=== PATIENT | female | born 1955 | race Caucasian/White ===

== ENCOUNTER → 2019-11-03 10:55 | Outpatient (BNVA) | payer BC, SELFPAY | PROVIDERS: Family Provider Family Medicine; PCP Family Medicine; Visit Provider Urology | DX: N32.81 Overactive bladder (principal); N39.41 Urge incontinence | CPT/HCPCS: 81001 ==

== ENCOUNTER → 2020-04-04 10:43 | Outpatient (BNVA) | payer BC, SELFPAY | PROVIDERS: Family Provider Family Medicine; PCP Family Medicine; Visit Provider Urology | DX: N39.41 Urge incontinence (principal); R35.8 Other polyuria | CPT/HCPCS: 81001 ==

== ENCOUNTER 2020-07-29 15:19 | Outpatient (CLI) | payer BC, SELFPAY ==
--- NOTE | 2020-07-29 | XR_ITS ---
WS: [id number] Cervical spine, AP, odontoid, lateral and neutral, flexion and extension views, 07/29/2020 Clinical Data: ARTHRALGIA AND NECK PAIN Comparison: Lateral cervical spine, 02/10/2013. Findings: No compression fractures are seen. The disc heights are normal. There is no prevertebral so ft tissue swelling. The odontoid is unremarkable. The soft tissues of the neck and the lung apices ar e normal. There is minimal osteoarthritic change of the anterior inferior aspect of C4, C5 and C6. On flexion there is mild subluxation of C2 on C3, C3 on C4, C4 on C5 and C5 on C6 of 0.3 cm. On extensi on or subluxations are reduced. There is no limitation of motion on flexion or extension. XR/XR cervical spine 4-5V [id number] Impression: 1. 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 2. Minimal multilevel flexion subluxation which reduces on extension.
== END 2020-07-29 15:20 | disposition home or self-care (01) ==
LOC: RAD 15:30
PROVIDERS: PCP Family Medicine; Visit Provider Family Medicine
DX: M54.2 Cervicalgia (principal); M25.50 Pain in unspecified joint
CPT/HCPCS: 72050

== ENCOUNTER 2020-08-22 15:14 | Outpatient (CLI) | payer MEDICARE, SELFPAY ==
--- NOTE | 2020-08-22 15:23 | MM_ITS ---
WS: [id number] SCREENING DIGITAL MAMMOGRAM WITH CAD HISTORY: SCREENING COMPARISON: 02/18/2019 and 07/09/2017 Bilateral CC and MLO views submitted. Computer aided detection analyzed. Breast composition: There are scattered areas of fibroglandular density. No suspicious masses, microc alcifications or architectural distortion. Benign calcifications in each breast. MM/[place] [id number] IMPRESSION: BI-RADS: 2-Benign FOLLOW UP: 1 Year Follow-up
== END 2020-08-22 15:15 | disposition home or self-care (01) ==
LOC: RADSHAW 15:22
PROVIDERS: PCP Family Medicine; Visit Provider Family Medicine
DX: Z12.31 Encounter for screening mammogram for malignant neoplasm of breast (principal)
CPT/HCPCS: 77067

== ENCOUNTER → 2020-10-03 11:01 | Outpatient (BNVA) | payer BC, SELFPAY | PROVIDERS: PCP Family Medicine; Visit Provider Nurse Practitioner Family | DX: N39.41 Urge incontinence (principal) | CPT/HCPCS: 81003 ==

== ENCOUNTER 2021-02-20 15:23 | Outpatient (CLI) | payer BC, SELFPAY ==
--- NOTE | 2021-02-20 15:35 | XR_ITS ---
WS: [id number] SCREENING DEXA SCAN [facility] CLINICAL INFORMATION: WELL ADULT EXAM, ARTHRITIS COMPARISON: None. FINDINGS: The L1-L4 bone mineral density measures 1.015 g/cm2. This corresponds to a T score score of -1.4 and Z score of 0.3. Left femoral neck bone mineral density measures 0.968 g/cm2. This corresponds to a T score of -0.3 an d Z score of 1.0. Right femoral neck bone mineral density measures 0.903 g/cm2. This corresponds to a T score -0.8of an d Z score of 0.5. Mean femoral neck bone mineral density measures 0.935 g/cm2. This corresponds to a T score of -0.6 an d Z score of 0.7. XR/XR DEXA axial skeleton* [id number] IMPRESSION: Osteopenia in the lumbar spine. Normal bone mineralization in the femoral necks . Patient's FRAX calculated 10 year probability for major osteoporotic fracture i s 10.8 % and osteoporotic hip fracture is 1.2%.
== END 2021-02-20 15:24 | disposition home or self-care (01) ==
PROVIDERS: PCP Family Medicine; Visit Provider Family Medicine
DX: Z00.00 Encounter for general adult medical examination without abnormal findings (principal); M19.90 Unspecified osteoarthritis, unspecified site; M85.88 Other specified disorders of bone density and structure, other site
CPT/HCPCS: 77080

== ENCOUNTER → 2021-06-12 11:13 | Outpatient (BNVA) | payer BC, SELFPAY | PROVIDERS: PCP Family Medicine; Visit Provider Urology | DX: N39.41 Urge incontinence (principal) | CPT/HCPCS: 81003 ==

== ENCOUNTER 2021-08-28 13:05 | Outpatient (CLI) | payer MEDICARE, SELFPAY ==
--- NOTE | 2021-08-28 13:24 | MM_ITS ---
WS: [id number] BILATERAL DIGITAL SCREENING MAMMOGRAPHY WITH CAD CLINICAL INFORMATION: SCREENING HISTORY: Screening mammogram. No current complaints. COMPARISON: August 22, 2020 TECHNIQUE: Bilateral CC and MLO views. FINDINGS: Scattered fibroglandular densities bilaterally. No suspicious focal mass, asymmetry, calcifications, or architectural distortion. Vascular calcification. Stable lucent centered calcification right breas t. No evidence of malignancy. MM/[place] [id number] IMPRESSION: BI-RADS: 2-Benign FOLLOW UP: 1 Year Follow-up Recommend return to annual screening mammography.
== END 2021-08-28 13:06 | disposition home or self-care (01) ==
LOC: RADSHAW 13:13
PROVIDERS: PCP Family Medicine; Visit Provider Family Medicine
DX: Z12.31 Encounter for screening mammogram for malignant neoplasm of breast (principal)
CPT/HCPCS: 77067

== ENCOUNTER → 2022-03-07 15:32 | Outpatient (BNVA) | payer MEDICARE, SELFPAY | PROVIDERS: PCP Family Medicine; Visit Provider Family Medicine | DX: R53.1 Weakness (principal); R10.9 Unspecified abdominal pain; K64.9 Unspecified hemorrhoids; K92.1 Melena; R53.83 Other fatigue; M19.90 Unspecified osteoarthritis, unspecified site; E55.9 Vitamin D deficiency, unspecified | CPT/HCPCS: 80053; 82306; 82607; 82728; 83550; 84443; 85025; 85045; 85651; 86140 ==

== ENCOUNTER → 2022-04-10 08:50 | Outpatient (BNVA) | payer MEDICARE, SELFPAY | PROVIDERS: PCP Family Medicine; Visit Provider Family Medicine | DX: Z20.822 Contact with and (suspected) exposure to COVID-19 (principal) | CPT/HCPCS: 87426 ==

== ENCOUNTER 2022-04-23 13:43 | Outpatient (CLI) | payer MEDICARE, SELFPAY ==
--- NOTE | 2022-04-23 13:50 | CTR_ITS ---
PROCEDURE INFORMATION: Exam: CT Abdomen And Pelvis With Contrast Exam date and time: 04/23/2022 3:00 PM Age: 67 years old Clinical indication: Abdominal pain; Generalized; Prior surgery; Surgery type: Hyst; Additional info: Weakness/generalized abdominal pain/rectal bleeding TECHNIQUE: Imaging protocol: Computed tomography of the abdomen and pelvis with contrast. Radiation optimization: All CT scans at this facility use at least one of these dose optimization techniques: automated exposure control; mA and/or kV adjustment per patient size (includes targeted exams where dose is matched to clinical indication); or iterative reconstruction. Contrast material: OMNI 350; Contrast volume: 95 ml; Contrast route: INTRAVENOUS (IV); COMPARISON: CT abdomen pelvis w con* [id number] 06/12/2019 10:50 AM RADIATION DOSE METRICS: Total DLP (mGy-cm): 869.72 FINDINGS: Liver: Normal. No mass. Gallbladder and bile ducts: Normal. No calcified stones. No ductal dilation. Pancreas: Normal. No ductal dilation. Spleen: Normal. No splenomegaly. Adrenal glands: Normal. No mass. Kidneys and ureters: Normal. No hydronephrosis. Stomach and bowel: Constipation. Diverticulosis without diverticulitis. Appendix: No evidence of appendicitis. Intraperitoneal space: Unremarkable. No free air. No significant fluid collection. Vasculature: Unremarkable. No abdominal aortic aneurysm. Lymph nodes: Unremarkable. No enlarged lymph nodes. Urinary bladder: Unremarkable as visualized. Reproductive: Unremarkable as visualized. Bones/joints: Unremarkable. No acute fracture. Soft tissues: Unremarkable. CT/CT abdomen pelvis w con* [id number] IMPRESSION: 1. Negative for contrast extravasation seen to indicate a source of active rectal bleeding as in provided history. Negative for acute inflammatory process in the abdomen or pelvis. 2. Constipation. 3. Diverticulosis without diverticulitis.
[2022-04-23] MEDS: barium sulfate 450 mL Oral Susp PO (14:29)
[2022-04-23] MEDS: iohexol 350 mg/mL 100 mL Btl IV (15:05)
== END 2022-04-23 13:44 | disposition home or self-care (01) ==
LOC: RAD 13:44
PROVIDERS: PCP Family Medicine; Visit Provider Family Medicine
DX: R53.1 Weakness (principal); R10.84 Generalized abdominal pain; K62.5 Hemorrhage of anus and rectum; K59.00 Constipation, unspecified; K57.90 Diverticulosis of intestine, part unspecified, without perforation or abscess without bleeding
CPT/HCPCS: 74177

== ENCOUNTER 2022-08-02 18:55 | Emergency (ER) | payer MEDICARE, SELFPAY ==
[2022-08-02 19:40] VITALS: BP 135/84; PULSE 92; RESP 18; TEMP 36.7; O2SAT 97
--- NOTE | 2022-08-02 21:12 | XRR_ITS ---
PROCEDURE INFORMATION: Exam: XR Left Ankle Exam date and time: 08/02/2022 9:39 PM Age: 67 years old Clinical indication: Pain; Ankle; Left; Additional info: Fall with pain and bruising TECHNIQUE: Imaging protocol: Radiologic exam of the Left ankle. Views: 3 or more views. COMPARISON: No relevant prior studies available. FINDINGS: Bones/joints: Punctate calcification at the fibular tip may reflect a small avulsion fracture. Soft tissues: Soft tissue swelling about the ankle. XR/XR ankle LT min 3V* [id number] IMPRESSION: 1. Soft tissue swelling about the ankle. 2. Punctate calcification at the fibular tip may reflect a small avulsion fracture.
--- NOTE | 2022-08-02 21:12 | XRR_ITS ---
PROCEDURE INFORMATION: Exam: XR Left Hip Exam date and time: 08/02/2022 9:39 PM Age: 67 years old Clinical indication: Pelvic pain; Additional info: Fall with pain and bruising TECHNIQUE: Imaging protocol: Radiologic exam of the Left hip. Views: 2 or 3 views hip with pelvis when performed. COMPARISON: CT abdomen pelvis w con* [id number] 04/23/2022 3:00 PM FINDINGS: Bones/joints: Unremarkable. No acute fracture. Soft tissues: Unremarkable. XR/XR hip LT 2-3V wo/w pel* [id number] IMPRESSION: No acute findings. If clinical concern for acute fracture remains, consider further evaluation with a CT scan .
--- NOTE | 2022-08-02 21:13 | ED_ITS ---
HPI - Fall General: Chief Complaint: Fall Stated Complaint: fall yesterday left side pain work comp Time Seen by Provider: 08/02/22 20:46 History of Present Illness: Patient reports that yesterday she was going down the steps at her work and missed the third step from the bottom. She reports that she fell and the left side of her body took the brunt of it. She denies hitting her head. She denies loss of consciousness. She has pain in her left shoulder, left hip, left ankle. She is ambulating without the aid of a walker. Associated symptoms-after fall: Reports neck pain; Denies chest pain, difficulty walking or headache(s) Review of Systems Const: Denies: fever(s) or chills Card: Denies: chest pain or palpitations Resp: Denies: dyspnea or non-productive cough Musc: Reports: neck pain, extremity pain and joint pain Neuro: Denies: headache(s), numbness in extremities, weakness in extremities, sensory changes, lack of coordination or difficulty walking [facility] ED PFSH: Medical History Polyuria POP-Q stage 2 cystocele Urgency incontinence Surgical History History of hysterectomy Hx of cataract surgery BILATERAL Family History Other CAD (coronary artery disease) Cancer Hypertension Social History Smoking and tobacco status: never smoked Alcohol intake: unknown Adopted: No Caregiver/support person: No Lives independently: Yes Marital status: Current occupational status: retired History of recent travel: No Current gender identity: Female Physical Exam Const: COMMON NORMALS: no acute distress, patient oriented x3 and alert Neck/C-Spine: OTHER: There is no tenderness to palpation to the cervical spine. No obvious bony deformity or step-off. No obvious soft tissue deformity. There is some tenderness to palpation left cervical paraspinal musculature. Patient does have full range of motion of the neck although it hurts to turn her head to the right Resp: COMMON NORMALS: normal respiratory effort, No use of accessory muscles and clear to auscultation bilaterally AUSCULTATION: clear to auscultation bilaterally Cardio: COMMON NORMALS: regular rate, regular rhythm, S1 normal heart sound present, S2 normal heart sound present and No murmurs present (Cardio) RATE: regular rate RHYTHM: regular rhythm HEART SOUNDS: S1 normal heart sound present and S2 normal heart sound present Back/Pelvis: OTHER: There is no vertebral point tenderness lumbar or thoracic spine. No obvious bony deformities or step-offs. Extremity: NARRATIVE EXTREMITY EXAM: Patient reports some tenderness to palpation to the left anterior shoulder. She has full range of motion of the left arm and shoulder. She has lateral and frontal abduction above shoulder height. She has posterior reach. No bruising or bony deformities appreciated. Patient reports pain to her left hip. Left lateral hip there is bruising noted no obvious bony deformity. Patient is ambulating with a steady gait. Left ankle is swollen and bruised along the dorsal lateral foot and lateral malleolus. There is no obvious bony deformity. Patient is slightly point tender to the lateral malleolus. CSM within normal limits with the exception of bruising. Pedal pulses palpable Neuro: COMMON NORMALS: patient oriented x3 SENSORIUM/ORIENTATION: Yes alert Course Vital Signs: Vital signs: Vital Signs Temperature 98.0 F 08/02/22 19:40 Pulse Rate 92 08/02/22 19:40 Respiratory Rate 18 08/02/22 19:40 Blood Pressure 135/84 08/02/22 19:40 Pulse Oximetry 97 08/02/22 19:40 Oxygen Delivery Me thod 08/02/22 19:40 MDM - Fall Medical Decision Making Consider contusion, fracture ankle, ankle sprain, hip contusion, hip fracture, shoulder contusion. I advised the patient that I do not have any suspicion for fracture of her shoulder or upper arm given her exam findings and full range of motion. I will go ahead and x-rayed the hip given her age and mechanism of injury however I do suspect a hip contusion over a fracture. Left ankle has bruising and swelling x-ray is ordered. X-ray shows a punctate calcification at the fibular tip which could reflect a small avulsion fracture. Given patient's bruising and point tenderness at the lateral lateral malleolus I will go ahead and treat as if this is an avulsion fracture. Placed patient in a walking boot. She declines crutches against my better judgment. We discussed the risk of fall and that clunky boot without using crutches however she states that she will not be able to use those at all at her place of employment. Place an order for case management to follow-up with orthopedics. Advised patient of conservative treatment at home including ice, rest, elevation of the extremity. X-ray of the hip did not show any acute fracture. Patient is bearing weight on the leg I have very little concern for osseous abnormality of the hip. We will treat conservatively for hip contusion. Follow-up with primary care. Return to the ER for any new or worsening symptoms. Lab Data Radiology Impressions Ankle X-Ray 08/02/22 21:12 IMPRESSION: 1. Soft tissue swelling about the ankle. 2. Punctate calcification at the fibular tip may reflect a small avulsion fracture. Hip/Pelvis X-Ray 08/02/22 21:12 IMPRESSION: No acute findings. If clinical concern for acute fracture remains, consider further evaluation with a CT scan . Discharge Plan Discharge Patient Disposition: Home Clinical Impression: Fall (on) (from) other stairs and steps, initial encounter, Avulsion fracture of distal fibula, Contusion of hip, left Condition: Stable Prescriptions: No Action Complete Multivitamin Tablet 1 tab PO DAILY amoxicillin 875 mg tablet 875 mg PO BID Qty: 20 0RF alprazolam 0.25 mg tablet 0.25 mg PO TID PRN (Reason: anxiety/stress) Qty: 30 1RF oxybutynin chloride 5 mg tablet 5 mg PO TID Qty: 90 3RF Myrbetriq 25 mg tablet extended release 24 hr See Rx Instructions .ROUTE .COMPLEX Qty: 30 11RF Dose Instruction: TAKE 1 TABLET BY MOUTH DAILY FOR OVERACTIVE BLADDER Rx Instructions: TAKE 1 TABLET BY MOUTH DAILY FOR OVERACTIVE BLADDER Discharge Orders: Discharge ED (Routine); Ordered 08/02/22 Ordered By: Eli Todd Referrals: West Colon DO [Primary Care Provider] - Discharge Diet: Usual diet Discharge Activity: Limit activity as instructed Patient Instructions: Avulsion Fracture (ED) Activity Restrictions/Additional Instructions: Use walking boot and try and limit weightbearing on the left leg until follow-up with orthopedics. Ice, rest, elevate the extremity. Follow-up with primary care as needed. Return to the ER for new or worsening symptoms. 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
--- NOTE | 2022-08-03 00:32 | PC.NURSE ---
patient needs charge for tomasz walking boot.
--- NOTE | 2022-08-03 09:00 | PC.SOCIAL ---
Addendum entered by Merle Haywood 08/16/22 12:15: Patient had a follow up appointment scheduled for 08.07.[address] Casas at ortho - patient did attend appointment. Original Note: Ortho F/u Referral sent to ortho scheduling, clinic to contact patient with appt date/time.
== END 2022-08-03 00:15 | disposition home or self-care (01) ==
PROVIDERS: Emergency Provider Nurse Practitioner Family; PCP Family Medicine
DX: S70.02XA Contusion of left hip, initial encounter (principal); S82.832A Other fracture of upper and lower end of left fibula, initial encounter for closed fracture; W10.8XXA Fall (on) (from) other stairs and steps, initial encounter; Y99.0 Civilian activity done for income or pay
CPT/HCPCS: 73502; 73610; 99283; E0114; L4360

== ENCOUNTER 2022-08-29 14:53 | Outpatient (CLI) | payer MEDICARE, SELFPAY ==
--- NOTE | 2022-08-29 15:07 | MM_ITS ---
WS: [id number] BILATERAL 3D TOMOSYNTHESIS DIGITAL SCREENING MAMMOGRAPHY WITH CAD CLINICAL INFORMATION: SCREENING HISTORY: Screening mammogram. Pain and soreness RIGHT breast COMPARISON: August 28, 2021 TECHNIQUE: Bilateral CC and MLO views. FINDINGS: Scattered fibroglandular densities bilaterally. No suspicious focal mass, asymmetry, calcifications, or architectural distortion. No evidence of malignancy. Vascular calcification. Lucent centered calci fication RIGHT breast. MM/[place] [id number] IMPRESSION: BI-RADS: 2-Benign FOLLOW UP: 1 Year Follow-up Recommend return to annual screening mammography.
== END 2022-08-29 14:54 | disposition home or self-care (01) ==
LOC: RAD 14:59
PROVIDERS: PCP Family Medicine; Visit Provider Family Medicine
DX: Z12.31 Encounter for screening mammogram for malignant neoplasm of breast (principal)
CPT/HCPCS: 77063; 77067

== ENCOUNTER → 2022-08-31 10:26 | Outpatient (BNVA) | payer MEDICARE, SELFPAY | PROVIDERS: PCP Family Medicine; Visit Provider Family Medicine | DX: Z00.00 Encounter for general adult medical examination without abnormal findings (principal); Z13.6 Encounter for screening for cardiovascular disorders; R10.9 Unspecified abdominal pain; K62.5 Hemorrhage of anus and rectum; R53.1 Weakness | CPT/HCPCS: 80053; 80061; 83540; 85651 ==

== ENCOUNTER → 2022-12-31 13:24 | Outpatient (BNVA) | payer MEDICARE, SELFPAY | PROVIDERS: PCP Family Medicine; Visit Provider Family Medicine | DX: R60.9 Edema, unspecified (principal); B88.9 Infestation, unspecified; N32.81 Overactive bladder | CPT/HCPCS: 80053; 84443; 85025 ==

== ENCOUNTER → 2023-02-25 18:20 | Outpatient (BNVA) | payer MEDICARE, SELFPAY | PROVIDERS: PCP Family Medicine; Visit Provider Registered Nurse Neonatal Intensive Care | DX: R05.9 Cough, unspecified (principal) | CPT/HCPCS: 87426 ==

== ENCOUNTER 2023-05-17 15:12 | Outpatient (CLI) | payer MEDICARE, SELFPAY ==
[2023-05-17 15:59] LABS: Basophils % 0.4 %; Eosinophils # 0.1 10^3/uL (0.0-0.8); Eosinophils % 0.7 %; Hematocrit 35.7 % (36-47); Lymphocytes # 2.1 10^3/uL (0.8-4.8); Lymphocytes % 30.2 %; Mean Corpuscular HGB Conc 34.2 g/dL (30-55); Mean Corpuscular Hemoglobin 33.8 pg (27-33); Mean Corpuscular Volume 98.9 fl (85-98); Mean Platelet Volume 10.5 fL (7.4-10.4); Monocytes # 0.4 10^3/uL (0.2-0.9); Monocytes % 6.2 %; Neutrophils # 4.23 10^3/uL (1.8-7.7); Neutrophils % 62.4 %; Nucleated Red Blood Cells % 0 %; Platelet Count 218 10^3/cmm (157-399); Red Blood Count 3.61 10^6/uL (3.85-5.65); Red Cell Distribution Width 13.9 % (12.1-15.1); White Blood Count 6.79 10^3/uL (3.29-11.43)
[2023-05-17 16:21] LABS: Estmated Average Glucose 111; Hemoglobin A1C 5.5 % (4.0-6.0)
[2023-05-17 16:29] LABS: Alanine Aminotransferase 12 U/L (0-33); Albumin Level 4.2 g/dL (3.5-5.2); Alkaline Phosphatase 55 U/L (35-105); Anion Gap 10.4 (5-19); Aspartate Amino Transferase 12 U/L (0-32); Blood Urea Nitrogen 15 mg/dL (8-23); Calcium 9.5 mg/dL (8.5-10.5); Carbon Dioxide 30 mmol/L (22-29); Chloride 107 mmol/L (98-107); Chol HDL Ratio 2.83 mg/dL (0.0-4.40); Cholesterol 204 mg/dL (0-200); Globulin 2.7 g/dL (1.3-4.6); Glomerular Filtration Rate 71.3 mL/min (90-130); Glucose 128 mg/dL (65-115); HDL Cholesterol 72 mg/dL (60-100); LDL Cholesterol Calculated 116 mg/dL (50-129); LDL HDL Ratio 1.61 RATIO (0.00-3.22); Osmolality Calculated 298 mOsm/kg (285-295); Potassium 4.4 mmol/L (3.5-5.1); Sodium 143 mmol/L (136-145); Total Bilirubin 0.4 mg/dL (0.15-1.2); Total Protein 6.9 g/dL (6.6-8.7); Triglycerides 78 mg/dL (0-150)
[2023-05-17 16:45] LABS: Vitamin B12 440 pg/mL (232-1245)
[2023-05-22 12:19] LABS: Vit D 1,25 (Oh)2, Total 38 pg/mL (18-72); Vit D2 1,25 (Oh)2 <8 pg/mL; Vit D3 1,25 (Oh)2 38 pg/mL
== END 2023-05-17 15:13 | disposition home or self-care (01) ==
PROVIDERS: PCP Family Medicine; Visit Provider Family Medicine
DX: Z00.00 Encounter for general adult medical examination without abnormal findings (principal); Z13.1 Encounter for screening for diabetes mellitus; Z13.6 Encounter for screening for cardiovascular disorders; R60.9 Edema, unspecified; R26.89 Other abnormalities of gait and mobility; F43.9 Reaction to severe stress, unspecified; E55.9 Vitamin D deficiency, unspecified
CPT/HCPCS: 36415; 80053; 80061; 82607; 82652; 83036; 85025

== ENCOUNTER 2023-06-03 14:00 | Outpatient (CLI) | payer MEDICARE, SELFPAY ==
--- NOTE | 2023-06-03 14:30 | XR_ITS ---
WS: [id number] SCREENING DEXA SCAN [employer] CLINICAL INFORMATION: Z13.820 - Encounter for screening for osteoporosis COMPARISON: 02/20/2021 FINDINGS: The L1-L4 bone mineral density measures 1.0. This corresponds to a T score score of -1.3 and Z score of 0.8. Left femoral neck bone mineral density measures 0.9. This corresponds to a T score of -0.9 and Z scor e of 0.8. Right femoral neck bone mineral density measures 0.8. This corresponds to a T score -1.4of and Z scor e of 0.3. Mean femoral neck bone mineral density measures 0.9. This corresponds to a T score of -1.1 and Z scor e of 0.6. IMPRESSION: Osteopenia lumbar spine. Osteopenia femoral necks. Patient's FRAX calculated 10 year probability for major osteoporotic fracture is 12.3% and osteoporot ic hip fracture is 2.1%. Bone mineral density in the lumbar spine increased 1.3% since 2020 Bone mineral density in the femoral necks decreased -7.3% since 2020
== END 2023-06-03 14:01 | disposition home or self-care (01) ==
PROVIDERS: PCP Family Medicine; Visit Provider Family Medicine
DX: Z00.00 Encounter for general adult medical examination without abnormal findings (principal); M85.89 Other specified disorders of bone density and structure, multiple sites; Z13.820 Encounter for screening for osteoporosis
CPT/HCPCS: 77080

== ENCOUNTER → 2023-06-10 13:25 | Outpatient (BNVA) | payer MEDICARE, SELFPAY | PROVIDERS: PCP Family Medicine; Visit Provider Family Medicine | DX: D53.9 Nutritional anemia, unspecified (principal); R26.89 Other abnormalities of gait and mobility; N32.81 Overactive bladder; B88.9 Infestation, unspecified; Z00.00 Encounter for general adult medical examination without abnormal findings; E03.9 Hypothyroidism, unspecified | CPT/HCPCS: 84443; 85025 ==

== ENCOUNTER → 2023-06-14 10:44 | Outpatient (BNVA) | payer MEDICARE, SELFPAY | PROVIDERS: PCP Family Medicine; Visit Provider Family Medicine | DX: D53.9 Nutritional anemia, unspecified (principal); Z00.00 Encounter for general adult medical examination without abnormal findings | CPT/HCPCS: 82746 ==

== ENCOUNTER 2023-06-17 15:08 | Outpatient (CLI) | payer MEDICARE, SELFPAY ==
--- NOTE | 2023-06-17 15:15 | MR_ITS ---
WS: [id number] MRI BRAIN WITH AND WITHOUT CONTRAST HISTORY: R26.89 - Other abnormalities of gait and mobility COMPARISON: None available. TECHNIQUE: Multiplanar imaging performed through the brain with MultiHance 10 ml's IV. No acute infarcts are seen. Beckham-white matter differentiation is well preserved. There is a focal are a of increased T1 signal in the RIGHT caudate. On the postcontrast images there is questionable incre ased enhancement of this T1 bright lesion. This area of abnormality measures 7 x 3 x 11 mm. Abnormali ty involves the caudate body and extends to the RIGHT ventricle. Additional moderate small vessel isc hemic changes throughout the periventricular white matter extending to the subcortical white matter a nd is diffuse. Ventricles and extra-axial spaces are normal. Clivus and pituitary gland are normal. Visualized posterior fossa and brainstem are also normal. No additional areas of abnormal enhancement. Dural venous sinuses are normal. Paranasal sinuses: Well aerated with no significant disease. Mastoid air cells: Normal. Calvarium and scalp: Normal. IMPRESSION: 1. Normal diffusion imaging. 2. T1 high signal intensity 7 x 3 x 11 mm lesion in the RIGHT caudate. There may be slight enhanceme nt on the postcontrast imaging. No hemorrhage. This will need surveillance imaging. Differential for high signal intensity T1 lesions include methemoglobin, melanin, lipid/dermoid, protein and minerals. No hemorrhage is evident. Recommend noncontrast head CT to evaluate for calcification or mineral con tent. Additional 6 to 8-week follow-up MRI brain with and without contrast should also be obtained. 3. Moderate small vessel ischemic disease.
[2023-06-17] MEDS: gadobenate dimeglumine 20 mL vial IV (16:41)
== END 2023-06-17 15:09 | disposition home or self-care (01) ==
PROVIDERS: PCP Family Medicine; Visit Provider Family Medicine
DX: F43.9 Reaction to severe stress, unspecified (principal); R26.89 Other abnormalities of gait and mobility; R60.9 Edema, unspecified; Z00.00 Encounter for general adult medical examination without abnormal findings
CPT/HCPCS: 70553; A9577

== ENCOUNTER 2023-06-27 09:47 | Emergency (ER) | payer MEDICARE, SELFPAY ==
[2023-06-27] VITALS (11 sets, daily range): BP systolic 122–174; BP diastolic 69–97; PULSE 74–92; RESP 16–18; TEMP 36.8; O2SAT 92–97
--- NOTE | 2023-06-27 09:51 | ECG_ITS ---
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 Measurements Intervals [place] Rate: 96 P: 64 AL: 140 QRS: 61 QRSD: 84 T: 52 QT: 321 QTc: 406 Interpretive Statements SINUS RHYTHM Compared to ECG 06/14/2019 22:23:29 Sinus arrhythmia no longer present T-wave abnormality no longer present Electronically Signed On 06-27-2023 21:32:26 CDT by Erin Flores M.D. [email or web address]
--- NOTE | 2023-06-27 09:51 | XRR_ITS ---
PROCEDURE INFORMATION: Exam: XR Chest Exam date and time: 06/27/2023 10:15 AM Age: 68 years old Clinical indication: Cough and dyspnea; Patient HX: Dyspnea/cough, anxiety/ams TECHNIQUE: Imaging protocol: Radiologic exam of the chest. Views: 1 view. Total images: 2 COMPARISON: CR XR chest 1V [id number] 06/14/2019 6:56 PM FINDINGS: Lungs: Benign granulomatous disease of the lung is noted. Pleural spaces: Unremarkable. No pleural effusion. No pneumothorax. Heart/Mediastinum: Unremarkable. No cardiomegaly. Bones/joints: Osseous structures are unchanged from the prior exam. XR/XR chest 1V portable [id number] IMPRESSION: No acute cardiopulmonary process.
--- NOTE | 2023-06-27 09:51 | CTR_ITS ---
PROCEDURE INFORMATION: Exam: CT Head Without Contrast Exam date and time: 06/27/2023 10:30 AM Age: 68 years old Clinical indication: Altered mental status/memory loss; Confusion or disorientation; Additional info: AMS TECHNIQUE: Imaging protocol: Computed tomography of the head without contrast. Total images: 1334 Radiation optimization: All CT scans at this facility use at least one of these dose optimization techniques: automated exposure control; mA and/or kV adjustment per patient size (includes targeted exams where dose is matched to clinical indication); or iterative reconstruction. REPORTING DATA: Count of CT and Cardiac NM exams in prior 12 months: This patient has received 0 known CTs and 0 known cardiac nuclear medicine studies in the 12 months prior to the current study. COMPARISON: MR head wo/w con [id number] 06/17/2023 4:09 PM RADIATION DOSE METRICS: Total DLP (mGy-cm): 987.84 FINDINGS: Brain: Chronic white matter ischemic changes are present. Cerebral ventricles: No ventriculomegaly. Paranasal sinuses: Visualized sinuses are unremarkable. No fluid levels. Mastoid air cells: Visualized mastoid air cells are well aerated. Bones/joints: Unremarkable. No acute fracture. Soft tissues: Unremarkable. CT/CT head wo con* [id number] IMPRESSION: No acute intracranial abnormality.
[2023-06-27 10:07] LABS: Basophils % 0.3 %; Eosinophils % 0.2 %; Hematocrit 37.4 % (36-47); Lymphocytes # 1.6 10^3/uL (0.8-4.8); Lymphocytes % 27.8 %; Mean Corpuscular HGB Conc 34.8 g/dL (30-55); Mean Corpuscular Hemoglobin 33.9 pg (27-33); Mean Corpuscular Volume 97.4 fl (85-98); Mean Platelet Volume 10.3 fL (7.4-10.4); Monocytes # 0.4 10^3/uL (0.2-0.9); Monocytes % 7.3 %; Neutrophils # 3.78 10^3/uL (1.8-7.7); Neutrophils % 64.4 %; Nucleated Red Blood Cells % 0 %; Platelet Count 214 10^3/cmm (157-399); Red Blood Count 3.84 10^6/uL (3.85-5.65); Red Cell Distribution Width 13.2 % (12.1-15.1); White Blood Count 5.87 10^3/uL (3.29-11.43)
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
[2023-06-27 10:33] LABS: Alanine Aminotransferase 15 U/L (0-33); Albumin Level 4.5 g/dL (3.5-5.2); Alkaline Phosphatase 56 U/L (35-105); Aspartate Amino Transferase 14 U/L (0-32); Blood Urea Nitrogen 8 mg/dL (8-23); Calcium 9.9 mg/dL (8.5-10.5); Carbon Dioxide 28 mmol/L (22-29); Chloride 105 mmol/L (98-107); Globulin 2.6 g/dL (1.3-4.6); Glomerular Filtration Rate 83.2 mL/min (90-130); Glucose 112 mg/dL (65-115); Osmolality Calculated 293 mOsm/kg (285-295); Sodium 142 mmol/L (136-145); Total Bilirubin 0.6 mg/dL (0.15-1.2); Total Protein 7.1 g/dL (6.6-8.7)
[2023-06-27 10:34] LABS: Troponin(5th) Baseline 11 ng/L (0-10)
--- NOTE | 2023-06-27 10:46 | PC.NURSE ---
Pt expressed thoughts of SI to charge nurse - per Dr Nguyen, pt lacks the mental capacity as she has dementia.
--- NOTE | 2023-06-27 10:49 | PC.NURSE ---
Pt attempted to void a urine sample - pt missed the hat.
[2023-06-27] MEDS: LORazepam 1 mg Tablet PO (10:52)
--- NOTE | 2023-06-27 11:28 | PC.NURSE ---
PHYSICIAN NOTIFIED OF PT SI ASSESSMENT FINDINGS. PHYSICIAN STATED WE WILL NOT PURSUE PSYCHIATRIC CARE AT THIS TIME. DUE TO PT MENTAL CAPACITY.
--- NOTE | 2023-06-27 11:59 | ECG_ITS ---
[facility] Test Date: 2023-06-27 Pat Name: Laurie Rogers Department: Room: Gender: Female Digital Media Intern: : 1955 Requested By: Jagjit Mike Order Number: [id number] Caroline MD: Erin Flores M.D. Measurements Intervals [place] Rate: 92 P: 52 TX: 137 QRS: 54 QRSD: 85 T: 48 QT: 330 QTc: 408 Interpretive Statements SINUS RHYTHM WITH OCCASIONAL VENTRICULAR PREMATURE COMPLEXES Compared to ECG 06/27/2023 09:58:30 Ventricular premature complex(es) now present Electronically Signed On 06-27-2023 21:39:02 CDT by Erin Flores M.D. [id number]
[2023-06-27 12:39] LABS: Troponin 5 2HR 11.07 ng/L (0-10)
[2023-06-27 12:40] LABS: Troponin 5 2HR Delta 0.07 ABS# (0-10)
[2023-06-27 13:01] LABS: Add Urine Microscopic? NO; Charge for UA Resulting for Rev
[2023-06-27 13:13] LABS: Thyroid Stimulating Hormone 1.27 uIU/mL (0.27-4.20)
[2023-06-27 13:19] LABS: Bilirubin Urine Neg (Negative); Blood Urine Neg (Negative); Glucose Urine UA Norm (Normal); Ketones Urine Negative (Negative); Leukocyte Esterase Urine Negative (Negative); Nitrate Urine Negative (Negative); Protein Urine Neg (Negative); Sulfosalicylic Acid Urine Negative (Negative); Urine Appearance Clear (CLEAR); Urine Color Yellow (Yellow); Urobilinogen Urine Norm (Negative); pH Urine 8 (5-7)
[2023-06-27 13:25] LABS: Acetaminophen < 5.0 ug/mL (10-30); Alcohol Level < 10 mg/dL (0-10); Salicylate < 0.3 mg/dL (3-10)
[2023-06-27 15:05] LABS: Amphetamines Screen Urine Negative (Negative); Barbiturates Screen Urine Negative (Negative); Benzodiazepines Screen Urine Positive (Negative); Cocaine Screen Urine Negative (Negative); Opiate Screen Urine Negative (Negative); PCP Screen Urine Negative (Negative); THC Screen Urine Negative (Negative)
[2023-06-27 15:23] LABS: SARS Covid-2 Antigen negative (Negative)
--- NOTE | 2023-06-27 15:51 | ECG_ITS ---
[facility] Test Date: 2023-06-27 Pat Name: Laurie Rogers Department: Room: Gender: Female Genetic Coordinator: : 1955 Requested By: Jagjit Mike Order Number: [id number] Caroline MD: Erin Flores M.D. Measurements Intervals [place] Rate: 87 P: 54 DE: 138 QRS: 49 QRSD: 86 T: 50 QT: 340 QTc: 410 Interpretive Statements SINUS RHYTHM WITH OCCASIONAL VENTRICULAR PREMATURE COMPLEXES Compared to ECG 06/27/2023 11:59:22 No significant changes Electronically Signed On 06-27-2023 21:39:24 CDT by Erin Flores M.D. [email or web address] Sourcebox/store/[id number]
[2023-06-27 16:32] LABS: Troponin 5 6HR 11.47 ng/L (0-10)
[2023-06-27 16:35] LABS: Troponin 5 6HR Delta 0.47 ng/L (0-12)
== END 2023-06-28 00:53 ==
PROVIDERS: Emergency Provider Family Medicine; PCP Family Medicine
DX: F41.9 Anxiety disorder, unspecified (principal); R45.851 Suicidal ideations; Z11.52 Encounter for screening for COVID-19
CPT/HCPCS: 36415; 70450; 71045; 80053; 80306; 80307; 81003; 84443; 84484; 85025; 87426; 93005; 99285

== ENCOUNTER 2023-08-20 13:08 | Emergency (ER) | payer MEDICARE, SELFPAY ==
[2023-08-20] VITALS (10 sets, daily range): BP systolic 108–126; BP diastolic 57–74; PULSE 80–107; RESP 18; TEMP 36.9; O2SAT 97–98; BMI 18.3
--- NOTE | 2023-08-20 13:14 | XRR_ITS ---
PROCEDURE INFORMATION: Exam: XR Chest Exam date and time: 08/20/2023 1:21 PM Age: 68 years old Clinical indication: Cough and dyspnea; Additional info: Dyspnea/cough TECHNIQUE: Imaging protocol: Radiologic exam of the chest. Views: 1 view. COMPARISON: CR XR chest 1V portable [id number] 06/27/2023 10:15 AM FINDINGS: Lungs: Minimal atelectasis or infiltrate at the lateral left lung base. Pleural spaces: Unremarkable. No pleural effusion. No pneumothorax. Heart/Mediastinum: Unremarkable. No cardiomegaly. Bones/joints: Unremarkable. XR/XR chest 1V portable [id number] IMPRESSION: Minimal opacity on the left.
--- NOTE | 2023-08-20 13:14 | ECG_ITS ---
[facility] Test Date: 2023-08-20 Pat Name: Laurie Rogers Department: Room: Gender: Female Inventory Specialist Manager: : 1955 Requested By: Jagjit Mike Order Number: [id number] Caroline MD: Ruthy Walton M.D. Measurements Intervals [place] Rate: 85 P: 28 AL: 131 QRS: 48 QRSD: 85 T: 55 QT: 337 QTc: 401 Interpretive Statements SINUS RHYTHM Compared to ECG 06/27/2023 15:53:08 Ventricular premature complex(es) no longer present Electronically Signed On 08-20-2023 13:39:39 JOB COACHING by Ruthy Walton M.D. [email or web address] [email or web address] hospitalRenrenmoneycleveland clinic medina hospitalNonstop [email or web address]/store/[id number]
--- NOTE | 2023-08-20 13:24 | W.ED.GENADLT ---
HPI - General Adult General: Chief complaint: Altered Mental Status Stated complaint: AMS Time Seen by Provider: 08/20/23 13:13 Source: patient Mode of arrival: EMS History of Present Illness: 68-year-old female presents emergency room with plan altered mental status. Was seen her previously with some altered mental status and anxiety look like she had onset of dementia she had made comments about suicidal thoughts and she was transferred to geriatric psychiatry. She returns today via EMS with altered mental status she tells me she is living at her son's in her carotid there is so they brought her here. She denies any chest pain abdominal pain dysuria urgency or frequency nausea vomiting diarrhea. No cough or shortness of breath. She has difficult time vocalized to me exactly why she was brought here today. Discussed with the nurse who took report from EMS. Patient does seem to getting more more confused at home her dementia has been progressively worsening. She has been difficult for the family to manage she was rummaging around tearing up papers and other recurrent activities that they are having difficult time redirecting her from. Family arrived stated that they sent the patient in because they just cannot manage her at this point. States she has not been taking any of her medications at home. They had seen Dr. Neff and tell me that he had taken him off of her medications. Onset (ago): unknown Relieving factors: none Exacerbating factors: none Associated symptoms: Reports confusion; Deny chest pain, cough, diaphoresis, decreased appetite, dyspnea, fevers/chills, seizures, short of breath or weakness Review of Systems Const: Denies: diaphoresis Card: Denies: chest pain Resp: Denies: dyspnea GI: Denies: abdominal pain : Denies: dysuria, urinary frequency or urinary urgency Neuro: Reports: confusion [facility] ED PFSH: Medical History Polyuria Urgency incontinence POP-Q stage 2 cystocele Surgical History History of hysterectomy Hx of cataract surgery BILATERAL Family History Other CAD (coronary artery disease) Cancer Hypertension Social History Smoking and tobacco/nicotine status: never used tobacco/nicotine Alcohol intake: unknown Substance/Drug Use: never Adopted: No Caregiver/support person: No Lives independently: Yes Marital status: Current occupational status: retired Current gender identity: Female Physical Exam Const: COMMON NORMALS: no acute distress GENERAL APPEARANCE: cooperative and comfortable ORIENTATION/CONSCIOUSNESS: Yes awake and Yes confused HENMT: COMMON NORMALS: normocephalic, atraumatic and hearing grossly normal bilaterally HEAD & SCALP: normocephalic and atraumatic Resp: COMMON NORMALS: normal respiratory effort, No retractions, No use of accessory muscles and clear to auscultation bilaterally AUSCULTATION: clear to auscultation bilaterally Cardio: COMMON NORMALS: regular rate, regular rhythm and No murmurs present (Cardio) RATE: regular rate RHYTHM: regular rhythm GI: COMMON NORMALS: Soft to palpation and No hepatosplenomegaly present AUSCULTATION: Yes normoactive bowel sounds PALPATION: Yes Soft to palpation, No Tenderness to palpation present (GI), No Guarding due to palpation present (GI) and Yes No hepatosplenomegaly present Extremity: COMMON NORMALS: normal to inspection, capillary refill normal, no clubbing, cyanosis or edema, no calf tenderness and no pedal edema Skin: COMMON NORMALS: no rashes or lesions noted GENERAL SKIN EXAM: no rashes or lesions noted Course Vital Signs: Vital signs: Vital Signs Temperature 98.4 F 08/20/23 19:17 Pulse Rate 107 H 08/20/23 19:17 Respiratory Rate 18 08/20/23 19:17 Blood Pressure 108/60 08/20/23 19:17 Pulse Oximetry 98 08/20/23 19:17 Oxygen Delivery Me thod Room Air 08/20/23 18:36 MDM - General Adult Medical Decision Making Progressive dementia. Patient awake and alert she is aware of person. No acute findings she does need to go to the correction I contacted Dr. Burton primary care doctor he agrees he has been encouraged family to consider this. I do not have anything acute to admit the patient for at this point. Will discharge her home with family encouraged her to follow-up with Dr. Shafer for correction placement case management here is beyond start the process to help expedite things. Medical Records I reviewed the patient's medical records. Lab Data I reviewed the patient's lab results. 08/20/23 12:43 08/20/23 12:43 Radiology Impressions Chest X-Ray 08/20/23 13:14 IMPRESSION: Minimal opacity on the left. Laboratory Results WBC 7.04 10^3/uL (3.29-11.43) 08/20/23 12:43 RBC 3.68 10^6/uL (3.85-5.65) L 08/20/23 12:43 Hgb 12.40 g/dL (11.27-16.99) 08/20/23 12:43 Hct 37.0 % (36-47) 08/20/23 12:43 MCV 100.5 fl (85-98) H 08/20/23 12:43 MCH 33.7 pg (27-33) H 08/20/23 12:43 MCHC 33.5 g/dL (30-55) 08/20/23 12:43 RDW 14.7 % (12.1-15.1) 08/20/23 12:43 Plt Count 265 10^3/cmm (157-399) 08/20/23 12:43 MPV 10.0 fL (7.4-10.4) 08/20/23 12:43 Neut % (Auto) 58.8 % 08/20/23 12:43 Lymph % (Auto) 32.4 % 08/20/23 12:43 [place] % (Auto) 6.5 % 08/20/23 12:43 Eos % (Auto) 1.8 % 08/20/23 12:43 Baso % (Auto) 0.1 % 08/20/23 12:43 Neut # (Auto) 4.13 10^3/uL (1.8-7.7) 08/20/23 12:43 Lymph # (Auto) 2.3 10^3/uL (0.8-4.8) 08/20/23 12:43 [place] # (Auto) 0.5 10^3/uL (0.2-0.9) 08/20/23 12:43 Eos # (Auto) 0.1 10^3/uL (0.0-0.8) 08/20/23 12:43 Baso # (Auto) 0.0 10^3/uL (0.0-0.1) 08/20/23 12:43 Nucleated RBC % (auto) 0 % 08/20/23 12:43 Nucleated RBCs # 0.0 /100WBC 08/20/23 12:43 Sodium 138 mmol/L (136-145) 08/20/23 12:43 Potassium 3.7 mmol/L (3.5-5.1) 08/20/23 12:43 Chloride 102 mmol/L (98-107) 08/20/23 12:43 Carbon Dioxide 25 mmol/L (22-29) 08/20/23 12:43 Anion Gap 14.7 (5-19) 08/20/23 12:43 BUN 18 mg/dL (8-23) 08/20/23 12:43 Creatinine 0.7 mg/dL (0.5-0.9) 08/20/23 12:43 GFR Calculation 83.2 mL/min (90-130) L 08/20/23 12:43 Glucose 132 mg/dL (65-115) H 08/20/23 12:43 Calculated Osmolality 290 mOsm/kg (285-295) 08/20/23 12:43 Calcium 9.6 mg/dL (8.5-10.5) 08/20/23 12:43 Total Bilirubin 0.4 mg/dL (0.15-1.2) 08/20/23 12:43 AST 25 U/L (0-32) 08/20/23 12:43 ALT 48 U/L (0-33) H 08/20/23 12:43 Alkaline Phosphatase 66 U/L (35-105) 08/20/23 12:43 Creatine Kinase 57 U/L (26-192) 08/20/23 12:43 Total Protein 7.0 g/dL (6.6-8.7) 08/20/23 12:43 Albumin 4.0 g/dL (3.5-5.2) 08/20/23 12:43 Globulin 3.0 g/dL (1.3-4.6) 08/20/23 12:43 Urine Color Yellow (Yellow) 08/20/23 15:29 Urine Appearance Clear (CLEAR) 08/20/23 15:29 Urine pH 5 (5-7) 08/20/23 15:29 Ur Specific [place] 1.020 (1.005-1.030) 08/20/23 15:29 Urine Protein Neg (Negative) 08/20/23 15:29 Urine Glucose (UA) Norm (Normal) 08/20/23 15:29 Urine Ketones 1+ (Negative) H 08/20/23 15:29 Urine Blood Neg (Negative) 08/20/23 15:29 Urine Nitrate Negative (Negative) 08/20/23 15:29 Urine Bilirubin Neg (Negative) 08/20/23 15:29 Urine Urobilinogen Norm mg/dL (Negative) 08/20/23 15:29 Ur Leukocyte Esterase Negative (Negative) 08/20/23 15:29 Salicylates < 0.3 mg/dL (3-10) L 08/20/23 12:43 Acetaminophen < 5.0 ug/mL (10-30) L 08/20/23 12:43 Ethyl Alcohol < 10 mg/dL (0-10) 08/20/23 12:43 All radiology interpretation(s) finalized by discharge Discharge Plan Discharge Patient Disposition: Home Clinical Impression: Dementia Condition: Stable Prescriptions: No Action citalopram 10 mg tablet 10 mg PO BID olanzapine [Zyprexa] 2.5 mg Tablet 2.5 mg PO BID zaleplon [Sonata] 5 mg Capsule 10 mg PO BEDTIME Discharge Orders: Discharge ED (Routine); Ordered 08/20/23 Ordered By: Jagjit Nguyen Referrals: West Colon DO [Primary Care Provider] - Discharge Diet: Usual diet Patient Instructions: Dementia (ED), Opioid Safety, Pain Management Activity Restrictions/Additional Instructions: Thank you for choosing [facility] for your healthcare needs today. Please realize this is an emergency room and that we are providing you with a medical screening exam and this may not be complete and all inclusive of all the testing and or work up that you may need to determine your ailment or severity of your illness. It is very important that you follow up as instructed or that you return to the Emergency Department should you have concerns or if your condition changes or worsens in any way. You were seen today for behavioral issues and confusion. There is no acute medical issue present at this time. Have discussed with your primary care provider we both recommend placement in a correction. He should continue the citalopram olanzapine and Sonata. Recheck with your primary care provider this week. Coding Level of Care Code ED Home Stereo Equipment Installer for Kwan Meehan
[2023-08-20 13:39] LABS: Basophils % 0.1 %; Eosinophils # 0.1 10^3/uL (0.0-0.8); Eosinophils % 1.8 %; Lymphocytes # 2.3 10^3/uL (0.8-4.8); Lymphocytes % 32.4 %; Mean Corpuscular HGB Conc 33.5 g/dL (30-55); Mean Corpuscular Hemoglobin 33.7 pg (27-33); Mean Corpuscular Volume 100.5 fl (85-98); Monocytes # 0.5 10^3/uL (0.2-0.9); Monocytes % 6.5 %; Neutrophils # 4.13 10^3/uL (1.8-7.7); Neutrophils % 58.8 %; Nucleated Red Blood Cells % 0 %; Platelet Count 265 10^3/cmm (157-399); Red Blood Count 3.68 10^6/uL (3.85-5.65); Red Cell Distribution Width 14.7 % (12.1-15.1); White Blood Count 7.04 10^3/uL (3.29-11.43)
[2023-08-20 14:06] LABS: Alanine Aminotransferase 48 U/L (0-33); Alkaline Phosphatase 66 U/L (35-105); Anion Gap 14.7 (5-19); Aspartate Amino Transferase 25 U/L (0-32); Blood Urea Nitrogen 18 mg/dL (8-23); Calcium 9.6 mg/dL (8.5-10.5); Carbon Dioxide 25 mmol/L (22-29); Chloride 102 mmol/L (98-107); Creatine Phosphokinase 57 U/L (26-192); Glomerular Filtration Rate 83.2 mL/min (90-130); Glucose 132 mg/dL (65-115); Osmolality Calculated 290 mOsm/kg (285-295); Potassium 3.7 mmol/L (3.5-5.1); Sodium 138 mmol/L (136-145); Total Bilirubin 0.4 mg/dL (0.15-1.2)
--- NOTE | 2023-08-20 14:06 | CT_ITS ---
WS: [id number] CT HEAD NONCONTRAST HISTORY: Altered mental status TECHNIQUE: Contiguous axial imaging performed through the brain in 2.5 mm imaging. Bone and soft tiss ue windows. Sagittal and coronal reformats reviewed. All CT scans at [facility] use at least one of these dose optimization techniques: automated exposure control; mA and/or kV adjustment per pa tient size (includes targeted exams where dose is matched to clinical indication); or iterative recon struction. DLP: 1007.83 mGy.cm COMPARISON: 06/27/2023 No acute intracranial hemorrhage, midline shift or mass effect. Moderate atrophy and small vessel ischemic changes. Confluent white matter disease surrounds the vent ricles. Mild atrophy and volume loss of the cerebellum. Ventricles: Normal size with no hydrocephalus. Paranasal sinuses: As visualized are clear. Mastoid air cells: Well pneumatized. Calvarium and scalp: Skull is intact with no soft tissue edema or swelling. IMPRESSION: 1. No acute intracranial hemorrhage or edema. 2. Moderate atrophy and small vessel ischemic disease. Similar to the study of 06/27/2023
[2023-08-20 14:29] LABS: Acetaminophen < 5.0 ug/mL (10-30); Alcohol Level < 10 mg/dL (0-10); Salicylate < 0.3 mg/dL (3-10)
--- NOTE | 2023-08-20 14:36 | PC.NURSE ---
spoke with Kevin- patients son- he is refusing to return to the hospital as he is not willing to take mother home and would like her to be on a 96 hour hold- examples given- open the door when going down the road and not being able to open the door to the house when she goes outside. son states he will be available by phone as he is taking care of other things.
--- NOTE | 2023-08-20 14:48 | PC.PHAR ---
pt unable to verify medications- spoke with and stated the pt should only be on celexa 10mg bid filled 07/18/23 30d/s-zyprexa 2.5mg bid filled 07/18/23 30d/s and sonata 5mg take 10mg hs filled 07/18/23 30d/s-pts son states the pt isnt taking any medications but does take prn lorazepam 0.5mg tid prn -trospium 20mg bid prn filled 07/18/23 30d/s and mirtazapine odt 15mg hs prn filled 07/18/23 30d/s -er dr states to just put in what wanted the pt to take-
--- NOTE | 2023-08-20 15:05 | PC.SOCIAL ---
Case Management CM to room to see patient and she is demented. CM discussed w/ Dr. Delacruz and he reports that family has left, stating that they cannot care for the patient. Dr. Delacruz does report that patient was admitted to the [facility] unit a couple of months ago. CM discussed that patient would need a Level 2 and a chcf pay source in order to go to SNF. CM did call Kevin Nava (son) @ [phone] and he reports that he is @ [facility] completing 96 hour hold paperwork. CM explained that patient has been dx'd w/ dementia and that dx does not require psychiatric care. CM explained that if family is no longer able to care for patient that it would require NH placement in a dementia unit and that since patient does not have a pay source for longeterm they would have to private pay for NH until [facility] could be applied for. He reports that is not an option and that he is going to complete the 96 hour hold paperwork and go throught with that and then he hangs up on .
--- NOTE | 2023-08-20 15:36 | PC.NURSE ---
attempted to call Kevin
--- NOTE | 2023-08-20 15:36 | PC.NURSE ---
attempted to call lacho- Kevin- call went to voicemail and there was no message to confirm who we were calling so no message was left. called son- Gardenia- second contact- gardenia states he does understand the situation but he does not live in [place]- Gardenia would like us to contact Trinidad- patient daughter in law- to so Rickey Nava- he provided the number [phone] called BRIGITTE Abdi- spoke with her and explained the situation that the patient is discharged, Dr Nguyen and Dr Neff are working with social worker masters to get the patient placed in a nursing facility as quickly as possible but the patient is not going to be able to stay in the ED until admission, Trinidad states she understands- recap of previous calls given to Trinidad- Trinidad states she will be calling Kevin herself and will have him come to the ED quickly. Trinidad was advised that is no one picks up the patient that we will call Adult protective services for abandonment. requested that she let the ED know what is going on by 1640 Primary nurse and physician updated
[2023-08-20 15:48] LABS: Add Urine Microscopic? NO; Charge for UA Resulting for Rev
[2023-08-20 16:10] LABS: Urine Appearance Clear (CLEAR); Urine Color Yellow (Yellow)
[2023-08-20 16:11] LABS: Bilirubin Urine Neg (Negative); Blood Urine Neg (Negative); Glucose Urine UA Norm (Normal); Ketones Urine 1+ (Negative); Leukocyte Esterase Urine Negative (Negative); Nitrate Urine Negative (Negative); Protein Urine Neg (Negative); Urobilinogen Urine Norm (Negative); pH Urine 5 (5-7)
--- NOTE | 2023-08-20 16:36 | PC.NURSE ---
spoke to Kevin to make arrangements for him to supervisor picking crew his mother, Kevin states he will only come get her if the Doctor will sign an order that the patient is not a danger to his family or children, this RN advised Kevin that the Doctor has signed off that the patient is well enough to not admit into the hospital, Kevin advised that the patient continues to drop pills and other items that are a danger to his family even after he continues to talk with her about this behavior. Kevin was very upset, advised Kevin that is he decides not to supervisor picking crew his mother, the patient, then we will have to call Adult protective services, Kevin became very upset. advised this is not something we like to do but we have to do it. Kevin advised he would be calling the authorities himself- called ended- Kevin did call back and stated he had called the authorities the police dept and would be waiting for them to contact him and advise him of what to do before he decides if he will take the patient, his mother, home
--- NOTE | 2023-08-20 17:15 | PC.NURSE ---
pt presented to ed via ems, report stated family called stating pt had a altered mental status. while assisting pt to bed and orienting to room she stated she was brought here because her son did not want her there anymore. I asked the pt if something happened today and she stated yes it wasn't good. no family arrived with ems. pt hesitant to answer questions about her safety and home environment afraid she is going to get her son in trouble. please see charge nurse notes regarding contact with family and abandonment. APS hotline made at 1700 no report number available. Kellie multifold operator 9 for reference.
--- NOTE | 2023-08-20 17:50 | PC.NURSE ---
patient's son called and states after talking with many people he will be coming to get his mother. 30-60 min away
--- NOTE | 2023-08-20 19:16 | PC.NURSE ---
Pt son Kevin arrived at 1900. Discharge instructions given to son and pt. Son verbalized understanding.
--- NOTE | 2023-08-23 08:39 | PC.SOCIAL ---
Late Entry for 08/20. Was notified by ER staff that physician wanted us to discuss chcf placement. Spoke with patient's son Kevin in regards to this. He states that they cannot private pay, and that he feels that something more is wrong with patient more than dementia. Provided that Dr. Nguyen will complete a thorough medical workup of patient, however we still needed to discuss discharge planning for patient in the event there is no medical necessity to admit patient. He states that he will not be coming to pick patient up today, regardless of whether she is discharged or not. CM explained that he needed to prioritize getting a medicaid application started on patient, as it would be a terminal operations supervisor payer source for patient to live in a SNF. He verbalized understanding. Hotline call was placed; line was busy and stated to complete online. Unable to proceed with completion online. Spoke with Naomi Hernandez, with [facility], who directed me to her curing room supervisor Araceli, who took call and information. She then had her curing room supervisor, Silvia call me. Silvia reported that she had spoke with son and they will be in to pick patient up. 08/23/23- Patient's son Carlos Logan calls and states that patient is refusing to take her medications, and refuses to go to a SNF. He states that his brother, Kevin Mckeon, said that he couldn't deal with her anymore and dumped her on her toxic relationship with her ex-boyfriend. Called and spoke with Naomi Hernandez, and provided Carlos's phone number. She is going to call him.
== END 2023-08-20 19:19 | disposition home or self-care (01) ==
PROVIDERS: Emergency Provider Family Medicine; PCP Family Medicine
DX: F03.90 Unspecified dementia, unspecified severity, without behavioral disturbance, psychotic disturbance, mood disturbance, and anxiety (principal)
CPT/HCPCS: 70450; 71045; 80053; 80307; 81003; 82550; 85025; 93005; 99285

== ENCOUNTER → 2023-10-15 07:17 | Outpatient (BNVA) | payer MEDICARE, SELFPAY | PROVIDERS: PCP Family Medicine; Referring Provider Family Medicine; Visit Provider Psychiatry & Neurology Neurology | DX: R41.3 Other amnesia (principal); R93.0 Abnormal findings on diagnostic imaging of skull and head, not elsewhere classified; R29.90 Unspecified symptoms and signs involving the nervous system; G31.9 Degenerative disease of nervous system, unspecified; R26.89 Other abnormalities of gait and mobility; I63.9 Cerebral infarction, unspecified; G45.9 Transient cerebral ischemic attack, unspecified; E55.9 Vitamin D deficiency, unspecified | CPT/HCPCS: 36415; 82306; 82607; 83735; 83921; 85651; 86160; 86162; 86235; 86255; 86376; 86431; 99203 ==

== ENCOUNTER 2023-11-04 11:50 | Outpatient (CLI) | payer OTHER, SELFPAY ==
--- NOTE | 2023-11-04 11:45 | USCV_ITS ---
Laurie Rogers Age: 68 Gender: F : 1955 Exam Date: 11/04/2023 11:58 Ordering Phys: Matt Bazzi MD Technologist: CT [place] [facility] [place]: dizziness Risk Factors: Previous Vascular Surgery: Right Brachial BP: / Left Brachial BP: / Right Left Velocity (cm/s) Spectral Plaque Velocity (cm/s) Spectral Plaque Syst/Diast Broadening Syst/Diast Broadening 89.30/ 18.00 Prox CCA 95.10 / 17.80 100.70/20.60 Mid CCA 74.70 / 14.40 98.10/ 19.30 Distal CCA 84.90 / 19.70 77.00/ 15.00 Prox ICA 92.80 / 21.30 68.20/ 18.80 Mid ICA 56.10 / 14.80 69.40/ 22.60 Distal ICA 52.10 / 14.10 86.90 ECA 84.90 0.70 ICA/CCA 0.90 Antegrade Vertebral Antegrade 52.80/ 12.20 cm/s 59.10/ 8.70 cm/s Tri Subclavian Tri CONCLUSIONS Right ICA stenosis <50%. Mild atheromatous plaque right carotid bulb/ICA. Left ICA stenosis <50%. Mild atheromatous plaque left carotid bulb/ICA. Normal antegrade Doppler flow noted in the left vertebral artery. Normal antegrade Doppler flow noted in the right vertebral artery. Mike Oneil MD (Electronically Signed) Final Date: 04 November 2023 16:42 S
--- NOTE | 2023-11-04 13:00 | MR_ITS ---
WS: [id number] MRI BRAIN WITH AND WITHOUT CONTRAST HISTORY: G31.9 - Degenerative disease of nervous system, unspecified COMPARISON: 06/17/2023 TECHNIQUE: Multiplanar imaging performed through the brain with MultiHance 11 ml's IV. There are several tiny foci of increased signal on the diffusion imaging. There is a tiny acute lacun ar type infarct in the superior RIGHT occipital lobe, paramedian. Additional occipital cortical infar ct more inferior. There is an additional acute lacunar infarct in the posterior LEFT occipital lobe a nd also within the RIGHT supra ventricular frontal lobe cortex. Due to the distribution of these infa rcts probably embolic in etiology. No hemorrhage or susceptibility artifact. Ventricles and extra-axial spaces are normal. Increased T2 and FLAIR signal hyperintensities in the p eriventricular white matter in the subcortical white matter. There is advanced small vessel ischemic disease in the supratentorial white matter. Bilateral advanced ischemic change in the sergio. No acute infarcts. No remaining signal abnormality in the basal ganglia. Clivus and pituitary gland are normal. Visualized posterior fossa and brainstem are also normal. Postcontrast images are negative for masses or vascular malformations. Dural venous sinuses are normal. Paranasal sinuses: Well aerated with no significant disease. Mastoid air cells: Normal. Calvarium and scalp: Normal. IMPRESSION: 1. Several small acute lacunar infarcts involving the cortex of several arterial distributions. Ther e are very tiny lacunar infarcts in the RIGHT frontal cortex, posterior LEFT parietal and LEFT occipi martha lobe cortex. No hemorrhage or mass effect or edema. Consider embolic source due to the bilateral distribution. 2. No mass or abnormal enhancement. 3. Advanced small vessel ischemic disease in the supratentorial white matter and also the sergio.
[2023-11-04] MEDS: gadobenate dimeglumine 20 mL vial IV (13:47)
== END 2023-11-04 11:51 | disposition home or self-care (01) ==
LOC: RAD 11:50
PROVIDERS: PCP Family Medicine; Visit Provider Psychiatry & Neurology Neurology
DX: I63.9 Cerebral infarction, unspecified (principal); G31.9 Degenerative disease of nervous system, unspecified; R93.0 Abnormal findings on diagnostic imaging of skull and head, not elsewhere classified; R26.89 Other abnormalities of gait and mobility; G45.9 Transient cerebral ischemic attack, unspecified; I67.89 Other cerebrovascular disease; R42 Dizziness and giddiness
CPT/HCPCS: 70553; 93880; A9577

== ENCOUNTER → 2023-12-25 14:39 | Outpatient (BNVA) | payer MEDICARE, MEDICAID, SELFPAY | PROVIDERS: PCP Family Medicine; Referring Provider Psychiatry & Neurology Neurology; Visit Provider Internal Medicine Cardiovascular Disease | DX: Z86.73 Personal history of transient ischemic attack (TIA), and cerebral infarction without residual deficits (principal); R55 Syncope and collapse; F01.54 Vascular dementia, unspecified severity, with anxiety; F32.A Depression, unspecified | CPT/HCPCS: 99204 ==

== ENCOUNTER 2024-01-20 11:50 | Outpatient (CLI) | payer MEDICARE, MEDICAID, SELFPAY ==
--- NOTE | 2024-01-20 11:45 | USCV_ITS ---
Laurie Rogers Age: 69 Gender: F : 1955 Exam Date: 01/20/2024 12:11 Ordering Phys: Erin Flores MD ([email or web address]) Technologist: [place] [facility] [place]: cva BP: 130 / 80 HR: 84 Rhythm: Sinus Technical Quality: Adequate MEASUREMENTS (Male / Female) Normal Values 2D ECHO LVOT Diameter 2.2 cm LV Ejection Fraction MOD 2C 70.8 % LV Ejection Fraction 2C AL 72.9 % LA Diameter 2.4 cm LA Sys Volume AL 28.9 cm cubed LA Sys Volume Index AL 17.6 cm cubed/m squared Aorta at Sinotubular Diameter 3.0 cm IVC Diameter 1.9 cm M-MODE LA Ao Ratio MM 1.0 AV Cusp Separation MM 2.1 cm DOPPLER AV Peak Velocity 140.0 cm/s AV Area Cont Eq vti 3.3 cm squared AV Area Cont Eq pk 3.0 cm squared MV Peak Velocity 123.0 cm/s MV Area PHT 4.5 cm squared Mitral E to A Ratio 0.8 TV Peak Velocity 181.5 cm/s TR Peak Velocity 220.0 cm/s TR Peak Gradient 19.4 mmHg TV Peak E Velocity 79.0 cm/s Right Atrial Pressure 3.0 mmHg Pulmonary Artery Systolic Pressu 22.4 mmHg PV Peak Velocity 110.5 cm/s FINDINGS Left Ventricle Normal left ventricular size and systolic function, EF 70%.No regional wall motion abnormalities. Grade I/IV diastolic dysfunction (abnormal relaxation filling pattern), normal to mildly elevated filling pressures. Right Ventricle The right ventricle is normal in size and function. Right Atrium The right atrium is normal in size. Left Atrium The left atrium is normal in size. Mitral Valve Trace to mild mitral valve regurgitation. Aortic Valve Thickened aortic valve. Tricuspid Valve Trace tricuspid valve regurgitation. Pulmonic Valve No gross abnormalities noted Pericardium No pericardial effusion. Aorta Normal ascending aorta dimension. IVC Normal inferior vena cava. CONCLUSIONS Normal left ventricular size and systolic function, EF 70%.No regional wall motion abnormalities. Grade I/IV diastolic dysfunction (abnormal relaxation filling pattern), normal to mildly elevated filling pressures. Trace to mild mitral valve regurgitation. Trace tricuspid valve regurgitation. Thickened aortic valve. There is no pericardial effusion. There are no intracardiac masses. No similar previous studies are available for comparison Dr Erin Flores MD [facility] (Electronically Signed) Final Date: 20 Jan 2024 20:42 S
== END 2024-01-20 11:51 | disposition home or self-care (01) ==
LOC: RAD 11:50
PROVIDERS: PCP Family Medicine; Visit Provider Internal Medicine Cardiovascular Disease
DX: I08.3 Combined rheumatic disorders of mitral, aortic and tricuspid valves (principal); R06.09 Other forms of dyspnea
CPT/HCPCS: 93306

== ENCOUNTER → 2024-03-04 11:44 | Outpatient (BNVA) | payer MEDICARE, MEDICAID, SELFPAY | PROVIDERS: PCP Family Medicine; Visit Provider Family Medicine | DX: R41.3 Other amnesia (principal); D69.2 Other nonthrombocytopenic purpura; E55.9 Vitamin D deficiency, unspecified; R79.89 Other specified abnormal findings of blood chemistry | CPT/HCPCS: 80053; 82306; 84443; 85025 ==

== ENCOUNTER 2024-03-13 15:08 | Outpatient (CLI) | payer MEDICARE, MEDICAID, SELFPAY ==
[2024-03-13 15:45] LABS: Basophils % 0.3 %; Eosinophils # 0.2 10^3/uL (0.0-0.8); Eosinophils % 2.8 %; Hematocrit 36.8 % (36-47); Lymphocytes % 28.5 %; Mean Corpuscular HGB Conc 34.5 g/dL (30-55); Mean Corpuscular Hemoglobin 33.2 pg (27-33); Mean Corpuscular Volume 96.1 fl (85-98); Mean Platelet Volume 9.8 fL (7.4-10.4); Monocytes # 0.5 10^3/uL (0.2-0.9); Monocytes % 6.5 %; Neutrophils # 4.39 10^3/uL (1.8-7.7); Neutrophils % 61.8 %; Nucleated Red Blood Cells % 0 %; Platelet Count 229 10^3/cmm (157-399); Red Blood Count 3.83 10^6/uL (3.85-5.65)
[2024-03-13 16:04] LABS: Alanine Aminotransferase 12 U/L (0-33); Albumin Level 4.2 g/dL (3.5-5.2); Alkaline Phosphatase 66 U/L (35-105); Anion Gap 16.2 (5-19); Aspartate Amino Transferase 14 U/L (0-32); Blood Urea Nitrogen 22 mg/dL (8-23); Calcium 10.1 mg/dL (8.5-10.5); Carbon Dioxide 25 mmol/L (22-29); Chloride 99 mmol/L (98-107); Globulin 3.1 g/dL (1.3-4.6); Glomerular Filtration Rate 71.1 mL/min (90-130); Glucose 119 mg/dL (65-115); Osmolality Calculated 286 mOsm/kg (285-295); Potassium 4.2 mmol/L (3.5-5.1); Sodium 136 mmol/L (136-145); Total Bilirubin 0.3 mg/dL (0.15-1.2); Total Protein 7.3 g/dL (6.6-8.7)
[2024-03-13 16:19] LABS: Bilirubin Urine Neg (Negative); Blood Urine Neg (Negative); Glucose Urine UA Norm (Normal); Ketones Urine Negative (Negative); Leukocyte Esterase Urine Negative (Negative); Nitrate Urine Negative (Negative); Protein Urine Neg (Negative); Urine Appearance Clear (CLEAR); Urine Color Yellow (Yellow); Urobilinogen Urine Norm (Negative); pH Urine 6 (5-7)
[2024-03-13 16:20] LABS: Add Urine Culture? No; Bacteria Urine TRACE /hpf
[2024-03-13 16:25] LABS: Hepatitis A Antibody IgM Non-Reactive (Nonreactive); Hepatitis B Core AB, Total Non-Reactive (Nonreactive); Hepatitis B Surface AB 7.5 (11.5-1000); Hepatitis B Surface Antigen Non-Reactive (Nonreactive); Hepatitis C Virus Antibody Non-Reactive (Nonreactive)
[2024-03-13 16:43] LABS: Erythrocyte Sedimentation Rate 17 mm/hr (0-15)
[2024-03-14 13:29] LABS: HIV AG/AB 4th Generation NON-REACTIVE (NON-REACTIVE)
[2024-03-16 13:24] LABS: Complement Total (CH50) >60 U/mL (31-60)
[2024-03-16 16:26] LABS: Anti-Nuclear Antibody Screen NEGATIVE (NEGATIVE)
[2024-03-17 12:14] LABS: ANCA Screen NEGATIVE (NEGATIVE)
[2024-03-20 22:33] LABS: Cryoglobulins Qualitative None Detected (None Detected)
[2024-03-23 14:00] LABS: Cyclic Citrullinated Peptide <16 UNITS
== END 2024-03-13 15:09 | disposition home or self-care (01) ==
PROVIDERS: PCP Family Medicine; Visit Provider Family Medicine
DX: D69.2 Other nonthrombocytopenic purpura (principal)
CPT/HCPCS: 80053; 81001; 82595; 85025; 85651; 86036; 86038; 86140; 86162; 86200; 86431; 86705; 86706; 86709; 86803; 87340; 87389

== ENCOUNTER 2024-03-17 14:54 | Outpatient (CLI) | payer MEDICARE, MEDICAID, SELFPAY ==
--- NOTE | 2024-03-17 15:00 | MM_ITS ---
WS: [id number] BILATERAL 3D TOMOSYNTHESIS DIGITAL SCREENING MAMMOGRAPHY WITH CAD CLINICAL INFORMATION: breast cancer screening HISTORY: Screening mammogram. No current complaints. COMPARISON: 2021 TECHNIQUE: Bilateral CC and MLO views. FINDINGS: Scattered fibroglandular densities bilaterally. No suspicious mass, asymmetry, calcifications, or arc hitectural distortion. No evidence of malignancy. Vascular calcification. Lucent centered calcificati on RIGHT breast. MM/[place] [id number] IMPRESSION: BI-RADS: 2-Benign FOLLOW UP: 1 Year Follow-up Recommend return to annual screening mammography.
== END 2024-03-17 14:55 | disposition home or self-care (01) ==
LOC: RAD 14:54
PROVIDERS: PCP Family Medicine; Visit Provider Family Medicine
DX: Z12.31 Encounter for screening mammogram for malignant neoplasm of breast (principal); R92.323 Mammographic fibroglandular density, bilateral breasts; R92.1 Mammographic calcification found on diagnostic imaging of breast
CPT/HCPCS: 77063; 77067

== ENCOUNTER → 2024-05-06 12:09 | Outpatient (BNVA) | payer MEDICARE, MEDICAID, SELFPAY | PROVIDERS: PCP Family Medicine; Visit Provider Family Medicine | DX: R41.82 Altered mental status, unspecified (principal) | CPT/HCPCS: 81000 ==

== ENCOUNTER → 2024-05-13 13:27 | Outpatient (BNVA) | payer MEDICARE, MEDICAID, SELFPAY | PROVIDERS: PCP Family Medicine; Visit Provider Psychiatry & Neurology Neurology | DX: M85.80 Other specified disorders of bone density and structure, unspecified site (principal); R41.3 Other amnesia; I63.40 Cerebral infarction due to embolism of unspecified cerebral artery; R79.89 Other specified abnormal findings of blood chemistry; D69.2 Other nonthrombocytopenic purpura; F32.A Depression, unspecified; D53.9 Nutritional anemia, unspecified; R60.9 Edema, unspecified; R93.0 Abnormal findings on diagnostic imaging of skull and head, not elsewhere classified; R29.90 Unspecified symptoms and signs involving the nervous system | CPT/HCPCS: 36415; 82306; 82607; 82746; 83735; 83921; 84439; 84481; 86376; 99212; 99214 ==

== ENCOUNTER → 2024-06-16 12:03 | Outpatient (BNVA) | payer MEDICARE, MEDICAID, SELFPAY | PROVIDERS: PCP Family Medicine; Visit Provider Family Medicine | DX: R30.0 Dysuria (principal) | CPT/HCPCS: 81000 ==

== ENCOUNTER → 2024-07-01 15:45 | Outpatient (BNVA) | payer MEDICARE, MEDICAID, SELFPAY | PROVIDERS: PCP Family Medicine; Visit Provider Internal Medicine Cardiovascular Disease | DX: Z86.73 Personal history of transient ischemic attack (TIA), and cerebral infarction without residual deficits (principal); F01.54 Vascular dementia, unspecified severity, with anxiety; R41.3 Other amnesia; D53.9 Nutritional anemia, unspecified; E78.5 Hyperlipidemia, unspecified | CPT/HCPCS: 99214 ==

== ENCOUNTER 2024-08-19 14:22 | Inpatient (IN) | payer MEDICARE, MEDICAID, SELFPAY ==
[2024-08-19] VITALS (19 sets, daily range): BP systolic 78–140; BP diastolic 51–88; PULSE 72–110; RESP 16–27; O2SAT 93–100; BMI 27.1
--- NOTE | 2024-08-19 14:25 | XRR_ITS ---
PROCEDURE INFORMATION: Exam: XR Chest Exam date and time: 08/19/2024 2:28 PM Age: 69 years old Clinical indication: Shortness of breath; Additional info: Unresponsive TECHNIQUE: Imaging protocol: Radiologic exam of the chest. Views: 1 view. COMPARISON: CR XR chest 1V portable [id number] 08/20/2023 1:21 PM FINDINGS: Lungs: Unremarkable. No consolidation. Pleural spaces: Unremarkable. No pleural effusion. No pneumothorax. Heart/Mediastinum: Unremarkable. No cardiomegaly. Bones/joints: Unremarkable. XR/XR chest 1V portable [id number] IMPRESSION: No acute findings.
--- NOTE | 2024-08-19 14:25 | CT_ITS ---
WS: [id number] CT HEAD TECHNIQUE: Noncontrast CT of the head obtained from the skullbase to the vertex. CLINICAL INFORMATION: unresponsive on arrival, unclear cause COMPARISON: 2022 DLP: 1980.[address] scans at [facility] use at least one of these dose optimization techniques: automated e xposure control; mA and/or kV adjustment per patient size (includes targeted exams where dose is matc hed to clinical indication); or iterative reconstruction. FINDINGS: No evidence of intracranial hemorrhage or mass effect. Ventricular system and basal cisterns are carrillo nt. Advanced small vessel changes with moderate parenchymal volume loss. Chronic lacunar infarcts in the RIGHT caudate and RIGHT thalamus. Small vessel changes in the sergio. No extra-axial fluid collecti ons. No evidence of mass or mass effect. LEFT maxillary sinusitis. CT/CT head wo con* [id number] IMPRESSION: 1. No evidence of intracranial hemorrhage or mass effect. 2. LEFT maxillary sinusitis. 3. Advanced small vessel changes with moderate parenchymal volume loss. 4. Chronic appearing lacunar infarcts in the RIGHT caudate and RIGHT thalamus. 5. No acute intracranial findings. Notified Joshua Hermosillo MD at 08/19/2024 2:59 PM.
--- NOTE | 2024-08-19 14:26 | ECG_ITS ---
[facility]24[facility]19 Pat Name: Laurie Rogers Department: Room: Gender: Female Credit Underwriter: : 1955 Requested By: Joshua Hermosillo Order Number: [id number] Caroline MD: Eirn Flores M.D. Measurements Intervals [place] Rate: 101 P: 69 HI: 142 QRS: 71 QRSD: 94 T: 67 QT: 317 QTc: 411 Interpretive Statements SINUS TACHYCARDIA POSSIBLE RIGHT ATRIAL ENLARGEMENT [0.25mV P-WAVE] LEFT ATRIAL ENLARGEMENT [-0.15mV P-WAVE IN V1/V2] POSSIBLE RIGHT VENTRICULAR CONDUCTION DELAY [RSR (QR) IN V1/V2] Compared to ECG 08/20/2023 13:26:05 Atrial abnormality now present Sinus rhythm no longer present Electronically Signed On 08-19-2024 19:21:06 SPANISH TEACHER by Erin Flores M.D. [email or web address]
--- NOTE | 2024-08-19 14:33 | W.ED.AMS ---
HPI - Altered Mental Status General: Chief Complaint: Altered Mental Status Stated Complaint: Unresponsive Time Seen by Provider: 08/19/24 14:25 History of Present Illness: 69-year-old female brought in by private vehicle. Pulled out of car unresponsive. At the time of arrival, her name and age was unknown. Patient had a regular breathing and was not responding. She was brought immediately to the resuscitation bay. Upon transferring from the wheelchair to the [facility], she started breathing irregularly. Her pulse was easily palpable. She started to respond to visual threat and spontaneously move her extremities. 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 Family and other collateral was not immediately available. 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 Related Data Home Medications Medication Instructions Recorded Confirmed lorazepam 0.5 mg tablet 0.5 mg PO Q4H 08/19/24 08/19/24 Previous Rx's Medication Instructions Recorded aspirin 81 mg tablet,delayed 81 mg PO DAILY #30 tabs 05/13/24 release docusate sodium 100 mg capsule 100 mg PO BID constipation #60 caps 05/13/24 rosuvastatin 10 mg tablet 10 mg PO DAILY #30 tabs 05/13/24 hospital bed #1 ea 06/16/24 spironolactone 25 mg tablet 25 mg PO BID #60 tabs 08/03/24 Allergies Allergy/AdvReac Type Severity Reaction Status Date / Time cephalexin [From Keflex] Allergy ALGY-Difficulty Verified 08/19/24 13:26 Swallowing Review of Systems General: Reports: ROS unobtainable due to medical condition and ROS unobtainable due to mental status [facility] ED PFSH: Medical History Diverticulosis Osteopenia 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 Polyuria Urgency incontinence POP-Q stage 2 cystocele Surgical History History of hysterectomy Hx of cataract surgery BILATERAL Family History Other CAD (coronary artery disease) Cancer Hypertension Social History Smoking and tobacco/nicotine status: never used tobacco/nicotine Alcohol intake: never Substance/Drug Use: never Adopted: No Caregiver/support person: No Lives independently: Yes Marital status: Number of children: 3 Number of grandchildren: 11 Current occupational status: retired 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 She is not protecting her airway completely but is rapidly improving. We are monitoring closely. The patient is responding to visual threat. She is starting to move all of her extremities. She starting to mumble a few sounds after a couple minutes. Not able to do a full NIH score at this time. Her pulses are strong. Her heart rate is fast. Her pupils are equal round and reactive. She has a small scratch on her nose which may be from getting her out of the car. It appears very acute. Otherwise no trauma noted. Abdomen is soft and nondistended. No signs of any extremity trauma. No vomitus in the oropharynx. Const: COMMON NORMALS: well nourished HENMT: COMMON NORMALS: normocephalic, atraumatic and external ears normal HEAD & SCALP: normocephalic and atraumatic EXTERNAL EAR: Yes external ears normal Eye: COMMON NORMALS: conjunctivae normal and no scleral icterus CONJUNCTIVA: Yes conjunctivae normal Neck/C-Spine: GENERAL: Yes normal visual inspection and Yes trachea midline Cardio: COMMON NORMALS: regular rhythm RHYTHM: regular rhythm GI: PALPATION: No Guarding due to palpation present (GI) Extremity: COMMON NORMALS: normal to inspection Course ED course: 1500: Dr Oneil has reviewed the CT scan of the head. He sees some old findings but nothing new. Vital Signs: Vital signs: Vital Signs Pulse Rate 110 H 08/19/24 14:26 Respiratory Rate 21 H 08/19/24 14:26 Blood Pressure 133/69 08/19/24 14:26 Pulse Oximetry 94 08/19/24 14:26 Oxygen Delivery Me thod Room Air 08/19/24 14:26 MDM - Altered Mental Status Medical Decision Making Differential diagnosis includes stroke, seizure, hypotension, hypoglycemia, cardiac arrhythmia, ACS, and multiple others. Within the first couple minutes of evaluation, we are able to rapidly evaluate her airway, breathing, circulation, and evaluate for any disabilities. An EKG was performed at 1422 and showed a sinus tachycardia without ischemic changes. Glucose was 155 at bedside. Patient was taken to CT scanner. I went ahead and activated a code stroke since the cause of her presentation and mental status changes unclear. I quickly reviewed the chart and noted that she has some vascular dementia. We found the patient's son who had parked the car and got some more collateral information after the patient went to CT scan. He states that the patient had been on 2 to 3 mg of Ativan daily until recently when she ran out. Additionally, she had been on Xanax for 10 years prior to that. Son says her doctor was trying to wean her down and decreased it to 30 0.5 mg tablets per month. She ran out early. Therefore she had been without her Ativan. Today she was in her usual state health prior to going to this doctor's appointment where she got refills for her Ativan. However after the appointment while they were driving she suddenly started having tonic-clonic movements that the son believes for seizure. This led to her irregular breathing and alteration in consciousness. The patient came back from CT scan and continued to improve. She seems postictal. I did talk with Dr. Bazzi who evaluated at the bedside. We do not think this is likely to be a primary cerebrovascular accident. However, the decreased Ativan and history of strokes may work together to lower seizure threshold. The patient was able to start following my commands. She did not have any apparent focal neurologic deficits on my repeat evaluation. She did start vomiting during my NIH I spoke with Dr. Bazzi again as well as with Dr. Graves. Our plan is to treat her for potential Ativan withdrawal seizure with scheduled Ativan 1 mg 3 times daily and 1 mg IV now for loading. Dr. Bazzi would like to do an MRI of the brain, carotid ultrasound, echocardiogram, and hypercoagulable panel given her history of suspected thromboembolic disease. Patient's lactic acid came back extremely high. This is likely in keeping with her tonic-clonic seizure. White blood cell count elevated, nonspecific. Chest x-ray 1 view. Left lower chest is a little difficult to appreciate due to overlying defibrillation pad. However, no apparent focal infiltrates effusions or pneumothorax on my EP interpretation. Creatinine 1.2 with a BUN of 24. Bicarb low in keeping with the acute metabolic acidosis. CT scan of the head without any acute brain disease. There is evidence of left maxillary sinusitis. At this point, patient is controlling her airway and has shown consistent signs of improvement and stabilization. Patient has been accepted by Dr. Graves for admission. Lab Data 08/19/24 14:24 08/19/24 14:24 Radiology Impressions Chest X-Ray 08/19/24 14:25 IMPRESSION: No acute findings. Head CT 08/19/24 14:25 IMPRESSION: 1. No evidence of intracranial hemorrhage or mass effect. 2. LEFT maxillary sinusitis. 3. Advanced small vessel changes with moderate parenchymal volume loss. 4. Chronic appearing lacunar infarcts in the RIGHT caudate and RIGHT thalamus. 5. No acute intracranial findings. Notified Joshua Hermosillo MD at 08/19/2024 2:59 PM. Laboratory Results WBC 18.09 10^3/uL (3.29-11.43) H 08/19/24 14:24 RBC 4.12 10^6/uL (3.85-5.65) 08/19/24 14:24 Hgb 13.80 g/dL (11.27-16.99) 08/19/24 14:24 Hct 42.8 % (36-47) 08/19/24 14:24 MCV 103.9 fl (85-98) H 08/19/24 14:24 MCH 33.5 pg (27-33) H 08/19/24 14:24 MCHC 32.2 g/dL (30-55) 08/19/24 14:24 RDW 12.9 % (12.1-15.1) 08/19/24 14:24 Plt Count 247 10^3/cmm (157-399) 08/19/24 14:24 Plt Count 247 10^3/cmm (157-399) 08/19/24 14:24 MPV 10.4 fL (7.4-10.4) 08/19/24 14:24 Neut % (Auto) 48.4 % 08/19/24 14:24 Lymph % (Auto) 40.4 % 08/19/24 14:24 [place] % (Auto) 10.0 % 08/19/24 14:24 Eos % (Auto) 0.6 % 08/19/24 14:24 Baso % (Auto) 0.3 % 08/19/24 14:24 Neut # (Auto) 8.77 10^3/uL (1.8-7.7) H 08/19/24 14:24 Lymph # (Auto) 7.3 10^3/uL (0.8-4.8) H 08/19/24 14:24 [place] # (Auto) 1.8 10^3/uL (0.2-0.9) H 08/19/24 14:24 Eos # (Auto) 0.1 10^3/uL (0.0-0.8) 08/19/24 14:24 Baso # (Auto) 0.1 10^3/uL (0.0-0.1) 08/19/24 14:24 Nucleated RBC % (auto) 0 % 08/19/24 14:24 Nucleated RBCs # 0.0 /100WBC 08/19/24 14:24 PT 14.90 SECONDS (12.1-14.9) 08/19/24 14:24 PT Cancelled 08/19/24 14:24 INR 1.13 (0.8-1.2) 08/19/24 14:24 INR Cancelled 08/19/24 14:24 APTT 22.5 SECONDS (23.9-36.7) L 08/19/24 14:24 APTT Cancelled 08/19/24 14:24 Sodium 142 mmol/L (136-145) 08/19/24 14:24 Potassium 3.6 mmol/L (3.5-5.1) 08/19/24 14:24 Chloride 98 mmol/L (98-107) 08/19/24 14:24 Carbon Dioxide 11 mmol/L (22-29) L 08/19/24 14:24 Anion Gap 36.6 (5-19) H 08/19/24 14:24 BUN 24 mg/dL (8-23) H 08/19/24 14:24 Creatinine 1.2 mg/dL (0.5-0.9) H 08/19/24 14:24 GFR Calculation 44.5 mL/min (90-130) L 08/19/24 14:24 Glucose 169 mg/dL (65-115) H 08/19/24 14:24 Calculated Osmolality 302 mOsm/kg (285-295) H 08/19/24 14:24 Lactic Acid 20.4 mmol/L (0.5-2.2) H* 08/19/24 14:24 Calcium 10.3 mg/dL (8.5-10.5) 08/19/24 14:24 Magnesium 2.3 mg/dL (1.7-2.3) 08/19/24 14:24 Total Bilirubin 0.6 mg/dL (0.15-1.2) 08/19/24 14:24 AST 21 U/L (0-32) 08/19/24 14:24 ALT 17 U/L (0-33) 08/19/24 14:24 Alkaline Phosphatase 83 U/L (35-105) 08/19/24 14:24 Troponin T Baseline 18 ng/L (0-10) H 08/19/24 14:24 Total Protein 7.2 g/dL (6.6-8.7) 08/19/24 14:24 Albumin 4.5 g/dL (3.5-5.2) 08/19/24 14:24 Globulin 2.7 g/dL (1.3-4.6) 08/19/24 14:24 Ethyl Alcohol < 10 mg/dL (0-10) 08/19/24 14:24 XR interpretation done by ED provider, pending radiology final review ED provider radiology interpretation(s): Chest x-ray 1 view. EP interpretation. No acute disease. EKG Data EKG 1: Interpretation: Obtained at 1422. Sinus tachycardia, normal axis, QRS 94 ms, no concerning ischemic changes, no hyperacute T waves, probable left atrial enlargement. Incomplete right bundle branch block. Critical Care Time Critical Care Time: Critical Care Time: Yes Total Critical Care Time: 60 Attestation: Critical care time included rapid assessment, evaluation of the patient, ordering of test, interpretation of test, ordering of imaging, interpretation of imaging, consultations with family, nursing staff and specialists. Decision to hospitalize. Threats included benzodiazepine withdrawal, seizure, potential aspiration, protection of the airway, among others. Discharge Plan Discharge Patient Disposition: Placed in Observation Clinical Impression: Seizure, Benzodiazepine withdrawal with complication Condition: Stable Prescriptions: No Action rosuvastatin 10 mg tablet 10 mg PO DAILY Qty: 30 5RF Rx Instructions: take at bedtime aspirin 81 mg tablet,delayed release (DR/EC) 81 mg PO DAILY Qty: 30 5RF docusate sodium 100 mg capsule 100 mg PO BID Qty: 60 5RF (DME) hospital bed See Rx Instructions .Route .MEDSUPPLY Qty: 1 0RF Rx Instructions: As directed spironolactone 25 mg tablet 25 mg PO BID Qty: 60 2RF lorazepam 0.5 mg tablet 0.5 mg PO Q4H Referrals: Mona Miller MD [Primary Care Provider] - Patient Instructions: Altered Mental Status (ED) Coding Level of Care Code ED 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
[2024-08-19 14:36] LABS: Basophils # 0.1 10^3/uL (0.0-0.1); Basophils % 0.3 %; Eosinophils # 0.1 10^3/uL (0.0-0.8); Eosinophils % 0.6 %; Hematocrit 42.8 % (36-47); Lymphocytes # 7.3 10^3/uL (0.8-4.8); Lymphocytes % 40.4 %; Mean Corpuscular HGB Conc 32.2 g/dL (30-55); Mean Corpuscular Hemoglobin 33.5 pg (27-33); Mean Corpuscular Volume 103.9 fl (85-98); Mean Platelet Volume 10.4 fL (7.4-10.4); Monocytes # 1.8 10^3/uL (0.2-0.9); Neutrophils # 8.77 10^3/uL (1.8-7.7); Neutrophils % 48.4 %; Nucleated Red Blood Cells % 0 %; Platelet Count 247 10^3/cmm (157-399); Red Blood Count 4.12 10^6/uL (3.85-5.65); Red Cell Distribution Width 12.9 % (12.1-15.1); White Blood Count 18.09 10^3/uL (3.29-11.43)
--- NOTE | 2024-08-19 14:44 | PC.PHAR ---
called pharmacy to get med list since patient isn't responsive
[2024-08-19 14:46] LABS: INR 1.13 (0.8-1.2)
[2024-08-19 14:47] LABS: Partial Thromboplastin Time 22.5 SECONDS (23.9-36.7)
[2024-08-19] MEDS: lactated ringers 1,000 ML 999 ML IV (14:50)
--- NOTE | 2024-08-19 14:50 | PC.NURSE ---
attempted to straight cath pt, no urine output. pt previous depends saturated in urine on arrival. pt changed into gown
[2024-08-19 14:53] LABS: Alanine Aminotransferase 17 U/L (0-33); Albumin Level 4.5 g/dL (3.5-5.2); Alcohol Level < 10 mg/dL (0-10); Alkaline Phosphatase 83 U/L (35-105); Anion Gap 36.6 (5-19); Aspartate Amino Transferase 21 U/L (0-32); Blood Urea Nitrogen 24 mg/dL (8-23); Calcium 10.3 mg/dL (8.5-10.5); Carbon Dioxide 11 mmol/L (22-29); Chloride 98 mmol/L (98-107); Creatinine Clr Calc Pharmacy 42.6451; Globulin 2.7 g/dL (1.3-4.6); Glomerular Filtration Rate 44.5 mL/min (90-130); Glucose 169 mg/dL (65-115); Magnesium 2.3 mg/dL (1.7-2.3); Osmolality Calculated 302 mOsm/kg (285-295); Potassium 3.6 mmol/L (3.5-5.1); Sodium 142 mmol/L (136-145); Total Bilirubin 0.6 mg/dL (0.15-1.2); Total Protein 7.2 g/dL (6.6-8.7)
[2024-08-19 14:54] LABS: Troponin(5th) Baseline 18 ng/L (0-10)
[2024-08-19 15:05] LABS: Lactic Sepsis W/Reflex 20.4 mmol/L (0.5-2.2); Slide Review Slide Review Perform
--- NOTE | 2024-08-19 15:10 | PC.NURSE ---
pt had large emesis episode, provided suction to assist pt. pt gown and bedding changed. pt bed @90 degree. family at bedside
--- NOTE | 2024-08-19 15:11 | MRR_ITS ---
PROCEDURE INFORMATION: Exam: MR Head Without Contrast Exam date and time: 08/19/2024 4:57 PM Age: 69 years old Clinical indication: Alteration of consciousness and altered mental status/memory loss; Transient alteration of awareness; Confusion or disorientation; Additional info: New onset seizure, vascular dementia, HX of what is thought to be thromboembolic stroke TECHNIQUE: Imaging protocol: Magnetic resonance imaging of the head without contrast. COMPARISON: CT head wo con* [id number] 08/19/2024 2:37 PM FINDINGS: Brain: There is a subcentimeter focus of mild diffusion restriction in the right thalamus compatible with a subacute infarct adjacent to a larger chronic thalamic infarct (image 16 of series 302/401/303). Background of periventricular and deep white matter T2 FLAIR hyperintensities compatible with sequela of moderate chronic microvascular ischemic changes. No mass effect or midline shift. Cerebral ventricles: No hydrocephalus. Bones: Unremarkable. Paranasal sinuses: The visualized paranasal sinuses are well aerated. Mastoid air cells: The mastoids and middle ears are grossly clear without evidence of effusion. Orbital cavities: The visualized orbits are unremarkable. Soft tissues: Grossly unremarkable. MR/MR head wo con* [id number] IMPRESSION: 1. No evidence of acute intracranial abnormality. 2. Subacute subcentimeter right thalamic infarct.
--- NOTE | 2024-08-19 15:12 | USCV_ITS ---
Laurie Rogers Age: 69 Gender: F : 1955 Exam Date: 08/19/2024 16:01 Ordering Phys: Joshua Hermosillo MD Technologist: CT [place]am [place] [facility] [place] [facility] [place]ication: stroke BP: 125 / 88 HR: 91 Rhythm: Sinus Technical Quality: Adequate, Technically difficult study MEASUREMENTS (Male / Female) Normal Values 2D ECHO LVOT Diameter 2.0 cm LV Ejection Fraction MOD 4C 59.0 % LV Ejection Fraction MOD 2C 59.3 % LV Ejection Fraction 2C AL 56.0 % LA Diameter 2.1 cm RA Systolic Volume 4C AL 29.1 ml RA Systolic Volume 4C MOD 28.1 ml LA Sys Volume AL 25.4 cm cubed LA Sys Volume Index AL 14.1 cm cubed/m squared Aorta at Sinotubular Diameter 2.3 cm M-MODE LA Ao Ratio MM 0.9 AV Cusp Separation MM 1.8 cm DOPPLER AV Peak Velocity 112.0 cm/s LVOT Peak Velocity 119.0 cm/s AV Area Cont Eq vti 3.3 cm squared AV Area Cont Eq pk 3.3 cm squared MV Peak Velocity 117.0 cm/s MV Area PHT 5.2 cm squared Mitral E to A Ratio 0.8 TV Peak E Velocity 66.0 cm/s PV Peak Velocity 101.0 cm/s FINDINGS Left Ventricle Left ventricle is normal in size. LV systolic function is normal with EF of 55 to 60%. No regional wall motion abnormalities are seen. Grade 1 diastolic dysfunction. Right Ventricle Normal in size and function Right Atrium Normal in size Left Atrium Normal in size Mitral Valve Structurally normal mitral valve. Mild mitral regurgitation. Aortic Valve Structurally normal aortic valve. No significant stenosis or regurgitation. Tricuspid Valve Not well visualized Pulmonic Valve Not well visualized Pericardium Normal Aorta Normal in size IVC Not well visualized CONCLUSIONS LV systolic function is normal with EF of 55 to 60%. Grade 1 diastolic dysfunction. Mild mitral regurgitation. Tom Ayala MD (Electronically Signed) Final Date: 20 August 2024 07:36 S
--- NOTE | 2024-08-19 15:12 | USCV_ITS ---
Laurie Rogers Age: 69 Gender: F : 1955 Exam Date: 08/19/2024 15:23 Ordering Phys: Joshua Hermosillo MD Technologist: USR Exam Location: [facility] [place] Indication: Risk Factors: Previous Vascular Surgery: Right Brachial BP: / Left Brachial BP: / Right Left Velocity (cm/s) Spectral Plaque Velocity (cm/s) Spectral Plaque Syst/Diast Broadening Syst/Diast Broadening 75.00/ 14.10 Prox CCA 55.30 / 12.10 64.60/ 11.50 Mid CCA 73.20 / 13.10 78.90/ 18.00 Distal CCA 78.60 / 17.40 26.30/ 3.10 Prox ICA 32.60 / 8.30 44.80/ 8.70 Mid ICA 40.10 / 9.80 37.60/ 7.10 Distal ICA 45.50 / 11.30 59.20 ECA 53.20 0.60 ICA/CCA 0.60 Antegrade Vertebral Antegrade 38.90/ 7.90 cm/s 43.10/ 11.20 cm/s Tri Subclavian Tri 31.70 131.7 0 CONCLUSIONS Right ICA stenosis <50%. Mild atheromatous plaque right carotid bulb/ICA. Left ICA stenosis <50%. Mild atheromatous plaque left carotid bulb/ICA. Normal antegrade Doppler flow noted in the right vertebral artery. Normal antegrade Doppler flow noted in the left vertebral artery. Mike Oneil MD (Electronically Signed) Final Date: 19 August 2024 16:15 S
--- NOTE | 2024-08-19 15:24 | PC.NURSE ---
on pt arrival to room at approx @1422; bilateral 18G IVs obtained, pt placed on pads, suction set up at bedside, ambu bag at bedside, pt placed on playground monitor, glucose 156 via FS
[2024-08-19] MEDS: LORazepam 2 mg/mL INJ 1 mL 1 MG IVP (15:33)
[2024-08-19] MEDS: ondansetron 2 mg/ML SDV 2 mL 4 MG IVP (15:35)
[2024-08-19] MEDS: sodium chloride 0.9% 1,000 ML 999 ML IV ×2 (15:35→19:21)
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
[2024-08-19 15:42] LABS: Fibrinogen 427 mg/dL (174-498)
--- NOTE | 2024-08-19 15:54 | PC.NURSE ---
Ativan PO delayed d/t pt vomiting, ED physician aware. administered IVP Ativan
[2024-08-19 16:19] LABS: Reflex Lactate Order REFLEX LACTIC ORDERD
--- NOTE | 2024-08-19 16:57 | PC.NURSE ---
2nd EKG delayed d/t pt being in MRI at this time.
[2024-08-19 17:23] LABS: Troponin 5 2HR 14.12 ng/L (0-10)
[2024-08-19 17:25] LABS: Troponin 5 2HR Delta -3.88 ABS# (0-10)
--- NOTE | 2024-08-19 17:33 | ECG_ITS ---
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 Measurements Intervals [place] Rate: 93 P: 69 [place]: 150 QRS: 54 QRSD: 85 T: 7 QT: 324 QTc: 405 Interpretive Statements SINUS RHYTHM POSSIBLE RIGHT VENTRICULAR CONDUCTION DELAY [RSR (QR) IN V1/V2] NONSPECIFIC ST & T-WAVE ABNORMALITY Compared to ECG 08/19/2024 14:22:11 T-wave abnormality now present Sinus tachycardia no longer present Atrial abnormality no longer present Electronically Signed On 08-19-2024 19:30:45 MEDIA STRATEGIST by Erin Flores M.D. [email or web address]
[2024-08-19] MEDS: LORazepam 1 mg Tablet PO (17:46)
--- NOTE | 2024-08-19 17:46 | PC.NURSE ---
pt family states pt will need a new PCP prior to discharge or they will not take patient home.
[2024-08-19 18:43] LABS: Lactic Acid level (Lactate) 1.8 mmol/L (0.5-2.2)
[2024-08-19 19:09] LABS: Covid PCR NEGATIVE (Negative); Influenza A NEGATIVE (Negative); Influenza B NEGATIVE (Negative); Respiratory Syncytial Virus Ce NEGATIVE (Negative)
--- NOTE | 2024-08-19 19:12 | P.HP_ITS ---
Providers/Chief Complaint 2 Admitting Physician: Bishnu Graves Primary Care Provider: Mona Miller MD Chief Complaint: Unresponsive History of Present Illness Pleasant 69-year-old lady with history of lacunar strokes, without history of epilepsy, with history of manage aspirin medication use, was being weaned off of benzodiazepines by her primary provider, her medication dose was decreased, however, she had run out of the medications about 10 days ago and had discontinued them entirely. She was having growing confusion. She had a fall out of bed 2 days ago and experienced some neck pain subsequently. She had an appointment and saw her primary provider earlier today for a refill of benzodiazepine. However, after leaving from the appointment she became unresponsive with tonic-clonic movements in the car, subsequently becoming flaccid and unresponsive. Was brought into the emergency department for evaluation immediately following the event. In the ER initially unresponsive, but subsequently with gradual improvement in mental status. With suspected new onset tonic-clonic seizure underwent additional assessment by CT head which showed advanced multivessel changes with moderate parenchymal volume loss, chronic appearing lacunar infarcts in the right caudate and right thalamus. Left maxillary sinusitis. With noted severe lactic acidosis 20.4. Leukocytosis of 18. Mild SOILA, creatinine 1.2. She was assessed by neurology. Review of Systems 2 General: Reports: Other (She is somnolent but provides a basic review of systems. Denies pain or di) Const: Denies: fever(s) Card: Denies: chest pain, edema or syncope Resp: Denies: dyspnea or productive cough GI: Reports: vomiting; Denies: diarrhea : Denies: difficulty voiding Neuro: Reports: confusion Medications/Allergies Home Medications Medication Instructions Recorded Confirmed Last Taken Type aspirin 81 mg tablet,delayed 81 mg PO DAILY #30 tabs 05/13/24 08/19/24 Unknown Rx release docusate sodium 100 mg capsule 100 mg PO BID constipation #60 caps 05/13/24 08/19/24 Unknown Rx rosuvastatin 10 mg tablet 10 mg PO DAILY #30 tabs 05/13/24 08/19/24 Unknown Rx hospital bed #1 ea 06/16/24 08/19/24 Unknown Rx spironolactone 25 mg tablet 25 mg PO BID #60 tabs 08/03/24 08/19/24 Unknown Rx lorazepam 0.5 mg tablet 0.5 mg PO Q4H 08/19/24 08/19/24 Unknown History Allergies Allergy/AdvReac Type Severity Reaction Status Date / Time cephalexin [From Keflex] Allergy ALGY-Difficulty Verified 08/19/24 13:26 Swallowing PFSH Acute 2 PFSH: Medical History Diverticulosis Osteopenia 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 Polyuria Urgency incontinence POP-Q stage 2 cystocele Surgical History History of hysterectomy Hx of cataract surgery BILATERAL Family History Other CAD (coronary artery disease) Cancer Hypertension Social History Smoking and tobacco/nicotine status: never used tobacco/nicotine Alcohol intake: never Substance/Drug Use: never Adopted: No Caregiver/support person: No Lives independently: Yes Marital status: Number of children: 3 Number of grandchildren: 11 Current occupational status: retired 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 Accompanied by her son. Const: GENERAL APPEARANCE: cooperative ORIENTATION/CONSCIOUSNESS: Yes oriented to person and Yes oriented to place; not oriented to time HENMT: COMMON NORMALS: oropharynx normal Neck/C-Spine: COMMON NORMALS: no JVD Resp: COMMON NORMALS: normal respiratory effort and clear to auscultation bilaterally AUSCULTATION: clear to auscultation bilaterally Cardio: COMMON NORMALS: no JVD, regular rhythm, S1 normal heart sound present, S2 normal heart sound present and No murmurs present (Cardio) RHYTHM: regular rhythm HEART SOUNDS: S1 normal heart sound present and S2 normal heart sound present GI: COMMON NORMALS: Normal to inspection, nondistended, normoactive bowel sounds present, Soft to palpation and non-tender PALPATION: Yes Soft to palpation Extremity: COMMON NORMALS: no joint enlargement and no pedal edema Neuro: COMMON NORMALS: moves all extremities SENSORIUM/ORIENTATION: Yes alert Skin: COMMON NORMALS: no rashes or lesions noted GENERAL SKIN EXAM: no rashes or lesions noted Data 08/19/24 14:24 08/19/24 14:24 A&P Assessment and plan (1) New onset seizure: Suspected secondary to benzodiazepine withdrawal. MRI brain reviewed, noted prior lacunar strokes. No obvious mass or other potential source. Does not drink alcohol. No substance use. Additional workup as per neurology recommendation with echocardiogram, carotid duplex, head MRI obtained. Reviewed MRI, carotid duplex. Echocardiogram pending review by cardiology. Consider possible embolic etiology of strokes. Monitor on telemetry. Consider panel monitor at discharge. Continue aspirin, statin. Start basic hypercoagulable workup with antiphospholipid studies, will need to follow-up for additional workup for other possible hypercoagulable conditions. As per recommendation continue Ativan 1 mg 3 times daily by mouth for now. Continuous pulse oximetry. Seizure precautions. (2) Benzodiazepine withdrawal with complication: Abruptly discontinue benzodiazepines after she ran out of medications. Her medications been refilled by her primary provider. Will need to continue gradual taper off of the medications. In the meantime as per neurology recommendation resumed on 1 mg 3 times daily Ativan for now. IV Ativan as needed for seizure. Plan Altered mental status: Recently with confusion, suspected secondary to withdrawal secondary to benzodiazepine, although does have also leukocytosis which may be secondary to seizure, however, pending additional assessment with urinalysis. Chest x-ray not suggestive of pneumonia. Reviewed viral studies with flu, PCR, COVID, negative. No cellulitis. Did have an episode of vomiting, possible mild aspiration pneumonitis. No signs of pneumonia on chest x-ray on my interpretation. She is otherwise maintaining good oxygenation on room air. I do not hear any signs of bronchitis on auscultation. Discussed with ER physician. Severe lactic acidosis: Lactic acid 20.4 this afternoon following seizure. Repeat lactic acid obtained, reviewed 1.8. Reassess chemistry. Prior stroke history: Noted on review of CT and MRI head. Reviewed neurology note. Continue aspirin, statin. Carotid duplex reviewed. Echocardiogram obtained, pending. Attestations 2 Medical Necessity Statement*: Place in observation for additional assessment and management after new onset seizure, benzodiazepine withdrawal, with finding of prior CVA. Diagnoses New onset seizure R56.9 Benzodiazepine withdrawal with complication F13.939
--- NOTE | 2024-08-19 19:38 | PC.NURSE ---
1900: Patient noted to be hypotensive and lethargic. Dr. Link notified and a verbal order for 1000ml 0.9% sodium chloride bolus received.
--- NOTE | 2024-08-19 20:27 | ECG_ITS ---
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 Measurements Intervals [place] Rate: 75 P: 63 [place]: 158 QRS: 55 QRSD: 85 T: -12 QT: 352 QTc: 395 Interpretive Statements SINUS RHYTHM POSSIBLE RIGHT VENTRICULAR CONDUCTION DELAY [RSR (QR) IN V1/V2] NONSPECIFIC T-WAVE ABNORMALITY Compared to ECG 08/19/2024 17:33:28 No significant changes Electronically Signed On 08-20-2024 14:49:51 CUTTING INSPECTOR by Tom Ayala M.D. [id number]
[2024-08-19] MEDS: enoxaparin 40 mg/0.4 mL Syringe SUBCUT (22:06)
[2024-08-19 22:22] LABS: Bacteria Urine None Seen /hpf; Hyaline Casts Urine 1.65 /lpf; RBC Urine 0-2 /hpf (0-2); Squamous Epithelial Cell Urine 0-5 /hpf (0-5); WBC Urine 0-5 /hpf (0-5)
[2024-08-19 22:24] LABS: Amphetamines Screen Urine Negative (Negative); Barbiturates Screen Urine Negative (Negative); Benzodiazepines Screen Urine Positive (Negative); Cocaine Screen Urine Negative (Negative); Opiate Screen Urine Negative (Negative); PCP Screen Urine Negative (Negative); THC Screen Urine Negative (Negative)
[2024-08-19 22:35] LABS: Add Urine Microscopic? YES; Bilirubin Urine Negative (Negative); Blood Urine Negative (Negative); Glucose Urine UA Negative (Normal); Ketones Urine Trace (Negative); Leukocyte Esterase Urine Negative (Negative); Nitrate Urine Negative (Negative); Protein Urine Trace (Negative); Specific Gravity, Urine 1.026 (1.005-1.030); Urine Color Yellow (Yellow); pH Urine 5.5 (5-7)
[2024-08-19 22:36] LABS: Urine Appearance Clear (CLEAR)
[2024-08-20] VITALS (8 sets, daily range): BP systolic 95–118; BP diastolic 54–68; PULSE 69–86; RESP 15–19; TEMP 36.5–36.8; O2SAT 93–100
[2024-08-20 04:55] LABS: Basophils % 0.4 %; Eosinophils # 0.1 10^3/uL (0.0-0.8); Hematocrit 33.6 % (36-47); Lymphocytes # 2.4 10^3/uL (0.8-4.8); Lymphocytes % 31.4 %; Mean Corpuscular HGB Conc 32.7 g/dL (30-55); Mean Corpuscular Hemoglobin 33.3 pg (27-33); Mean Corpuscular Volume 101.8 fl (85-98); Mean Platelet Volume 10.5 fL (7.4-10.4); Monocytes # 0.7 10^3/uL (0.2-0.9); Monocytes % 8.7 %; Neutrophils # 4.47 10^3/uL (1.8-7.7); Neutrophils % 58.1 %; Nucleated Red Blood Cells % 0 %; Platelet Count 173 10^3/cmm (157-399)
[2024-08-20 05:09] LABS: Alanine Aminotransferase 12 U/L (0-33); Albumin Level 3.3 g/dL (3.5-5.2); Alkaline Phosphatase 60 U/L (35-105); Aspartate Amino Transferase 17 U/L (0-32); Blood Urea Nitrogen 15 mg/dL (8-23); Calcium 8.6 mg/dL (8.5-10.5); Carbon Dioxide 25 mmol/L (22-29); Chloride 109 mmol/L (98-107); Creatinine Clr Calc Pharmacy 69.2726; Globulin 2.3 g/dL (1.3-4.6); Glomerular Filtration Rate 71.1 mL/min (90-130); Glucose 90 mg/dL (65-115); Magnesium 2.1 mg/dL (1.7-2.3); Osmolality Calculated 296 mOsm/kg (285-295); Sodium 143 mmol/L (136-145); Total Bilirubin 0.5 mg/dL (0.15-1.2); Total Protein 5.6 g/dL (6.6-8.7)
[2024-08-20] MEDS: atorvastatin 40 mg Tablet PO (09:10)
[2024-08-20] MEDS: LORazepam 0.5 mg Tablet 1 MG PO ×3 (09:10→22:19)
[2024-08-20] MEDS: aspirin 81 mg EC Tablet PO (09:10)
--- NOTE | 2024-08-20 11:06 | PC.NURSE ---
The pt has had a fixation on calling all of her children and ex . Her Kevin was contacted and informed of this. He states this is normal behaviors for the pt and that he would be in this morning to see the pt.
--- NOTE | 2024-08-20 12:49 | PM.CONSULT ---
Providers/Reason For Consult Consulting Physician/Specialty*: DEYANIRA Flores MD/cardiology Reason for Consult*: Patient with possible embolic stroke, evaluate for cardiac source Requesting Physician: Dr. Graves Attending Physician: Bishnu Graves Primary Care Provider: Mona Miller MD History of Present Illness History of Present Illness Laurie Rogers is a 69 year old female is admitted to hospital with seizure-like activity and altered mental status. She has a history of dementia. She was in the process of being weaned off benzodiazepines. She had an MRI of the brain and was found to have multiple lacunar infarcts suggesting embolic episodes. Cardiology consult is requested for considering a MYKE to evaluate for any cardiac source of embolization. This patient has no history for any cardiac illness. No history for atrial fibrillation or any cardiac arrhythmia. His she has no chest pain or chest tightness. No history for heart murmur. She has no difficulty in swallowing. No history for any GI bleed or peptic ulcer disease. she currently has no focal motor deficits. Review of Systems Narrative: CONSTITUTIONAL: No fever or chills. No fever, chills or cough EYES: No blurring of vision or other visual disturbances lately. ENT: No hoarseness of voice, auditory disturbances or sore throat. CARDIOVASCULAR: As mentioned above. RESPIRATORY: No significant cough. GASTROINTESTINAL: No hematemesis or melena. GENITOURINARY: No dysuria or hematuria. INTEGUMENTARY: No skin rashes or history of skin cancer. NEURO: History of seizure-like activity and dementia as mentioned above PSYCHIATRIC: No history of psychosis or major depression. HEMATOLOGIC: No bleeding disorders or significant anemia. ENDOCRINE: No history of polyuria or polydipsia. MUSCULOSKELETAL: No recent joint pain or swelling. ALLERGY/IMMUNOLOGY: As mentioned above. Medications/Allergies Home Medications Medication Instructions Recorded Confirmed Last Taken Type aspirin 81 mg tablet,delayed 81 mg PO DAILY #30 tabs 05/13/24 08/19/24 Unknown Rx release docusate sodium 100 mg capsule 100 mg PO BID constipation #60 caps 05/13/24 08/19/24 Unknown Rx rosuvastatin 10 mg tablet 10 mg PO DAILY #30 tabs 05/13/24 08/19/24 Unknown Rx hospital bed #1 ea 06/16/24 08/19/24 Unknown Rx spironolactone 25 mg tablet 25 mg PO BID #60 tabs 08/03/24 08/19/24 Unknown Rx lorazepam 0.5 mg tablet 0.5 mg PO Q4H 08/19/24 08/19/24 Unknown History Allergies Allergy/AdvReac Type Severity Reaction Status Date / Time cephalexin [From Keflex] Allergy ALGY-Difficulty Verified 08/19/24 13:26 Swallowing Current Medications Generic Name Dose Route Start Last Admin Trade Name Freq PRN Reason Stop Dose Admin Aspirin 81 mg 08/20/24 09:00 08/20/24 09:10 Aspirin 81 Mg Ec Tablet PO 81 mg DAILY FRANCISCO Administration Atorvastatin Calcium 40 mg 08/20/24 09:00 08/20/24 09:10 Atorvastatin 40 Mg Tablet PO 40 mg DAILY FRANCISCO Administration Enoxaparin Sodium 40 mg 08/19/24 21:45 08/19/24 22:06 Enoxaparin 40 Mg/0.4 Ml Syringe SUBCUT 40 mg Q24H FRANCISCO Administration Lorazepam 1 mg 08/19/24 21:22 08/20/24 09:10 Lorazepam 0.5 Mg Tablet PO 1 mg TID FRANCISCO Administration PFSH Acute PFSH: Medical History Diverticulosis Osteopenia 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 Polyuria Urgency incontinence POP-Q stage 2 cystocele Surgical History History of hysterectomy Hx of cataract surgery BILATERAL Family History Other CAD (coronary artery disease) Cancer Hypertension Social History Smoking and tobacco/nicotine status: never used tobacco/nicotine Alcohol intake: never Substance/Drug Use: never Adopted: No Caregiver/support person: No Lives independently: Yes Marital status: Number of children: 3 Number of grandchildren: 11 Current occupational status: retired 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[employer] – [place] Current gender identity: Female Charu/Restorationism: Yarsani Special charu needs: No Agree to transfusion: Yes Vitals/I&O/Wt Last Vital Signs Temp 97.7 F 08/20/24 11:41 Pulse 84 08/20/24 11:41 Resp 18 12/05/24 11:41 BP 95/54 08/20/24 11:41 Pulse Ox 99 08/20/24 11:41 O2 Del Method Nasal Cannula 08/20/24 11:41 O2 Flow Rate 1 08/20/24 04:00 08/19/24 08/20/24 08/20/24 22:59 06:59 14:59 Intake Total 3000 / 3000 120 / 3120 240 / 240 Output Total 100 / 100 120 / 220 Balance 2900 / 2900 0 / 2900 240 / 240 Weight last 48 hrs Weight 168 lb 14.4 oz Weight 168 lb 4.8 oz Weight 148 lb Data 08/21/24 04:17 08/21/24 04:17 Other Labs: Laboratory Last Values WBC 7.70 10^3/uL (3.29-11.43) 08/20/24 04:21 RBC 3.30 10^6/uL (3.85-5.65) L 08/20/24 04:21 Hgb 11.00 g/dL (11.27-16.99) L 08/20/24 04:21 Hct 33.6 % (36-47) L 08/20/24 04:21 MCV 101.8 fl (85-98) H 08/20/24 04:21 MCH 33.3 pg (27-33) H 08/20/24 04:21 MCHC 32.7 g/dL (30-55) 08/20/24 04:21 RDW 13.0 % (12.1-15.1) 08/20/24 04:21 Plt Count 173 10^3/cmm (157-399) 08/20/24 04:21 MPV 10.5 fL (7.4-10.4) H 08/20/24 04:21 Neut % (Auto) 58.1 % 08/20/24 04:21 Lymph % (Auto) 31.4 % 08/20/24 04:21 Antelope % (Auto) 8.7 % 08/20/24 04:21 Eos % (Auto) 1.0 % 08/20/24 04:21 Baso % (Auto) 0.4 % 08/20/24 04:21 Neut # (Auto) 4.47 10^3/uL (1.8-7.7) 08/20/24 04:21 Lymph # (Auto) 2.4 10^3/uL (0.8-4.8) 08/20/24 04:21 [place]elope # (Auto) 0.7 10^3/uL (0.2-0.9) 08/20/24 04:21 Eos # (Auto) 0.1 10^3/uL (0.0-0.8) 08/20/24 04:21 Baso # (Auto) 0.0 10^3/uL (0.0-0.1) 08/20/24 04:21 Nucleated RBC % (auto) 0 % 08/20/24 04:21 Nucleated RBCs # 0.0 /100WBC 08/20/24 04:21 PT 14.90 SECONDS (12.1-14.9) 08/19/24 14:24 PT Cancelled 08/19/24 14:24 INR 1.13 (0.8-1.2) 08/19/24 14:24 INR Cancelled 08/19/24 14:24 APTT 22.5 SECONDS (23.9-36.7) L 08/19/24 14:24 APTT Cancelled 08/19/24 14:24 Fibrinogen 427 mg/dL (174-498) 08/19/24 14:24 Sodium 143 mmol/L (136-145) 08/20/24 04:21 Potassium 4.0 mmol/L (3.5-5.1) 08/20/24 04:21 Chloride 109 mmol/L (98-107) H 08/20/24 04:21 Carbon Dioxide 25 mmol/L (22-29) 08/20/24 04:21 Anion Gap 13.0 (5-19) 08/20/24 04:21 BUN 15 mg/dL (8-23) 08/20/24 04:21 Creatinine 0.8 mg/dL (0.5-0.9) 08/20/24 04:21 GFR Calculation 71.1 mL/min (90-130) L 08/20/24 04:21 Glucose 90 mg/dL (65-115) 08/20/24 04:21 Calculated Osmolality 296 mOsm/kg (285-295) H 08/20/24 04:21 Lactic Acid 20.4 mmol/L (0.5-2.2) H* 08/19/24 14:24 Lactic Acid (Sepsis) 1.8 mmol/L (0.5-2.2) 08/19/24 18:10 Calcium 8.6 mg/dL (8.5-10.5) 08/20/24 04:21 Magnesium 2.1 mg/dL (1.7-2.3) 08/20/24 04:21 Total Bilirubin 0.5 mg/dL (0.15-1.2) 08/20/24 04:21 AST 17 U/L (0-32) 08/20/24 04:21 ALT 12 U/L (0-33) 08/20/24 04:21 Alkaline Phosphatase 60 U/L (35-105) 08/20/24 04:21 Troponin T Baseline 18 ng/L (0-10) H 08/19/24 14:24 Troponin T 120 Minute 14.12 ng/L (0-10) H 08/19/24 16:42 Delta Troponin T -3.88 ABS# (0-10) L 08/19/24 16:42 Troponin T Hi Sens 6Hr 15.00 ng/L (0-10) H 08/19/24 21:13 Troponin T Hi Sens 6Hr Delta -3.00 ng/L (0-12) L 08/19/24 21:13 Total Protein 5.6 g/dL (6.6-8.7) L D 08/20/24 04:21 Albumin 3.3 g/dL (3.5-5.2) L 08/20/24 04:21 Globulin 2.3 g/dL (1.3-4.6) 08/20/24 04:21 Urine Color Yellow (Yellow) 08/19/24 22:08 Urine Appearance Clear (CLEAR) 08/19/24 22:08 Urine pH 5.5 (5-7) 08/19/24 22:08 Ur Specific [place] 1.026 (1.005-1.030) 08/19/24 22:08 Urine Protein Trace (Negative) A 08/19/24 22:08 Urine Glucose (UA) Negative (Normal) 08/19/24 22:08 Urine Ketones Trace (Negative) 08/19/24 22:08 Urine Blood Negative (Negative) 08/19/24 22:08 Urine Nitrate Negative (Negative) 08/19/24 22:08 Urine Bilirubin Negative (Negative) 08/19/24 22:08 Urine Urobilinogen 1.0 mg/dL (Negative) 08/19/24 22:08 Ur Leukocyte Esterase Negative (Negative) 08/19/24 22:08 Urine RBC 0-2 /hpf (0-2) 08/19/24 22:08 Urine WBC 0-5 /hpf (0-5) 08/19/24 22:08 Ur Squamous Epith Cells 0-5 /hpf (0-5) 08/19/24 22:08 Amorphous Sediment Not Reportable 08/19/24 22:08 Urine Bacteria None seen /hpf (NONE) 08/19/24 22:08 Hyaline Casts 1.65 /lpf 08/19/24 22:08 Urine Opiates Screen Negative ng/mL (Negative) 08/19/24 22:08 Ur Barbiturates Screen Negative ng/mL (Negative) 08/19/24 22:08 Ur Phencyclidine Scrn Negative ng/mL (Negative) 08/19/24 22:08 Ur Amphetamines Screen Negative ng/mL (Negative) 08/19/24 22:08 U Benzodiazepines Scrn Positive ng/mL (Negative) H 08/19/24 22:08 Urine Cocaine Screen Negative ng/mL (Negative) 08/19/24 22:08 U Marijuana (THC) Screen Negative ng/mL (Negative) 08/19/24 22:08 Ethyl Alcohol < 10 mg/dL (0-10) 08/19/24 14:24 Coronavirus (PCR) Negative (Negative) 08/19/24 18:25 Influenza A (PCR) Negative (Negative) 08/19/24 18:25 Influenza Type B (PCR) Negative (Negative) 08/19/24 18:25 RSV (PCR) Negative (Negative) 08/19/24 18:25 EKG 1: My Interpretation: Normal sinus rhythm with some nonspecific T wave changes. Other data: MRI of the head Brain: There is a subcentimeter focus of mild diffusion restriction in the right thalamus compatible with a subacute infarct adjacent to a larger chronic thalamic infarct (image 16 of series 302/[id number]). Background of periventricular and deep white matter T2 FLAIR hyperintensities compatible with sequela of moderate chronic microvascular ischemic changes. No mass effect or midline shift. Cerebral ventricles: No hydrocephalus. Bones: Unremarkable. Paranasal sinuses: The visualized paranasal sinuses are well aerated. Mastoid air cells: The mastoids and middle ears are grossly clear without evidence of effusion. Orbital cavities: The visualized orbits are unremarkable. Soft tissues: Grossly unremarkable. MR/MR head wo con* [id number] IMPRESSION: 1. No evidence of acute intracranial abnormality. 2. Subacute subcentimeter right thalamic infarc A&P Assessment and plan (1) Embolic stroke: Etiology is unclear. Possibility of cardiac embolization is a consideration. To further evaluate a MYKE would be appropriate. Discussed with the patient and her son. The son wants to talk to his brother and to make a final decision afterwards. Qualifiers: Precerebral and cerebral artery: unspecified cerebral artery Qualified Code(s): I63.40 - Cerebral infarction due to embolism of unspecified cerebral artery (2) Vascular dementia: Management as per the primary Qualifiers: Dementia behavioral or psychological symptom: with anxiety Dementia severity: unspecified severity Qualified Code(s): F01.54 - Vascular dementia, unspecified severity, with anxiety (3) Dyslipidemia: Patient is on a statin. myocardial on the current treatment Plan Based on the results of the MYKE , further recommendations will be made . Patient also may benefit from an event monitor to evaluate for any atrial fibrillation Consult Attestations Medical Necessity Statement: deferred to the primary Coding Level of Care Code 63429 Diagnoses Cerebrovascular accident (CVA) due to embolism of cerebral artery I63.40 Precerebral and cerebral artery: unspecified cerebral artery Vascular dementia with anxiety, unspecified dementia severity F01.54 Dementia behavioral or psychological symptom: with anxiety Dementia severity: unspecified severity Dyslipidemia E78.5
--- NOTE | 2024-08-20 20:08 | P.PN_ITS ---
Subjective 2 Subjective: Today she is awake and alert, pleasant, feeling well. Denies pain or discomfort. Vitals/I&O/Wt Last Vital Signs Temp 98.2 F 08/20/24 17:00 Pulse 86 08/20/24 17:00 Resp 18 08/20/24 17:00 BP 118/68 08/20/24 17:00 Pulse Ox 95 08/20/24 17:00 O2 Del Method Nasal Cannula 08/20/24 17:00 O2 Flow Rate 1 08/20/24 04:00 08/20/24 08/20/24 08/20/24 06:59 14:59 22:59 Intake Total 120 / 3120 600 / 600 360 / 960 Output Total 120 / 220 Balance 0 / 2900 600 / 600 360 / 960 Weight last 48 hrs Weight 76.612 kg Weight 76.34 kg Weight 67.132 kg Physical Exam 2 Const: COMMON NORMALS: alert GENERAL APPEARANCE: cooperative HENMT: COMMON NORMALS: oropharynx normal Neck/C-Spine: COMMON NORMALS: no JVD Resp: COMMON NORMALS: normal respiratory effort and clear to auscultation bilaterally AUSCULTATION: clear to auscultation bilaterally Cardio: COMMON NORMALS: no JVD, regular rhythm, S1 normal heart sound present, S2 normal heart sound present and No murmurs present (Cardio) RHYTHM: regular rhythm HEART SOUNDS: S1 normal heart sound present and S2 normal heart sound present GI: COMMON NORMALS: Normal to inspection, nondistended, normoactive bowel sounds present, Soft to palpation and non-tender PALPATION: Yes Soft to palpation Extremity: COMMON NORMALS: no joint enlargement and no pedal edema Neuro: COMMON NORMALS: moves all extremities SENSORIUM/ORIENTATION: Yes alert Skin: COMMON NORMALS: no rashes or lesions noted GENERAL SKIN EXAM: no rashes or lesions noted Data 08/20/24 04:21 08/20/24 04:21 A&P Assessment and plan (1) Embolic stroke: Reviewed vitals, CBC, CMP, UA, reviewed head MRI, carotid duplex, echocardiogram, discussed with her and separately her son. Discussed with cardiology concern by neurology for possible embolic etiology of CVA, discussed consideration of additional workup. Appreciate cardiology consultation. Cardiology giving further consideration with her to assessment by MYKE with bubble study. Discussed with nursing, watch case polisher. Discussed with her and with cardiology also consideration of cardiac monitoring after discharge. No A-fib on telemetry in the hospital. Continue aspirin, atorvastatin 40 mg. Qualifiers: Precerebral and cerebral artery: unspecified cerebral artery Qualified Code(s): I63.40 - Cerebral infarction due to embolism of unspecified cerebral artery (2) New onset seizure: Resolved. She is doing well. Awake and alert, cooperative. Lucid. Denies any pain or discomfort. Remembers having some confusion the last few days, does not know members seizure. Continue benzodiazepine scheduled for now at decreased dose, monitor for risk of further withdrawal versus mental status/respiratory depression. Continue benzodiazepines, will need to wean off gradually. Suspected secondary to benzodiazepine withdrawal. MRI brain reviewed, noted prior lacunar strokes. No obvious mass or other potential source. Does not drink alcohol. No substance use. Additional workup as per neurology recommendation with echocardiogram, carotid duplex, head MRI obtained. Reviewed MRI, carotid duplex. Echocardiogram pending review by cardiology. Consider possible embolic etiology of strokes. Monitor on telemetry. Consider monitor tech at discharge. Continue aspirin, statin. Start basic hypercoagulable workup with antiphospholipid studies, will need to follow-up for additional workup for other possible hypercoagulable conditions. As per recommendation continue Ativan 1 mg 3 times daily by mouth for now. Continuous pulse oximetry. Seizure precautions. (3) Benzodiazepine withdrawal with complication: Will need a refill for benzodiazepines for taper at discharge. Follow-up with primary care. Discussed with watch case polisher. In the meantime as per neurology recommendation resumed on 1 mg 3 times daily Ativan for now. IV Ativan as needed for seizure. Plan Altered mental status: Improving. Leukocytosis resolved. No further seizure episode. UA reviewed, no certain of UTI. Viral studies for flu, COVID, RSV are negative. Noted to have several small CVA, possible embolic etiology is being further assessed. Recently with confusion, suspected secondary to withdrawal secondary to benzodiazepine, although does have also leukocytosis which may be secondary to seizure, however, pending additional assessment with urinalysis. Chest x-ray not suggestive of pneumonia. Reviewed viral studies with flu, PCR, COVID, negative. No cellulitis. Did have an episode of vomiting, possible mild aspiration pneumonitis. No signs of pneumonia on chest x-ray on my interpretation. She is otherwise maintaining good oxygenation on room air. I do not hear any signs of bronchitis on auscultation. Discussed with ER physician. Severe lactic acidosis: Reviewed lactic acid, lactic acidosis resolved. Attestations 2 Medical Necessity Statement*: Continue hospitalization for further assessment of subacute CVA, multifocal, consideration of possible embolic etiology. and High MDM includes amount and/or complexity of data reviewed/ordered [ resulted lab(s)/test(s), ordered lab(s)/test(s) and other healthcare professional discussion] and described risk of complication, morbidity or mortality of management as documented Diagnoses Cerebrovascular accident (CVA) due to embolism of cerebral artery I63.40 Precerebral and cerebral artery: unspecified cerebral artery New onset seizure R56.9 Benzodiazepine withdrawal with complication F13.932
[2024-08-20] MEDS: enoxaparin 40 mg/0.4 mL Syringe SUBCUT (22:19)
[2024-08-21] VITALS (11 sets, daily range): BP systolic 97–146; BP diastolic 61–89; PULSE 79–92; RESP 14–20; TEMP 36.4–36.9; O2SAT 93–100
[2024-08-21 05:19] LABS: Basophils % 0.4 %; Eosinophils # 0.2 10^3/uL (0.0-0.8); Eosinophils % 2.2 %; Hematocrit 31.6 % (36-47); Lymphocytes # 1.8 10^3/uL (0.8-4.8); Lymphocytes % 25.2 %; Mean Corpuscular HGB Conc 33.9 g/dL (30-55); Mean Corpuscular Hemoglobin 34.1 pg (27-33); Mean Corpuscular Volume 100.6 fl (85-98); Mean Platelet Volume 10.4 fL (7.4-10.4); Monocytes # 0.5 10^3/uL (0.2-0.9); Monocytes % 7.1 %; Neutrophils # 4.72 10^3/uL (1.8-7.7); Neutrophils % 64.8 %; Nucleated Red Blood Cells % 0 %; Platelet Count 166 10^3/cmm (157-399); Red Blood Count 3.14 10^6/uL (3.85-5.65); Red Cell Distribution Width 12.7 % (12.1-15.1); White Blood Count 7.29 10^3/uL (3.29-11.43)
[2024-08-21 05:36] LABS: Alanine Aminotransferase 11 U/L (0-33); Albumin Level 3.3 g/dL (3.5-5.2); Alkaline Phosphatase 60 U/L (35-105); Aspartate Amino Transferase 11 U/L (0-32); Blood Urea Nitrogen 14 mg/dL (8-23); Calcium 8.9 mg/dL (8.5-10.5); Carbon Dioxide 26 mmol/L (22-29); Chloride 109 mmol/L (98-107); Creatinine Clr Calc Pharmacy 68.3363; Globulin 2.4 g/dL (1.3-4.6); Glomerular Filtration Rate 71.1 mL/min (90-130); Glucose 110 mg/dL (65-115); Osmolality Calculated 295 mOsm/kg (285-295); Sodium 142 mmol/L (136-145); Total Bilirubin 0.3 mg/dL (0.15-1.2); Total Protein 5.7 g/dL (6.6-8.7)
[2024-08-21] MEDS: LORazepam 0.5 mg Tablet 1 MG PO (08:59)
[2024-08-21] MEDS: aspirin 81 mg EC Tablet PO (09:00)
[2024-08-21] MEDS: atorvastatin 40 mg Tablet PO (09:00)
--- NOTE | 2024-08-21 10:44 | ANES.PREANE2 ---
Pre-Anesthetic Assessment Height/Weight: Height 5 ft 6 in Weight 163 lb 6 oz Temp Pulse Resp BP Pulse Ox O2 Del Method O2 Flow Rate 97.8 F 81 14 117/71 96 Nasal Cannula 1 08/21/24 07:49 08/21/24 07:49 08/21/24 07:49 08/21/24 07:49 08/21/24 07:49 08/21/24 07:49 08/20/24 04:00 Preop Diagnosis: Stroke Operation Date: 08/21/24 12:30 Proposed Procedures p MYKE(Not Applicable) - Erin Flores MD Was Beta Tobi taken within 24 hours: N/A Was Clonidine taken within 24 hours: N/A Social No alcohol and No tobacco Exam alert, clear to auscultation bilaterally and regular rate & rhythm Patient is confused Airway Submandibular: within normal limits Cervical ROM: within normal limits Mallampati: Class III Dentition: full Anesthetic Plan ASA status: 3 Anesthesia: MAC Other: No prior issues with anesthesia NPO since yesterday Patient admitted 08/19/2024 for concerns of being unresponsive with new onset seizures Patient is confused today, spoke to son about risks of anesthesia. He agrees to proceed MRI brain showing lacunar strokes Patient was also on chronic benzodiazepines and stopped taking these, concern for withdrawal Echo 08/19/2024 showing EF 55 to 60% with no wall motion abnormalities or valvular abnormalities Labs reviewed 08/21/2024 Plan for MAC anesthetic Medications/Allergies Home Medications Medication Instructions Recorded Confirmed Last Taken Type aspirin 81 mg tablet,delayed 81 mg PO DAILY #30 tabs 05/13/24 08/19/24 Unknown Rx release docusate sodium 100 mg capsule 100 mg PO BID constipation #60 caps 05/13/24 08/19/24 Unknown Rx rosuvastatin 10 mg tablet 10 mg PO DAILY #30 tabs 05/13/24 08/19/24 Unknown Rx hospital bed #1 ea 06/16/24 08/19/24 Unknown Rx spironolactone 25 mg tablet 25 mg PO BID #60 tabs 08/03/24 08/19/24 Unknown Rx lorazepam 0.5 mg tablet 0.5 mg PO Q4H 08/19/24 08/19/24 Unknown History Allergies Allergy/AdvReac Type Severity Reaction Status Date / Time cephalexin [From Keflex] Allergy ALGY-Difficulty Verified 08/19/24 13:26 Swallowing Current Medications Generic Name Dose Route Start Last Admin Trade Name Freq PRN Reason Stop Dose Admin Aspirin 81 mg 08/20/24 09:00 08/21/24 09:00 Aspirin 81 Mg Ec Tablet PO 81 mg DAILY FRANCISCO Administration Atorvastatin Calcium 40 mg 08/20/24 09:00 08/21/24 09:00 Atorvastatin 40 Mg Tablet PO 40 mg DAILY FRANCISCO Administration Enoxaparin Sodium 40 mg 08/19/24 21:45 08/20/24 22:19 Enoxaparin 40 Mg/0.4 Ml Syringe SUBCUT 40 mg Q24H FRANCISCO Administration Lorazepam 1 mg 08/19/24 21:22 08/21/24 08:59 Lorazepam 0.5 Mg Tablet PO 1 mg TID FRANCISCO Administration Additional Medication Information Current Medications Acetaminophen (Acetaminophen 325 Mg Tablet) 650 mg PO Q6H PRN PRN Reason: Mild/Mod Pain Or Temp >/= 101 Aspirin (Aspirin 81 Mg Ec Tablet) 81 mg PO DAILY [facility] Last Admin: 08/21/24 09:00 Dose: 81 mg Atorvastatin Calcium (Atorvastatin 40 Mg Tablet) 40 mg PO DAILY [facility] Last Admin: 08/21/24 09:00 Dose: 40 mg Enoxaparin Sodium (Enoxaparin 40 Mg/0.4 Ml Syringe) 40 mg SUBCUT Q24H [facility] Last Admin: 08/20/24 22:19 Dose: 40 mg Lorazepam (Lorazepam 0.5 Mg Tablet) 1 mg PO TID [facility] Last Admin: 08/21/24 08:59 Dose: 1 mg Ondansetron HCl (Ondansetron 2 Mg/Ml Sdv 2 Ml) 4 mg IVP Q8H PRN PRN Reason: vomiting, or N/V if npo PFSH Anesthesia Medical History Diverticulosis Osteopenia 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 Polyuria Urgency incontinence POP-Q stage 2 cystocele Surgical History History of hysterectomy Hx of cataract surgery BILATERAL Family History Other CAD (coronary artery disease) Cancer Hypertension Social History Smoking and tobacco/nicotine status: never used tobacco/nicotine Alcohol intake: never Substance/Drug Use: never Adopted: No Caregiver/support person: No Lives independently: Yes Marital status: Number of children: 3 Number of grandchildren: 11 Current occupational status: retired 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99) g/dL Hct 31.6 L (36-47) % MCV 100.6 H (85-98) fl Plt Count 166 (157-399) 10^3/cmm Neut % (Auto) 64.8 % Neut # (Auto) 4.72 (1.8-7.7) 10^3/uL BMP 08/19/24 08/20/24 08/21/24 14:24 04:21 04:17 Sodium 142 143 142 Potassium 3.6 4.0 4.0 Chloride 98 109 H 109 H Carbon Dioxide 11 L 25 26 BUN 24 H 15 14 Creatinine 1.2 H 0.8 0.8 Glucose 169 H 90 110 Calcium 10.3 8.6 8.9 Cardiac Enzymes 08/19/24 08/19/24 08/19/24 Range/Units 14:24 16:42 21:13 Troponin T Baseline 18 H (0-10) ng/L Troponin T 120 Minute 14.12 H (0-10) ng/L Delta Troponin T -3.88 L (0-10) ABS# Troponin T Hi Sens 6Hr 15.00 H (0-10) ng/L Troponin T Hi Sens 6Hr Delta -3.00 L (0-12) ng/L Liver Function 08/19/24 08/20/24 08/21/24 Range/Units 14:24 04:21 04:17 Total Bilirubin 0.6 0.5 0.3 (0.15-1.2) mg/dL AST 21 17 11 (0-32) U/L ALT 17 12 11 (0-33) U/L Alkaline Phosphatase 83 60 60 (35-105) U/L Albumin 4.5 3.3 L 3.3 L (3.5-5.2) g/dL Urine 08/19/24 Range/Units 22:08 Urine Color Yellow (Yellow) Urine Appearance Clear (CLEAR) Urine pH 5.5 (5-7) Ur Specific [place] 1.026 (1.005-1.030) Urine Protein Trace A (Negative) Urine Glucose (UA) Negative (Normal) Urine Ketones Trace (Negative) Urine Nitrate Negative (Negative) Urine Bilirubin Negative (Negative) Ur Leukocyte Esterase Negative (Negative) Urine RBC 0-2 (0-2) /hpf Urine WBC 0-5 (0-5) /hpf COVID Results 08/19/24 18:25 Coronavirus (PCR) Negative Coags 08/19/24 08/19/24 08/19/24 14:24 14:24 14:24 PT 14.90 Cancelled INR 1.13 Cancelled APTT 22.5 L Fibrinogen 08/19/24 14:24 PT INR APTT Cancelled Fibrinogen 427 Cardiac Studies: Echocardiogram 08/19/24 Cardiac Event Monitor 05/04/24
--- NOTE | 2024-08-21 12:03 | P.PN_ITS ---
Subjective 2 Subjective: Patient is doing okay with no specific symptoms at this time. Discussed the patient's son, Kevin. The family is agreeable for her to have the MYKE to look for any cardiac source of embolization. Medications: Medication Review Details: Current Medications Acetaminophen (Acetaminophen 325 Mg Tablet) 650 mg PO Q6H PRN PRN Reason: Mild/Mod Pain Or Temp >/= 101 Aspirin (Aspirin 81 Mg Ec Tablet) 81 mg PO DAILY [facility] Last Admin: 08/21/24 09:00 Dose: 81 mg Atorvastatin Calcium (Atorvastatin 40 Mg Tablet) 40 mg PO DAILY [facility] Last Admin: 08/21/24 09:00 Dose: 40 mg Enoxaparin Sodium (Enoxaparin 40 Mg/0.4 Ml Syringe) 40 mg SUBCUT Q24H [facility] Last Admin: 08/20/24 22:19 Dose: 40 mg Lorazepam (Lorazepam 0.5 Mg Tablet) 1 mg PO TID [facility] Last Admin: 08/21/24 08:59 Dose: 1 mg Ondansetron HCl (Ondansetron 2 Mg/Ml Sdv 2 Ml) 4 mg IVP Q8H PRN PRN Reason: vomiting, or N/V if npo Vitals/I&O/Wt Last Vital Signs Temp 97.6 F 08/21/24 11:59 Pulse 92 08/21/24 11:59 Resp 18 08/21/24 11:59 BP 146/79 08/21/24 11:59 Pulse Ox 96 08/21/24 11:59 O2 Del Method Room Air 08/21/24 11:59 O2 Flow Rate 1 08/20/24 04:00 08/20/24 08/21/24 08/21/24 22:59 06:59 14:59 Intake Total 360 / 960 Balance 360 / 960 Weight last 48 hrs Weight 163 lb 6 oz Weight 168 lb 14.4 oz Weight 168 lb 4.8 oz Weight 148 lb Physical Exam 2 Narrative: GENERAL: The patient is alert and oriented times two. Not in any acute distress. HEENT: No significant pallor, icterus or lymphadenopathy.Oral cavity: There are no mucous membrane lesions. NECK: Trachea appears to be central. No masses noted. No JVD or thyromegaly appreciated. RESPIRATORY: Chest is symmetrical. No intercostals muscle retraction or any accessory muscle activation. There is no chest wall tenderness. Breath sounds are heard bilaterally. No rales or rhonchi heard. No evidence of any consolidation. BREASTS: Deferred. HEART: The heart sounds are normal. No S3 or S4. No significant murmurs. No pericardial rub ABDOMEN: No vessel pulsations or distention. No tenderness. No organomegaly appreciated. Bowel sounds are normally heard. : Deferred. RECTAL: Deferred. LYMPHATIC: No lymphadenopathy noted in the neck. EXTREMITIES: No edema or cyanosis. No clubbing. MUSCULOSKELETAL: No acute joint deformities or swelling SKIN: There are no significant rashes or ecchymosis NEUROPSYCHIATRIC: No focal motor deficit Data 08/21/24 04:17 08/21/24 04:17 A&P Assessment and plan (1) Embolic stroke: Etiology is unclear. Possibility of cardiac embolization is a consideration. To further evaluate a MYKE would be appropriate. Discussed with the patient and her sons. The family is agreeable for it. The risk of aspiration, bleeding, soft tissue injury, perforation of the stomach/esophagus and other concomitant complications were explained to the patient in detail. The patient understood this well and consented to proceed Qualifiers: Precerebral and cerebral artery: unspecified cerebral artery Qualified Code(s): I63.40 - Cerebral infarction due to embolism of unspecified cerebral artery (2) Vascular dementia: Management as per the primary Qualifiers: Dementia severity: unspecified severity Dementia behavioral or psychological symptom: with anxiety Qualified Code(s): F01.54 - Vascular dementia, unspecified severity, with anxiety (3) Dyslipidemia: Patient is on a statin. myocardial on the current treatment Plan Patient is scheduled for the MYKE today Based on the findings, further recommendations will be made. Attestations 2 Medical Necessity Statement*: Disposition as per the primary Coding Level of Care Code 16773 Diagnoses Cerebrovascular accident (CVA) due to embolism of cerebral artery I63.40 Precerebral and cerebral artery: unspecified cerebral artery Vascular dementia with anxiety, unspecified dementia severity F01.54 Dementia severity: unspecified severity Dementia behavioral or psychological symptom: with anxiety Dyslipidemia E78.5
--- NOTE | 2024-08-21 12:09 | W.PM.OPSUD ---
Surgery/Procedure H&P Update DATE OF PROCEDURE: August 21, 2024 DATE H&P PERFORMED: 08/20/24 H&P UPDATE INFORMATION: I have reviewed H&P completed within last 30 days, I have examined patient prior to procedure and No changes to prior documentation PREOP DIAGNOSIS: Cryptogenic stroke PRIMARY INDICATION FOR PROCEDURE: Multiple lacunar infarcts by CT scan/MRI PLANNED PROCEDURE: Operation Date: 08/21/24 12:30 Proposed Procedures p MYKE(Not Applicable) - Erin Flores MD
--- NOTE | 2024-08-21 13:46 | USCV_ITS ---
Laurie Rogers Age: 69 Gender: F : 1955 Exam Date: 08/21/2024 12:28 Ordering Phys: Erin Flores MD ([email or web address]) Technologist: Gavin Cleveland [place] [facility] [place]: [place] BP: / HR: Rhythm: Sinus Technical Quality: Adequate MEASUREMENTS (Male / Female) Normal Values Medications IV propofol administered by anesthesia service. Please refer to the anesthesia report for details Complications None Proc. Components The patient was brought to the MYKE examination room in a fasting state after obtaining an informed consent. The MYKE probe was passed into the posterior pharynx , mid-esophagus, distal esophagus, and gastric fundus. MYKE was performed at multiple levels. The patient tolerated the procedure well and there were no complications. FINDINGS Left Ventricle Patient with normal LV ejection fraction. No intracavitary masses or thrombi Right Ventricle Normal LV size ejection fraction. Right Atrium Normal right atrial size. Left Atrium Normal left atrial size. No thrombus present in the left atrial appendage. LA Appendage Normal left atrial appendage. Normal flow velocities in the left atrial appendage. IA Septum Normal interatrial septum. No patent foramen ovale. No evidence for an atrial septal defect. Based on the color-flow Doppler examination/saline contrast injection Mitral Valve No gross abnormalities noted Aortic Valve Structurally normal trileaflet aortic valve. Tricuspid Valve Structurally normal tricuspid valve. Pulmonic Valve Structurally normal pulmonic valve. Pericardium No pericardial effusion. Aorta The ascending aorta was found to be of normal size with no evidence of dissection or unstable plaques. Arch of the aorta also was found no significant plaques or unstable lesions. CONCLUSIONS 1. No intracavitary masses. 2. Left atrial appendage was found to be of normal size and contractility with normal intracavitary masses 3. No significant stenotic or regurgitant lesions. 4. Normal aortic root and the ascending aorta 5. Minimally thickened aortic valve Dr Erin Flores MD FACC (Electronically Signed) Final Date: 21 August 2024 15:41 S
--- NOTE | 2024-08-21 14:05 | P.DS_ITS ---
Discharge Providers Date of Admission: 08/20/24 20:08 Date of Discharge: August 21, 2024 Attending Provider at Admission: Bishnu Graves Attending Provider at Discharge: Bishnu Graves Primary Care Provider: Mona Miller MD Diagnoses at Discharge Discharge Diagnosis (1) Embolic stroke: Status: Acute Qualifiers: Precerebral and cerebral artery: unspecified cerebral artery Qualified Code(s): I63.40 - Cerebral infarction due to embolism of unspecified cerebral artery Permanent problem details: several small acute lacunar infarcts involving the cortex of several arterial distributions (2) Vascular dementia: Status: Acute Qualifiers: Dementia behavioral or psychological symptom: with anxiety Dementia severity: unspecified severity Qualified Code(s): F01.54 - Vascular dementia, unspecified severity, with anxiety Permanent problem details: advanced small vessel ischemic disease in the supratentorial white matter and also the sergio (3) Dyslipidemia: Status: Acute Reason for Visit Reason for Visit: Unresponsive Brief History: Pleasant 69-year-old lady with history of lacunar strokes, without history of epilepsy, with history of manage aspirin medication use, was being weaned off of benzodiazepines by her primary provider, her medication dose was decreased, however, she had run out of the medications about 10 days ago and had discontinued them entirely. She was having growing confusion. She had a fall out of bed 2 days ago and experienced some neck pain subsequently. She had an appointment and saw her primary provider earlier today for a refill of benzodiazepine. However, after leaving from the appointment she became unresponsive with tonic-clonic movements in the car, subsequently becoming flaccid and unresponsive. Was brought into the emergency department for evaluation immediately following the event. In the ER initially unresponsive, but subsequently with gradual improvement in mental status. With suspected new onset tonic-clonic seizure underwent additional assessment by CT head which showed advanced multivessel changes with moderate parenchymal volume loss, chronic appearing lacunar infarcts in the right caudate and right thalamus. Left maxillary sinusitis. With noted severe lactic acidosis 20.4. Leukocytosis of 18. Mild SOILA, creatinine 1.2. She was assessed by neurology. Hospital Course Hospital Course She was further monitored in the hospital with seizure precautions, continued on scheduled Ativan 1 mg 3 times daily with which she did well, without any further seizure episodes. Severe lactic acidosis resolved. Leukocytosis resolved. Workup including viral studies, urine, without evidence of acute infection, and no symptoms of infectious etiology during hospitalization. Incidentally found multifocal small lacunar CVAs further assessed for possibility of embolic disease. Underwent carotid duplex which showed no significant stenosis, TTE showed normal ejection fraction, grade 1 diastolic dysfunction, mild MVR. He was monitored on telemetry which did not reveal atrial fibrillation. Initial hypercoagulability study started with antiphospholipid studies which were sent out and pending. Please follow-up, consider further assessment of less commonly associated hypercoagulability disorders depending on results. As per neurology recommendation additional assessment sought with cardiology, and further underwent assessment with MYKE which did not show any intracardiac thrombus and no septal defect. Referrals given for additional cardiac monitoring for the next 21 days to further assess for any occult episodes of atrial fibrillation. Was continued on aspirin, statin. Continued to do well, awake and alert, lucid. Does have underlying dementia with some memory difficulties, history of severe anxiety. Has been long-term on benzodiazepines. Attempts have been made to try to the medications due to risks as per discussion. Has had difficulties with weaning the medication in the past and has had multiple and frequent prior prescriptions for it. Patient and family are choosing to follow-up in a different primary care office, an appointment was able to be made for 26 August. As per discussion referral was additionally given to behavioral health care to assist with gradual taper off benzodiazepines as well as additional measures to help manage anxiety. Additionally instructed to continue monitoring blood pressures for possibility of episodic hypertension, as well as for any low episodes. As well as caution with spironolactone to avoid dehydration with diuretic. Please reassess blood pressures. Physical Exam Const: COMMON NORMALS: alert GENERAL APPEARANCE: cooperative ORIENTATION/CONSCIOUSNESS: Yes awake OTHER: Pleasant, conversant. HENMT: COMMON NORMALS: oropharynx normal Neck/C-Spine: COMMON NORMALS: no JVD Resp: COMMON NORMALS: normal respiratory effort and clear to auscultation bilaterally AUSCULTATION: clear to auscultation bilaterally Cardio: COMMON NORMALS: no JVD, regular rhythm, S1 normal heart sound present, S2 normal heart sound present and No murmurs present (Cardio) RHYTHM: regular rhythm HEART SOUNDS: S1 normal heart sound present and S2 normal heart sound present GI: COMMON NORMALS: Normal to inspection, nondistended, normoactive bowel sounds present, Soft to palpation and non-tender PALPATION: Yes Soft to pa lpation Extremity: COMMON NORMALS: no joint enlargement and no pedal edema Neuro: COMMON NORMALS: moves all extremities SENSORIUM/ORIENTATION: Yes alert Skin: COMMON NORMALS: no rashes or lesions noted GENERAL SKIN EXAM: no rashes or lesions noted Discharge Data Studies Completed and Pending Completed Studies During Hospitalization Category Date Time Status CT head wo con* [id number] Stat Cat Scan 08/19/24 14:25 Completed XR chest 1V portable [id number] Stat Exams 08/19/24 14:25 Completed MR head wo con* [id number] Stat MRI 08/19/24 15:11 Completed CV. echo complete* [id number] Stat Ultrasound 08/19/24 15:12 Completed US carotid duplex bilateral [CV carotid duplex BI* Ultrasound 08/19/24 15:12 Completed [id number]] Stat Pending at discharge Category Date Time Status Complete Blood Count w/Auto AM LABS Lab 08/22/24 04:00 Ordered Comprehensive Metabolic Panel AM LABS Lab 08/22/24 04:00 Ordered Lupus Inhibitor Panel Anticoag Routine Lab 08/19/24 21:22 Received PROTEIN C, ACTIVITY Routine Lab 08/19/24 21:22 Received CV req echo MYKE bedside [id number] Routine Ultrasound 08/21/24 13:46 Taken Radiology Impressions Chest X-Ray 08/19/24 14:25 IMPRESSION: No acute findings. Head CT 08/19/24 14:25 IMPRESSION: 1. No evidence of intracranial hemorrhage or mass effect. 2. LEFT maxillary sinusitis. 3. Advanced small vessel changes with moderate parenchymal volume loss. 4. Chronic appearing lacunar infarcts in the RIGHT caudate and RIGHT thalamus. 5. No acute intracranial findings. Notified Joshua Hermosillo MD at 08/19/2024 2:59 PM. Head MRI 08/19/24 15:11 IMPRESSION: 1. No evidence of acute intracranial abnormality. 2. Subacute subcentimeter right thalamic infarct. Laboratory Results WBC 7.29 10^3/uL (3.29-11.43) 08/21/24 04:17 RBC 3.14 10^6/uL (3.85-5.65) L 08/21/24 04:17 Hgb 10.70 g/dL (11.27-16.99) L 08/21/24 04:17 Hct 31.6 % (36-47) L 08/21/24 04:17 MCV 100.6 fl (85-98) H 08/21/24 04:17 MCH 34.1 pg (27-33) H 08/21/24 04:17 MCHC 33.9 g/dL (30-55) 08/21/24 04:17 RDW 12.7 % (12.1-15.1) 08/21/24 04:17 Plt Count 166 10^3/cmm (157-399) 08/21/24 04:17 MPV 10.4 fL (7.4-10.4) 08/21/24 04:17 Neut % (Auto) 64.8 % 08/21/24 04:17 Lymph % (Auto) 25.2 % 08/21/24 04:17 [place] % (Auto) 7.1 % 08/21/24 04:17 Eos % (Auto) 2.2 % 08/21/24 04:17 Baso % (Auto) 0.4 % 08/21/24 04:17 Neut # (Auto) 4.72 10^3/uL (1.8-7.7) 08/21/24 04:17 Lymph # (Auto) 1.8 10^3/uL (0.8-4.8) 08/21/24 04:17 [place] # (Auto) 0.5 10^3/uL (0.2-0.9) 08/21/24 04:17 Eos # (Auto) 0.2 10^3/uL (0.0-0.8) 08/21/24 04:17 Baso # (Auto) 0.0 10^3/uL (0.0-0.1) 08/21/24 04:17 Nucleated RBC % (auto) 0 % 08/21/24 04:17 Nucleated RBCs # 0.0 /100WBC 08/21/24 04:17 PT 14.90 SECONDS (12.1-14.9) 08/19/24 14:24 PT Cancelled 08/19/24 14:24 INR 1.13 (0.8-1.2) 08/19/24 14:24 INR Cancelled 08/19/24 14:24 APTT 22.5 SECONDS (23.9-36.7) L 08/19/24 14:24 APTT Cancelled 08/19/24 14:24 Fibrinogen 427 mg/dL (174-498) 08/19/24 14:24 Sodium 142 mmol/L (136-145) 08/21/24 04:17 Potassium 4.0 mmol/L (3.5-5.1) 08/21/24 04:17 Chloride 109 mmol/L (98-107) H 08/21/24 04:17 Carbon Dioxide 26 mmol/L (22-29) 08/21/24 04:17 Anion Gap 11.0 (5-19) 08/21/24 04:17 BUN 14 mg/dL (8-23) 08/21/24 04:17 Creatinine 0.8 mg/dL (0.5-0.9) 08/21/24 04:17 GFR Calculation 71.1 mL/min (90-130) L 08/21/24 04:17 Glucose 110 mg/dL (65-115) 08/21/24 04:17 Calculated Osmolality 295 mOsm/kg (285-295) 08/21/24 04:17 Lactic Acid 20.4 mmol/L (0.5-2.2) H* 08/19/24 14:24 Lactic Acid (Sepsis) 1.8 mmol/L (0.5-2.2) 08/19/24 18:10 Calcium 8.9 mg/dL (8.5-10.5) 08/21/24 04:17 Magnesium 2.1 mg/dL (1.7-2.3) 08/20/24 04:21 Total Bilirubin 0.3 mg/dL (0.15-1.2) 08/21/24 04:17 AST 11 U/L (0-32) 08/21/24 04:17 ALT 11 U/L (0-33) 08/21/24 04:17 Alkaline Phosphatase 60 U/L (35-105) 08/21/24 04:17 Troponin T Baseline 18 ng/L (0-10) H 08/19/24 14:24 Troponin T 120 Minute 14.12 ng/L (0-10) H 08/19/24 16:42 Delta Troponin T -3.88 ABS# (0-10) L 08/19/24 16:42 Troponin T Hi Sens 6Hr 15.00 ng/L (0-10) H 08/19/24 21:13 Troponin T Hi Sens 6Hr Delta -3.00 ng/L (0-12) L 08/19/24 21:13 Total Protein 5.7 g/dL (6.6-8.7) L 08/21/24 04:17 Albumin 3.3 g/dL (3.5-5.2) L 08/21/24 04:17 Globulin 2.4 g/dL (1.3-4.6) 08/21/24 04:17 Urine Color Yellow (Yellow) 08/19/24 22:08 Urine Appearance Clear (CLEAR) 08/19/24 22:08 Urine pH 5.5 (5-7) 08/19/24 22:08 Ur Specific Mineral 1.026 (1.005-1.030) 08/19/24 22:08 Urine Protein Trace (Negative) A 08/19/24 22:08 Urine Glucose (UA) Negative (Normal) 08/19/24 22:08 Urine Ketones Trace (Negative) 08/19/24 22:08 Urine Blood Negative (Negative) 08/19/24 22:08 Urine Nitrate Negative (Negative) 08/19/24 22:08 Urine Bilirubin Negative (Negative) 08/19/24 22:08 Urine Urobilinogen 1.0 mg/dL (Negative) 08/19/24 22:08 Ur Leukocyte Esterase Negative (Negative) 08/19/24 22:08 Urine RBC 0-2 /hpf (0-2) 08/19/24 22:08 Urine WBC 0-5 /hpf (0-5) 08/19/24 22:08 Ur Squamous Epith Cells 0-5 /hpf (0-5) 08/19/24 22:08 Amorphous Sediment Not Reportable 08/19/24 22:08 Urine Bacteria None seen /hpf (NONE) 08/19/24 22:08 Hyaline Casts 1.65 /lpf 08/19/24 22:08 Urine Opiates Screen Negative ng/mL (Negative) 08/19/24 22:08 Ur Barbiturates Screen Negative ng/mL (Negative) 08/19/24 22:08 Ur Phencyclidine Scrn Negative ng/mL (Negative) 08/19/24 22:08 Ur Amphetamines Screen Negative ng/mL (Negative) 08/19/24 22:08 U Benzodiazepines Scrn Positive ng/mL (Negative) H 08/19/24 22:08 Urine Cocaine Screen Negative ng/mL (Negative) 08/19/24 22:08 U Marijuana (THC) Screen Negative ng/mL (Negative) 08/19/24 22:08 Ethyl Alcohol < 10 mg/dL (0-10) 08/19/24 14:24 Coronavirus (PCR) Negative (Negative) 08/19/24 18:25 Influenza A (PCR) Negative (Negative) 08/19/24 18:25 Influenza Type B (PCR) Negative (Negative) 08/19/24 18:25 RSV (PCR) Negative (Negative) 08/19/24 18:25 Vitals Last Vital Signs Temp 98.1 F 08/21/24 12:46 Pulse 80 08/21/24 13:10 Resp 16 08/21/24 13:10 BP 127/89 08/21/24 13:10 Pulse Ox 93 08/21/24 13:10 O2 Del Method Room Air 08/21/24 13:10 O2 Flow Rate 1 08/20/24 04:00 FiO2 6 08/21/24 12:46 Discharge Plan Discharge Patient Disposition: Home Condition: Stable Prescriptions: New atorvastatin 40 mg tablet 40 mg PO QPM Qty: 90 0RF Continued aspirin 81 mg tablet,delayed release (DR/EC) 81 mg PO DAILY Qty: 30 5RF docusate sodium 100 mg capsule 100 mg PO BID Qty: 60 5RF (DME) hospital bed See Rx Instructions .Route .MEDSUPPLY Qty: 1 0RF Rx Instructions: As directed spironolactone 25 mg tablet 25 mg PO BID Qty: 60 2RF Changed lorazepam 0.5 mg tablet 0.5 mg PO QID PRN (Reason: Anxiety) Qty: 30 0RF Discontinued rosuvastatin 10 mg tablet 10 mg PO DAILY Qty: 30 5RF Rx Instructions: take at bedtime Discharge Orders: Discharge Order (Routine); Ordered 08/21/24 Ordered By: Bishnu Graves Other Ambulatory Orders: MCT/Event Monitor 21 Days (Routine) Timeframe: 1 Day Facility: [facility] - Location: Radiology Ordered By: Bishnu Graves Referrals: [facility] [Provider Group] (Longstanding debilitating anxiety. Looking for alternative treatment to benzodiazepine. 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 Appointment will be with Dr. Karen MOTT. ) Matt Bazzi MD [Physician] - 1 week (cva, seizure We have notified your physician's clinic of the need for a follow-up appointment to be scheduled. If you have not heard from them within the next 2 business days, please call them directly. ) Erin Flores MD [Physician] - (21 day event monitor We have notified your physician's clinic of the need for a follow-up appointment to be scheduled. If you have not heard from them within the next 2 business days, please call them directly. ) Discharge Activity: Increase activity as tolerated Patient Instructions: Lorazepam (By mouth), Atorvastatin (By mouth), Ischemic Stroke (GEN), Altered Mental Status (ED), Anxiety (GEN), Generalized Tonic Clonic Seizures (GEN) Activity Restrictions/Additional Instructions: Please follow-up with your primary provider as well as with neurology for reassessment of incidentally found multifocal subacute strokes. Continue aspirin. Cluster medication is increased to slightly higher intensity with atorvastatin 40 mg. You could complete your remaining Crestor taking it 20 mg at a time until you run out and then switch to atorvastatin 40 mg. Please monitor blood pressures 3 times daily. Long-term target blood pressure 120/80. In case of blood pressure that is continuing to go up or persistently very high above 180/100, or very low, less than 80/40, go to emergency room. Do not take blood pressure medication if your blood pressure is less than 100/70. Please note that your blood pressure medication is a water pill. Please hold the medication if you are having diarrhea, vomiting, did not eat or drink well that day, or in case of any other risk of dehydration. Please follow-up with neurology for further reassessment of multifocal possible embolic stroke. Please follow-up with your primary doctor for continued assessment of possible hypercoagulable disorder, please follow-up pending studies with initial testing for antiphospholipid syndrome antibodies. Consider additional studies depending on results. Follow-up with your primary doctor regarding memory problems as well as chronic bothersome anxiety. Follow-up with behavioral health care for assistance in treatment of anxiety by alternate means and help with gradual weaning of and if possible discontinuation of benzodiazepine (Ativan/lorazepam) due to risk of adverse effects. Please seek medical attention in case of any worsening or new concerning symptoms. Discharge Attestations Time Spent in Discharge Care*: greater than 30 min Quality Metrics Clinical Quality Measures [ Cerebrovascular Accident { Contraindication to Antithrombotic: None; antithrombotic prescribed; Contraindication to Anticoagulation: Overlap treatment not indicated; Contraindication to Statin: None; Statin prescribed;}] Coding Level of Care Code 43634 Total time (in minutes) for Discharge: 55 Diagnoses Cerebrovascular accident (CVA) due to embolism of cerebral artery I63.40 Precerebral and cerebral artery: unspecified cerebral artery Vascular dementia with anxiety, unspecified dementia severity F01.54 Dementia behavioral or psychological symptom: with anxiety Dementia severity: unspecified severity Dyslipidemia E78.5
--- NOTE | 2024-08-21 14:16 | PC.NURSE ---
Clinical Documentation Specialist rounding at 0900, stroke education booklet given to patient.
--- NOTE | 2024-08-21 15:38 | PC.NURSE ---
Patient's son is here and is wanting to refuse to take the patient home until another physician sees the patient and prescribes her more medications to go home on. Patient has been discharged via providers order.
--- NOTE | 2024-08-21 17:33 | PC.NURSE ---
London Lang has given permission for Trinidad Cline to receive information.
== END 2024-08-21 16:30 | disposition home or self-care (01) | DRG 65 ==
LOC: ER 17:11 → MEDSURG 20:42
PROVIDERS: Internal Medicine Cardiovascular Disease; Admitting Provider Internal Medicine; Emergency Provider Emergency Medicine; PCP Family Medicine; Visit Provider Internal Medicine
PROC: B24BZZ4 Ultrasonography of Heart with Aorta, Transesophageal (ICD-10-PCS; CPT 93312; principal; 2024-08-21 12:30)
DX: I63.40 Cerebral infarction due to embolism of unspecified cerebral artery (principal); E87.20 Acidosis, unspecified; F01.54 Vascular dementia, unspecified severity, with anxiety; F13.239 Sedative, hypnotic or anxiolytic dependence with withdrawal, unspecified; N17.9 Acute kidney failure, unspecified; R56.9 Unspecified convulsions; T42.4X5A Adverse effect of benzodiazepines, initial encounter; E78.5 Hyperlipidemia, unspecified; Y92.481 Parking lot as the place of occurrence of the external cause; Z86.73 Personal history of transient ischemic attack (TIA), and cerebral infarction without residual deficits; Z79.82 Long term (current) use of aspirin
CPT/HCPCS: 0241U; 36415; 51798; 70450; 70551; 71045; 80053; 80306; 80307; 81001; 83605; 83735; 84484; 85025; 85303; 85384; 85610; 85613; 85730; 93005; 93306; 93312; 93320; 93325; 93880; 96372; 99291; 99292; G0378; J1650; J2060; J2405; J2704; J3010; J7030; J7120

== ENCOUNTER 2024-08-21 18:24 | Emergency (ER) | payer MEDICARE, MEDICAID, SELFPAY ==
[2024-08-21 18:30] VITALS: BP 123/68; PULSE 97; RESP 17; TEMP 37.3; O2SAT 94; BMI 26.3
--- NOTE | 2024-08-21 18:40 | XRR_ITS ---
PROCEDURE INFORMATION: Exam: XR Lumbosacral Spine Exam date and time: 08/21/2024 6:49 PM Age: 69 years old Clinical indication: Lumbago; Patient HX: Lower back/lt hip pain post fall TECHNIQUE: Imaging protocol: Radiologic exam of the lumbosacral spine. Views: 2 or 3 views. COMPARISON: CR XR hip LT 2-3V wo/w pel* [id number] 08/21/2024 6:49 PM FINDINGS: Bones/joints: There are degenerative changes throughout the visualized spine including marginal osteophyte formations, endplate degenerative changes, and facet arthropathy. Multilevel disc space narrowing. Lower thoracic/lumbar dextroscoliosis measured from the T12 superior endplate through the L5 inferior endplate measures 10 degrees. Soft tissues: Unremarkable. Gastrointestinal tract: Colonic constipation is present. XR/XR lumbar spine 2-3V* [id number] IMPRESSION: 1. There are degenerative changes as described above. No evidence for acute fracture. 2. 10 degree lower thoracic/lumbar dextroscoliosis. 3. Colonic constipation is present.
[2024-08-21 18:41] VITALS: BP 117/77; PULSE 110; RESP 14; O2SAT 94
--- NOTE | 2024-08-21 18:44 | XRR_ITS ---
PROCEDURE INFORMATION: Exam: XR Left Hip Exam date and time: 08/21/2024 6:49 PM Age: 69 years old Clinical indication: Left hip; Patient HX: Lower back/lt hip pain post fall; TECHNIQUE: Imaging protocol: Radiologic exam of the left hip. Views: 2 or 3 views hip with pelvis when performed. COMPARISON: CR XR hip LT 2-3V wo/w pel* [id number] 08/02/2022 9:39 PM FINDINGS: Bones/joints: There are marginal osteophytes across the hip joints. [id number] degenerative changes extend across the sacroiliac joints and pubic symphysis. There are degenerative changes in the visualized lower lumbar spine. Soft tissues: There are benign-appearing soft tissue calcifications. Gastrointestinal tract: Colonic constipation is present. XR/XR hip LT 2-3V wo/w pel* [id number] IMPRESSION: There are degenerative changes as described above. No evidence for acute fracture.
--- NOTE | 2024-08-21 18:44 | W.ED.BACK ---
HPI - Back Pain/Injury General: Chief Complaint: Back Pain/Injury Stated Complaint: ground fall, left glute pain Time Seen by Provider: 08/21/24 18:36 Source: patient Mode of arrival: ambulatory Limitations: no limitations History of Present Illness: 69-year-old female states she had slipped and fell while walking just prior to arrival states she had fell on her left buttock she has pain to her low back and left buttocks. States she was able to ambulate after but had some pain with ambulation. She denies any other injuries denies hitting her head denies any neck pain. Associated symptoms: Deny abdominal pain, chills, fever(s), nausea or vomiting Related Data Previous Rx's Medication Instructions Recorded aspirin 81 mg tablet,delayed 81 mg PO DAILY #30 tabs 05/13/24 release docusate sodium 100 mg capsule 100 mg PO BID constipation #60 caps 05/13/24 hospital bed #1 ea 06/16/24 spironolactone 25 mg tablet 25 mg PO BID #60 tabs 08/03/24 atorvastatin 40 mg tablet 40 mg PO QPM #90 tabs 08/21/24 lorazepam 0.5 mg tablet 0.5 mg PO QID PRN Anxiety #30 tabs 08/21/24 Allergies Allergy/AdvReac Type Severity Reaction Status Date / Time cephalexin [From Keflex] Allergy ALGY-Difficulty Verified 08/19/24 13:26 Swallowing Review of Systems Const: Denies: fever(s), chills, body aches or change in appetite ENMT: Denies: throat pain or dental pain Card: Denies: chest pain Resp: Denies: dyspnea GI: Denies: abdominal pain, nausea, vomiting or diarrhea Musc: Reports: back pain and extremity pain; Denies: neck pain Skin/Breast: Denies: rash Neuro: Denies: headache(s) PFSH ED PFSH: Medical History Diverticulosis Osteopenia 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 Polyuria Urgency incontinence POP-Q stage 2 cystocele Surgical History History of hysterectomy Hx of cataract surgery BILATERAL Family History Other CAD (coronary artery disease) Cancer Hypertension Social History Smoking and tobacco/nicotine status: never used tobacco/nicotine Alcohol intake: never Substance/Drug Use: never Adopted: No Caregiver/support person: No Lives independently: Yes Marital status: Number of children: 3 Number of grandchildren: 11 Current occupational status: retired 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[employer] – [place] Current gender identity: Female Charu/Gnosticist: Caodaism Special charu needs: No Agree to transfusion: Yes Physical Exam Const: COMMON NORMALS: no acute distress, patient oriented x3 and healthy appearing HENMT: COMMON NORMALS: normocephalic and atraumatic HEAD & SCALP: normocephalic and atraumatic Neck/C-Spine: COMMON NORMALS: full ROM and supple Chest: COMMONS NORMALS: normal inspection of the chest Resp: COMMON NORMALS: normal respiratory effort, No retractions, No use of accessory muscles and clear to auscultation bilaterally AUSCULTATION: clear to auscultation bilaterally Cardio: COMMON NORMALS: regular rate, regular rhythm and No murmurs present (Cardio) RATE: regular rate RHYTHM: regular rhythm Extremity: NARRATIVE EXTREMITY EXAM: Some mild tenderness to left posterior hip no obvious deformity Neuro: COMMON NORMALS: patient oriented x3, moves all extremities and no focal motor deficits Psych: COMMON NORMALS: mental status grossly normal, Normal thought process present and cooperative THOUGHT PROCESS: Normal thought process present Skin: COMMON NORMALS: no rashes or lesions noted and no wounds GENERAL SKIN EXAM: no rashes or lesions noted Course Vital Signs: Vital signs: Vital Signs Temperature 99.2 F 08/21/24 18:30 Pulse Rate 110 H 08/21/24 18:41 Respiratory Rate 14 08/21/24 18:41 Blood Pressure 117/77 08/21/24 18:41 Pulse Oximetry 94 08/21/24 18:41 Oxygen Delivery Me thod Room Air 08/21/24 18:41 MDM - Back Pain/Injury Medical Decision Making Patient presents here with left hip contusion from a fall imaging here is negative patient stable for discharge follow-up PCP return if worsening. Medical Records I reviewed the patient's medical records. Labs Radiology Impressions Lumbar Spine X-Ray 08/21/24 18:40 IMPRESSION: 1. There are degenerative changes as described above. No evidence for acute fracture. 2. 10 degree lower thoracic/lumbar dextroscoliosis. 3. Colonic constipation is present. Hip/Pelvis X-Ray 08/21/24 18:44 IMPRESSION: There are degenerative changes as described above. No evidence for acute fracture. All radiology interpretation(s) finalized by discharge Discharge Plan Discharge Patient Disposition: Home Clinical Impression: Fall, Contusion of hip, left Condition: Stable Prescriptions: No Action aspirin 81 mg tablet,delayed release (DR/EC) 81 mg PO DAILY Qty: 30 5RF docusate sodium 100 mg capsule 100 mg PO BID Qty: 60 5RF (DME) hospital bed See Rx Instructions .Route .MEDSUPPLY Qty: 1 0RF Rx Instructions: As directed spironolactone 25 mg tablet 25 mg PO BID Qty: 60 2RF atorvastatin 40 mg tablet 40 mg PO QPM Qty: 90 0RF lorazepam 0.5 mg tablet 0.5 mg PO QID PRN (Reason: Anxiety) Qty: 30 0RF Discharge Orders: Discharge ED (Routine); Ordered 08/21/24 Ordered By: Jose Dacosta Referrals: Mona Miller MD [Primary Care Provider] - 4-7 days Discharge Diet: Advance as tolerated Discharge Activity: Resume usual activity Patient Instructions: Contusion in Adults (ED) Coding Level of Care Code ED Sheet Ironworker for Kwan Meehan
[2024-08-21 20:00] VITALS: BP 129/76; PULSE 113; O2SAT 95
== END 2024-08-21 20:01 | disposition home or self-care (01) ==
PROVIDERS: Emergency Provider Emergency Medicine; PCP Family Medicine
DX: S70.02XA Contusion of left hip, initial encounter (principal); W19.XXXA Unspecified fall, initial encounter; Z79.82 Long term (current) use of aspirin
CPT/HCPCS: 72100; 73502; 99284

== ENCOUNTER → 2024-08-24 15:28 | Outpatient (BNVA) | payer MEDICARE, MEDICAID, SELFPAY | PROVIDERS: PCP Family Medicine; Visit Provider Psychiatry & Neurology Neurology | DX: R41.3 Other amnesia (principal); R93.0 Abnormal findings on diagnostic imaging of skull and head, not elsewhere classified; R29.90 Unspecified symptoms and signs involving the nervous system; Z79.01 Long term (current) use of anticoagulants | CPT/HCPCS: 99212 ==

== ENCOUNTER 2024-09-24 15:28 | Outpatient (CLI) | payer MEDICARE, MEDICAID, SELFPAY ==
[2024-09-24 16:13] LABS: Magnesium 2.1 mg/dL (1.7-2.3); NT Pro B Type Natriuretic Pept 191 pg/mL (0-125)
== END 2024-09-24 15:29 | disposition home or self-care (01) ==
LOC: LAB 09-25 12:37
PROVIDERS: PCP Family Medicine; Visit Provider Internal Medicine Cardiovascular Disease
DX: I47.20 Ventricular tachycardia, unspecified (principal); E78.5 Hyperlipidemia, unspecified
CPT/HCPCS: 36415; 83735; 83880

== ENCOUNTER → 2025-01-20 16:10 | Outpatient (BNVA) | payer MEDICARE, MEDICAID, SELFPAY | PROVIDERS: PCP Family Medicine; Visit Provider Internal Medicine Cardiovascular Disease | DX: R00.0 Tachycardia, unspecified (principal); F01.54 Vascular dementia, unspecified severity, with anxiety; R41.3 Other amnesia; E78.5 Hyperlipidemia, unspecified; D53.9 Nutritional anemia, unspecified; Z79.82 Long term (current) use of aspirin; Z86.73 Personal history of transient ischemic attack (TIA), and cerebral infarction without residual deficits; N18.9 Chronic kidney disease, unspecified; R53.1 Weakness | CPT/HCPCS: 36415; 80053; 84443; 85025; 85378; 93005; 99214 ==

== ENCOUNTER 2025-01-28 14:52 | Outpatient (CLI) | payer MEDICARE, MEDICAID, SELFPAY ==
--- NOTE | 2025-01-28 15:00 | CTR_ITS ---
PROCEDURE INFORMATION: Exam: CTA Chest With Contrast Exam date and time: 01/28/2025 3:27 PM Age: 70 years old Clinical indication: Abnormal findings; Abnormal diagnostic tests; Shortness of breath, elevated d-dimer TECHNIQUE: Imaging protocol: Computed tomographic angiography of the chest with contrast. Exam focused on the arteries. 3D rendering (Not supervised by radiologist): MIP and/or 3D reconstructed images were created by the technologist. Radiation optimization: All CT scans at this facility use at least one of these dose optimization techniques: automated exposure control; mA and/or kV adjustment per patient size (includes targeted exams where dose is matched to clinical indication); or iterative reconstruction. Contrast material: OMNI 350; Contrast volume: 100 ml; Contrast route: INTRAVENOUS (IV); COMPARISON: CR XR chest 1V portable [id number] 08/19/2024 2:28 PM RADIATION DOSE METRICS: Total DLP (mGy-cm): 154.6 FINDINGS: Pulmonary arteries: No evidence of pulmonary embolism. Aorta: Study not optimized for evaluation of the thoracic aorta. Scattered atherosclerotic plaquing without aneurysm or signs of dissection. Lungs: No infiltrates or suspicious masses. Calcified granulomas in the right lower lobe. Pleural spaces: Unremarkable. No pneumothorax. No pleural effusion. Heart: Unremarkable. No cardiomegaly. No pericardial effusion. Lymph nodes: Unremarkable. No enlarged lymph nodes. Spleen: Calcified granulomas in the spleen. Bones/joints: Unremarkable. No acute fracture. Soft tissues: Unremarkable. CT/CT angio chest PE protcl [id number] IMPRESSION: 1. No evidence of pulmonary embolism. 2. Study not optimized for evaluation of the thoracic aorta. Scattered atherosclerotic plaquing without aneurysm or signs of dissection.
[2025-01-28] MEDS: iohexol 350 mg/mL 500 mL Btl (per mL) IV (15:37)
== END 2025-01-28 14:53 | disposition home or self-care (01) ==
PROVIDERS: PCP Family Medicine; Visit Provider Internal Medicine Cardiovascular Disease
DX: R79.89 Other specified abnormal findings of blood chemistry (principal); R00.0 Tachycardia, unspecified; R06.02 Shortness of breath; I70.0 Atherosclerosis of aorta; J84.10 Pulmonary fibrosis, unspecified; D73.89 Other diseases of spleen
CPT/HCPCS: 71275

== ENCOUNTER 2025-05-22 05:02 | Inpatient (IN) | payer MEDICARE, MEDICAID, SELFPAY ==
[2025-05-22] VITALS (65 sets, daily range): BP systolic 71–145; BP diastolic 42–80; PULSE 60–122; RESP 14–24; TEMP 37.1–37.3; O2SAT 95–100
--- OUTSIDE RECORDS SUMMARY | 2025-05-22 05:08 | XMS_ITS | Encounter Summary ---
Author Organization [facility] Address [address] [place] [address] Care Team Providers Care Oven Tender Bagels Name Role Phone Unavailable Primary Care Provider Unavailabl e Encounter Details Date Type Department Care Team (Latest Contact Info) Description 03/25/2003 Outpatient Historical HIS [facility] Thuan Lovett, Rickey Torres MD [address] [place] [address] CHEST PAIN NOS (Primary Dx); ESOPHAGEAL REFLUX; SYMPTOMATIC FEMALE CLIMACTERIC STATE Social History Tobacco Use Types Packs/Day Years Used Date Smoking Tobacco: Never Assessed Comments Unknown Sex and Gender Information Value Date Recorded Sex Assigned at Not on file Legal Sex Female 3:13 AM 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
--- OUTSIDE RECORDS SUMMARY | 2025-05-22 05:08 | XMS_ITS | Encounter Summary ---
Author Organization [facility] Address [address] [place] [address] Care Team Providers Care Machine Strap Buckler Name Role Phone Unavailable Primary Care Provider Unavailabl e Encounter Details Date Type Department Care Team (Late st Contact Info) Description 09/07/2002 Outpatient Historical HIS [facility] Thuan Lovett, Rickey Torres MD [address] [place] [id number] Social History Tobacco Use Types Packs/Day Years Used Date Smoking Tobacco: Never Assessed Comments Unknown Sex and Gender Information Value Date Recorded Sex Assigned at Not on file Legal Sex Female 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
--- OUTSIDE RECORDS SUMMARY | 2025-05-22 05:08 | XMS_ITS | Encounter Summary ---
Author Organization [facility] Address [address] [place] [address] Care Team Providers Care Biologist Aide Name Role Phone Unavailable Primary Care Provider Unavailabl e Encounter Details Date Type Department Care Team (Latest Contact Info) Description 07/20/2003 Outpatient Historical HIS [facility] Johnnie Walker MD [address] [place] [address] TIETZE'S DISEASE (Primary Dx); Diffus cystic mastopathy Social History Tobacco Use Types Packs/Day Years Used Date Smoking Tobacco: Never Assessed Comments Unknown Sex and Gender Information Value Date Recorded Sex Assigned at Not on file Legal Sex Female 3:13 AM SUPPORT SERVICES MANAGER Gender Identity Not on file Sexual Orientation Not on file documented as of this encounter Plan of Treatment Not on file documented as of this encounter Visit Diagnoses Diagnosis Tietze's disease- Primary Diffus cystic mastopathy Diffuse cystic mastopathy documented in this encounter
--- OUTSIDE RECORDS SUMMARY | 2025-05-22 05:08 | XMS_ITS | Clinical Summary ---
Author Organization 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 Gender Identity Not on file Sexual Orientation Not on file Plan of Treatment Health Maintenance Due Date Last Done Comments DTAP/TDAP/TD VACCINES (1 - Tdap) 1974 BREAST CANCER SCREENING 1995 COLORECTAL SCREENING 01/18/2000 FIT-DNA Q 3 years 01/18/2000 Flex Sig/CT Colonography Q 5 years 01/18/2000 Colorectal Cancer Screening 08/30/2001 FIT/FOBT Q 1 year 08/30/2001 08/30/2000, , 08/25/1998 PNEUMOCOCCAL VACCINE 50+ YEA RS (2 of 2 - PCV) 2005 07/22/2002 ZOSTER VACCINE (1 of 2) 2005 OSTEOPOROSIS SCREENING 01/18/2020 INFLUENZA VACCINE (#1) 2025 08/30/2000 RSV VACCINE (60+ or ) (1 - 1-dose 75+ series) 2030 Insurance [facility]
--- OUTSIDE RECORDS SUMMARY | 2025-05-22 05:08 | XMS_ITS | Encounter Summary ---
Author Organization [facility] Address [address] [place] [address] Care Team Providers Care Powder Hand Name Role Phone Unavailable Primary Care Provider Unavailabl e Encounter Details Date Type Department Care Team (Latest Contact Info) Description 08/31/2002 Outpatient Historical HIS [facility] Thuan Lovett, Rickey Torres MD [address] [place] [phone] ANXIETY STATE NOS (Primary Dx); Viral dis contact NEC Social History Tobacco Use Types Packs/Day Years Used Date Smoking Tobacco: Never Assessed Comments Unknown Sex and Gender Information Value Date Recorded Sex Assigned at Not on file Legal Sex Female 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
--- OUTSIDE RECORDS SUMMARY | 2025-05-22 05:08 | XMS_ITS | Encounter Summary ---
Author Organization [facility] Address [address] [place] [address] Care Team Providers Care Audio Specialist Name Role Phone Unavailable Primary Care Provider Unavailabl e Encounter Details Date Type Department Care Team (Latest Contact Info) Description 08/17/2003 Outpatient Historical HIS [facility] Johnnie Walker MD [address] [place] [address] ACUTE BRONCHITIS (Primary Dx) Social History Tobacco Use Types Packs/Day Years Used Date Smoking Tobacco: Never Assessed Comments Unknown Sex and Gender Information Value Date Recorded Sex Assigned at Not on file Legal Sex Female 3:13 AM 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
--- OUTSIDE RECORDS SUMMARY | 2025-05-22 05:09 | XMS_ITS | Encounter Summary ---
Author Organization [facility] Address [address] [place] [address] Care Team Providers Care Senior Underwriter Name Role Phone Unavailable Primary Care Provider Unavailabl e Encounter Details Date Type Department Care Team (Latest Contact Info) Description 04/10/2000 Outpatient Historical HIS [facility] Thuan Lovett, Rickey Torres MD [address] [place] [phone] Spasm of muscle (Primary Dx) Social History Tobacco Use Types Packs/Day Years Used Date Smoking Tobacco: Never Assessed Comments Unknown Sex and Gender Information Value Date Recorded Sex Assigned at Not on file Legal Sex Female 3:13 AM DIRECTOR STATISTICAL PROGRAMMING Gender Identity Not on file Sexual Orientation Not on file documented as of this encounter Plan of Treatment Not on file documented as of this encounter Visit Diagnoses Diagnosis Spasm of muscle- Primary documented in this encounter
--- OUTSIDE RECORDS SUMMARY | 2025-05-22 05:09 | XMS_ITS | Encounter Summary ---
Author Organization [facility] Address [address] [facility] Attn: [place] [address] Care Team Providers Care Architect Name Role Phone Unavailable Primary Care Provider Unavailabl e Encounter Details Date Type Department Care Team (Late st Contact Info) Description 09/02/2000 Outpatient Historical Thuan Lovett, Rickey Torres MD [address] [place] [address] Social History Tobacco Use Types Packs/Day Years Used Date Smoking Tobacco: Never Assessed Comments Unknown Sex and Gender Information Value Date Recorded Sex Assigned at Not on file Legal Sex Female 3:13 AM CAR 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
--- OUTSIDE RECORDS SUMMARY | 2025-05-22 05:09 | XMS_ITS | Encounter Summary ---
Author Organization [facility] Address [address] [place] [address] Care Team Providers Care Bicycle I Assembler Name Role Phone Unavailable Primary Care Provider Unavailabl e Encounter Details Date Type Department Care Team (Latest Contact Info) Description 01/22/2001 Outpatient Historical HIS [facility] Thuan Lovett, Rickey Torres MD [address] [place] [phone] Chest pain, unspecified (Primary Dx) Social History Tobacco Use Types Packs/Day Years Used Date Smoking Tobacco: Never Assessed Comments Unknown Sex and Gender Information Value Date Recorded Sex Assigned at Not on file Legal Sex Female 3:13 AM BREAKFAST ATTENDANT Gender Identity Not on file Sexual Orientation Not on file documented as of this encounter Plan of Treatment Not on file documented as of this encounter Visit Diagnoses Diagnosis Chest pain, unspecified- Primary documented in this encounter
--- OUTSIDE RECORDS SUMMARY | 2025-05-22 05:09 | XMS_ITS | Clinical Summary ---
Author Organization [facility] Address [address] [facility] Attn: [place] [address] Care Team Providers Care Correspondence Specialist Name Role Phone Unavailable Primary Care Provider Unavailabl e Allergies Active Allergy Reactions Criticality Noted Date Comments Cefuroxime Unknown 12/09/2023 Cephalexin Unknown 09/13/2023 Medications mirtazapine (REMERON SolTab) 15 mg Tablet, Rapid Dissolve Place 15 mg inside cheek daily at bedtime. Active LORazepam (ATIVAN) 0.5 mg tablet Take 0.5 mg by mouth every 4 hours as needed for Anxiety. Active sennosides-doc usate sodium (SENNA-S) 8.6-50 mg tablet Take 1 Tablet by mouth 2 times daily. Active spironolactone (ALDACTONE) 25 mg tablet Take 25 mg by mouth 1 time daily as needed for Other (See Comment). Take 1 tablet in the morning as needed for edema. Active ergocalciferol (VITAMIN D2) 50,000 unit capsule Take 50,000 Units by mouth every 7 days. Active haloperidol lactate (HALDOL) 5 mg/mL Solution Inject 2 mg by intramuscular injection every 6 hours as needed for Other (See Comment) (severe agitation). Active zaleplon (SONATA) 5 mg capsule Take 10 mg by mouth 1 time daily as needed for Insomnia (By mouth at bedtime as needed for insomnia.). Active Active Problems Problem Noted Date Diagnosed Date Patient on full hospice care 01/13/2024 Immunizations Immunization Administration Dates Next Due (PNEUMOVAX 23)(50 YRS UP) PN EUMOCOCCAL POLYSACCHARIDE (PPV23) 0.5 ML, IM 07/22/2002 Influenza Seasonal Unspecified Formulation IM Social History Tobacco Use Types Packs/Day Years Used Date Smoking Tobacco: Unknown Feeling Safe Answer Date Recorded Are you in a relationship wi th someone who hurts you emotionally and/or physically? No 01/13/2024 Food Insecurity Answer Date Recorded Social/Environmental Concerns No concerns Transportation Needs Answer Date Record ed Social/Environmental Concerns No concerns Housing Stability Answer Date Recorded Social/Environmental Concerns No concerns Utility Needs Answer Date Recorded Social/Environmental Concerns No concerns Comments Unknown Sex and Gender Information Value Date Recorded Sex Assigned at Not on file Legal Sex Female 4:30 AM STRATEGIC MARKETING SPECIALIST Gender Identity Not on file Sexual Orientation Not on file Last Filed Vital Signs Vital Sign Reading Time Taken Comments Blood Pressure 116/64 01/18/2024 7:58 AM CDT Pulse 85 01/18/2024 7:58 AM CDT Temperature 36.7 C (98 F) 01/18/2024 7:58 AM CDT Respiratory Rate 16 01/18/2024 7:58 AM CDT Oxygen Saturation 98% 01/18/2024 7:58 AM CDT Inhaled Oxygen Concentration - - Weight 59.4 kg (131 lb) 01/15/2024 12:54 PM CDT Height 165.1 cm (5' 5 ) 01/15/2024 12:54 PM CDT Body Mass Index 21.8 01/15/2024 12:54 PM CDT Plan of Treatment Health Maintenance Due Date Last Done Comments COLORECTAL SCREENING 01/18/2000 Colorectal Cancer Screening 01/18/2000 FIT-DNA Q 3 years 01/18/2000 FIT/FOBT Q 1 year 01/18/2000 Flex Sig/CT Colonography Q 5 years 01/18/2000 PNEUMOCOCCAL VACCINE 50+ YEA RS (2 of 2 - PCV) 2005 07/22/2002 ZOSTER VACCINE (1 of 2) 2005 OSTEOPOROSIS SCREENING 01/18/2020 INFLUENZA VACCINE (#1) 2025 08/31/2022, 1999 RSV VACCINE (60+ or ) (1 - 1-dose 75+ series) 2030 DTAP/TDAP/TD VACCINES (2 - Td or Tdap) 04/12/2032 Insurance [place]ID [place] * Guarantor: [facility] Account Type Relation to Patient Date of Phone Billing Address [place] [address] MEDICARE PART A AND B [place]ID [place] [employer] Member Subscriber Plan / Payer (Ef fective 2023-Present) Name:Laurie Rogers Relation to Subscriber:Self Name:Laurie Rogers Payer ID:Not on file Group ID:Not on file Type:Hospice Address: [address] [place] [address] Advance Directives For more information, please contact: [phone] * Full Code (Latest Code Status on File) Date Activated Date Inactivated Comments 01/13/2024 8:47 PM 01/18/2024 1:46 PM * Full Code Date Activated Date Inactivated Comments 12/09/2023 12:57 PM 12/14/2023 5:51 PM * Default Full Code - Needs Discussion Date Activated Date Inactivated Comments 09/13/2023 4:36 PM 09/18/2023 6:34 PM * Default Full Code - Needs Discussion Date Activated Date Inactivated Comments 09/13/2023 4:19 PM 09/13/2023 4:36 PM
--- OUTSIDE RECORDS SUMMARY | 2025-05-22 05:09 | XMS_ITS | Encounter Summary ---
Author Organization [facility] Address [address] [place] [address] Care Team Providers Care Refrigeration Specialist Name Role Phone Unavailable Primary Care Provider Unavailabl e Encounter Details Date Type Department Care Team (Latest Contact Info) Description 08/21/2002 Outpatient Historical [facility] Thuan Lovett, Rickey Torres MD [address] [place] [place] [phone] GENERALIZED ANXIETY DIS (Primary Dx) Social History Tobacco Use Types Packs/Day Years Used Date Smoking Tobacco: Never Assessed Comments Unknown Sex and Gender Information Value Date Recorded Sex Assigned at Not on file Legal Sex Female 3:13 AM NETWORK AND THREAT SUPPORT SPECIALIST Gender Identity Not on file Sexual Orientation Not on file documented as of this encounter Plan of Treatment Not on file documented as of this encounter Visit Diagnoses Diagnosis Generalized anxiety disorder- Primary documented in this encounter
--- OUTSIDE RECORDS SUMMARY | 2025-05-22 05:09 | XMS_ITS | Encounter Summary ---
Author Organization [facility] Address [address] [place] [address] Care Team Providers Care Gasoline Service Attendant Name Role Phone Unavailable Primary Care Provider Unavailabl e Encounter Details Date Type Department Care Team (Latest Contact Info) Description 07/04/2001 Outpatient Historical HIS [facility] Thuan Lovett, Rickey Torres MD [address] [place] [address] Vaginitis and vulvovaginitis, unspecified (Primary Dx); Flatulence, eructation, and gas pain Social History Tobacco Use Types Packs/Day Years Used Date Smoking Tobacco: Never Assessed Comments Unknown Sex and Gender Information Value Date Recorded Sex Assigned at Not on file Legal Sex Female 3:13 AM ROOMS DIRECTOR Gender Identity Not on file Sexual Orientation Not on file documented as of this encounter Plan of Treatment Not on file documented as of this encounter Visit Diagnoses Diagnosis Vaginitis and vulvovaginitis, unspecified- Primary Flatulence, eructation, and gas pain documented in this encounter
--- OUTSIDE RECORDS SUMMARY | 2025-05-22 05:09 | XMS_ITS | Encounter Summary ---
Author Organization [facility] Address [address] [place] [address] Care Team Providers Care Independent Trader Name Role Phone Unavailable Primary Care Provider Unavailabl e Encounter Details Date Type Department Care Team (Latest Contact Info) Description 04/30/2001 Outpatient Historical [facility] Thuan Lovett, Rickey Torres MD [address] [place] [phone] Palpitations (Primary Dx); Anxiety state, unspecified Social History Tobacco Use Types Packs/Day Years Used Date Smoking Tobacco: Never Assessed Comments Unknown Sex and Gender Information Value Date Recorded Sex Assigned at Not on file Legal Sex Female 3:13 AM HAND IRONER Gender Identity Not on file Sexual Orientation Not on file documented as of this encounter Plan of Treatment Not on file documented as of this encounter Visit Diagnoses Diagnosis Palpitations- Primary Anxiety state, unspecified documented in this encounter
--- OUTSIDE RECORDS SUMMARY | 2025-05-22 05:09 | XMS_ITS | Encounter Summary ---
Author Organization [facility] Address [address] [place] [address] Care Team Providers Care Laborer Beam House Name Role Phone Unavailable Primary Care Provider Unavailabl e Encounter Details Date Type Department Care Team (Latest Contact Info) Description 12/25/2000 Outpatient Historical HIS [facility] Thuan Lovett, Rickey Torres MD [address] [place] [phone] Candidiasis of vulva and vagina (Primary Dx); Other specified menopausal and postmenopausal disorder; Irregular menstruation Social History Tobacco Use Types Packs/Day Years Used Date Smoking Tobacco: Never Assessed Comments Unknown Sex and Gender Information Value Date Recorded Sex Assigned at Not on file Legal Sex Female 3:13 AM LEGISLATIVE ADVOCATE Gender Identity Not on file Sexual Orientation Not on file documented as of this encounter Plan of Treatment Not on file documented as of this encounter Visit Diagnoses Diagnosis Candidiasis of vulva and vagina- Primary Other specified menopausal and postmenopausal disorder Irregular menstruation Irregular menstrual cycle documented in this encounter
--- OUTSIDE RECORDS SUMMARY | 2025-05-22 05:09 | XMS_ITS | Encounter Summary ---
Author Organization [facility] Address [address] [place] [address] Care Team Providers Care Technical Systems Architect Name Role Phone Unavailable Primary Care Provider Unavailabl e Encounter Details Date Type Department Care Team (Latest Contact Info) Description 09/05/2001 Outpatient Historical [facility] Thuan Lovett, Rickey Torres MD [address] [place] [phone] Routine medical exam (Primary Dx) Social History Tobacco Use Types Packs/Day Years Used Date Smoking Tobacco: Never Assessed Comments Unknown Sex and Gender Information Value Date Recorded Sex Assigned at Not on file Legal Sex Female 3:13 AM INSOLE STIFFENER Gender Identity Not on file Sexual Orientation Not on file documented as of this encounter Plan of Treatment Not on file documented as of this encounter Visit Diagnoses Diagnosis Routine medical exam- Primary Routine general medical examination at a health care facility documented in this encounter
--- OUTSIDE RECORDS SUMMARY | 2025-05-22 05:09 | XMS_ITS | Encounter Summary ---
Author Organization [facility] Address [address] [place] [address] Care Team Providers Care Meal Temperer Name Role Phone Unavailable Primary Care Provider Unavailabl e Encounter Details Date Type Department Care Team (Late st Contact Info) Description 07/27/2002 Outpatient Historical HIS [facility] Thuan Lovett, Rickey Torres MD [address] [place] [phone] Social History Tobacco Use Types Packs/Day Years Used Date Smoking Tobacco: Never Assessed Comments Unknown Sex and Gender Information Value Date Recorded Sex Assigned at Not on file Legal Sex Female 3:13 AM ICT SALES ASSISTANT Gender Identity Not on file Sexual Orientation Not on file documented as of this encounter Plan of Treatment Not on file documented as of this encounter Visit Diagnoses Not on filedocumented in this encounter
--- OUTSIDE RECORDS SUMMARY | 2025-05-22 05:09 | XMS_ITS | Encounter Summary ---
Author Organization [facility] Address [address] [place] [address] Care Team Providers Care Cider Press Operator Name Role Phone Unavailable Primary Care Provider Unavailabl e Encounter Details Date Type Department Care Team (Latest Contact Info) Description 07/27/2002 Outpatient Historical [facility] Thuan Lovett, Rickey Torres MD [address] [place] [phone] OSTEOARTHROS NOS-UNSPEC (Primary Dx); VAGINITIS NOS; SCREENING FOR INFEC DIS NOS Social History Tobacco Use Types Packs/Day Years Used Date Smoking Tobacco: Never Assessed Comments Unknown Sex and Gender Information Value Date Recorded Sex Assigned at Not on file Legal Sex Female 3:13 AM MEDICAL I D SALES Gender Identity Not on file Sexual Orientation Not on file documented as of this encounter Plan of Treatment Not on file documented as of this encounter Visit Diagnoses Diagnosis Osteoarthrosis, unspecified whether generalized or localized, unspecified site- Primary Vaginitis and vulvovaginitis, unspecified Screening examination for unspecified infectious disease documented in this encounter
--- OUTSIDE RECORDS SUMMARY | 2025-05-22 05:09 | XMS_ITS | Encounter Summary ---
Author Organization [facility] Address [address] [place] [address] Care Team Providers Care Faith Doctor Name Role Phone Unavailable Primary Care Provider Unavailabl e Encounter Details Date Type Department Care Team (Latest Contact Info) Description 08/10/1998 Outpatient Historical [facility] Thuan Lovett, Rickey Torres MD [address] [place] [phone] Routine medical exam (Primary Dx); Anxiety state, unspecified; Gynecologic examination Social History Tobacco Use Types Packs/Day Years Used Date Smoking Tobacco: Never Assessed Comments Unknown Sex and Gender Information Value Date Recorded Sex Assigned at Not on file Legal Sex Female 3:13 AM PORTFOLIO ARCHITECT Gender Identity Not on file Sexual Orientation Not on file documented as of this encounter Plan of Treatment Not on file documented as of this encounter Visit Diagnoses Diagnosis Routine medical exam- Primary Routine general medical examination at a health care facility Anxiety state, unspecified Gynecologic examination Gynecological examination documented in this encounter
--- OUTSIDE RECORDS SUMMARY | 2025-05-22 05:09 | XMS_ITS | Encounter Summary ---
Author Organization [facility] Address [address] [place] [address] Care Team Providers Care Aluminum Sheet Cutter Name Role Phone Unavailable Primary Care Provider Unavailabl e Encounter Details Date Type Department Care Team (Latest Contact Info) Description 04/04/2001 Outpatient Historical HIS [facility] Thuan Lovett, Rickey Torres MD [facility] [place] [address] Chest pain, unspecified (Primary Dx); Dyskinesia of esophagus Social History Tobacco Use Types Packs/Day Years Used Date Smoking Tobacco: Never Assessed Comments Unknown Sex and Gender Information Value Date Recorded Sex Assigned at Not on file Legal Sex Female 3:13 AM MACHINE BASTER Gender Identity Not on file Sexual Orientation Not on file documented as of this encounter Plan of Treatment Not on file documented as of this encounter Visit Diagnoses Diagnosis Chest pain, unspecified- Primary Dyskinesia of esophagus documented in this encounter
--- OUTSIDE RECORDS SUMMARY | 2025-05-22 05:09 | XMS_ITS | Encounter Summary ---
Author Organization [facility] Address [address] [place] [address] Care Team Providers Care Solar Sales Representative And Assessor Name Role Phone Unavailable Primary Care Provider Unavailabl e Encounter Details Date Type Department Care Team (Latest Contact Info) Description 08/29/2001 Outpatient Historical [facility] Thuan Lovett, Rickey Torres MD [address] [place] [phone] Routine medical exam (Primary Dx) Social History Tobacco Use Types Packs/Day Years Used Date Smoking Tobacco: Never Assessed Comments Unknown Sex and Gender Information Value Date Recorded Sex Assigned at Not on file Legal Sex Female 3:13 AM DEVELOPMENTAL THERAPIST Gender Identity Not on file Sexual Orientation Not on file documented as of this encounter Plan of Treatment Not on file documented as of this encounter Visit Diagnoses Diagnosis Routine medical exam- Primary Routine general medical examination at a health care facility documented in this encounter
--- OUTSIDE RECORDS SUMMARY | 2025-05-22 05:09 | XMS_ITS | Encounter Summary ---
Author Organization [facility] Address [address] [place] [address] Care Team Providers Care Clam Bed Laborer Name Role Phone Unavailable Primary Care Provider Unavailabl e Encounter Details Date Type Department Care Team (Latest Contact Info) Description 02/21/2001 Outpatient Historical HIS [facility] Thuan Lovett, Rickey Torres MD [address] [place] [phone] Chest pain, unspecified (Primary Dx); Generalized anxiety disorder Social History Tobacco Use Types Packs/Day Years Used Date Smoking Tobacco: Never Assessed Comments Unknown Sex and Gender Information Value Date Recorded Sex Assigned at Not on file Legal Sex Female 3:13 AM ADMINISTRATOR OF HOME HEALTH Gender Identity Not on file Sexual Orientation Not on file documented as of this encounter Plan of Treatment Not on file documented as of this encounter Visit Diagnoses Diagnosis Chest pain, unspecified- Primary Generalized anxiety disorder documented in this encounter
--- OUTSIDE RECORDS SUMMARY | 2025-05-22 05:09 | XMS_ITS | Encounter Summary ---
Author Organization [facility] Address [address] [place] [address] Care Team Providers Care Brushing Machine Operator Name Role Phone Unavailable Primary Care Provider Unavailabl e Encounter Details Date Type Department Care Team (Latest Contact Info) Description 08/25/1999 Outpatient Historical HIS [facility] Rickey Larose Jr., MD [address] [place] [phone] Routine medical exam (Primary Dx); Screening for malignant neoplasm of the cervix; Screening for malignant neoplasm of the rectum Social History Tobacco Use Types Packs/Day Years Used Date Smoking Tobacco: Never Assessed Comments Unknown Sex and Gender Information Value Date Recorded Sex Assigned at Not on file Legal Sex Female 3:13 AM SPINE SURGEON Gender Identity Not on file Sexual Orientation Not on file documented as of this encounter Plan of Treatment Not on file documented as of this encounter Visit Diagnoses Diagnosis Routine medical exam- Primary Routine general medical examination at a health care facility Screening for malignant neoplasm of the cervix Screening for malignant neoplasm of the rectum documented in this encounter
--- OUTSIDE RECORDS SUMMARY | 2025-05-22 05:09 | XMS_ITS | Encounter Summary ---
Author Organization [facility] Address [address] [place] [address] Care Team Providers Care Residential Green Building Designer Name Role Phone Unavailable Primary Care Provider Unavailabl e Encounter Details Date Type Department Care Team (Latest Contact Info) Description 04/25/2001 Outpatient Historical [facility] [place] [address] [place] [address] Sage Barrientos MD NO ADDRESS ON FILE Precordial pain (Primary Dx); Mitral valve disorder Social History Tobacco Use Types Packs/Day Years Used Date Smoking Tobacco: Never Assessed Comments Unknown Sex and Gender Information Value Date Recorded Sex Assigned at Not on file Legal Sex Female 3:13 AM HARD HAT DIVER Gender Identity Not on file Sexual Orientation Not on file documented as of this encounter Plan of Treatment Not on file documented as of this encounter Visit Diagnoses Diagnosis Precordial pain- Primary Mitral valve disorder Mitral valve disorders documented in this encounter
--- OUTSIDE RECORDS SUMMARY | 2025-05-22 05:09 | XMS_ITS | Encounter Summary ---
Author Organization [facility] Address [address] [place] [address] Care Team Providers Care Plant Worker Name Role Phone Unavailable Primary Care Provider Unavailabl e Encounter Details Date Type Department Care Team (Latest Contact Info) Description 08/30/2000 Outpatient Historical [facility] Rickey Larose Jr., MD [address] [place] [address] Gynecologic examination (Primary Dx); Screening for other and unspecified cardiovascular conditions; Need vaccination-viral disease; Unspecified hypertrophic and atrophic condition of skin; Screening for other and unspecified endocrine, nutritional, metabolic and immunity disorders; Screening for malignant neoplasm of the cervix; Special screening for malignant neoplasms of other sites; Screening for nephropathy Social History Tobacco Use Types Packs/Day Years Used Date Smoking Tobacco: Never Assessed Comments Unknown Sex and Gender Information Value Date Recorded Sex Assigned at Not on file Legal Sex Female 3:13 AM FIELD BROOMER Gender Identity Not on file Sexual Orientation Not on file documented as of this encounter Plan of Treatment Not on file documented as of this encounter Visit Diagnoses Diagnosis Gynecologic examination- Primary Gynecological examination Screening for other and unspecified cardiovascular conditions Need vaccination-viral disease Need for prophylactic vaccination and inoculation against other viral diseases Unspecified hypertrophic and atrophic condition of skin Screening for other and unspecified endocrine, nutritional, metabolic and immunity disorders Screening for malignant neoplasm of the cervix Special screening for malignant neoplasms of other sites Screening for nephropathy documented in this encounter
--- OUTSIDE RECORDS SUMMARY | 2025-05-22 05:09 | XMS_ITS | Encounter Summary ---
Author Organization [facility] Address [address] [place] [address] Care Team Providers Care Chemical Etching Processor Name Role Phone Unavailable Primary Care Provider Unavailabl e Encounter Details Date Type Department Care Team (Latest Contact Info) Description 12/22/2001 Outpatient Historical [facility] Thuan Lovett, Rickey Torres MD [address] [place] [phone] GENERALIZED ANXIETY DIS (Primary Dx); Uterine prolapse Social History Tobacco Use Types Packs/Day Years Used Date Smoking Tobacco: Never Assessed Comments Unknown Sex and Gender Information Value Date Recorded Sex Assigned at Not on file Legal Sex Female 3:13 AM COPIER FIELD SERVICE TECHNICIAN Gender Identity Not on file Sexual Orientation Not on file documented as of this encounter Plan of Treatment Not on file documented as of this encounter Visit Diagnoses Diagnosis Generalized anxiety disorder- Primary Uterine prolapse Uterine prolapse without mention of vaginal wall prolapse documented in this encounter
--- OUTSIDE RECORDS SUMMARY | 2025-05-22 05:09 | XMS_ITS | Encounter Summary ---
Author Organization [facility] Address [address] [place] [address] Care Team Providers Care Kennel Helper Name Role Phone Unavailable Primary Care Provider Unavailabl e Encounter Details Date Type Department Care Team (Late st Contact Info) Description 07/22/2002 Outpatient Historical [facility] Thuan Lovett, Rickey Torres MD [address] [place] [address] Social History Tobacco Use Types Packs/Day Years Used Date Smoking Tobacco: Never Assessed Comments Unknown Sex and Gender Information Value Date Recorded Sex Assigned at Not on file Legal Sex Female 3:13 AM EDUCATION FINANCE PROCESSOR Gender Identity Not on file Sexual Orientation Not on file documented as of this encounter Plan of Treatment Not on file documented as of this encounter Visit Diagnoses Not on filedocumented in this encounter
--- OUTSIDE RECORDS SUMMARY | 2025-05-22 05:09 | XMS_ITS | Encounter Summary ---
Author Organization [facility] Address [address] [place] [address] Care Team Providers Care Can Feeder Name Role Phone Unavailable Primary Care Provider Unavailabl e Encounter Details Date Type Department Care Team (Latest Contact Info) Description 03/18/2000 Outpatient Historical HIS [facility] Thuan Lovett, [place] [address] [place] [phone] Other follow-up examination(V67.59) (Primary Dx) Social History Tobacco Use Types Packs/Day Years Used Date Smoking Tobacco: Never Assessed Comments Unknown Sex and Gender Information Value Date Recorded Sex Assigned at Not on file Legal Sex Female 3:13 AM PLANISHING HAMMER OPERATOR Gender Identity Not on file Sexual Orientation Not on file documented as of this encounter Plan of Treatment Not on file documented as of this encounter Visit Diagnoses Diagnosis Other follow-up examination(V67.59)- Primary Other follow-up examination documented in this encounter
--- OUTSIDE RECORDS SUMMARY | 2025-05-22 05:09 | XMS_ITS | Encounter Summary ---
Author Organization [facility] Address [address] [place] [address] Care Team Providers Care Recreational Assistant Name Role Phone Unavailable Primary Care Provider Unavailabl e Encounter Details Date Type Department Care Team (Latest Contact Info) Description 08/25/1998 Outpatient Historical [facility] Thuan Lovett, Rickey Torres MD [address] [place] [address] Routine medical exam (Primary Dx); Gynecologic examination; Anomalies of ovaries Social History Tobacco Use Types Packs/Day Years Used Date Smoking Tobacco: Never Assessed Comments Unknown Sex and Gender Information Value Date Recorded Sex Assigned at Not on file Legal Sex Female 3:13 AM MANAGER DOMESTIC Gender Identity Not on file Sexual Orientation Not on file documented as of this encounter Plan of Treatment Not on file documented as of this encounter Visit Diagnoses Diagnosis Routine medical exam- Primary Routine general medical examination at a health care facility Gynecologic examination Gynecological examination 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
--- OUTSIDE RECORDS SUMMARY | 2025-05-22 05:09 | XMS_ITS | Encounter Summary ---
Author Organization [facility] Address [address] [place] [address] Care Team Providers Care Multi Mission Helicopter Aircrewman Name Role Phone Unavailable Primary Care Provider Unavailabl e Encounter Details Date Type Department Care Team (Latest Contact Info) Description 07/22/2002 Outpatient Historical [facility] Thuan Lovett, Rickey Torres MD [address] [place] [address] VAGINITIS NOS (Primary Dx); VACCINE FOR STREP PNEUMONIAE Social History Tobacco Use Types Packs/Day Years Used Date Smoking Tobacco: Never Assessed Comments Unknown Sex and Gender Information Value Date Recorded Sex Assigned at Not on file Legal Sex Female 3:13 AM ENGINEERING TEAM SUPERVISOR Gender Identity Not on file Sexual Orientation Not on file documented as of this encounter Plan of Treatment Not on file documented as of this encounter Visit Diagnoses Diagnosis Vaginitis and vulvovaginitis, unspecified- Primary Need for prophylactic vaccination against Streptococcus pneumoniae (pneumococcus) Need for prophylactic vaccination against streptococcus pneumoniae (pneumococcus) documented in this encounter
--- OUTSIDE RECORDS SUMMARY | 2025-05-22 05:09 | XMS_ITS | Encounter Summary ---
Author Organization [facility] Address [address] [place] [address] Care Team Providers Care Barrer And Tacker Name Role Phone Unavailable Primary Care Provider Unavailabl e Encounter Details Date Type Department Care Team (Latest Contact Info) Description 12/05/2001 Outpatient Historical [facility] Thuan Lovett, Rickey Torres MD [address] [place] [phone] NONINFECT VAG LEUKORRHEA (Primary Dx); GENERALIZED ANXIETY DIS Social History Tobacco Use Types Packs/Day Years Used Date Smoking Tobacco: Never Assessed Comments Unknown Sex and Gender Information Value Date Recorded Sex Assigned at Not on file Legal Sex Female 3:13 AM RESIDENTIAL APPRAISER Gender Identity Not on file Sexual Orientation Not on file documented as of this encounter Plan of Treatment Not on file documented as of this encounter Visit Diagnoses Diagnosis Leukorrhea, not specified as infective- Primary Generalized anxiety disorder documented in this encounter
--- OUTSIDE RECORDS SUMMARY | 2025-05-22 05:09 | XMS_ITS | Encounter Summary ---
Author Organization [facility] Address [address] [place] [address] Care Team Providers Care Extension Forester Name Role Phone Unavailable Primary Care Provider Unavailabl e Encounter Details Date Type Department Care Team (Latest Contact Info) Description 09/07/2002 Outpatient Historical [facility] Thuan Lovett, Rickey Torres MD [address] [place] [phone] Routine medical exam (Primary Dx) Social History Tobacco Use Types Packs/Day Years Used Date Smoking Tobacco: Never Assessed Comments Unknown Sex and Gender Information Value Date Recorded Sex Assigned at Not on file Legal Sex Female 3:13 AM WHEY DEPARTMENT OPERATOR Gender Identity Not on file Sexual Orientation Not on file documented as of this encounter Plan of Treatment Not on file documented as of this encounter Visit Diagnoses Diagnosis Routine medical exam- Primary Routine general medical examination at a health care facility documented in this encounter
--- OUTSIDE RECORDS SUMMARY | 2025-05-22 05:09 | XMS_ITS | Encounter Summary ---
Author Organization [facility] Address [address] [place] [address] Care Team Providers Care Neon Light Installer Name Role Phone Unavailable Primary Care Provider Unavailabl e Encounter Details Date Type Department Care Team (Latest Contact Info) Description 03/11/2000 Outpatient Historical HIS [facility] Thuan Lovett, Rickey Torres MD [address] [place] [phone] Venereal disease contact (Primary Dx); Cough Social History Tobacco Use Types Packs/Day Years Used Date Smoking Tobacco: Never Assessed Comments Unknown Sex and Gender Information Value Date Recorded Sex Assigned at Not on file Legal Sex Female 3:13 AM JOURNEYMAN LEVEL ACOUSTIC ANALYST Gender Identity Not on file Sexual Orientation Not on file documented as of this encounter Plan of Treatment Not on file documented as of this encounter Visit Diagnoses Diagnosis Venereal disease contact- Primary Contact with or exposure to venereal diseases Cough documented in this encounter
--- OUTSIDE RECORDS SUMMARY | 2025-05-22 05:09 | XMS_ITS | Encounter Summary ---
Author Organization [facility] Address [address] [place] [address] Care Team Providers Care Steel Construction Worker Name Role Phone Unavailable Primary Care Provider Unavailabl e Encounter Details Date Type Department Care Team (Late st Contact Info) Description 08/31/2002 Outpatient Historical [facility] Rickey Larose Jr., MD [address] [place] [phone] ROUTINE MEDICAL EXAM (Primary Dx) Social History Tobacco Use Types Packs/Day Years Used Date Smoking Tobacco: Never Assessed Comments Unknown Sex and Gender Information Value Date Recorded Sex Assigned at Not on file Legal Sex Female 3:13 AM BOAT TESTER Gender Identity Not on file Sexual Orientation Not on file documented as of this encounter Plan of Treatment Not on file documented as of this encounter Visit Diagnoses Diagnosis Routine general medical examination at a health care facility- Primary documented in this encounter
[2025-05-22] MEDS: succinylcholine 20 mg/mL SDV 10mL 100 MG IVP (05:11)
[2025-05-22] MEDS: etomidate 2 mg/mL INJ SDV 10 mL 20 MG IVP (05:11)
[2025-05-22] MEDS: propofol 10 mg/mL SDV 20 mL 30 MG IVP (05:16)
--- NOTE | 2025-05-22 05:16 | XRR_ITS ---
PROCEDURE INFORMATION: Exam: XR Chest Exam date and time: 05/22/2025 5:19 AM Age: 70 years old Clinical indication: EMS arrival for seizure with loss of airway. Intubated immediately upon arrival. ; Additional info: Resp failure TECHNIQUE: Imaging protocol: Radiologic exam of the chest. Views: 1 view. COMPARISON: CT angio chest PE protcl [id number] 01/28/2025 3:27 PM FINDINGS: Tubes, catheters and devices: Endotracheal tube terminates 2 cm above the manjeet. Gastric tube terminates in the stomach. Lungs: Atelectasis or infiltrate in the left lower lobe. Pleural spaces: Unremarkable. No pleural effusion. No pneumothorax. Heart/Mediastinum: Unremarkable. No cardiomegaly. Bones/joints: Unremarkable. XR/XR chest 1V portable [id number] IMPRESSION: Life support lines as above. Mild opacity at the left lung base.
--- NOTE | 2025-05-22 05:16 | CTR_ITS ---
PROCEDURE INFORMATION: Exam: CT Head Without Contrast Exam date and time: 05/22/2025 5:58 AM Age: 70 years old Clinical indication: Altered mental status/memory loss; Additional info: AMS, potential seizure TECHNIQUE: Imaging protocol: Computed tomography of the head without contrast. Radiation optimization: All CT scans at this facility use at least one of these dose optimization techniques: automated exposure control; mA and/or kV adjustment per patient size (includes targeted exams where dose is matched to clinical indication); or iterative reconstruction. COMPARISON: MR head wo con* [id number] 08/19/2024 4:57 PM RADIATION DOSE METRICS: Total DLP (mGy-cm): 1001 FINDINGS: Brain: No hemorrhage. Periventricular white matter lucency represents atherosclerotic encephalopathic changes. No mass effect. Cerebral ventricles: No ventriculomegaly. Ventricular prominence disproportionate to the degree of atrophy observed. Paranasal sinuses: Small gas fluid level in the left maxillary sinus. Mastoid air cells: Visualized mastoid air cells are well aerated. Bones: Unremarkable. No acute fracture. Soft tissues: Unremarkable. CT/CT head wo con* [id number] IMPRESSION: No acute intracranial abnormality.
--- NOTE | 2025-05-22 05:18 | ECG_ITS ---
[facility] Test Date: 2025-05-22 Pat Name: Laurie Rogers Department: Room: Gender: Female [employer] Program Coordinator: : 1955 Requested By: Pb Cazares Order Number: [id number] Reading MD: MIN FERNANDO Measurements Intervals [place] Rate: 116 P: 51 ID: [id number] QRS: 70 QRSD: 87 T: 55 QT: 298 QTc: 414 Interpretive Statements SINUS TACHYCARDIA NONSPECIFIC ST & T-WAVE ABNORMALITY ABNORMAL RHYTHM ECG Compared to ECG 01/20/2025 16:19:27 Atrial flutter no longer present T-wave abnormality still present Electronically Signed On 05-24-2025 10:51:44 CDT by MIN FERNANDO [id number] [id number]
[2025-05-22] MEDS: levETIRAcetam 1,000 MG/100 ML PREMIX 400 MG IV (05:20)
--- NOTE | 2025-05-22 05:33 | W.ED.SEIZURE ---
Documented by User: Pb Tiwari DO 05/22/25 15:23 HPI - Seizure General: Chief Complaint: Seizure Stated Complaint: seizure Time Seen by Provider: 05/22/25 05:06 History of Present Illness: HPI Narrative: 70-year-old female with a history of epilepsy/seizure disorder. She presents unresponsive. She evidently had a seizure at home. EMS was called. The patient's family did not give EMS much history, only that she was unresponsive, and may or may not have been breathing at the time of the 911 call. CPR was not administered. The patient did have a tonic-clonic seizure that EMS witnessed. She was given Ativan to break the seizure. At that point, she became apneic. Rescue breaths were performed with a [id number]. The patient continues to be bagged on arrival to the emergency department. She remains unresponsive. Related Data Home Medications ?Medication ?Instructions ?Recorded ?Confirmed lorazepam 0.5 mg tablet 0.5 mg PO TID 05/22/25 05/22/25 nitrofurantoin macrocrystal 100 mg 100 mg PO BID 05/22/25 05/22/25 capsule sulfamethoxazole 800 1 tab PO BID 05/22/25 05/22/25 mg-trimethoprim 160 mg tablet Previous Rx's ?Medication ?Instructions ?Recorded aspirin 81 mg tablet,delayed 81 mg PO DAILY #30 tabs 05/13/24 release hospital bed #1 ea 06/16/24 spironolactone 25 mg tablet 25 mg PO BID #60 tabs 08/03/24 atorvastatin 40 mg tablet 40 mg PO QPM #90 tabs 08/21/24 Allergies Allergy/AdvReac Type Severity Reaction Status Date / Time cephalexin (From Keflex) Allergy ALGY-Difficulty Verified 01/20/25 16:09 Swallowing [facility] PFS: Medical History Diverticulosis Osteopenia 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 Polyuria Urgency incontinence POP-Q stage 2 cystocele Surgical History History of hysterectomy Hx of cataract surgery BILATERAL Family History Other CAD (coronary artery disease) Cancer Hypertension Social History Smoking and tobacco/nicotine status: never used tobacco/nicotine Alcohol intake: never Substance/Drug Use: never Adopted: No Caregiver/support person: No Lives independently: Yes Marital status: Number of children: 3 Number of grandchildren: 11 Current occupational status: retired 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[place] Current gender identity: Female Charu/Scientologist: Yarsani Special charu needs: No Agree to transfusion: Yes Physical Exam Const: EXAM LIMITATIONS: altered mental status GENERAL APPEARANCE: ill appearing and frail appearing ORIENTATION/CONSCIOUSNESS: Yes patient obtunded HENMT: COMMON NORMALS: normocephalic and atraumatic HEAD & SCALP: normocephalic and atraumatic FACE & SINUS: face symmetric Eye: COMMON NORMALS: Equal, round and reactive pupils present and EOMs intact bilaterally PUPIL: Yes Equal, round and reactive pupils present Chest: CHEST: Yes Symmetrical chest wall rise Resp: EFFORT & INSPECTION: Yes decreased respiratory effort AUSCULTATION: rhonchi Cardio: COMMON NORMALS: regular rhythm RATE: tachycardic RHYTHM: regular rhythm GI: COMMON NORMALS: Soft to palpation PALPATION: Yes Soft to palpation Neuro: JAQUELINE COMA SCALE: document GCS findings Jaqueline coma scale eye opening: None Jaqueline coma scale verbal response: None Pavo coma scale motor response: None Jaqueline coma scale total score: 3 SENSORIUM/ORIENTATION: Yes other (Nonresponsive) Procedures Intubation Time out performed: No sedative: Etomidate Mg Given: 20 paralytic: Succinylcholine Mg Given: 100 Laryngoscope: Cedric Assist Device Used: fiber optic device ET Tube Size: 8 ET Tube Uncuffed: No Tube Secured Depth (cm): 24 Tube Secured Location: teeth Tube Placement Confirmation: visualized tube passing through cords, equal breath sounds bilaterally and confirmation by capnometry Patient Tolerated Procedure: well and no complications Intubation Complications: none Course Vital Signs: Vital signs: Vital Signs Temperature 99.0 F 05/22/25 12:00 Pulse Rate 79 05/22/25 14:00 Respiratory Rate 14 05/22/25 13:30 Blood Pressure 102/63 05/22/25 13:30 Pulse Oximetry 97 05/22/25 13:30 Oxygen Delivery Me thod Mechanical Ventil ation 05/22/25 13:30 Fraction of Inspir ed Oxygen 50 05/22/25 13:30 MDM - Seizure MDM Narrative Medical decision making narrative: 70-year-old female presenting unresponsive after an epileptic type seizure. She was being bagged on arrival. Intubation proceeded on arrival without complication. She is on propofol. She has received Keppra. She has an NG tube and Diaz in place. Lab Data 05/22/25 05:30 05/22/25 08:07 Labs: Radiology Impressions Chest X-Ray 05/22/25 05:16 IMPRESSION: Life support lines as above. Mild opacity at the left lung base. Head CT 05/22/25 05:16 IMPRESSION: No acute intracranial abnormality. Laboratory Results WBC 17.95 10^3/uL (3.29-11.43) H 05/22/25 05:30 RBC 3.53 10^6/uL (3.85-5.65) L 05/22/25 05:30 Hgb 11.80 g/dL (11.27-16.99) 05/22/25 05:30 Hct 37.3 % (36-47) 05/22/25 05:30 MCV 105.7 fl (85-98) H 05/22/25 05:30 MCH 33.4 pg (27-33) H 05/22/25 05:30 MCHC 31.6 g/dL (30-55) 05/22/25 05:30 RDW 13.1 % (12.1-15.1) 05/22/25 05:30 Plt Count 245 10^3/cmm (157-399) 05/22/25 05:30 MPV 10.3 fL (7.4-10.4) 05/22/25 05:30 Neut % (Auto) 72.3 % 05/22/25 05:30 Lymph % (Auto) 20.8 % 05/22/25 05:30 [place] % (Auto) 3.5 % 05/22/25 05:30 Eos % (Auto) 0.8 % 05/22/25 05:30 Baso % (Auto) 0.4 % 05/22/25 05:30 Neut # (Auto) 12.98 10^3/uL (1.8-7.7) H 05/22/25 05:30 Lymph # (Auto) 3.7 10^3/uL (0.8-4.8) 05/22/25 05:30 [place] # (Auto) 0.6 10^3/uL (0.2-0.9) 05/22/25 05:30 Eos # (Auto) 0.2 10^3/uL (0.0-0.8) 05/22/25 05:30 Baso # (Auto) 0.1 10^3/uL (0.0-0.1) 05/22/25 05:30 Nucleated RBC % (auto) 0 % 05/22/25 05:30 Nucleated RBCs # 0.0 /100WBC 05/22/25 05:30 PT 16.10 SECONDS (12.1-14.9) H 05/22/25 05:30 INR 1.20 (0.8-1.2) 05/22/25 05:30 APTT 24.8 SECONDS (23.9-36.7) 05/22/25 05:30 Specimen Type Arterial 05/22/25 06:10 Sample Site Radial, right 05/22/25 06:10 ABG pH 7.13 (7.35-7.45) L* 05/22/25 06:10 ABG pCO2 52.4 mmHg (35-45) H 05/22/25 06:10 ABG pO2 210.0 mmHg (80.0-100.0) H 05/22/25 06:10 ABG PO2/FiO2 Ratio 210 05/22/25 06:10 ABG HCO3 17.3 mmol/L (22-26) L 05/22/25 06:10 ABG Base Excess -11.9 mmol/L (-2.0-2.0) L 05/22/25 06:10 Silvestre Test Pos 05/22/25 06:10 Hematocrit 35.7 % (37-47) L 05/22/25 06:10 O2 Delivery Device Vent 05/22/25 06:10 FiO2 100.0 % 05/22/25 06:10 Tidal Volume 0.35 05/22/25 06:10 PEEP 8.0 cmH20 05/22/25 06:10 Oil House Attendant ID [email or web address] 05/22/25 06:10 Sodium 138 mmol/L (136-145) 05/22/25 05:30 Potassium 4.5 mmol/L (3.5-5.1) 05/22/25 05:30 Chloride 100 mmol/L (98-107) 05/22/25 05:30 Carbon Dioxide 12 mmol/L (22-29) L 05/22/25 05:30 Anion Gap 30.5 (5-19) H 05/22/25 05:30 BUN 14 mg/dL (8-23) 05/22/25 05:30 Creatinine 1.4 mg/dL (0.5-0.9) H 05/22/25 05:30 GFR Calculation 37.2 mL/min (90-130) L 05/22/25 05:30 Glucose 429 mg/dL (65-115) H 05/22/25 05:30 POC Glucose 403 mg/dL (70-110) H 05/22/25 05:06 Estimat Average Glucose 117 05/22/25 05:30 Hemoglobin A1c 5.7 % (4.0-6.0) 05/22/25 05:30 Calculated Osmolality 305 mOsm/kg (285-295) H 05/22/25 05:30 Lactic Acid 19.7 mmol/L (0.5-2.2) H* 05/22/25 05:30 Calcium 9.3 mg/dL (8.5-10.5) 05/22/25 05:30 Total Bilirubin 0.2 mg/dL (0.15-1.2) 05/22/25 05:30 AST 16 U/L (0-32) 05/22/25 05:30 ALT 14 U/L (0-33) 05/22/25 05:30 Alkaline Phosphatase 94 U/L (35-105) 05/22/25 05:30 Creatine Kinase 53 U/L (26-192) 05/22/25 05:30 Troponin T Baseline 36 ng/L (0-10) H 05/22/25 05:30 Troponin T 120 Minute 62.40 ng/L (0-10) H 05/22/25 07:31 Delta Troponin T 26.40 ABS# (0-10) H* 05/22/25 07:31 C-Reactive Protein 3.0 mg/L (0.0-4.9) 05/22/25 05:30 NT-Pro-B Natriuret Pep 113 pg/mL (0-125) 05/22/25 05:30 Total Protein 6.1 g/dL (6.6-8.7) L 05/22/25 05:30 Albumin 3.6 g/dL (3.5-5.2) 05/22/25 05:30 Globulin 2.5 g/dL (1.3-4.6) 05/22/25 05:30 Urine Color Yellow (Yellow) 05/22/25 06:08 Urine Appearance Clear (CLEAR) 05/22/25 06:08 Urine pH 5.5 (5-7) 05/22/25 06:08 Ur Specific [place] 1.018 (1.005-1.030) 05/22/25 06:08 Urine Protein 2+ (Negative) A 05/22/25 06:08 Urine Glucose (UA) 2+ (Normal) H 05/22/25 06:08 Urine Ketones Trace (Negative) 05/22/25 06:08 Urine Blood 1+ (Negative) A 05/22/25 06:08 Urine Nitrate Negative (Negative) 05/22/25 06:08 Urine Bilirubin Negative (Negative) 05/22/25 06:08 Urine Urobilinogen 1.0 mg/dL (Negative) 05/22/25 06:08 Ur Leukocyte Esterase Negative (Negative) 05/22/25 06:08 Urine RBC 0-2 /hpf (0-2) 05/22/25 06:08 Urine WBC 0-5 /hpf (0-5) 05/22/25 06:08 Ur Squamous Epith Cells 0-5 /hpf (0-5) 05/22/25 06:08 Amorphous Sediment Not Reportable 05/22/25 06:08 Urine Bacteria None seen /hpf (NONE) 05/22/25 06:08 Hyaline Casts 28.13 /lpf 05/22/25 06:08 Fine Granular Casts 10-15 /lpf H 05/22/25 06:08 Urine Opiates Screen Negative ng/mL (Negative) 05/22/25 06:08 Urine Opiates Screen Negative ng/mL (Negative) 05/22/25 06:08 Ur Barbiturates Screen Negative ng/mL (Negative) 05/22/25 06:08 Ur Barbiturates Screen Negative ng/mL (Negative) 05/22/25 06:08 Ur Phencyclidine Scrn Negative ng/mL (Negative) 05/22/25 06:08 Ur Phencyclidine Scrn Negative ng/mL (Negative) 05/22/25 06:08 Ur Amphetamines Screen Negative ng/mL (Negative) 05/22/25 06:08 Ur Amphetamines Screen Negative ng/mL (Negative) 05/22/25 06:08 U Benzodiazepines Scrn Positive ng/mL (Negative) H 05/22/25 06:08 U Benzodiazepines Scrn Positive ng/mL (Negative) H 05/22/25 06:08 Urine Cocaine Screen Negative ng/mL (Negative) 05/22/25 06:08 Urine Cocaine Screen Negative ng/mL (Negative) 05/22/25 06:08 U Marijuana (THC) Screen Negative ng/mL (Negative) 05/22/25 06:08 U Marijuana (THC) Screen Negative ng/mL (Negative) 05/22/25 06:08 Ethyl Alcohol < 10 mg/dL (0-10) 05/22/25 05:30 Serum Ketones Negative (Negative) 05/22/25 05:30 Critical Care Time Critical Care Time: Critical Care Time: Yes Total Critical Care Time: 40 Attestation: This case had a high probability of a clinically significant, sudden, or life threatening deterioration of this patient's condition which required my full and direct attention, intervention and personal management. Time is independent of any procedures performed Discharge Plan Discharge Patient Disposition: Admitted As Inpatient Admit Provider: José Coronel Clinical Impression: Seizure, Respiratory failure, Pneumonia Condition: Stable Coding Level of Care Code ED Consultant Electronics for Chg Fwd Documented by User: Katya Link MD 05/22/25 07:50 HPI - Seizure General: Chief Complaint: Seizure Stated Complaint: seizure Time Seen by Provider: 05/22/25 05:06 Related Data Home Medications ?Medication ?Instructions ?Recorded ?Confirmed lorazepam 0.5 mg tablet 0.5 mg PO TID 05/22/25 05/22/25 nitrofurantoin macrocrystal 100 mg 100 mg PO BID 05/22/25 05/22/25 capsule sulfamethoxazole 800 1 tab PO BID 05/22/25 05/22/25 mg-trimethoprim 160 mg tablet Previous Rx's ?Medication ?Instructions ?Recorded aspirin 81 mg tablet,delayed 81 mg PO DAILY #30 tabs 05/13/24 release hospital bed #1 ea 06/16/24 spironolactone 25 mg tablet 25 mg PO BID #60 tabs 08/03/24 atorvastatin 40 mg tablet 40 mg PO QPM #90 tabs 08/21/24 Allergies Allergy/AdvReac Type Severity Reaction Status Date / Time cephalexin (From Keflex) Allergy ALGY-Difficulty Verified 01/20/25 16:09 Swallowing [facility] PFS: Medical History Diverticulosis Osteopenia 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 Polyuria Urgency incontinence POP-Q stage 2 cystocele Surgical History History of hysterectomy Hx of cataract surgery BILATERAL Family History Other CAD (coronary artery disease) Cancer Hypertension Social History Smoking and tobacco/nicotine status: never used tobacco/nicotine Alcohol intake: never Substance/Drug Use: never Adopted: No Caregiver/support person: No Lives independently: Yes Marital status: Number of children: 3 Number of grandchildren: 11 Current occupational status: retired 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[place] 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 gender 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: Female Charu/Scientologist: Yarsani Special charu needs: No Agree to transfusion: Yes Physical Exam Neuro: JAQUELINE COMA SCALE: document GCS findings Jaqueline coma scale total score: 3 Course Vital Signs: Vital signs: Vital Signs Temperature 99.0 F 05/22/25 12:00 Pulse Rate 79 05/22/25 14:00 Respiratory Rate 14 05/22/25 13:30 Blood Pressure 102/63 05/22/25 13:30 Pulse Oximetry 97 05/22/25 13:30 Oxygen Delivery Me thod Mechanical Ventil ation 05/22/25 13:30 Fraction of Inspir ed Oxygen 50 05/22/25 13:30 MDM - Seizure MDM Narrative Medical decision making narrative: 70-year-old female presenting unresponsive after an epileptic type seizure. She was being bagged on arrival. Intubation proceeded on arrival without complication. She is on propofol. She has received Keppra. She has an NG tube and Diaz in place. Patient care was transitioned to [place] at shift change awaiting final lab work imaging. Patient had been intubated secondary to unresponsiveness after a seizure. I spoke with family about her son. He says she had been on Xanax and may have been giving it to her as needed and trying to wean her off recently. She has had possible seizures over the last 2 years. He says there have been issues with her treatment and he thinks she had just been written off and all of her medications have been stopped. He says she is not even on any blood pressure medications. Chest x-ray: Opacity in the left lung base. Possible pneumonia. Patient has received antibiotics and septic fluids. ET tube 2 cm above the manjeet. Gastric tube terminates in the stomach. This was reviewed and interpreted by myself the emergency room physician. I also reviewed the radiology report. CT head: No acute intracranial process. no intracranial hemorrhage, no evidence of infarct. no evidence of acute fracture.This was reviewed and interpreted by myself the ER physician. Consultation: I spoke with Dr. Coronel who is on-call for the hospital service who agrees to admission to the ICU. Assessment and plan: Seizure Respiratory failure Possible pneumonia Possible sepsis ?Patient has received Ativan by EMS. Keppra. She is being sedated on propofol. Pressures are low some changing her to Versed. - 30 mL/kg septic bolus was given. -Broad-spectrum antibiotics were administered. -Sepsis quality measures. -Lactic acid with a reflex was ordered. -Blood cultures were ordered. ?I reevaluated the patient's volume status after sepsis fluids were given. -I discussed the patient with the hospitalist on-call who is admitting the patient. - Discussed findings and plan with patient. Answered any questions. - All laboratory values were reviewed and interpreted personally by myself, the ER physician - All imaging was reviewed and interpreted personally by myself, the ER physician. - Evaluation and treatment of this problem were appropriate in the emergency setting Lab Data 05/22/25 05:30 05/22/25 08:07 Labs: Radiology Impressions Chest X-Ray 05/22/25 05:16 IMPRESSION: Life support lines as above. Mild opacity at the left lung base. Head CT 05/22/25 05:16 IMPRESSION: No acute intracranial abnormality. Laboratory Results WBC 17.95 10^3/uL (3.29-11.43) H 05/22/25 05:30 RBC 3.53 10^6/uL (3.85-5.65) L 05/22/25 05:30 Hgb 11.80 g/dL (11.27-16.99) 05/22/25 05:30 Hct 37.3 % (36-47) 05/22/25 05:30 MCV 105.7 fl (85-98) H 05/22/25 05:30 MCH 33.4 pg (27-33) H 05/22/25 05:30 MCHC 31.6 g/dL (30-55) 05/22/25 05:30 RDW 13.1 % (12.1-15.1) 05/22/25 05:30 Plt Count 245 10^3/cmm (157-399) 05/22/25 05:30 MPV 10.3 fL (7.4-10.4) 05/22/25 05:30 Neut % (Auto) 72.3 % 05/22/25 05:30 Lymph % (Auto) 20.8 % 05/22/25 05:30 [place] % (Auto) 3.5 % 05/22/25 05:30 Eos % (Auto) 0.8 % 05/22/25 05:30 Baso % (Auto) 0.4 % 05/22/25 05:30 Neut # (Auto) 12.98 10^3/uL (1.8-7.7) H 05/22/25 05:30 Lymph # (Auto) 3.7 10^3/uL (0.8-4.8) 05/22/25 05:30 [place] # (Auto) 0.6 10^3/uL (0.2-0.9) 05/22/25 05:30 Eos # (Auto) 0.2 10^3/uL (0.0-0.8) 05/22/25 05:30 Baso # (Auto) 0.1 10^3/uL (0.0-0.1) 05/22/25 05:30 Nucleated RBC % (auto) 0 % 05/22/25 05:30 Nucleated RBCs # 0.0 /100WBC 05/22/25 05:30 PT 16.10 SECONDS (12.1-14.9) H 05/22/25 05:30 INR 1.20 (0.8-1.2) 05/22/25 05:30 APTT 24.8 SECONDS (23.9-36.7) 05/22/25 05:30 Specimen Type Arterial 05/22/25 06:10 Sample Site Radial, right 05/22/25 06:10 ABG pH 7.13 (7.35-7.45) L* 05/22/25 06:10 ABG pCO2 52.4 mmHg (35-45) H 05/22/25 06:10 ABG pO2 210.0 mmHg (80.0-100.0) H 05/22/25 06:10 ABG PO2/FiO2 Ratio 210 05/22/25 06:10 ABG HCO3 17.3 mmol/L (22-26) L 05/22/25 06:10 ABG Base Excess -11.9 mmol/L (-2.0-2.0) L 05/22/25 06:10 Silvestre Test Pos 05/22/25 06:10 Hematocrit 35.7 % (37-47) L 05/22/25 06:10 O2 Delivery Device Vent 05/22/25 06:10 FiO2 100.0 % 05/22/25 06:10 Tidal Volume 0.35 05/22/25 06:10 PEEP 8.0 cmH20 05/22/25 06:10 Oil House Attendant ID [email or web address] 05/22/25 06:10 Sodium 138 mmol/L (136-145) 05/22/25 05:30 Potassium 4.5 mmol/L (3.5-5.1) 05/22/25 05:30 Chloride 100 mmol/L (98-107) 05/22/25 05:30 Carbon Dioxide 12 mmol/L (22-29) L 05/22/25 05:30 Anion Gap 30.5 (5-19) H 05/22/25 05:30 BUN 14 mg/dL (8-23) 05/22/25 05:30 Creatinine 1.4 mg/dL (0.5-0.9) H 05/22/25 05:30 GFR Calculation 37.2 mL/min (90-130) L 05/22/25 05:30 Glucose 429 mg/dL (65-115) H 05/22/25 05:30 POC Glucose 403 mg/dL (70-110) H 05/22/25 05:06 Estimat Average Glucose 117 05/22/25 05:30 Hemoglobin A1c 5.7 % (4.0-6.0) 05/22/25 05:30 Calculated Osmolality 305 mOsm/kg (285-295) H 05/22/25 05:30 Lactic Acid 19.7 mmol/L (0.5-2.2) H* 05/22/25 05:30 Calcium 9.3 mg/dL (8.5-10.5) 05/22/25 05:30 Total Bilirubin 0.2 mg/dL (0.15-1.2) 05/22/25 05:30 AST 16 U/L (0-32) 05/22/25 05:30 ALT 14 U/L (0-33) 05/22/25 05:30 Alkaline Phosphatase 94 U/L (35-105) 05/22/25 05:30 Creatine Kinase 53 U/L (26-192) 05/22/25 05:30 Troponin T Baseline 36 ng/L (0-10) H 05/22/25 05:30 Troponin T 120 Minute 62.40 ng/L (0-10) H 05/22/25 07:31 Delta Troponin T 26.40 ABS# (0-10) H* 05/22/25 07:31 C-Reactive Protein 3.0 mg/L (0.0-4.9) 05/22/25 05:30 NT-Pro-B Natriuret Pep 113 pg/mL (0-125) 05/22/25 05:30 Total Protein 6.1 g/dL (6.6-8.7) L 05/22/25 05:30 Albumin 3.6 g/dL (3.5-5.2) 05/22/25 05:30 Globulin 2.5 g/dL (1.3-4.6) 05/22/25 05:30 Urine Color Yellow (Yellow) 05/22/25 06:08 Urine Appearance Clear (CLEAR) 05/22/25 06:08 Urine pH 5.5 (5-7) 05/22/25 06:08 Ur Specific [place] 1.018 (1.005-1.030) 05/22/25 06:08 Urine Protein 2+ (Negative) A 05/22/25 06:08 Urine Glucose (UA) 2+ (Normal) H 05/22/25 06:08 Urine Ketones Trace (Negative) 05/22/25 06:08 Urine Blood 1+ (Negative) A 05/22/25 06:08 Urine Nitrate Negative (Negative) 05/22/25 06:08 Urine Bilirubin Negative (Negative) 05/22/25 06:08 Urine Urobilinogen 1.0 mg/dL (Negative) 05/22/25 06:08 Ur Leukocyte Esterase Negative (Negative) 05/22/25 06:08 Urine RBC 0-2 /hpf (0-2) 05/22/25 06:08 Urine WBC 0-5 /hpf (0-5) 05/22/25 06:08 Ur Squamous Epith Cells 0-5 /hpf (0-5) 05/22/25 06:08 Amorphous Sediment Not Reportable 05/22/25 06:08 Urine Bacteria None seen /hpf (NONE) 05/22/25 06:08 Hyaline Casts 28.13 /lpf 05/22/25 06:08 Fine Granular Casts 10-15 /lpf H 05/22/25 06:08 Urine Opiates Screen Negative ng/mL (Negative) 05/22/25 06:08 Urine Opiates Screen Negative ng/mL (Negative) 05/22/25 06:08 Ur Barbiturates Screen Negative ng/mL (Negative) 05/22/25 06:08 Ur Barbiturates Screen Negative ng/mL (Negative) 05/22/25 06:08 Ur Phencyclidine Scrn Negative ng/mL (Negative) 05/22/25 06:08 Ur Phencyclidine Scrn Negative ng/mL (Negative) 05/22/25 06:08 Ur Amphetamines Screen Negative ng/mL (Negative) 05/22/25 06:08 Ur Amphetamines Screen Negative ng/mL (Negative) 05/22/25 06:08 U Benzodiazepines Scrn Positive ng/mL (Negative) H 05/22/25 06:08 U Benzodiazepines Scrn Positive ng/mL (Negative) H 05/22/25 06:08 Urine Cocaine Screen Negative ng/mL (Negative) 05/22/25 06:08 Urine Cocaine Screen Negative ng/mL (Negative) 05/22/25 06:08 U Marijuana (THC) Screen Negative ng/mL (Negative) 05/22/25 06:08 U Marijuana (THC) Screen Negative ng/mL (Negative) 05/22/25 06:08 Ethyl Alcohol < 10 mg/dL (0-10) 05/22/25 05:30 Serum Ketones Negative (Negative) 05/22/25 05:30 All radiology interpretation(s) finalized by discharge Discharge Plan Discharge Patient Disposition: Admitted As Inpatient Admit Provider: José Coronel Clinical Impression: Seizure, Respiratory failure, Pneumonia Condition: Stable Coding Level of Care Code ED Consultant Electronics for Kwan Meehan
[2025-05-22 05:44] LABS: Hematocrit 37.3 % (36-47); Hemoglobin 11.80 g/dL (11.27-16.99); Mean Corpuscular HGB Conc 31.6 g/dL (30-55); Mean Corpuscular Hemoglobin 33.4 pg (27-33); Mean Corpuscular Volume 105.7 fl (85-98); Nucleated Red Blood Cells % 0 %; Platelet Count 245 10^3/cmm (157-399); Red Blood Count 3.53 10^6/uL (3.85-5.65); White Blood Count 17.95 10^3/uL (3.29-11.43)
[2025-05-22 06:00] LABS: INR 1.20 (0.8-1.2); Partial Thromboplastin Time 24.8 SECONDS (23.9-36.7); Prothrombin Time 16.10 SECONDS (12.1-14.9)
[2025-05-22] MEDS: propofol 1,000 MG/100 ML INJ 1.82 MG IV (06:00)
[2025-05-22 06:01] LABS: Ketone (Acetest) Serum Negative (Negative)
[2025-05-22 06:08] LABS: Alanine Aminotransferase 14 U/L (0-33); Albumin Level 3.6 g/dL (3.5-5.2); Alkaline Phosphatase 94 U/L (35-105); Anion Gap 30.5 (5-19); Aspartate Amino Transferase 16 U/L (0-32); Blood Urea Nitrogen 14 mg/dL (8-23); Calcium 9.3 mg/dL (8.5-10.5); Carbon Dioxide 12 mmol/L (22-29); Chloride 100 mmol/L (98-107); Globulin 2.5 g/dL (1.3-4.6); Glucose 429 mg/dL (65-115); Osmolality Calculated 305 mOsm/kg (285-295); Potassium 4.5 mmol/L (3.5-5.1); Sodium 138 mmol/L (136-145); Total Protein 6.1 g/dL (6.6-8.7)
[2025-05-22 06:11] LABS: Troponin(5th) Baseline 36 ng/L (0-10)
[2025-05-22] MEDS: piperacillin-tazobactam 4.5 GM in sodium chloride 0.9% (plus) 50 ML IV (06:14)
[2025-05-22 06:16] LABS: Glucose Urine UA 2+ (Normal); Nitrate Urine Negative (Negative); Specific Gravity, Urine 1.018 (1.005-1.030)
[2025-05-22 06:21] LABS: ABG PCO2 52.4 mmHg (35-45); ABG PH Result 7.13 (7.35-7.45); Arterial Blood Gas Hematocrit 35.7 % (37-47); Blood Gas Allen Test Pos; Blood Gas Sample Site Radial, right; Blood Gas Sample Type Arterial; Blood Gas Tidal Volume 0.35; HCO3 ABG 17.3 mmol/L (22-26); PEEP 8.0 cmH20; PO2 ABG 210.0 mmHg (80.0-100.0); PO2 FiO2 Ratio Arterial Blood 210
[2025-05-22 06:21] LABS: Add Urine Microscopic? YES
[2025-05-22 06:23] LABS: PCP Screen Urine Negative (Negative)
[2025-05-22 06:26] LABS: Alcohol Level < 10 mg/dL (0-10); Creatinine Clr Calc Pharmacy 35.3576
[2025-05-22 06:28] LABS: Lactic Sepsis W/Reflex 19.7 mmol/L (0.5-2.2)
[2025-05-22 06:41] LABS: UA Slide Review UA Slide Review Perf
--- NOTE | 2025-05-22 06:57 | PC.NURSE ---
updated family on pt status, addressed concerns. pt's family denies any further questions, at bedside currently.
--- NOTE | 2025-05-22 07:18 | ECG_ITS ---
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
--- NOTE | 2025-05-22 07:21 | PC.PHAR ---
Pt unable to verify her medications. Med Rec completed with pharmacy, last fill date and day supply.
[2025-05-22 07:28] LABS: Reflex Lactate Order REFLEX LACTIC ORDERD
[2025-05-22 07:40] LABS: NT Pro B Type Natriuretic Pept 113 pg/mL (0-125)
[2025-05-22 07:53] LABS: Troponin 5 2HR 62.40 ng/L (0-10)
[2025-05-22 07:58] LABS: Troponin 5 2HR Delta 26.40 ABS# (0-10)
[2025-05-22] MEDS: midazolam hcl 100 MG/100 ML BAG IV (08:14)
--- NOTE | 2025-05-22 08:24 | USCV_ITS ---
Laurie Rogers Age: 70 Gender: F : 1955 Exam Date: 05/22/2025 10:19 Ordering Phys: José Coronel MD Technologist: Exam Location: [facility] Indication: ef sob BP: 80 / 54 HR: 81 Rhythm: Sinus Technical Quality: Adequate MEASUREMENTS (Male / Female) Normal Values 2D ECHO LVOT Diameter 2.0 cm LV Ejection Fraction MOD 4C 66.0 % LV Ejection Fraction MOD 2C 61.3 % LV Ejection Fraction 2C AL 62.2 % LA Diameter 3.1 cm RA Systolic Volume 4C AL 23.4 ml RA Systolic Volume 4C MOD 22.6 ml Aorta at Sinotubular Diameter 2.7 cm M-MODE LA Ao Ratio MM 1.1 AV Cusp Separation MM 2.3 cm DOPPLER LVOT Peak Velocity 83.0 cm/s MV Peak Velocity 105.0 cm/s MV Area PHT 3.9 cm squared Mitral E to A Ratio 0.8 TV Peak Velocity 175.0 cm/s TR Peak Velocity 238.0 cm/s TR Peak Gradient 22.7 mmHg TV Peak E Velocity 77.0 cm/s PV Peak Velocity 101.0 cm/s FINDINGS Left Ventricle Normal left ventricular size and systolic function, EF 55-60%. No regional wall motion abnormalities. Grade 1 diastolic dysfunction. Right Ventricle Normal right ventricular size and systolic function. Right Atrium Normal right atrial size. Left Atrium Normal left atrial size. Mitral Valve Structurally normal mitral valve. Mild mitral regurgitation. Aortic Valve Structurally normal aortic valve. No significant stenosis. Tricuspid Valve Mild tricuspid regurgitation. Pulmonary artery systolic pressure is normal. Pulmonic Valve Not well visualized Pericardium Normal Aorta Normal in size IVC Not well visualized CONCLUSIONS LV systolic function is normal with EF of 55-60% Grade 1 diastolic dysfunction Mild mitral regurgitation Mild tricuspid regurgitation. Tom Ayala MD (Electronically Signed) Final Date: 23 May 2025 11:54 S
[2025-05-22 08:31] LABS: Lactic Acid level (Lactate) 2.5 mmol/L (0.5-2.2)
[2025-05-22 08:48] LABS: Blood Urea Nitrogen 17 mg/dL (8-23); Calcium 8.2 mg/dL (8.5-10.5); Carbon Dioxide 18 mmol/L (22-29); Chloride 110 mmol/L (98-107); Creatinine Clr Calc Pharmacy 41.2506; Glucose 102 mg/dL (65-115); Osmolality Calculated 284 mOsm/kg (285-295); Sodium 136 mmol/L (136-145)
[2025-05-22 08:48] LABS: PCP Screen Urine Negative (Negative)
[2025-05-22 08:50] LABS: Anion Gap 11.9 (5-19); Potassium 3.9 mmol/L (3.5-5.1)
[2025-05-22 09:38] LABS: Ketone (Acetest) Serum Negative (Negative)
[2025-05-22] MEDS: fentaNYL 1,000 MCG/100 ML BAG 2.5 MCG IV (10:02)
[2025-05-22 10:10] LABS: ABG PCO2 34.4 mmHg (35-45); ABG PH Result 7.37 (7.35-7.45); Alveolar-Arterial Oxygen Gradi 37.3 mmHg (5-10); Arterial Blood Gas Hematocrit 33.8 % (37-47); Blood Gas Allen Test Pos; Blood Gas Operator Identificat GD; Blood Gas Sample Site Radial, right; Blood Gas Sample Type Arterial; Blood Gas Tidal Volume 0.40; Carboxyhemoglobin 0.6 %THgb (0.4-20.1); Glucose Level-ABG 95.0 mg/dL (70-115); HCO3 ABG 19.7 mmol/L (22-26); Ionized Calcium Level - ABG 1.2 mmol/L (1.1-1.4); Methemoglobin 0.6 % (0.4-1.5); Oxygen Saturation ABG 98.4; PEEP 8.0 cmH20; PO2 ABG 98.0 mmHg (80.0-100.0); PO2 FiO2 Ratio Arterial Blood 163; Potassium Level - ABG 3.9 mmol/L (3.5-5.0); Sodium Level - ABG 142.0 mmol/L (131-143)
[2025-05-22 10:48] LABS: MRSA PCR OZH (swab) NOT DETECTED (Not Detecte)
--- NOTE | 2025-05-22 11:18 | ECG_ITS ---
[email or web address]: 2025-05-22 Pat Name: Laurie Rogers Department: Room: ICU04 Gender: Female Quality Improvement Specialist: : 1955 Requested By: Pb Cazares Order Number: [id number] Reading MD: MIN FERNANDO Measurements Intervals [place] Rate: 90 P: 71 SC: 157 QRS: 65 QRSD: 90 T: 58 QT: 353 QTc: 433 Interpretive Statements SINUS RHYTHM MODERATE T-WAVE ABNORMALITY, CONSIDER ANTERIOR ISCHEMIA [-0.1+ mV T-WAVE IN V3/V4] Compared to ECG 05/22/2025 07:27:59 Possible ischemia now present T-wave abnormality still present Electronically Signed On 05-24-2025 10:58:13 CDT by MIN FERNANDO [id number] [id number]
[2025-05-22 12:04] LABS: Troponin 5 6HR 51.93 ng/L (0-10)
[2025-05-22 12:06] LABS: Troponin 5 6HR Delta 15.93 ng/L (0-12)
[2025-05-22] MEDS: piperacillin-tazobactam 3.375 GM in sodium chloride 0.9% (plus) 50 ML IV ×2 (13:32→20:34)
--- NOTE | 2025-05-22 14:13 | PM.HP ---
Providers/Chief Complaint Admitting Physician: José Coronel MD Primary Care Provider: Farhad Cooper MD Chief Complaint: seizure History of Present Illness History taken through chart review, conversation with son and ER physician. Laurie Rogers is a 70 year old female with past medical history of psychosis, depression on chronic lorazepam, history of benzo withdrawal seizures was brought into the ER via EMS today when she was found down unresponsive at home by her son around 4 AM. As per son patient was having decreased movement of her body at the time when he saw her along with concern for difficulty in breathing. Patient was given Ativan by the EMS. After Ativan she became apneic and was brought to the ER with [id number]. Patient was intubated to protect airway and was given 1 g of IV Keppra. She received sepsis bolus. As per son patient takes lorazepam twice a day though he thinks she should be getting it higher and more frequently. Denies any other changes in medication other than her being on antibiotics which is Bactrim for a urinary tract infection. He denies any seizures since her last admission. Denies patient complaining of anything new recently. Review of Systems General: Reports: ROS unobtainable due to endotracheal tube Medications/Allergies Home Medications ?Medication ?Instructions ?Recorded ?Confirmed ?Last Taken ?Type aspirin 81 mg tablet,delayed 81 mg PO DAILY #30 tabs 05/13/24 05/22/25 Unknown Rx release hospital bed #1 ea 06/16/24 05/22/25 Unknown Rx spironolactone 25 mg tablet 25 mg PO BID #60 tabs 08/03/24 05/22/25 Unknown Rx atorvastatin 40 mg tablet 40 mg PO QPM #90 tabs 08/21/24 05/22/25 Unknown Rx lorazepam 0.5 mg tablet 0.5 mg PO TID 05/22/25 05/22/25 Unknown History nitrofurantoin macrocrystal 100 mg 100 mg PO BID 05/22/25 05/22/25 Unknown History capsule sulfamethoxazole 800 1 tab PO BID 05/22/25 05/22/25 Unknown History mg-trimethoprim 160 mg tablet Allergies Allergy/AdvReac Type Severity Reaction Status Date / Time cephalexin (From Keflex) Allergy ALGY-Difficulty Verified 01/20/25 16:09 Swallowing PFSH Acute PFSH: Medical History (Updated 05/22/25 @ 14:26 by José Coronel MD) V tach Urinary incontinence, nocturnal enuresis Overactive bladder Memory loss Confabulation Diverticulosis Osteopenia 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 Polyuria Urgency incontinence POP-Q stage 2 cystocele Surgical History History of hysterectomy Hx of cataract surgery BILATERAL Family History Other CAD (coronary artery disease) Cancer Hypertension Social History Smoking and tobacco/nicotine status: never used tobacco/nicotine Alcohol intake: never Substance/Drug Use: never Adopted: No Caregiver/support person: No Lives independently: Yes Marital status: Number of children: 3 Number of grandchildren: 11 Current occupational status: retired 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[employer] – [place] Current gender identity: Female Charu/Scientologist: Catholic Special charu needs: No Agree to transfusion: Yes Vitals/I&O/Wt Last Vital Signs Temp 99.0 F 05/22/25 12:00 Pulse 86 05/22/25 13:30 Resp 14 05/22/25 13:30 BP 102/63 05/22/25 13:30 Pulse Ox 97 05/22/25 13:30 O2 Del Method Mechanical Ventilation 05/22/25 13:30 FiO2 50 05/22/25 13:30 05/21/25 05/22/25 05/22/25 22:59 06:59 14:59 Intake Total 1650.243 / 1578.004 2984.669 / 2771.669 Balance 1650.243 / 2388.559 5689.669 / 2771.669 Weight last 48 hrs Weight 56.09 kg Weight 60.8 kg Physical Exam Narrative: General: Intubated, Sedated HEENT: PERRLA, pupils bilaterally equal and reactive Chest: Normal vesicular breath sounds, no added sounds, equal good air entry bilaterally CVS: S1-S2 regular, no murmurs, no tachycardia, no gallops, no rubs Abdomen: Soft, nontender, no organomegaly, bowel sounds present Neuro: No focal deficits, no facial deformity, intubated Urinary Catheter Management: Diaz: Cath Placed During This Visit: yes Reason for Continuing Indwelling Catheter: Accurate Measurement of Urinary Output in Critically Ill Patients Urinary Catheter Date of Insertion: 05/22/25 Urinary Catheter Time of Insertion: 05:30 Data 05/22/25 05:30 05/22/25 08:07 Micro: Microbiology 05/22/25 06:08 Bacterial Antigens - Final Urine Kidney 05/22/25 06:32 Blood Culture - Preliminary Blood SPECIMEN COLLECTED 05/22/25 05:30 Blood Culture - Preliminary Blood SPECIMEN COLLECTED A&P Assessment and plan 1. Sepsis: 2. Acute respiratory failure with hypoxia: 3. Pneumonia: 4. Seizure: 5. History of stroke: 6. Hypotension: 7. Acute kidney injury: 8. High anion gap metabolic acidosis: 9. Hyperglycemia: 10. Elevated lactic acid level: 11. Elevated troponin: 12. Depression: 13. Psychosis: 14. Memory loss: Plan: 70-year-old female with past medical history of psychosis on daily lorazepam, history of seizure a year ago thought to be in setting of benzo withdrawal was found down at home unresponsive, intubated for respiratory failure. Respiratory failure: Hypoxic acute. Currently on mechanical ventilation. Continue sedation with Versed and fentanyl. Oxygen supplementation keeping saturation over 90%. Check ABG. Sedation vacation daily. Concern for aspiration pneumonia. Check blood culture, sputum culture. Trend procalcitonin, sputum culture, MRSA swab. Empirically start on IV Zosyn and vancomycin. Will discontinue vancomycin if MRSA swab negative. Nebulization with Pulmicort twice daily, DuoNeb every 6 hour. Sepsis: Present on admission. SIRS: Tachycardic, Febrile, Leukocytosis Source: Pneumonia End organ damage: Acute infectious encephalopathy, respiratory failure, SOILA Lactic acid elevated Patient did receive full 30 mL/kg BW. Hypotension: Cannot rule out septic shock. Plan for Cheetah examination. If patient is fluid responsive will give 1 L bolus. If mean arterial pressure remains less than 65 can plan for Levophed. Seizure: Unwitnessed. Patient does have a history of benzo withdrawal seizure in the past. No changes in the medication as per son. Patient was started on Bactrim as an outpatient which could have lowered seizure threshold. CT head negative for acute abnormality. Urine drug screen appreciated. Check alcohol level, Tylenol level, vitamin B12, folate, TSH. Seizure precautions. Hold off on antiepileptic for now. Will plan for weaning Versed in next 24 hours. If any concern for seizure will load with Keppra. Acute kidney injury: Associated with high anion gap metabolic acidosis. Insetting of sepsis. Strict input output charting, daily weights. Repeat BMP stat. If continues to have high nongap metabolic acidosis will check ketones to rule out DKA. NS at 100 cc/h for now. Elevated lactic Elevated troponin: Does not give any history of CAD. Check A1c, lipid panel. Check echocardiogram. For now start on heparin drip. If no regional wall motion abnormality on echocardiogram can discontinue heparin drip. If concerns for RWMA will consult cardiology for possible ACS workup. EKG negative for STEMI. Does have mild T wave inversion in V3 V4. History of psychosis/depression/memory loss. Continue with home dose of lorazepam. Possible history of UTI: Was on Bactrim at home. Currently UA appreciated. Follow-up cultures. Antibiotic as above will cover for UTI as well. Hyperglycemia: No history of diabetes. Check A1c. Insulin sliding scale. CODE STATUS: Discussed in detail with patient son over the phone. Out of 3 brother Kevin will be the DPOA. Full code N.p.o. Heparin drip will be sufficient for DVT prophylaxis Protonix for PUD prophylaxis Anesthesia: Versed, fentanyl Glycemic control: Sliding scale low-dose protocol Nutrition: N.p.o. CODE STATUS: Full code PUD prophylaxis: Protonix DVT prophylaxis:Heparin drip will be sufficient Discharge planning: Depending on clinical improvement going forward Continue with care at ICU This documentation was created by [employer] chiropractic doctor software. Every effort was made to ensure accuracy of chiropractic doctor. Any obvious errors or omissions should be clarified with the author of the document. PDMP PDMP Reviewed: Last Reviewed 05/22/25 11:01 by José Coronel MD Attestations Medical Necessity Statement*: Admission for more than 2 midnights for management of respiratory failure, possible seizure, acute kidney injury, sepsis Critical Care Time: The high probability of a clinically significant, sudden or life threatening deterioration of the patient's [pulmonary, cardiac, neuro] system(s) required my full and direct attention, intervention and personal management. The critical care time is as shown. This time is in addition to time spent performing any reported procedures but includes the following: [x] Data and vital sign review and interpretation [x] Patient assessment, examination and intervention [x] Documentation [x] Medication orders and management 80 Critical Care Time (min): 80 Coding Level of Care Code Critical Care >/= 30 minutes Critical care time (in minutes): 80 The high probability of a clinically significant, sudden or life threatening deterioration, as referenced in this documentation, required my full and direct attention, intervention and personal management. The critical care time shown is in addition to time spent performing any reported separately billable procedures and includes the following: [x] Data and vital sign review and interpretation [x] Patient assessment, examination and intervention [x] Medication orders and management [x] Patient/Family updates as able [x] Care Coordination and Documentation. Other Coding Information This patient has a high probability of clinically significant, sudden or life threatening deterioration of the patient's (neurological/pulmonary/cardiac/renal/ID/endocrine) systems required my full, direct attention, the highest level of physician preparedness for urgent intervention and personal management. I managed/supervised life or organ supporting interventions that required frequent physician assessment. I devoted my full attention in the ICU to the direct care of this patient for the period of time indicated above. Time I spent with family or surrogate(s) is included only if the patient was incapable of providing necessary information or participating in decision making. This time includes the following services provided: Telemetry review Mechanical Ventilation Hemodynamic interpretation, assessment and management Review and interpretation of CXR Review and interpretation of lab values Review and interpretation of microbiologic data and culture results Review of medications and administration Review and interpretation of Nutrition requirements and management Discussion of management with other consultants and services Clinical update to family members Diagnoses Sepsis A41.9 Acute respiratory failure with hypoxia J96.01 Pneumonia J18.9 Seizure R56.9 History of stroke Z86.73 Hypotension I95.9 Acute kidney injury N17.9 High anion gap metabolic acidosis E87.29 Hyperglycemia R73.9 Elevated lactic acid level R79.89 Elevated troponin R79.89 Depression F32.A Psychosis F29 Memory loss R41.3
[2025-05-22 14:49] LABS: Estmated Average Glucose 117; Hemoglobin A1C 5.7 % (4.0-6.0)
[2025-05-22] MEDS: heparin 5,000 unit/mL INJ 1 mL IVP (14:55)
[2025-05-22] MEDS: heparin drip 25,000 UNIT/500 ML PREMIX 15.71 UNIT IV (14:56)
[2025-05-22 15:03] LABS: Procalcitonin 1.07 ng/mL (0-0.5); Thyroid Stimulating Hormone 2.68 uIU/mL (0.27-4.20); Vitamin B12 429 pg/mL (232-1245)
[2025-05-22 15:13] LABS: Iron 81 ug/dL (37-145); Total Iron Binding Capacity 199 mcg/dl; Unsaturated Iron Binding 118 ug/dL (112-347)
[2025-05-22 16:59] LABS: ABG PCO2 32.7 mmHg (35-45); ABG PH Result 7.36 (7.35-7.45); Alveolar-Arterial Oxygen Gradi 13.7 mmHg (5-10); Arterial Blood Gas Hematocrit 32.2 % (37-47); Blood Gas Operator Identificat GD; Blood Gas Sample Site Brachial, right; Blood Gas Sample Type Arterial; Blood Gas Tidal Volume 0.40; Carboxyhemoglobin 0.8 %THgb (0.4-20.1); Glucose Level-ABG 98.0 mg/dL (70-115); HCO3 ABG 18.6 mmol/L (22-26); Ionized Calcium Level - ABG 1.2 mmol/L (1.1-1.4); Methemoglobin 0.5 % (0.4-1.5); Oxygen Saturation ABG 94.9; PEEP 8.0 cmH20; PO2 ABG 67.8 mmHg (80.0-100.0); PO2 FiO2 Ratio Arterial Blood 226; Potassium Level - ABG 3.7 mmol/L (3.5-5.0); Sodium Level - ABG 140.0 mmol/L (131-143)
[2025-05-22 20:23] LABS: Partial Thromboplastin Time 111.4 SECONDS (23.9-36.7)
[2025-05-22] MEDS: norepinephrine 4 MG/250 ML BAG 7.5 MG IV (23:00)
[2025-05-23] VITALS (91 sets, daily range): BP systolic 78–138; BP diastolic 43–91; PULSE 65–121; RESP 9–23; TEMP 37.1–37.3; O2SAT 91–100
[2025-05-23] MEDS: piperacillin-tazobactam 3.375 GM in sodium chloride 0.9% (plus) 50 ML IV ×3 (03:01→19:53)
[2025-05-23 04:22] LABS: ABG PCO2 32.2 mmHg (35-45); ABG PH Result 7.35 (7.35-7.45); Alveolar-Arterial Oxygen Gradi 11.9 mmHg (5-10); Arterial Blood Gas Hematocrit 31.6 % (37-47); Blood Gas Operator Identificat JDB; Blood Gas Sample Site Brachial, right; Blood Gas Sample Type Arterial; Blood Gas Tidal Volume 0.40; Carboxyhemoglobin 0.7 %THgb (0.4-20.1); Glucose Level-ABG 113.0 mg/dL (70-115); HCO3 ABG 17.9 mmol/L (22-26); Ionized Calcium Level - ABG 1.2 mmol/L (1.1-1.4); Methemoglobin 0.4 % (0.4-1.5); Oxygen Saturation ABG > 99.1; PEEP 8.0 cmH20; PO2 ABG 117.0 mmHg (80.0-100.0); PO2 FiO2 Ratio Arterial Blood 334; Potassium Level - ABG 3.5 mmol/L (3.5-5.0); Sodium Level - ABG 138.0 mmol/L (131-143)
[2025-05-23 05:03] LABS: Hematocrit 26.5 % (36-47); Hemoglobin 8.80 g/dL (11.27-16.99); Mean Corpuscular HGB Conc 33.2 g/dL (30-55); Mean Corpuscular Hemoglobin 33.3 pg (27-33); Mean Corpuscular Volume 100.4 fl (85-98); Nucleated Red Blood Cells % 0 %; Platelet Count 157 10^3/cmm (157-399); Red Blood Count 2.64 10^6/uL (3.85-5.65); White Blood Count 16.22 10^3/uL (3.29-11.43)
[2025-05-23 05:15] LABS: Alanine Aminotransferase 16 U/L (0-33); Albumin Level 3.3 g/dL (3.5-5.2); Alkaline Phosphatase 91 U/L (35-105); Anion Gap 16.8 (5-19); Aspartate Amino Transferase 24 U/L (0-32); Blood Urea Nitrogen 12 mg/dL (8-23); Calcium 8.2 mg/dL (8.5-10.5); Carbon Dioxide 16 mmol/L (22-29); Chloride 108 mmol/L (98-107); Globulin 1.9 g/dL (1.3-4.6); Glucose 106 mg/dL (65-115); Osmolality Calculated 284 mOsm/kg (285-295); Potassium 3.8 mmol/L (3.5-5.1); Sodium 137 mmol/L (136-145); Total Protein 5.2 g/dL (6.6-8.7)
[2025-05-23 05:16] LABS: Creatinine Clr Calc Pharmacy 47.9438
[2025-05-23 05:41] LABS: Partial Thromboplastin Time 48.8 SECONDS (23.9-36.7)
[2025-05-23] MEDS: midazolam hcl 100 MG/100 ML BAG IV (06:37)
[2025-05-23] MEDS: fentaNYL 1,000 MCG/100 ML BAG 7.5 MCG IV (06:38)
--- NOTE | 2025-05-23 07:52 | PHA.VACGOAL ---
Vancomycin Goal - Goal Vancomycin Goal:: 15-20 mg/L Vancomycin Indication:: Pneumonia (SEPSIS) - Therapy Current therapy:: Pip/Tazo Day of therpy:: Day [1]of [] . Actual body weight (kg): 55.792 kg - Data Labs: WBC 16.22 10^3/uL (3.29-11.43) H 05/23/25 04:48 RBC 2.64 10^6/uL (3.85-5.65) L 05/23/25 04:48 Hgb 8.80 g/dL (11.27-16.99) L 05/23/25 04:48 Hct 26.5 % (36-47) L 05/23/25 04:48 MCV 100.4 fl (85-98) H D 05/23/25 04:48 MCH 33.3 pg (27-33) H 05/23/25 04:48 MCHC 33.2 g/dL (30-55) D 05/23/25 04:48 RDW 13.5 % (12.1-15.1) 05/23/25 04:48 Sodium 137 mmol/L (136-145) 05/23/25 03:11 Potassium 3.8 mmol/L (3.5-5.1) 05/23/25 03:11 Chloride 108 mmol/L (98-107) H 05/23/25 03:11 Carbon Dioxide 16 mmol/L (22-29) L 05/23/25 03:11 Anion Gap 16.8 (5-19) 05/23/25 03:11 BUN 12 mg/dL (8-23) 05/23/25 03:11 Creatinine 1.0 mg/dL (0.5-0.9) H 05/23/25 03:11 GFR Calculation 54.8 mL/min (90-130) L 05/23/25 03:11 Treatment plan:: new consult Regimen:: New start vancomycin for sepsis/Pneumonia. No prior vancomycin history found. Load dose of 1250 mg given. Started on maintenance dose of 1000 mg q24h.
[2025-05-23 09:47] LABS: Hematocrit 27.4 % (36-47); Hemoglobin 9.20 g/dL (11.27-16.99); Mean Corpuscular HGB Conc 33.6 g/dL (30-55); Mean Corpuscular Hemoglobin 32.9 pg (27-33); Mean Corpuscular Volume 97.9 fl (85-98); Nucleated Red Blood Cells % 0 %; Platelet Count 157 10^3/cmm (157-399); Red Blood Count 2.80 10^6/uL (3.85-5.65); White Blood Count 15.33 10^3/uL (3.29-11.43)
[2025-05-23] MEDS: pantoprazole 40 mg SDV IVP ×2 (09:50→20:17)
[2025-05-23 10:06] LABS: Troponin T (5th) Once 20 ng/L (0-10)
[2025-05-23 10:55] LABS: Lactic Sepsis W/Reflex 1.1 mmol/L (0.5-2.2)
--- NOTE | 2025-05-23 10:55 | XRR_ITS ---
PROCEDURE INFORMATION: Exam: XR Chest Exam date and time: 05/23/2025 1:36 PM Age: 70 years old Clinical indication: Other: F/u xray; Additional info: Follow up TECHNIQUE: Imaging protocol: Radiologic exam of the chest. Views: 1 view. COMPARISON: CR (CHEST, ) 05/22/2025 5:19 AM FINDINGS: Tubes, catheters and devices: The endotracheal tube is appropriately positioned in the distal thoracic trachea with the tip above the manjeet. The nasogastric tube is coiled in the stomach with the tip in the gastric fundus, well beyond the diaphragmatic hiatus. Lungs: Stable mild ill-defined nonspecific opacity in the left lower lung Pleural spaces: There is no pleural effusion or pneumothorax. Heart/Mediastinum: Cardiomediastinal contours are unremarkable. Bones/joints: Bones are unremarkable. XR/XR chest 1V portable [id number] IMPRESSION: No change compared to the prior radiograph on 05/22/2025.
[2025-05-23] MEDS: heparin 5,000 unit/mL INJ 1 mL 5000 UNIT SUBCUT ×2 (12:57→19:53)
[2025-05-23 15:14] LABS: ABG PCO2 34.8 mmHg (35-45); ABG PH Result 7.33 (7.35-7.45); Alveolar-Arterial Oxygen Gradi 8.4 mmHg (5-10); Arterial Blood Gas Hematocrit 30.4 % (37-47); Blood Gas Allen Test Pos; Blood Gas Operator Identificat GD; Blood Gas Sample Site Radial, left; Blood Gas Sample Type Arterial; Carboxyhemoglobin 0.7 %THgb (0.4-20.1); Glucose Level-ABG 97.0 mg/dL (70-115); HCO3 ABG 18.3 mmol/L (22-26); Ionized Calcium Level - ABG 1.3 mmol/L (1.1-1.4); Methemoglobin 0.7 % (0.4-1.5); Oxygen Saturation ABG 98.7; PEEP 5.0 cmH20; PO2 ABG 106.0 mmHg (80.0-100.0); PO2 FiO2 Ratio Arterial Blood 353; Potassium Level - ABG 3.6 mmol/L (3.5-5.0); Sodium Level - ABG 139.0 mmol/L (131-143)
[2025-05-23] MEDS: ondansetron 2 mg/ML SDV 2 mL 8 MG IVP (15:24)
--- NOTE | 2025-05-23 15:45 | P.PN_ITS ---
Vitals/I&O/Wt Last Vital Signs Temp 98.7 F 05/23/25 12:45 Pulse 79 05/23/25 13:35 Resp 21 H 05/23/25 14:54 BP 109/61 05/23/25 13:00 Pulse Ox 98 05/23/25 14:54 O2 Del Method Mechanical Ventilation 05/23/25 13:35 FiO2 30 05/23/25 14:54 05/23/25 05/23/25 05/23/25 06:59 14:59 22:59 Intake Total 1372.208 / 5384.393 461.358 / 265.718 9566 / 1461.358 Output Total 300 / 1350 300 / 300 Balance 1072.208 / 4034.393 161.358 / 797.256 8100 / 1161.358 Weight last 48 hrs Weight 55.792 kg Weight 56.019 kg Weight 56.09 kg Weight 60.8 kg Physical Exam 2 Narrative: General: No acute distress, AO x 2 to 3, extubated HEENT: PERRLA, pupils bilaterally equal and reactive Chest: Normal vesicular breath sounds, coarse crackle present in right lower zone equal good air entry bilaterally CVS: S1-S2 regular, no murmurs, no tachycardia, no gallops, no rubs Abdomen: Soft, nontender, no organomegaly, bowel sounds present Neuro: No focal deficits, no facial deformity, moving all limbs Urinary Catheter Management: Diaz: Cath Placed During This Visit: yes Reason for Continuing Indwelling Catheter: Accurate Measurement of Urinary Output in Critically Ill Patients Urinary Catheter Date of Insertion: 05/22/25 Urinary Catheter Time of Insertion: 05:30 Data 05/23/25 09:36 05/23/25 03:11 Micro: Microbiology 05/22/25 08:37 Gram Stain - Final Sputum - Endotracheal Tube Aspirate Sputum Culture - Preliminary 05/22/25 06:32 Blood Culture - Preliminary Blood NEGATIVE TO DATE 05/22/25 05:30 Blood Culture - Preliminary Blood NEGATIVE TO DATE A&P Assessment and plan 1. Sepsis: 2. Acute respiratory failure with hypoxia: 3. Pneumonia: 4. Seizure: 5. History of stroke: 6. Hypotension: 7. Acute kidney injury: 8. High anion gap metabolic acidosis: 9. Hyperglycemia: 10. Elevated lactic acid level: 11. Elevated troponin: 12. Depression, unspecified depression type: 13. Psychosis: 14. Memory loss: Plan: 70-year-old female with past medical history of psychosis on daily lorazepam, history of seizure a year ago thought to be in setting of benzo withdrawal was found down at home unresponsive, intubated for respiratory failure. Respiratory failure: Hypoxic acute. Extubated on 05/23. Oxygen supplementation keeping saturation over 90%. Aggressive pulmonary toilet I-S and Acapella. PT/OT/speech evaluation. Advance diet as per speech evaluation. Concern for aspiration pneumonia. Follow-up blood culture, sputum culture. Trend procalcitonin, sputum culture, negative MRSA swab. Continue with IV Zosyn. DC vancomycin. Nebulization with Pulmicort twice daily, DuoNeb every 6 hour. Sepsis: Present on admission. SIRS: Tachycardic, Febrile, Leukocytosis Source: Pneumonia End organ damage: Acute infectious encephalopathy, respiratory failure, SOILA Lactic acid elevated Patient did receive full 30 mL/kg BW. Hypotension: Resolved. Continue to maintain mean artery pressure 65. Goal blood pressure less than 140/90 mmHg. Seizure: Unwitnessed. Patient does have a history of benzo withdrawal seizure in the past. No changes in the medication as per son. Patient was started on Bactrim as an outpatient which could have lowered seizure threshold. CT head negative for acute abnormality. Urine drug screen appreciated. Seizure precautions. Hold off on antiepileptic for now. Will plan for weaning Versed in next 24 hours. If any concern for seizure will load with Keppra. Continue with home dose of Ativan 0.5 mg 3 times daily Acute kidney injury: Resolved. Insetting of sepsis. Strict input output charting, daily weights. Continue with NS at 100 cc/h for now. Elevated troponin: Most likely type II in setting of respiratory event on admission. Appreciate A1c, lipid panel. Echocardiogram shows EF 55 to 60% with grade 1 diastolic function with mild MR. No regional wall motion abnormality. Repeat troponin. DC heparin drip. History of psychosis/depression/memory loss. Continue with home dose of lorazepam. Possible history of UTI: Was on Bactrim at home. Currently UA appreciated. Follow-up cultures. Antibiotic as above will cover for UTI as well. Hyperglycemia: A1c less than 6. No concern for diabetes. Discontinue insulin sliding scale. CODE STATUS: Discussed in detail with patient son over the phone. Out of 3 brother Kevin will be the DPOA. Full code N.p.o. advance diet as per speech evaluation Heparin 5000 every 8 hourly for DVT prophylaxis Protonix for PUD prophylaxis PT/OT evaluation. Continue with care at ICU This documentation was created by [employer] travel physical therapist software. Every effort was made to ensure accuracy of travel physical therapist. Any obvious errors or omissions should be clarified with the author of the document. PDMP PDMP Reviewed: Last Reviewed 05/22/25 11:01 by José Coronel MD Attestations 2 Medical Necessity Statement*: Requires further hospitalization for management of respiratory failure, postextubation care in a patient admitted for possible seizure, aspiration pneumonia Critical Care Time: The high probability of a clinically significant, sudden or life threatening deterioration of the patient's [respiratory, cardiac, renal] system(s) required my full and direct attention, intervention and personal management. The critical care time is as shown. This time is in addition to time spent performing any reported procedures but includes the following: [x] Data and vital sign review and interpretation [x] Patient assessment, examination and intervention [x] Documentation [x] Medication orders and management Critical Care Time (min): 70 Coding Level of Care Code Critical Care >/= 30 minutes Critical care time (in minutes): 70 The high probability of a clinically significant, sudden or life threatening deterioration, as referenced in this documentation, required my full and direct attention, intervention and personal management. The critical care time shown is in addition to time spent performing any reported separately billable procedures and includes the following: [x] Data and vital sign review and interpretation [x ] Patient assessment, examination and intervention [x] Medication orders and management [x] Patient/Family updates as able [x] Care Coordination and Documentation. Other Coding Information This patient has a high probability of clinically significant, sudden or life threatening deterioration of the patient's (neurological/pulmonary/cardiac/renal/ID/endocrine) systems required my full, direct attention, the highest level of physician preparedness for urgent intervention and personal management. I managed/supervised life or organ supporting interventions that required frequent physician assessment. I devoted my full attention in the ICU to the direct care of this patient for the period of time indicated above. Time I spent with family or surrogate(s) is included only if the patient was incapable of providing necessary information or participating in decision making. This time includes the following services provided: Telemetry review Mechanical Ventilation Hemodynamic interpretation, assessment and management Review and interpretation of CXR Review and interpretation of lab values Review and interpretation of microbiologic data and culture results Review of medications and administration Review and interpretation of Nutrition requirements and management Discussion of management with other consultants and services Clinical update to family members Diagnoses Sepsis A41.9 Sepsis acute organ dysfunction status: with acute organ dysfunction Severe sepsis acute organ dysfunction type: acute renal failure Acute renal failure type: with acute tubular necrosis Severe sepsis shock status: without septic shock Acute respiratory failure with hypoxia J96.01 Chronicity: acute Respiratory failure complication: hypoxia Pneumonia J18.9 Seizure R56.9 History of stroke Z86.73 Hypotension I95.9 Acute kidney injury N17.9 High anion gap metabolic acidosis E87.29 Hyperglycemia R73.9 Elevated lactic acid level R79.89 Elevated troponin R79.89 Depression, unspecified depression type F32.A Depression Type: unspecified Psychosis F29 Memory loss R41.3
--- NOTE | 2025-05-23 15:46 | PC.NURSE ---
Extubation/ Progress: Patient given scheduled dose of ativan via OG, patient began salivating and shortly after vomited dark colored emesis while intubated. Dr. Coronel contacted and order for diane and to continue with planned extubation. Patient suctioned by RT for extubation and clear and straw colored excretions removed. At 1530 patient extubated to 2L NC. Patient is doing well on 2L NC and is repeatedly asking for her son Kevin. attempted to retrieve family from waiting room and they were out smoking. Patient asked again for Kevin and was informed that he would be right in that he was out smoking a cigarette, patient then began repeating this over and over. Patient compliant with IS and flutter valve use, and currently has family at bedside. Patient denies pain.
--- NOTE | 2025-05-23 15:58 | PC.NURSE ---
Addendum entered by ALIYAH Moore RN 05/23/25 16:00: witness waste of medications Original Note: Waste: Waste of Fentanyl and Versed with ALIYAH Moore RN.
[2025-05-24] VITALS (56 sets, daily range): BP systolic 86–145; BP diastolic 47–80; PULSE 67–129; RESP 14–30; TEMP 36.4–37.1; O2SAT 88–98
[2025-05-24] MEDS: piperacillin-tazobactam 3.375 GM in sodium chloride 0.9% (plus) 50 ML IV ×3 (03:30→20:17)
[2025-05-24] MEDS: heparin 5,000 unit/mL INJ 1 mL 5000 UNIT SUBCUT ×3 (03:30→20:18)
[2025-05-24 04:16] LABS: Hematocrit 25.6 % (36-47); Hemoglobin 8.80 g/dL (11.27-16.99); Mean Corpuscular HGB Conc 34.4 g/dL (30-55); Mean Corpuscular Hemoglobin 33.5 pg (27-33); Mean Corpuscular Volume 97.3 fl (85-98); Nucleated Red Blood Cells % 0 %; Platelet Count 137 10^3/cmm (157-399); Red Blood Count 2.63 10^6/uL (3.85-5.65); White Blood Count 10.68 10^3/uL (3.29-11.43)
[2025-05-24 04:36] LABS: Magnesium 1.8 mg/dL (1.7-2.3)
[2025-05-24 04:37] LABS: Alanine Aminotransferase 14 U/L (0-33); Albumin Level 2.9 g/dL (3.5-5.2); Alkaline Phosphatase 56 U/L (35-105); Anion Gap 12.9 (5-19); Aspartate Amino Transferase 17 U/L (0-32); Blood Urea Nitrogen 9 mg/dL (8-23); Calcium 8.5 mg/dL (8.5-10.5); Carbon Dioxide 18 mmol/L (22-29); Chloride 112 mmol/L (98-107); Creatinine Clr Calc Pharmacy 59.8066; Globulin 2.0 g/dL (1.3-4.6); Glucose 76 mg/dL (65-115); Osmolality Calculated 285 mOsm/kg (285-295); Potassium 3.9 mmol/L (3.5-5.1); Sodium 139 mmol/L (136-145); Total Protein 4.9 g/dL (6.6-8.7)
[2025-05-24 04:44] LABS: Procalcitonin 1.32 ng/mL (0-0.5)
[2025-05-24 05:35] LABS: Lactic Sepsis W/Reflex 1.0 mmol/L (0.5-2.2)
[2025-05-24] MEDS: pantoprazole 40 mg SDV IVP ×2 (08:38→20:17)
[2025-05-24 09:38] LABS: Cholesterol 102 mg/dL (0-200); HDL Cholesterol 43 mg/dL (60-100); Triglycerides 67 mg/dL (0-150); VLDL Cholestrol Calculation 13 mg/dL (0-30)
--- NOTE | 2025-05-24 13:26 | P.PN_ITS ---
Subjective 2 Subjective: Patient calls out and yells when left alone and then is completely calm when someone is in the room. She smiles at me denies any problems except that she was hungry Vitals/I&O/Wt Last Vital Signs Temp 98.7 F 05/24/25 12:00 Pulse 99 05/24/25 13:25 Resp 16 05/24/25 13:21 BP 100/69 05/24/25 12:00 Pulse Ox 94 05/24/25 13:21 O2 Del Method Room Air 05/24/25 13:21 O2 Flow Rate 2 05/23/25 20:00 FiO2 30 05/23/25 14:54 05/23/25 05/24/25 05/24/25 22:59 06:59 14:59 Intake Total 1050 / 9865.957 9449 / 2563.483 1236.667 / 1236.667 Output Total 350 / 650 800 / 1450 Balance 700 / 908.483 205 / 2673.884 7617.667 / 1236.667 Weight last 48 hrs Weight 59.194 kg Weight 55.792 kg Weight 56.019 kg Physical Exam 2 Narrative: Awake and alert confused to situation Heart regular normal S1-S2 without murmurs clicks gallops or rubs Lungs clear to auscultation without wheezes rales or rhonchi Abdomen soft nontender nondistended positive bowel sounds Extremities no clubbing cyanosis or edema Urinary Catheter Management: Diaz: Cath Placed During This Visit: yes Reason for Continuing Indwelling Catheter: Accurate Measurement of Urinary Output in Critically Ill Patients Urinary Catheter Date of Insertion: 05/22/25 Urinary Catheter Time of Insertion: 05:30 Data 05/24/25 03:54 05/24/25 03:54 Micro: Microbiology 05/22/25 08:37 Gram Stain - Final Sputum - Endotracheal Tube Aspirate Sputum Culture - Final A&P Assessment and plan 1. Sepsis: 2. Acute respiratory failure with hypoxia: 3. Pneumonia: 4. Seizure: 5. History of stroke: 6. Hypotension: 7. Acute kidney injury: 8. High anion gap metabolic acidosis: 9. Hyperglycemia: 10. Elevated lactic acid level: 11. Elevated troponin: 12. Depression, unspecified depression type: 13. Psychosis: 14. Memory loss: Plan: 70-year-old female with past medical history of psychosis on daily lorazepam, history of seizure a year ago thought to be in setting of benzo withdrawal was found down at home unresponsive, intubated for respiratory failure. Respiratory failure: Hypoxic acute. Extubated on 05/23. No oxygen requirements at this time Aggressive pulmonary toilet I-S and Acapella. No signs of dysphagia per RN Will progress with feeding Concern for aspiration pneumonia on admission No signs dysphagia Speech will evaluate Sepsis: Present on admission. SIRS: Tachycardic, Febrile, Leukocytosis Source: Pneumonia End organ damage: Acute infectious encephalopathy, respiratory failure, SOILA Lactic acid elevated Patient did receive full 30 mL/kg BW. Hypotension: Resolved. Continue to maintain mean artery pressure 65. Goal blood pressure less than 140/90 mmHg. ? Seizure: Unwitnessed. Patient does have a history of benzo withdrawal seizure in the past. No changes in the medication as per son. Patient was started on Bactrim as an outpatient which could have lowered seizure threshold. CT head negative for acute abnormality. Urine drug screen appreciated. Seizure precautions. Hold off on antiepileptic for now. Continue with home dose of Ativan 0.5 mg 3 times daily Acute kidney injury: Resolved. Insetting of sepsis. Elevated troponin: Most likely type II in setting of respiratory event on admission. Appreciate A1c, lipid panel. Echocardiogram shows EF 55 to 60% with grade 1 diastolic function with mild MR. No regional wall motion abnormality. Repeat troponin. DC heparin drip. History of psychosis/depression/memory loss. Continue with home dose of lorazepam. Possible history of UTI: Was on Bactrim at home. Currently UA appreciated. Follow-up cultures. Antibiotic as above will cover for UTI as well. Full code Advance diet Heparin 5000 every 8 hourly for DVT prophylaxis PUD PT/OT/TWISTER TENDER evaluation. Transfer to floor PDMP PDMP Reviewed: Not Reviewed Attestations 2 Medical Necessity Statement*: Requires further hospitalization for management of respiratory failure, postextubation care in a patient admitted for possible seizure, aspiration pneumonia Coding Level of Care Code Acute Code for [facility] Diagnoses Sepsis A41.9 Acute renal failure type: with acute tubular necrosis Sepsis acute organ dysfunction status: with acute organ dysfunction Severe sepsis acute organ dysfunction type: acute renal failure Severe sepsis shock status: without septic shock Acute respiratory failure with hypoxia J96.01 Chronicity: acute Respiratory failure complication: hypoxia Pneumonia J18.9 Seizure R56.9 History of stroke Z86.73 Hypotension I95.9 Acute kidney injury N17.9 High anion gap metabolic acidosis E87.29 Hyperglycemia R73.9 Elevated lactic acid level R79.89 Elevated troponin R79.89 Depression, unspecified depression type F32.A Depression Type: unspecified Psychosis F29 Memory loss R41.3
--- NOTE | 2025-05-24 13:49 | PC.SOCIAL ---
IMM Update pg 2 of IMM Updated and reviewed w/ patients family. Copy provided and copy dated, initialed and placed in chart.
--- NOTE | 2025-05-24 17:57 | PC.NURSE ---
Family states patient lives at home with her son, family states patient is able to take care of basic personal needs at baseline but requires a rn long term care for bathing and bathroom needs. Family also have mentions patient having incontinence regularly at home and struggles to keep care takers. Case Management consulted for potential SNF needs after discharge. Patient sons currently considering SNF placement due to worsening mentation
--- NOTE | 2025-05-24 22:24 | PC.NURSE ---
Addendum entered by ARLYN Barkley 05/25/25 00:11: Provider update that order appears to be effective at this time. Original Note: Patient has continued to holler out repeatedly, even after administration of night medications. Patient hollering so loudly, she is keeping other patients from resting. Provider notified and gave verbal orders for one time order of 0.5mg IVP Ativan as well as one time dose of 2mg Haldol IVP and to update provider one hour after administration. Order placed. See MAR
[2025-05-24] MEDS: LORazepam 1 MG/0.5 ML injection 0.5 MG IVP (22:55)
[2025-05-24] MEDS: haloperidol inj 5 mg/mL INJ 1 mL 2 MG IVP (22:55)
[2025-05-25] VITALS (100 sets, daily range): BP systolic 77–154; BP diastolic 45–118; PULSE 66–130; RESP 16–41; TEMP 36.6–37; O2SAT 84–99
[2025-05-25 03:05] LABS: Bacillus cereus group Not Detected (NOT DETECT); Bacillus subtillis group Not Detected (NOT DETECT); Corynebacterium Not Detected (NOT DETECT); Cutibacterium acnes (P.acnes) Not Detected (NOT DETECT); Enterococcus faecalis Not Detected (NOT DETECT); Enterococcus faecium Not Detected (NOT DETECT); Listeria Not Detected (NOT DETECT); Micrococcus Not Detected (NOT DETECT); Pan Candida Not Detected (NOT DETECT); Pan Gram-Negative Not Detected (NOT DETECT); Staphylococcus epidermidis Detected (NOT DETECT); Staphylococcus lugdunensis Not Detected (NOT DETECT); Staphylococcus species Detected (NOT DETECT); Streptococcus anginosus group Not Detected (NOT DETECT); Streptococcus pyogenes Not Detected (NOT DETECT); Streptococcus species Not Detected (NOT DETECT); mecA Detected (NOT DETECT); mecC Not Detected (NOT DETECT)
[2025-05-25 03:17] LABS: Magnesium 1.9 mg/dL (1.7-2.3)
[2025-05-25] MEDS: piperacillin-tazobactam 3.375 GM in sodium chloride 0.9% (plus) 50 ML IV ×2 (04:53→11:46)
[2025-05-25] MEDS: heparin 5,000 unit/mL INJ 1 mL 5000 UNIT SUBCUT ×3 (05:37→19:56)
--- NOTE | 2025-05-25 07:14 | PC.NURSE ---
Provider gave orders for positive lab cultures for 1500mg vanc and pharmacy to dose. Order placed. See MAR
[2025-05-25] MEDS: pantoprazole 40 mg SDV IVP (08:35)
--- NOTE | 2025-05-25 15:21 | PM.PN ---
Subjective Subjective: Patient seen twice today the first was in passing I went to her bedside while she was eating and spoke to the speech therapist. She was eating her diet well with no signs of aspiration This afternoon for my official visit she was sitting in a bedside chair. She is holding the Medicare denial signature page in saying that she was reading it. However she was holding it for extended period of time. Again she was smiling with me and calm with me Per RN she can raise her voice and get somewhat anxious but this is markedly improved from yesterday Vitals/I&O/Wt Last Vital Signs Temp 98.6 F 05/25/25 08:45 Pulse 100 05/25/25 13:31 Resp 22 H 05/25/25 13:31 BP 122/73 05/25/25 12:15 Pulse Ox 95 05/25/25 13:31 O2 Del Method Room Air 05/25/25 13:31 O2 Flow Rate 2 05/23/25 20:00 FiO2 30 05/23/25 14:54 05/25/25 05/25/25 05/25/25 06:59 14:59 22:59 Intake Total 1050 / 3336.667 530 / 530 Output Total 1200 / 2800 Balance -150 / 536.667 530 / 530 Weight last 48 hrs Weight 59.14 kg Weight 59.14 kg Weight 59.194 kg Physical Exam Narrative: Awake and alert to person place and family Heart regular normal S1-S2 without murmurs clicks gallops or rubs Lungs clear to auscultation without wheezes rales or rhonchi Abdomen soft nontender nondistended positive bowel sounds Extremities no clubbing cyanosis or edema Urinary Catheter Management: Diaz: Cath Placed During This Visit: yes Reason for Continuing Indwelling Catheter: Accurate Measurement of Urinary Output in Critically Ill Patients Urinary Catheter Date of Insertion: 05/22/25 Urinary Catheter Time of Insertion: 05:30 Data 05/24/25 03:54 05/24/25 03:54 Other Labs: Blood cultures on 05/22/2005 is positive for Staph epidermidis The other blood culture later that day was negative Micro: Microbiology 05/22/25 05:30 Blood Culture - Preliminary Blood Staphylococcus epidermidis 05/22/25 08:37 Gram Stain - Final Sputum - Endotracheal Tube Aspirate Sputum Culture - Final A&P Assessment and plan 1. Sepsis: 2. Acute respiratory failure with hypoxia: 3. Pneumonia: 4. Seizure: 5. History of stroke: 6. Hypotension: 7. Acute kidney injury: 8. High anion gap metabolic acidosis: 9. Hyperglycemia: 10. Elevated lactic acid level: 11. Elevated troponin: 12. Depression, unspecified depression type: 13. Psychosis: 14. Memory loss: Plan: 70-year-old female with past medical history of psychosis on daily lorazepam, history of seizure a year ago thought to be in setting of benzo withdrawal was found down at home unresponsive, intubated for respiratory failure. Respiratory failure: Hypoxic acute. Extubated on the following day after admission on 05/23 No further oxygen requirements subsequently Continue aggressive pulmonary toilet I-S and Acapella. Speech therapy following and patient on dysphagia diet and doing well There was questionable aspiration pneumonia on admission. CT negative for infiltrate Sepsis: Suspected on admission. However ruled out subsequently patient has received 4 days of antibiotics. Blood cultures were positive for staph epi which is likely a contaminant: DC IV antibiotics Presented with SIRS: Tachycardia, febrile, leukocytosis ? Seizure: Unwitnessed. Patient does have a history of benzo withdrawal seizure in the past. No changes in the medication as per son. Patient was started on Bactrim as an outpatient which could have lowered seizure threshold. CT head negative for acute abnormality. Patient may have mild cortical volume loss and ventriculomegaly. Per my personal reading Hold off on antiepileptic for now. Continue with home dose of Ativan 0.5 mg 3 times daily Acute kidney injury: Resolved. Insetting of sepsis. Elevated troponin: Most likely type II in setting of respiratory event on admission. Appreciate A1c, lipid panel. Echocardiogram shows EF 55 to 60% with grade 1 diastolic function with mild MR. No regional wall motion abnormality. Note MYKE done approximately 1 year ago shows no valvular abnormalities History of psychosis/depression/memory loss. Continue with home dose of lorazepam. Patient started on Seroquel which has helped behaviors. We could either increase dose however concerned with sleepiness. Will add Depakote for neuronal remodeling. Could also consider Aricept. Called to speak with son Kevin who the patient lives with. He was unable to talk at this time he will call me back. We will discuss diagnosis treatment plans and DC plans. Full code Advance diet Heparin 5000 every 8 hourly for DVT prophylaxis PUD PT/OT/COMMUNITY SUPPORT ASSOCIATE evaluation. Transfer to floor PDMP PDMP Reviewed: Not Reviewed Attestations Medical Necessity Statement*: Patient has been hospitalizedfor management of respiratory failure, postextubation care in a patient admitted for possible seizure, aspiration pneumonia Coding Level of Care Code Acute Code for [facility] Diagnoses Sepsis A41.9 Acute renal failure type: with acute tubular necrosis Sepsis acute organ dysfunction status: with acute organ dysfunction Severe sepsis acute organ dysfunction type: acute renal failure Severe sepsis shock status: without septic shock Acute respiratory failure with hypoxia J96.01 Chronicity: acute Respiratory failure complication: hypoxia Pneumonia J18.9 Seizure R56.9 History of stroke Z86.73 Hypotension I95.9 Acute kidney injury N17.9 High anion gap metabolic acidosis E87.29 Hyperglycemia R73.9 Elevated lactic acid level R79.89 Elevated troponin R79.89 Depression, unspecified depression type F32.A Depression Type: unspecified Psychosis F29 Memory loss R41.3
--- NOTE | 2025-05-25 22:37 | CTR_ITS ---
PROCEDURE INFORMATION: Exam: CT Head Without Contrast Exam date and time: 05/25/2025 11:01 PM Age: 70 years old Clinical indication: Injury or trauma; Other: Monitor fell on patients head; Blunt trauma (contusions or hematomas) TECHNIQUE: Imaging protocol: Computed tomography of the head without contrast. Radiation optimization: All CT scans at this facility use at least one of these dose optimization techniques: automated exposure control; mA and/or kV adjustment per patient size (includes targeted exams where dose is matched to clinical indication); or iterative reconstruction. COMPARISON: CT head wo con* [id number] 05/22/2025 5:58 AM RADIATION DOSE METRICS: Total DLP (mGy-cm): 1102.48 FINDINGS: Brain: Chronic right thalamic infarct, stable from prior exams. Interval development of small volume subdural hemorrhage extending along the posterior falx and right tentorial leaflet measuring up to a maximum depth of 3 mm (series 7, image 18) . Periventricular white matter hypoattenuation favors sequela of chronic ischemic microvascular disease. Mild cerebral parenchymal volume loss with ex vacuo ventricular dilatation is stable. Cerebral ventricles: See Brain finding. Paranasal sinuses: Visualized sinuses are unremarkable. No fluid levels. Mastoid air cells: Visualized mastoid air cells are well aerated. Bones: Unremarkable. No acute fracture. Soft tissues: Soft tissue contusion along the right cranial vertex (series 7, image 37). Other findings: THIS REPORT CONTAINS FINDINGS THAT MAY BE CRITICAL TO PATIENT CARE. The findings were verbally communicated via telephone conference with CHOCO TAN at 11:31 PM CDT on 05/25/2025. The findings were acknowledged and understood. CT/CT head wo con* [id number] IMPRESSION: 1. Interval development of subdural hemorrhage measuring up to 3 mm in maximum depth extending along the posterior falx and right tentorial leaflet. Active hemorrhage can not be excluded on this examination. Consider CTA head for further characterization. 2. Stable chronic right thalamic infarct. No acute ischemic infarct. 3. White matter changes favored to represent sequela of chronic microvascular disease. 4. Soft tissue contusion along the right parasagittal cranial vertex. Correlate with physical exam.
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
[2025-05-26] VITALS (21 sets, daily range): BP systolic 118–148; BP diastolic 69–88; PULSE 80–105; RESP 21–36; O2SAT 83–97
--- NOTE | 2025-05-26 | PC.NURSE ---
Late entry 0
--- NOTE | 2025-05-26 | PC.NURSE ---
Contacted pt son, Kevin Mckeon, made aware of pt status, CT scan, and events surrounding need for scan. No results at that time, but asked to remain in easy contact for follow up by this nurse or physician if needed depending on results of scan.
[2025-05-26 03:45] LABS: Hematocrit 25.4 % (36-47); Hemoglobin 9.20 g/dL (11.27-16.99); Mean Corpuscular HGB Conc 36.2 g/dL (30-55); Mean Corpuscular Hemoglobin 34.6 pg (27-33); Mean Corpuscular Volume 95.5 fl (85-98); Nucleated Red Blood Cells % 0 %; Platelet Count 199 10^3/cmm (157-399); Red Blood Count 2.66 10^6/uL (3.85-5.65); White Blood Count 7.55 10^3/uL (3.29-11.43)
[2025-05-26 04:17] LABS: Anion Gap 12.2 (5-19); Blood Urea Nitrogen 6 mg/dL (8-23); Calcium 8.2 mg/dL (8.5-10.5); Carbon Dioxide 22 mmol/L (22-29); Chloride 115 mmol/L (98-107); Creatinine Clr Calc Pharmacy 61.1900; Glucose 117 mg/dL (65-115); Magnesium 1.7 mg/dL (1.7-2.3); Osmolality Calculated 301 mOsm/kg (285-295); Potassium 3.2 mmol/L (3.5-5.1); Sodium 146 mmol/L (136-145)
--- NOTE | 2025-05-26 04:55 | PM.DCS ---
Discharge Providers Date of Admission: 05/22/25 07:45 Date of Discharge: May 26, 2025 Attending Provider at Admission: José Coronel MD Attending Provider at Discharge: Roverto Sexton DO Attending at discharge is Dr. Yesi GARIBAY Consults: Neurosurgery consulted at [facility] who advised to transfer the patient for care for a subdural bleed Primary Care Provider: Farhad Cooper MD Diagnoses at Discharge Discharge Diagnosis 1. Sepsis: 2. Acute respiratory failure with hypoxia: 3. Pneumonia: 4. Seizure: 5. History of stroke: 6. Hypotension: 7. Acute kidney injury: 8. High anion gap metabolic acidosis: 9. Hyperglycemia: 10. Elevated lactic acid level: 11. Elevated troponin: 12. Depression, unspecified depression type: 13. Psychosis: 14. Memory loss: Reason for Visit Reason for Visit: seizure Hospital Course Hospital Course Laurie Rogers is a 70 year old female with past medical history of dementia with psychosis, depression on chronic lorazepam, history of benzo withdrawal seizures was brought into the ER via EMS on admission found her unresponsive at home by her son around 4 AM. As per son patient was having decreased movement of her body at the time when he saw her along with concern for difficulty in breathing. Patient was given Ativan by the EMS. After Ativan she became apneic and was brought to the ER with [id number]. Patient was intubated to protect airway and was given 1 g of IV Keppra. She received sepsis bolus. As per son patient takes lorazepam twice a day though he thinks she should be getting it higher and more frequently. Denies any other changes in medication other than her being on antibiotics which is Bactrim for a urinary tract infection. He denies any seizures since her last admission. Denies patient complaining of anything new recently. Patient was admitted to ICU intubated and was extubated the next day. Patient had done well since then. Very demented will yell. Today patient pulled the telemetry pack in the room in the ICU and the pack fell on her head with a bump on the scalp with this I got a CT of the head that showed a 3 mm small subdural bleed and it was because of this patient had to be transferred to [place] with neurosurgery consultation with Dr. Babak Fraga and patient is going to ICU at [facility] with production service manager care Dr. Andrews for care It was been noted that patient because of the dementia at this particular point there was no case management talk with the family to see if patient will return home versus going to a long-term care that conversation had not been finalized and this happened we have the patient now has to be transferred for care of subdural bleed. Physical Exam Narrative: Generally patient looks good in no apparent distress had no change in mental status. Has stopped yet and ever since she had the close head injury last evening She has been pleasant and had not yelled at all. Fully awake and quite verbal. HEENT normocephalic atraumatic neck neck is supple cardiovascular heart rate is regular lungs are pretty much clear abdomen soft nontender nondistended unremarkable extremities are intact no edema has good pulses neurology has no focality lab studies lab studies reviewed and noted. Urinary Catheter Management: Diaz: Cath Placed During This Visit: yes Reason for Continuing Indwelling Catheter: Accurate Measurement of Urinary Output in Critically Ill Patients Urinary Catheter Date of Insertion: 05/22/25 Urinary Catheter Time of Insertion: 05:30 Discharge Data Studies Completed and Pending Completed Studies During Hospitalization Category Date Time Status CT head wo con* [id number] Routine Cat Scan 05/25/25 22:[address] head wo con* [id number] Stat Cat Scan 05/22/25 05:16 Completed XR chest 1V portable [id number] Routine Exams 05/23/25 10:55 Completed XR chest 1V portable [id number] Stat Exams 05/22/25 05:16 Completed CV. echo complete* [id number] Routine Ultrasound 05/22/25 08:24 Completed Pending at discharge Category Date Time Status Blood Culture Stat Lab 05/22/25 06:32 Results Radiology Impressions Chest X-Ray 05/23/25 10:55 IMPRESSION: No change compared to the prior radiograph on 05/22/2025. Head CT 05/25/25 22:37 IMPRESSION: 1. Interval development of subdural hemorrhage measuring up to 3 mm in maximum depth extending along the posterior falx and right tentorial leaflet. Active hemorrhage can not be excluded on this examination. Consider CTA head for further characterization. 2. Stable chronic right thalamic infarct. No acute ischemic infarct. 3. White matter changes favored to represent sequela of chronic microvascular disease. 4. Soft tissue contusion along the right parasagittal cranial vertex. Correlate with physical exam. Laboratory Results WBC 7.55 10^3/uL (3.29-11.43) 05/26/25 03:00 RBC 2.66 10^6/uL (3.85-5.65) L 05/26/25 03:00 Hgb 9.20 g/dL (11.27-16.99) L 05/26/25 03:00 Hct 25.4 % (36-47) L 05/26/25 03:00 MCV 95.5 fl (85-98) 05/26/25 03:00 MCH 34.6 pg (27-33) H 05/26/25 03:00 MCHC 36.2 g/dL (30-55) 05/26/25 03:00 RDW 13.5 % (12.1-15.1) 05/26/25 03:00 Plt Count 199 10^3/cmm (157-399) 05/26/25 03:00 MPV 10.1 fL (7.4-10.4) 05/26/25 03:00 Neut % (Auto) 55.3 % 05/26/25 03:00 Lymph % (Auto) 33.4 % 05/26/25 03:00 [place] % (Auto) 7.8 % 05/26/25 03:00 Eos % (Auto) 2.5 % 05/26/25 03:00 Baso % (Auto) 0.5 % 05/26/25 03:00 Neut # (Auto) 4.17 10^3/uL (1.8-7.7) 05/26/25 03:00 Lymph # (Auto) 2.5 10^3/uL (0.8-4.8) 05/26/25 03:00 [place] # (Auto) 0.6 10^3/uL (0.2-0.9) 05/26/25 03:00 Eos # (Auto) 0.2 10^3/uL (0.0-0.8) 05/26/25 03:00 Baso # (Auto) 0.0 10^3/uL (0.0-0.1) 05/26/25 03:00 Nucleated RBC % (auto) 0 % 05/26/25 03:00 Nucleated RBCs # 0.0 /100WBC 05/26/25 03:00 PT 16.10 SECONDS (12.1-14.9) H 05/22/25 05:30 INR 1.20 (0.8-1.2) 05/22/25 05:30 APTT 48.8 SECONDS (23.9-36.7) H D 05/23/25 03:11 Specimen Type Arterial 05/23/25 14:55 Sample Site Radial, left 05/23/25 14:55 ABG pH 7.33 (7.35-7.45) L 05/23/25 14:55 ABG pCO2 34.8 mmHg (35-45) L 05/23/25 14:55 ABG pO2 106.0 mmHg (80.0-100.0) H 05/23/25 14:55 ABG PO2/FiO2 Ratio 353 05/23/25 14:55 ABG HCO3 18.3 mmol/L (22-26) L 05/23/25 14:55 ABG O2 Saturation 98.7 05/23/25 14:55 ABG Base Excess -6.9 mmol/L (-2.0-2.0) L 05/23/25 14:55 Silvestre Test Pos 05/23/25 14:55 A-a O2 Gradient 8.4 mmHg (5-10) 05/23/25 14:55 Hematocrit 30.4 % (37-47) L 05/23/25 14:55 Hgb O2 Saturation 97.3 % (95-100) 05/23/25 14:55 Carboxyhemoglobin 0.7 %THgb (0.4-20.1) 05/23/25 14:55 Methemoglobin 0.7 % (0.4-1.5) 05/23/25 14:55 Total Hemoglobin 9.9 g/dL (12-16) L 05/23/25 14:55 Sodium 139.0 mmol/L (131-143) 05/23/25 14:55 Potassium 3.6 mmol/L (3.5-5.0) 05/23/25 14:55 Glucose 97.0 mg/dL (70-115) 05/23/25 14:55 Ionized Calcium 1.3 mmol/L (1.1-1.4) 05/23/25 14:55 O2 Delivery Device Vent 05/23/25 14:55 FiO2 30.0 % 05/23/25 14:55 Tidal Volume 0.40 05/23/25 04:08 PEEP 5.0 cmH20 05/23/25 14:55 Practice Assistant ID Gd 05/23/25 14:55 Sodium 146 mmol/L (136-145) H 05/26/25 03:00 Potassium 3.2 mmol/L (3.5-5.1) L 05/26/25 03:00 Chloride 115 mmol/L (98-107) H 05/26/25 03:00 Carbon Dioxide 22 mmol/L (22-29) 05/26/25 03:00 Anion Gap 12.2 (5-19) 05/26/25 03:00 BUN 6 mg/dL (8-23) L 05/26/25 03:00 Creatinine 0.8 mg/dL (0.5-0.9) 05/26/25 03:00 GFR Calculation 70.9 mL/min (90-130) L 05/26/25 03:00 Glucose 117 mg/dL (65-115) H 05/26/25 03:00 POC Glucose 95 mg/dL (70-110) 05/23/25 12:51 Estimat Average Glucose 117 05/22/25 05:30 Hemoglobin A1c 5.7 % (4.0-6.0) 05/22/25 05:30 Calculated Osmolality 301 mOsm/kg (285-295) H 05/26/25 03:00 Lactic Acid 1.0 mmol/L (0.5-2.2) 05/24/25 03:54 Lactic Acid (Sepsis) 2.5 mmol/L (0.5-2.2) H 05/22/25 08:07 Calcium 8.2 mg/dL (8.5-10.5) L 05/26/25 03:00 Phosphorus 2.0 mg/dL (2.5-4.5) L 05/26/25 03:00 Magnesium 1.7 mg/dL (1.7-2.3) 05/26/25 03:00 Iron 81 ug/dL (37-145) 05/22/25 09:05 TIBC 199 mcg/dl 05/22/25 09:05 % Saturation 40.7 % (20-50) 05/22/25 09:05 Unsat Iron Binding 118 ug/dL (112-347) 05/22/25 09:05 Total Bilirubin 0.6 mg/dL (0.15-1.2) 05/24/25 03:54 AST 17 U/L (0-32) 05/24/25 03:54 ALT 14 U/L (0-33) 05/24/25 03:54 Alkaline Phosphatase 56 U/L (35-105) 05/24/25 03:54 Creatine Kinase 53 U/L (26-192) 05/22/25 05:30 Troponin T 5th Gen ng/L 20 ng/L (0-10) H 05/23/25 09:36 Troponin T Baseline 36 ng/L (0-10) H 05/22/25 05:30 Troponin T 120 Minute 62.40 ng/L (0-10) H 05/22/25 07:31 Delta Troponin T 26.40 ABS# (0-10) H* 05/22/25 07:31 Troponin T Hi Sens 6Hr 51.93 ng/L (0-10) H 05/22/25 11:21 Troponin T Hi Sens 6Hr Delta 15.93 ng/L (0-12) H* 05/22/25 11:21 C-Reactive Protein 3.0 mg/L (0.0-4.9) 05/22/25 05:30 NT-Pro-B Natriuret Pep 113 pg/mL (0-125) 05/22/25 05:30 Total Protein 4.9 g/dL (6.6-8.7) L 05/24/25 03:54 Albumin 2.9 g/dL (3.5-5.2) L 05/24/25 03:54 Globulin 2.0 g/dL (1.3-4.6) 05/24/25 03:54 Triglycerides 67 mg/dL (0-150) 05/24/25 03:54 Cholesterol 102 mg/dL (0-200) 05/24/25 03:54 LDL Cholesterol, Calc 46 mg/dL (50-129) L 05/24/25 03:54 Total VLDL Cholesterol 13 mg/dL (0-30) 05/24/25 03:54 HDL Cholesterol 43 mg/dL (60-100) L 05/24/25 03:54 Cholesterol/HDL Ratio 2.37 mg/dL (0.0-4.40) 05/24/25 03:54 Vitamin B12 429 pg/mL (232-1245) 05/22/25 09:05 Folate 8.2 ng/mL (4.8-37.3) 05/24/25 03:54 Procalcitonin 1.32 ng/mL (0-0.5) H 05/24/25 03:54 TSH 2.68 uIU/mL (0.27-4.20) 05/22/25 09:05 Urine Color Yellow (Yellow) 05/22/25 06:08 Urine Appearance Clear (CLEAR) 05/22/25 06:08 Urine pH 5.5 (5-7) 05/22/25 06:08 Ur Specific [place] 1.018 (1.005-1.030) 05/22/25 06:08 Urine Protein 2+ (Negative) A 05/22/25 06:08 Urine Glucose (UA) 2+ (Normal) H 05/22/25 06:08 Urine Ketones Trace (Negative) 05/22/25 06:08 Urine Blood 1+ (Negative) A 05/22/25 06:08 Urine Nitrate Negative (Negative) 05/22/25 06:08 Urine Bilirubin Negative (Negative) 05/22/25 06:08 Urine Urobilinogen 1.0 mg/dL (Negative) 05/22/25 06:08 Ur Leukocyte Esterase Negative (Negative) 05/22/25 06:08 Urine RBC 0-2 /hpf (0-2) 05/22/25 06:08 Urine WBC 0-5 /hpf (0-5) 05/22/25 06:08 Ur Squamous Epith Cells 0-5 /hpf (0-5) 05/22/25 06:08 Amorphous Sediment Not Reportable 05/22/25 06:08 Urine Bacteria None seen /hpf (NONE) 05/22/25 06:08 Hyaline Casts 28.13 /lpf 05/22/25 06:08 Fine Granular Casts 10-15 /lpf H 05/22/25 06:08 Nasal MRSA (PCR) Not detected (Not Detecte) 05/22/25 09:05 Urine Opiates Screen Negative ng/mL (Negative) 05/22/25 06:08 Urine Opiates Screen Negative ng/mL (Negative) 05/22/25 06:08 Ur Barbiturates Screen Negative ng/mL (Negative) 05/22/25 06:08 Ur Barbiturates Screen Negative ng/mL (Negative) 05/22/25 06:08 Ur Phencyclidine Scrn Negative ng/mL (Negative) 05/22/25 06:08 Ur Phencyclidine Scrn Negative ng/mL (Negative) 05/22/25 06:08 Ur Amphetamines Screen Negative ng/mL (Negative) 05/22/25 06:08 Ur Amphetamines Screen Negative ng/mL (Negative) 05/22/25 06:08 U Benzodiazepines Scrn Positive ng/mL (Negative) H 05/22/25 06:08 U Benzodiazepines Scrn Positive ng/mL (Negative) H 05/22/25 06:08 Urine Cocaine Screen Negative ng/mL (Negative) 05/22/25 06:08 Urine Cocaine Screen Negative ng/mL (Negative) 05/22/25 06:08 U Marijuana (THC) Screen Negative ng/mL (Negative) 05/22/25 06:08 U Marijuana (THC) Screen Negative ng/mL (Negative) 05/22/25 06:08 Ethyl Alcohol < 10 mg/dL (0-10) 05/22/25 05:30 Serum Ketones Negative (Negative) 05/22/25 09:05 Vitals Last Vital Signs Temp 98.6 F 05/25/25 08:45 Pulse 98 05/25/25 22:00 Resp 16 05/25/25 20:55 BP 135/91 05/25/25 16:00 Pulse Ox 96 05/25/25 20:55 O2 Del Method Room Air 05/25/25 20:55 O2 Flow Rate 2 05/23/25 20:00 FiO2 30 05/23/25 14:54 Discharge Plan Discharge Patient Disposition: Xfer Short-Term Hosp Condition: Stable Prescriptions: New lorazepam 0.5 mg Tablet 0.5 mg PO TID Qty: 10 0RF aspirin 81 mg Tablet,Delayed Release (Dr/Ec) 81 mg PO DAILY Qty: 30 0RF budesonide 0.5 mg/2 mL Suspension For Nebulization 0.5 mg inhalation BID.RESPIRATORY Qty: 30 0RF ipratropium-albuterol 0.5 mg-3 mg(2.5 mg base)/3 mL Solution For Nebulization 3 ml inhalation Q6H.RESP Qty: 30 0RF ondansetron HCl (PF) 4 mg/2 mL Solution 4 mg IVP Q6H PRN (Reason: vomiting, or N/V if npo) Qty: 30 0RF lactulose 10 gram/15 mL Solution 10 g PO DAILY PRN (Reason: Constipation (see protocol)) Qty: 30 0RF magnesium hydroxide [Milk of Magnesia] 400 mg/5 mL Suspension 30 ml PO DAILY PRN (Reason: Constipation (see protocol)) Qty: 30 0RF quetiapine 25 mg Tablet 25 mg PO BID Qty: 30 0RF atorvastatin 40 mg Tablet 40 mg PO QPM Qty: 30 0RF No Action aspirin 81 mg tablet,delayed release (DR/EC) 81 mg PO DAILY Qty: 30 5RF (DME) hospital bed See Rx Instructions .Route .MEDSUPPLY Qty: 1 0RF Rx Instructions: As directed spironolactone 25 mg tablet 25 mg PO BID Qty: 60 2RF sulfamethoxazole-trimethoprim 800-160 mg tablet 1 tab PO BID lorazepam 0.5 mg tablet 0.5 mg PO TID nitrofurantoin macrocrystal 100 mg capsule 100 mg PO BID atorvastatin 40 mg tablet 40 mg PO QPM Qty: 90 0RF Extermination Supervisor OK for DC: Hospitalist Discharge Order = DC NOW: Discharge Order (Routine); Ordered 05/26/25 Ordered By: Soha Key Referrals: Mona Miller MD [Staff Physician, [facility]] Discharge Diet: Regular Discharge Activity: Resume usual activity Patient Instructions: Opioid Safety Discharge Attestations Time Spent in Discharge Care*: greater than 30 min Quality Metrics Clinical Quality Measures [ No reported AMI, CVA or VTE this stay] Coding Level of Care Code 81437 Diagnoses Sepsis A41.9 Sepsis acute organ dysfunction status: with acute organ dysfunction Severe sepsis acute organ dysfunction type: acute renal failure Acute renal failure type: with acute tubular necrosis Severe sepsis shock status: without septic shock Acute respiratory failure with hypoxia J96.01 Chronicity: acute Respiratory failure complication: hypoxia Pneumonia J18.9 Seizure R56.9 History of stroke Z86.73 Hypotension I95.9 Acute kidney injury N17.9 High anion gap metabolic acidosis E87.29 Hyperglycemia R73.9 Elevated lactic acid level R79.89 Elevated troponin R79.89 Depression, unspecified depression type F32.A Depression Type: unspecified Psychosis F29 Memory loss R41.3 Time Spent (min) 30
--- NOTE | 2025-05-26 05:19 | PC.NURSE ---
0300: Received call from Dr. Key and stated she had made contact with neuro at [facility], recommended transfer for follow up on CT findings and pt had been accepted by Dr. Oconnor. Awaiting bed assignment. 0354: Received call from [facility] transfer center with bed assignment. Pt to be transferred to unit 4E room 4302, phone number [phone]. 0400: Contacted Dr. Key and made aware of bed assignment. Physician requested air transport and stated she would contact family and make aware. Promptly returned call to this nurse and stated she was unable to contact family. 0410: Following multiple attempts to contact all family members on contact list, was able to reach daughter in law Adriana Mckeon (spouse of Kevin Mckeon) and made aware of CT and need to transfer to higher level of care. Consent gave for transfer and air transport. 0425: Report called to Ronel Negron RN at [facility] 0505: Pt out of unit per Air evac transport.
--- NOTE | 2025-05-26 05:35 | PC.NURSE ---
Received call back from son, Carlos Logan, stated he had spoken to his brother regarding pt injury earlier this shift. Informed that contact was made attempting to get consent to transfer, CT results, and given room information for [facility]. Stated he had appointment in [place] this AM and would make contact with Pt. at that time.
== END 2025-05-26 05:05 | disposition short-term general hospital (02) | DRG 871 ==
LOC: ER 07:46 → ICU 07:56
PROVIDERS: Emergency Medicine; Admitting Provider Student in an Organized Health Care Education/Training Program; Emergency Provider Emergency Medicine; PCP Family Medicine; Visit Provider Internal Medicine
DX: A41.9 Sepsis, unspecified organism (principal); G93.41 Metabolic encephalopathy; S06.5X0A Traumatic subdural hemorrhage without loss of consciousness, initial encounter; J96.01 Acute respiratory failure with hypoxia; J69.0 Pneumonitis due to inhalation of food and vomit; I21.A1 Myocardial infarction type 2; N17.9 Acute kidney failure, unspecified; E87.20 Acidosis, unspecified; F03.93 Unspecified dementia, unspecified severity, with mood disturbance; F03.92 Unspecified dementia, unspecified severity, with psychotic disturbance; R65.20 Severe sepsis without septic shock; X58.XXXA Exposure to other specified factors, initial encounter; Y92.230 Patient room in hospital as the place of occurrence of the external cause; R56.9 Unspecified convulsions; I95.9 Hypotension, unspecified; R73.9 Hyperglycemia, unspecified; K57.90 Diverticulosis of intestine, part unspecified, without perforation or abscess without bleeding; Z79.82 Long term (current) use of aspirin; Z86.73 Personal history of transient ischemic attack (TIA), and cerebral infarction without residual deficits; Z87.440 Personal history of urinary (tract) infections
CPT/HCPCS: 36415; 36416; 36600; 51702; 70450; 71045; 80048; 80051; 80053; 80061; 80306; 80307; 81001; 82009; 82330; 82550; 82607; 82746; 82803; 82805; 82962; 83036; 83540; 83550; 83605; 83735; 83880; 84100; 84145; 84443; 84484; 85025; 85610; 85730; 86140; 86403; 87040; 87070; 87077; 87150; 87186; 87205; 92507; 92523; 92526; 92610; 93005; 93306; 94002; 94003; 94640; 94664; 94799; 96365; 96367; 96372; 96375; 97110; 97116; 97161; 97167; 97535; 99291; 99292; J0330; J1630; J1644; J1953; J2060; J2250; J2405; J2470; J2543; J2704; J3010; J3373; J3490; J7030; J7050; J7626; J9999

== ENCOUNTER 2025-06-11 11:00 | Emergency (ER) | payer MEDICARE, MEDICAID, SELFPAY ==
[2025-06-11 11:01] VITALS: BP 88/51; PULSE 89; RESP 16; TEMP 36.5; O2SAT 97; BMI 19.8
--- NOTE | 2025-06-11 11:04 | XR_ITS ---
WS: [id number] Exam: XR chest 1V portable [id number] Date/Time of Exam: 06/11/2025 11:04 AM Reason For Exam: Chest pain Comparison 06/01/2025. Lungs are fully expanded and clear. Normal cardiomediastinal silhouette. No pleural effusions. Bony structures are intact. XR/XR chest 1V portable [id number] IMPRESSION: 1. Negative chest.
--- NOTE | 2025-06-11 11:04 | ECG_ITS ---
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
--- OUTSIDE RECORDS SUMMARY | 2025-06-11 11:05 | XMS_ITS | Encounter Summary ---
Author Organization [facility] Address [address] [place] [address] Care Team Providers Care Billboard Poster Helper Name Role Phone Unavailable Primary Care Provider Unavailabl e Encounter Details Date Type Department Care Team (Latest Contact Info) Description 08/17/2003 Outpatient Historical [facility] Johnnie Walker MD [address] [place] [address] ACUTE BRONCHITIS (Primary Dx) Social History Tobacco Use Types Packs/Day Years Used Date Smoking Tobacco: Never Assessed Comments Unknown Sex and Gender Information Value Date Recorded Sex Assigned at Not on file 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
--- OUTSIDE RECORDS SUMMARY | 2025-06-11 11:05 | XMS_ITS | Encounter Summary ---
Author Organization [facility] Address [address] [place] [address] Care Team Providers Care Mailroom Manager Name Role Phone Unavailable Primary Care Provider Unavailabl e Encounter Details Date Type Department Care Team (Latest Contact Info) Description 08/31/2002 Outpatient Historical [facility] Thuan Lovett, Rickey Torres MD [address] [place] [phone] ANXIETY STATE NOS (Primary Dx); Viral dis contact NEC Social History Tobacco Use Types Packs/Day Years Used Date Smoking Tobacco: Never Assessed Comments Unknown Sex and Gender Information Value Date Recorded Sex Assigned at Not on file 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
--- OUTSIDE RECORDS SUMMARY | 2025-06-11 11:05 | XMS_ITS | Encounter Summary ---
Author Organization [facility] Address [address] [place] [address] Care Team Providers Care Station Baggage Porter Name Role Phone Unavailable Primary Care Provider Unavailabl e Encounter Details Date Type Department Care Team (Latest Contact Info) Description 08/25/1998 Outpatient Historical [facility] Thuan Lovett, Rickey Torres MD [address] [place] [address] Routine medical exam (Primary Dx); Gynecologic examination; Anomalies of ovaries Social History Tobacco Use Types Packs/Day Years Used Date Smoking Tobacco: Never Assessed Comments Unknown Sex and Gender Information Value Date Recorded Sex Assigned at Not on file 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
--- OUTSIDE RECORDS SUMMARY | 2025-06-11 11:05 | XMS_ITS | Encounter Summary ---
Author Organization [facility] Address [address] [place] [address] Care Team Providers Care First Helper Name Role Phone Unavailable Primary Care Provider Unavailabl e Encounter Details Date Type Department Care Team (Latest Contact Info) Description 03/11/2000 Outpatient Historical HIS [facility] Thuan Lovett, Rickey Torres MD [address] [place] [phone] Venereal disease contact (Primary Dx); Cough Social History Tobacco Use Types Packs/Day Years Used Date Smoking Tobacco: Never Assessed Comments Unknown Sex and Gender Information Value Date Recorded Sex Assigned at Not on file 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
--- OUTSIDE RECORDS SUMMARY | 2025-06-11 11:05 | XMS_ITS | Encounter Summary ---
Author Organization [facility] Address [address] [place] [address] Care Team Providers Care Automotive Sales Manager Name Role Phone Unavailable Primary Care Provider Unavailabl e Encounter Details Date Type Department Care Team (Latest Contact Info) Description 09/07/2002 Outpatient Historical [facility] Thuan Lovett, Rickey Torres MD [address] [place] [phone] Routine medical exam (Primary Dx) Social History Tobacco Use Types Packs/Day Years Used Date Smoking Tobacco: Never Assessed Comments Unknown Sex and Gender Information Value Date Recorded Sex Assigned at Not on file 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
--- OUTSIDE RECORDS SUMMARY | 2025-06-11 11:05 | XMS_ITS | Encounter Summary ---
[facility] Organization [facility] Address [address] [place] [address] Care Team Providers Care Rn Interventional Name Role Phone Unavailable Primary Care Provider Unavailabl e Encounter Details Date Type Department Care Team (Latest Contact Info) Description 03/25/2003 Outpatient Historical [facility] Thuan Lovett, Rickey Torres MD [address] [place] [address] CHEST PAIN NOS (Primary Dx); ESOPHAGEAL REFLUX; SYMPTOMATIC FEMALE CLIMACTERIC STATE Social History Tobacco Use Types Packs/Day Years Used Date Smoking Tobacco: Never Assessed Comments Unknown Sex and Gender Information Value Date Recorded Sex Assigned at Not on file 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
--- OUTSIDE RECORDS SUMMARY | 2025-06-11 11:05 | XMS_ITS | Encounter Summary ---
Author Organization [facility] Address [address] [place] [address] Care Team Providers Care Custom Dressmaker Name Role Phone Unavailable Primary Care Provider Unavailabl e Encounter Details Date Type Department Care Team (Latest Contact Info) Description 08/10/1998 Outpatient Historical [facility] Thuan Lovett, Rickey Torres MD [address] [place] [address] Routine medical exam (Primary Dx); Anxiety state, unspecified; Gynecologic examination Social History Tobacco Use Types Packs/Day Years Used Date Smoking Tobacco: Never Assessed Comments Unknown Sex and Gender Information Value Date Recorded Sex Assigned at Not on file 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
--- OUTSIDE RECORDS SUMMARY | 2025-06-11 11:05 | XMS_ITS | Encounter Summary ---
Author Organization [facility] Address [address] [place] [address] Care Team Providers Care Rail Flaw Detector Operator Name Role Phone Unavailable Primary Care Provider Unavailabl e Encounter Details Date Type Department Care Team (Latest Contact Info) Description 07/20/2003 Outpatient Historical [facility] Johnnie Walker MD [address] [place] [address] TIETZE'S DISEASE (Primary Dx); Diffus cystic mastopathy Social History Tobacco Use Types Packs/Day Years Used Date Smoking Tobacco: Never Assessed Comments Unknown Sex and Gender Information Value Date Recorded Sex Assigned at Not on file 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
--- OUTSIDE RECORDS SUMMARY | 2025-06-11 11:05 | XMS_ITS | Encounter Summary ---
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
--- OUTSIDE RECORDS SUMMARY | 2025-06-11 11:05 | XMS_ITS | Encounter Summary ---
Author Organization [facility] Address [address] [place] [address] Care Team Providers Care Stand Grinder Name Role Phone Unavailable Primary Care Provider Unavailabl e Encounter Details Date Type Department Care Team (Latest Contact Info) Description 08/25/1999 Outpatient Historical [facility] Rickey Larose Jr., MD [address] [place] [address] Routine medical exam (Primary Dx); Screening for malignant neoplasm of the cervix; Screening for malignant neoplasm of the rectum Social History Tobacco Use Types Packs/Day Years Used Date Smoking Tobacco: Never Assessed Comments Unknown Sex and Gender Information Value Date Recorded Sex Assigned at Not on file 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
--- OUTSIDE RECORDS SUMMARY | 2025-06-11 11:05 | XMS_ITS | Encounter Summary ---
Author Organization [facility] Address [address] [place] [address] Care Team Providers Care Hoop Punch And Coiler Operator Name Role Phone Unavailable Primary Care Provider Unavailabl e Encounter Details Date Type Department Care Team (Late st Contact Info) Description 06/02/2025 Orders Only [facility] [address] [place] [address] Provider, Abstract NO ADDRESS ON FILE Social History Tobacco Use Types Packs/Day Years Used Date Smoking Tobacco: Unknown Feeling Safe Answer Date Recorded Are you in a relationship wi th someone who hurts you emotionally and/or physically? 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
--- OUTSIDE RECORDS SUMMARY | 2025-06-11 11:05 | XMS_ITS | Clinical Summary ---
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
--- OUTSIDE RECORDS SUMMARY | 2025-06-11 11:06 | XMS_ITS | Encounter Summary ---
Author Organization [facility] Address [address] [place] [address] Care Team Providers Care Regional Coordinator Name Role Phone Unavailable Primary Care Provider Unavailabl e Encounter Details Date Type Department Care Team (Latest Contact Info) Description 12/05/2001 Outpatient Historical [facility] Thuan Lovett, Rickey Torres MD [address] [place] [address] NONINFECT VAG LEUKORRHEA (Primary Dx); GENERALIZED ANXIETY DIS Social History Tobacco Use Types Packs/Day Years Used Date Smoking Tobacco: Never Assessed Comments Unknown Sex and Gender Information Value Date Recorded Sex Assigned at Not on file Legal Sex Female 3:13 AM INFORMATION SERVICES ASSISTANT Gender Identity Not on file Sexual Orientation Not on file documented as of this encounter Plan of Treatment Not on file documented as of this encounter Visit Diagnoses Diagnosis Leukorrhea, not specified as infective- Primary Generalized anxiety disorder documented in this encounter
--- OUTSIDE RECORDS SUMMARY | 2025-06-11 11:06 | XMS_ITS | Encounter Summary ---
Author Organization [facility] Address [address] [place] [address] Care Team Providers Care Staff Anesthetist Name Role Phone Unavailable Primary Care Provider Unavailabl e Encounter Details Date Type Department Care Team (Latest Contact Info) Description 07/04/2001 Outpatient Historical [facility] Thuan Lovett, Rickey Torres MD [address] [place] [address] Vaginitis and vulvovaginitis, unspecified (Primary Dx); Flatulence, eructation, and gas pain Social History Tobacco Use Types Packs/Day Years Used Date Smoking Tobacco: Never Assessed Comments Unknown Sex and Gender Information Value Date Recorded Sex Assigned at Not on file 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
--- OUTSIDE RECORDS SUMMARY | 2025-06-11 11:06 | XMS_ITS | Encounter Summary ---
Author Organization [facility] Address [address] [place] [address] Care Team Providers Care Director Operating Room Name Role Phone Unavailable Primary Care Provider Unavailabl e Encounter Details Date Type Department Care Team (Late st Contact Info) Description 08/31/2002 Outpatient Historical [facility] Rickey aLrose Jr., MD [address] [place] [phone] ROUTINE MEDICAL EXAM (Primary Dx) Social History Tobacco Use Types Packs/Day Years Used Date Smoking Tobacco: Never Assessed Comments Unknown Sex and Gender Information Value Date Recorded Sex Assigned at Not on file 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
--- OUTSIDE RECORDS SUMMARY | 2025-06-11 11:06 | XMS_ITS | Clinical Summary ---
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 Patient on full hospice care 01/13/2024 Generalized anxiety disorder 09/19/2023 Encounters Date Type Department Care Team Description 06/02/2025 Orders Only [facility] [address] [place] [address] Provider, Abstract 06/02/2025 Abstract [facility] [address] [facility] [place] [address] Provider, Abstract 06/02/2025 External Device Data [facility] ABSTRACTION Provider, Abstract 06/01/2025 External Device Data [facility] Provider, Abstract 06/01/2025 External Device Data [facility] [place]STRACTION Provider, Abstract 05/26/2025 6:02 AM CDT - 05/28/2025 3:55 PM CDT Hospital Encounter [facility] 6[facility] Medical Surgical [address] [place] [address] Rene Parsons, MD Lorenzo William Sandhya, MD Dailey, Zachariah, MD Traumatic intracerebral hemorrhage with loss of consciousness (CMS/HCC) Discharge Disposition: Home Health Care [facility] 05/26/2025 Travel from Last 3 Months Immunizations Immunization Administration Dates Next Due (PNEUMOVAX [...] on file Legal 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 Gender Identity Not on file Sexual Orientation Not on file Last Filed Vital Signs Vital Sign Reading Time Taken Comments Blood Pressure 115/61 05/28/2025 12:19 PM CDT Pulse 95 05/28/2025 12:19 PM CDT Temperature 36.3 C (97.4 F) 05/28/2025 12:19 PM CDT Respiratory Rate 24 05/28/2025 12:19 PM CDT Oxygen Saturation 99% 05/28/2025 12:19 PM CDT Inhaled Oxygen Concentration - - Weight 61.5 kg (135 lb 9.3 oz) 05/27/2025 7:39 A M CDT Height 165.1 cm (5' 5 ) 05/27/2025 7:39 AM CDT Body Mass Index 22.56 05/27/2025 7:39 AM CDT Plan of Treatment Health Maintenance Due Date Last Done Comments COLORECTAL SCREENING 01/18/2000 Colorectal Cancer Screening 01/18/2000 FIT-DNA Q 3 years 01/18/2000 FIT/FOBT Q 1 year 01/18/2000 Flex Sig/CT Colonography Q 5 years 01/18/2000 ZOSTER VACCINE (1 of 2) 2005 OSTEOPOROSIS SCREENING 01/18/2020 INFLUENZA VACCINE (#1) 2025 , 08/31/2022, 09/11/2021, Additional history exists COVID-19 Vaccine (3 - 2024-2 6 season) 2025 03/09/2021, 01/26/2021 RSV VACCINE (60+ or ) (1 - 1-dose 75+ series) 2030 DTAP/TDAP/TD VACCINES (2 - T d or Tdap) 04/12/2032 04/12/2022 PNEUMOCOCCAL VACCINE 50+ YEARS Completed 1 10/27/2023, 09/11/2021, 07/22/2002 Procedures Procedure Name Priority Date/Time Associated Diagnosis Comments COMPREHENSIVE METABOLIC PANEL Routine 05/28/2025 6:08 AM CDT CBC WITH DIFFERENTIAL Routine 05/28/2025 6:08 AM CDT RT ASSESS AND TREAT Routine 05/27/2025 3 :05 PM CDT POC GLUCOSE Routine 05/27/2025 8:21 AM CDT CBC WITH DIFFERENTIAL Routine 05/27/2025 1:28 AM CDT TROPONIN 6 HR, 5TH GEN Timed Study 05/27/2025 1:01 AM CDT COMPREHENSIVE METABOLIC PANEL Routine 05/27/2025 1:00 AM CDT PROCALCITONIN Routine 05/26/2025 10:15 PM CDT TROPONIN BASELINE, 5TH GEN Stat 05/26/2025 10:15 PM CDT POC GLUCOSE Routine 05/26/2025 9:[address] HEAD WO CONTRAST Routine 05/26/2025 8 :20 AM CDT XR CHEST PA OR AP 1 VW Routine 05/26/2025 7:56 AM CDT POC GLUCOSE Routine 05/26/2025 6:19 AM CDT COMPREHENSIVE METABOLIC PANEL Routine 05/22/2025 10:30 AM CDT HEMOGLOBIN A1C Routine 05/22/2025 PROTIME-INR Routine 05/22/2025 from Last 3 Months Results * (ABNORMAL) CBC WITH DIFFERENTIAL (05/28/2025 6:08 AM CDT) Only the most recent of2 resultswithin the time period is included. [facility] Signature WBC 8.5 4.8 - 10.8 K/uL 05/28/2025 6:34 AM CDT [facility] RBC 2.93(L) 4.20 - 5.40 M/uL 05/28/2025 6:34 AM CDT [facility] HEMOGLOBIN 9.8(L) 12.0 - 16.0 g/dL 05/28/2025 6:34 AM [facility] HEMATOCRIT 28.0(L) 36.0 - 46.0 % 05/28/2025 6:34 AM [facility] MCV 95.6 84.0 - 103.0 fL 05/28/2025 6:34 AM [facility] MCH 33.4 27.0 - 34.0 pg 05/28/2025 6:34 AM [facility] MCHC 35.0 30.0 - 35.0 g/dL 05/28/2025 6:34 AM [facility] PLATELETS 198 140 - 440 K/uL 05/28/2025 6:34 AM [facility] MPV 9.9 8.9 - 12.8 fL 05/28/2025 6:34 AM [facility] RDW 14.2 11.0 - 14.5 % 05/28/2025 6:34 AM [facility] RDW-STDEV 48.2 37.0 - 54.0 fL 05/28/2025 6:34 AM [facility] NEUTROPHILS 71 42 - 75 % 05/28/2025 6:34 AM [facility] LYMPHOCYTES 20(L) 24 - 44 % 05/28/2025 6:34 AM [facility] MONOCYTES 6 2 - 10 % 05/28/2025 6:34 AM [facility] EOSINOPHILS 3 0 - 7 % 05/28/2025 6:34 AM [facility] BASOPHILS 0 0 - 1 % 05/28/2025 6:34 AM [facility] IMMATURE GRANULOCYTES 0 0 - 2 % 05/28/2025 6:34 AM [facility] NEUTROPHIL ABSOLUTE 6.07 2.00 - 8.00 K/uL 05/28/2025 6:34 AM [facility] LYMPHOCYTE ABSOLUTE 1.67 1.20 - 4.00 K/uL 05/28/2025 6:34 AM [facility] MONOCYTE ABSOLUTE 0.52 0.10 - 0.60 K/uL 05/28/2025 6:34 AM CDT [facility] EOSINOPHIL ABSOLUTE 0.23 0.00 - 0.70 K/uL 05/28/2025 6:34 AM CDT [facility] BASOPHILS ABSOLUTE 0.02 0.00 - 0.20 K/uL 05/28/2025 6:34 AM CDT [facility] IMMATURE GRANULOCYTES ABSOLUTE 0.03 0.00 - 0.10 K/uL 05/28/2025 6:34 AM T [facility] SMEAR REVIEWED: NA - Not Applicable 05/28/2025 6:34 AM [facility] Blood Venipuncture / Unknown 05/28/2025 6:08 AM CDT 05/28/2025 6:25 AM CDT Sandra Dhillon NP HEMATOLOGY ORDERABLES Final Result [facility] CLIA # [id number] [address] [place] [id number] * (ABNORMAL) COMPREHENSIVE METABOLIC PANEL (05/28/2025 6:08 AM CDT) Only the most recent of3 resultswithin the time period is included. SODIUM 144 136 - 145 mmol/L 05/28/2025 7:02 AM [facility] POTASSIUM 3.6 3.5 - 5.1 mmol/L 05/28/2025 7:02 AM [facility] CHLORIDE 110(H) 98 - 107 mmol/L 05/28/2025 7:02 AM [facility] CO2 25 22 - 29 mmol/L 05/28/2025 7:02 AM [facility] CALCIUM 9.3 8.8 - 10.2 mg/dL 05/28/2025 7:02 AM [facility] BUN 6(L) 8 - 23 mg/dL 05/28/2025 7:02 AM [facility] CREATININE 0.84 0.51 - 0.95 mg/dL 05/28/2025 7:02 AM [facility] Comment:The GFR result is no t clinically significant on patients <18 or >70 years of age. GLUCOSE 95 74 - 99 mg/dL 05/28/2025 7:02 AM [facility] TOTAL PROTEIN 5.7(L) 6.4 - 8.3 g/dL 05/28/2025 7:02 AM [facility] ALBUMIN 3.0(L) 3.5 - 5.2 g/dL 05/28/2025 7:02 AM [facility] BILIRUBIN TOTAL 0.5 0.0 - 1.0 mg/dL 05/28/2025 7:02 AM [facility] ALKALINE PHOSPHATASE 76 35 - 104 U/L 05/28/2025 7:02 AM [facility] AST 30 10 - 35 U/L 05/28/2025 7:02 AM [facility] ALT 33 <=35 U/L 05/28/2025 7:02 AM [facility] GFR >60 mL/min/1.7 3 sq meter 05/28/2025 7:02 AM [facility] Comment:eGFR calculated with 2020 CKD-EPI equation. Vegetarian diet, extremely high or low muscle mass, and may affect results. Cystatin C with Glomerular Filtration Rate is a suitable alternative for these patients. ANION GAP 9 9 - 20 mmol/L 05/28/2025 7:02 AM [facility] Blood Venipuncture / Unknown 05/28/2025 6:08 AM CDT 05/28/2025 6:25 AM [facility] us Sandra Dhillon NP CHEMISTRY ORDERABLES Final R esult [facility] CLIA # [id number] [address] [place] [address] [place] [address] * (ABNORMAL) POC GLUCOSE (05/27/2025 8:21 AM CDT) Only the most recent of3 resultswithin the time period is included. GLUCOSE POC 137(H) 74 - 99 mg/dL 05/27/2025 8:21 AM CDT [facility] SPECIMEN SOURCE, GLUCOSE POC Capillary 05/27/2025 8:21 AM CDT [facility] Blood, whole 05/27/2025 8:21 AM CDT 05/27/2025 9:38 AM CDT us John Bartlett MD POINT OF CARE TESTING Final Result Performing Organization Address [facility] Co de Phone Number [facility] CLIA # [id number] [address] [address] * (ABNORMAL) TROPONIN 6 HR, 5TH GEN (05/27/2025 1:01 AM CDT) Pathologist [facility] TROPONIN T, 6 HR 5TH GEN 26(H) <11 ng/L 05/27/2025 1:59 AM CDT [facility] DELTA 6HR TROPONIN T 0 See Interp. 05/27/2025 1:59 AM CDT [facility] Blood Venipuncture / Unknown 05/27/2025 1:01 AM CDT 05/27/2025 1:21 AM CDT Narrative [facility] - 05/27/2025 1:59 AM CDT Troponin elevated. Delta indeterminate. Delay in collection of timed specimen beyond recommended collection interval. Results must be interpreted in clinical context. us Sandra Dhillon NP CHEMISTRY ORDERABLES Final R esult Performing Organization Address [facility]/ZIP Co de Phone Number [facility] CLIA # [id number] [address] [place] [address] * (ABNORMAL) TROPONIN BASELINE, 5TH GEN (05/26/2025 10:15 PM CDT) TROPONIN T, BASELINE 5TH GEN 26(H) <=10 ng/L 05/27/2025 12:24 AM CDT [facility] Blood Venipuncture / Unknown 05/26/2025 10:15 PM CDT 05/26/2025 10:40 PM CDT [facility] - 05/27/2025 12:24 AM CDT Troponin elevated. us Sandra Dhillon NP CHEMISTRY ORDERABLES Final R esult [facility] CLIA # [id number] [address] [facility] [place] [address] * (ABNORMAL) PROCALCITONIN (05/26/2025 10:15 PM CDT) Pathologist [facility] PROCALCITONIN 0.27(H) <=0.08 ng/mL 05/26/2025 11:24 PM CDT [facility] Blood Venipuncture / Unknown 05/26/2025 10:15 PM CDT 05/26/2025 10:40 PM CDT [facility] - 05/26/2025 11:24 PM CDT The utility of procalcitonin is limited/NOT recommended in certain populations (e.g. newborns, dialysis/ESRD, patients with recent major surgery/trauma/bustamante, liver cirrhosis, viral hepatitis, certain cancers, etc.). Procalcitonin levels MUST be interpreted in the context of the patient's clinical condition and CANNOT be solely relied upon for diagnosis of infection. <0.25 ng/mL: Bacterial infection unlikely, particularly lower respiratory tract infections. <0.5 ng/mL: Low risk for progression to severe sepsis/septic shock. Localized infection possible. Measurements done early (<6 hours) after systemic process starts may still be low. 0.5-2 ng/mL: Moderate risk for progression to severe sepsis/septic shock. >2 ng/mL: High risk for progression to severe sepsis/septic shock. If antibiotics ARE administered, repeat testing is recommended every 2-3 days to help guide antibiotic cessation. Once a decrease of 80% or more has occurred from baseline, discontinuation of antibiotics should strongly be considered in clinically stable patients. Procalcitonin is produced in the setting of systemic inflammation, particularly bacterial infections. It is detectable within 2-4 hours and peaks within 6-24 hours. us Sandra Dhillon NP CHEMISTRY ORDERABLES Final R esult [facility] CLIA # [id number] [facility] [address] * CT HEAD WO CONTRAST (05/26/2025 8:20 AM CDT) Anatomical Region Laterality Modality Head Computed Tomogra phy 05/26/2025 8:09 AM CDT Impressions 05/26/2025 9:24 AM CDT IMPRESSION: No acute intracranial hemorrhage. Age-indeterminate lacunar infarction within the right thalamus. MRI could be helpful to assess for acuity Narrative 05/26/2025 9:24 AM CDT Exam: CT HEAD WO CONTRAST Date/Time of Exam: 05/26/2025 8:20 AM Reason For Exam: Head trauma, intracranial arterial injury suspected, Cerebral Vascular Accident (CVA). Diagnosis: See Reason for Exam. Technique: CT of the head was performed without the administration of intravenous contrast. Findings: No acute intracranial hemorrhage. Moderate sequela of small vessel ischemic disease. Focal hypoattenuation within the right ventral thalamus/posterior limb of the internal capsule likely secondary to age indeterminate lacunar infarction. No hydrocephalus. Basal cisterns are patent. No acute osseous abnormality. Mild mucosal thickening within the left maxillary antrum. No mastoid effusion. Prior cataract surgery. Procedure Note Scott Ray DO - 05/26/2025 Exam: CT HEAD WO CONTRAST Date/Time of Exam: 05/26/2025 8:20 AM Reason For Exam: Head trauma, intracranial arterial injury suspected, Cerebral Vascular Accident (CVA). Diagnosis: See Reason for Exam. Technique: CT of the head was performed without the administration of intravenous contrast. Findings: No acute intracranial hemorrhage. Moderate sequela of small vessel ischemic disease. Focal hypoattenuation within the right ventral thalamus/posterior limb of the internal capsule likely secondary to age indeterminate lacunar infarction. No hydrocephalus. Basal cisterns are patent. No acute osseous abnormality. Mild mucosal thickening within the left maxillary antrum. No mastoid effusion. Prior cataract surgery. IMPRESSION: No acute intracranial hemorrhage. Age-indeterminate lacunar infarction within the right thalamus. MRI could be helpful to assess for acuity Enio Oconnor MD CT ORDERABLES Fi nal Result * XR CHEST PA OR AP 1 VW (05/26/2025 7:56 AM CDT) Anatomical Region Laterality Modality Chest Computed Radiogr aphy 05/26/2025 7:56 AM CDT Impressions 05/26/2025 8:31 AM CDT IMPRESSION: Mild pulmonary vascular congestive changes. Nonspecific left basilar opacity which could reflect atelectasis and/or infiltrate. Narrative 05/26/2025 8:31 AM CDT Exam: XR CHEST PA OR AP 1 VW Date/Time of Exam: 05/26/2025 7:56 AM Reason For Exam: Pneumonia. Diagnosis: See Reason for Exam. Comparison: None. Findings: The cardiomediastinal structures are within normal limits. There are mild central pulmonary vascular congestive changes. There is nonspecific opacity within the left lung base which could reflect atelectasis and/or infiltrate. There is linear scar versus atelectasis within the left mid and lower lung zones. There is no appreciable pleural fluid or pneumothorax. The osseous structures appear grossly intact. Procedure Note Stevenson Solomon, DO - 05/26/2025 Exam: XR CHEST PA OR AP 1 VW Date/Time of Exam: 05/26/2025 7:56 AM Reason For Exam: Pneumonia. Diagnosis: See Reason for Exam. Comparison: None. Findings: The cardiomediastinal structures are within normal limits. There are mild central pulmonary vascular congestive changes. There is nonspecific opacity within the left lung base which could reflect atelectasis and/or infiltrate. There is linear scar versus atelectasis within the left mid and lower lung zones. There is no appreciable pleural fluid or pneumothorax. The osseous structures appear grossly intact. IMPRESSION: Mild pulmonary vascular congestive changes. Nonspecific left basilar opacity which could reflect atelectasis and/or infiltrate. us Enio Oconnor MD DIAGNOSTIC IMAGING ORDERABLES Final Result * PROTIME-INR (05/22/2025) ABSTRACTED PROTIME 16.1 ABSTRACTED INR 1.20 Blood 05/22/2025 us Abstract Provider HEMATOLOGY ORDERABLES Final Re sult * HEMOGLOBIN A1C (05/22/2025) ABSTRACTED HGB A1C 5.7 % Blood 05/22/2025 us Abstract Provider CHEMISTRY ORDERABLES Final Res ult from Last 3 Months Insurance MEDICAID [place] [employer] [facility] * Guarantor: [facility] Account Type Relation to Patient Date of Phone Billing Address [place] [address] MEDICAID [place] GENERIC PAY[place] Member Subscriber Plan / Payer (Ef fective 2023-Present) Name:Laurie Rogers Relation to Subscriber:Self Name:Luarie Rogers Payer ID:Not on file Group ID:Not on file Type:Hospice Address: [address] [place] [id number] Advance Directives For more information, please contact: [phone] * Full Code (Latest Code Status on File) Date Activated Date Inactivated Comments 05/26/2025 6:32 AM 05/28/2025 5:55 PM * Full Code Date Activated Date Inactivated Comments 01/13/2024 8:47 [...]
--- OUTSIDE RECORDS SUMMARY | 2025-06-11 11:06 | XMS_ITS | Encounter Summary ---
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
--- OUTSIDE RECORDS SUMMARY | 2025-06-11 11:06 | XMS_ITS | Encounter Summary ---
Author Organization [facility] Address [address] [place] [address] Care Team Providers Care Weld Inspector Name Role Phone Unavailable Primary Care Provider Unavailabl e Encounter Details Date Type Department Care Team (Latest Contact Info) Description 04/10/2000 Outpatient Historical HIS [facility] Thuan Lovett, Rickey Torres MD [address] [place] [phone] Spasm of muscle (Primary Dx) Social History Tobacco Use Types Packs/Day Years Used Date Smoking Tobacco: Never Assessed Comments Unknown Sex and Gender Information Value Date Recorded Sex Assigned at Not on file 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
--- OUTSIDE RECORDS SUMMARY | 2025-06-11 11:06 | XMS_ITS | Encounter Summary ---
Author Organization [facility] Address [address] [place] [address] Care Team Providers Care Dehydrator Operator Name Role Phone Unavailable Primary Care Provider Unavailabl e Encounter Details Date Type Department Care Team (Latest Contact Info) Description 04/30/2001 Outpatient Historical [facility] Thuan Lovett, Rickey Torres MD [address] [place] [phone] Palpitations (Primary Dx); Anxiety state, unspecified Social History Tobacco Use Types Packs/Day Years Used Date Smoking Tobacco: Never Assessed Comments Unknown Sex and Gender Information Value Date Recorded Sex Assigned at Not on file 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
--- OUTSIDE RECORDS SUMMARY | 2025-06-11 11:06 | XMS_ITS | Encounter Summary ---
Author Organization [facility] Address [address] [place] [address] Care Team Providers Care Hadoop Consultant Name Role Phone Unavailable Primary Care Provider Unavailabl e Encounter Details Date Type Department Care Team (Latest Contact Info) Description 04/04/2001 Outpatient Historical HIS [facility] Thuan Lovett, Rickey Torres MD [facility] [place] [address] Chest pain, unspecified (Primary Dx); Dyskinesia of esophagus Social History Tobacco Use Types Packs/Day Years Used Date Smoking Tobacco: Never Assessed Comments Unknown Sex and Gender Information Value Date Recorded Sex Assigned at Not on file 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
--- OUTSIDE RECORDS SUMMARY | 2025-06-11 11:06 | XMS_ITS | Encounter Summary ---
Author Organization [facility] Address [address] [place] [address] Care Team Providers Care Solar Energy Technician Name Role Phone Unavailable Primary Care Provider Unavailabl e Encounter Details Date Type Department Care Team (Latest Contact Info) Description 04/25/2001 Outpatient Historical [facility] [place] [address] [place] [address] Sage Barrientos MD NO ADDRESS ON FILE Precordial pain (Primary Dx); Mitral valve disorder Social History Tobacco Use Types Packs/Day Years Used Date Smoking Tobacco: Never Assessed Comments Unknown Sex and Gender Information Value Date Recorded Sex Assigned at Not on file 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
--- OUTSIDE RECORDS SUMMARY | 2025-06-11 11:06 | XMS_ITS | Encounter Summary ---
Author Organization [facility] Address [address] [place] [address] Care Team Providers Care Sheet Rock Finisher Name Role Phone Unavailable Primary Care Provider Unavailabl e Encounter Details Date Type Department Care Team (Latest Contact Info) Description 09/05/2001 Outpatient Historical [facility] Thuan Lovett, Rickey Torres MD [address] [place] [phone] Routine medical exam (Primary Dx) Social History Tobacco Use Types Packs/Day Years Used Date Smoking Tobacco: Never Assessed Comments Unknown Sex and Gender Information Value Date Recorded Sex Assigned at Not on file 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
--- OUTSIDE RECORDS SUMMARY | 2025-06-11 11:06 | XMS_ITS | Encounter Summary ---
Author Organization [facility] Address [address] [place] [address] Care Team Providers Care Dispenser Operator Name Role Phone Unavailable Primary Care Provider Unavailabl e Encounter Details Date Type Department Care Team (Latest Contact Info) Description 03/18/2000 Outpatient Historical [facility] Thuan Lovett, [place] [address] [place] [phone] Other follow-up examination(V67.59) (Primary Dx) Social History Tobacco Use Types Packs/Day Years Used Date Smoking Tobacco: Never Assessed Comments Unknown Sex and Gender Information Value Date Recorded Sex Assigned at Not on file 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
--- OUTSIDE RECORDS SUMMARY | 2025-06-11 11:06 | XMS_ITS | Encounter Summary ---
[facility] Organization [facility] Address [address] [place] [address] Care Team Providers Care Cigar Bander Hand Name Role Phone Unavailable Primary Care Provider Unavailabl e Encounter Details Date Type Department Care Team (Latest Contact Info) Description 01/22/2001 Outpatient Historical [facility] Thuan Lovett, Rickey Torres MD [address] [place] [phone] Chest pain, unspecified (Primary Dx) Social History Tobacco Use Types Packs/Day Years Used Date Smoking Tobacco: Never Assessed Comments Unknown Sex and Gender Information Value Date Recorded Sex Assigned at Not on file 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
--- OUTSIDE RECORDS SUMMARY | 2025-06-11 11:06 | XMS_ITS | Encounter Summary ---
Author Organization [facility] Address [address] [place] [address] Care Team Providers Care System Designer Name Role Phone Unavailable Primary Care Provider Unavailabl e Encounter Details Date Type Department Care Team (Latest Contact Info) Description 02/21/2001 Outpatient Historical [facility] Thuan Lovett, Rickey Torres MD [address] [place] [phone] Chest pain, unspecified (Primary Dx); Generalized anxiety disorder Social History Tobacco Use Types Packs/Day Years Used Date Smoking Tobacco: Never Assessed Comments Unknown Sex and Gender Information Value Date Recorded Sex Assigned at Not on file 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
--- OUTSIDE RECORDS SUMMARY | 2025-06-11 11:06 | XMS_ITS | Encounter Summary ---
Author Organization [facility] Address [address] [place] [address] Care Team Providers Care Metal Machine Setter Name Role Phone Unavailable Primary Care Provider Unavailabl e Encounter Details Date Type Department Care Team (Latest Contact Info) Description 12/22/2001 Outpatient Historical [facility] Thuan Lovett, Rickey Torres MD [address] [place] [phone] GENERALIZED ANXIETY DIS (Primary Dx); Uterine prolapse Social History Tobacco Use Types Packs/Day Years Used Date Smoking Tobacco: Never Assessed Comments Unknown Sex and Gender Information Value Date Recorded Sex Assigned at Not on file Legal Sex Female 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
--- OUTSIDE RECORDS SUMMARY | 2025-06-11 11:06 | XMS_ITS | Encounter Summary ---
Author Organization [facility] Address [address] [place] [address] Care Team Providers Care Auxiliary Equipment Tender Name Role Phone Unavailable Primary Care Provider Unavailabl e Encounter Details Date Type Department Care Team (Latest Contact Info) Description 12/25/2000 Outpatient Historical [facility] Thuan Lovett, Rickey Torres MD [address] [place] [phone] Candidiasis of vulva and vagina (Primary Dx); Other specified menopausal and postmenopausal disorder; Irregular menstruation Social History Tobacco Use Types Packs/Day Years Used Date Smoking Tobacco: Never Assessed Comments Unknown Sex and Gender Information Value Date Recorded Sex Assigned at Not on file 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
--- OUTSIDE RECORDS SUMMARY | 2025-06-11 11:06 | XMS_ITS | Encounter Summary ---
Author Organization [facility] Address [address] [place] [address] Care Team Providers Care Crisis Counselor Name Role Phone Unavailable Primary Care Provider Unavailabl e Encounter Details Date Type Department Care Team (Latest Contact Info) Description 07/27/2002 Outpatient Historical [facility] Thuan Lovett, Rickey Torres MD [address] [place] [phone] OSTEOARTHROS NOS-UNSPEC (Primary Dx); VAGINITIS NOS; SCREENING FOR INFEC DIS NOS Social History Tobacco Use Types Packs/Day Years Used Date Smoking Tobacco: Never Assessed Comments Unknown Sex and Gender Information Value Date Recorded Sex Assigned at Not on file Legal Sex Female 3:13 AM DIRECTOR OF SUPPLY CHAIN Gender Identity Not on file Sexual Orientation Not on file documented as of this encounter Plan of Treatment Not on file documented as of this encounter Visit Diagnoses Diagnosis Osteoarthrosis, unspecified whether generalized or localized, unspecified site- Primary Vaginitis and vulvovaginitis, unspecified Screening examination for unspecified infectious disease documented in this encounter
--- OUTSIDE RECORDS SUMMARY | 2025-06-11 11:06 | XMS_ITS | Encounter Summary ---
Author Organization [facility] Address [address] [place] [address] Care Team Providers Care Last Remodeler Repairer Name Role Phone Unavailable Primary Care Provider Unavailabl e Encounter Details Date Type Department Care Team (Latest Contact Info) Description 08/30/2000 Outpatient Historical [facility] Rickey Laroes Jr., MD [address] [place] [phone] Gynecologic examination (Primary Dx); Screening [...] on file Legal Sex Female 3:13 AM CARAMEL MAKER Gender Identity Not on file Sexual [...]
--- OUTSIDE RECORDS SUMMARY | 2025-06-11 11:06 | XMS_ITS | Encounter Summary ---
Author Organization [facility] Address [address] [place] [address] Care Team Providers Care Cloth Shrinking Supervisor Name Role Phone Unavailable Primary Care Provider Unavailabl e Encounter Details Date Type Department Care Team (Latest Contact Info) Description 08/29/2001 Outpatient Historical [facility] Thuan Lovett, Rickey Torres MD [address] [place] [phone] Routine medical exam (Primary Dx) Social History Tobacco Use Types Packs/Day Years Used Date Smoking Tobacco: Never Assessed Comments Unknown Sex and Gender Information Value Date Recorded Sex Assigned at Not on file Legal Sex Female 3:[address] M[address]INE OPERATOR Gender Identity Not on file Sexual Orientation Not on file documented as of this encounter Plan of Treatment Not on file documented as of this encounter Visit Diagnoses Diagnosis Routine medical exam- Primary Routine general medical examination at a health care facility documented in this encounter
--- OUTSIDE RECORDS SUMMARY | 2025-06-11 11:06 | XMS_ITS | Data Portability ---
Author Organization FILIBERTO - Maurizio Crane [facility] Jerald Sultana [facility] Address [address] [place] [address] Assessment Encounter Date Assessment Date Assessment LastModified by Organization Details LastModified Time 05/11/2025 05/11/2025 Patient presents with symptoms of UTI. Results of dipstick were for UTI. Advised to drink clear fluids, Tylenol for pain and take prescribed medications as instructed. Patient encouraged to follow up within 1 week if not improving. petra Not available 05/11/2025 14:16:59 06/01/2025 06/01/2025 She is here today with her son. She has some confusion. She reports Glenny came out yesterday. She didn't get sent home on antibiotics when she was in the hospital. She is not sure how she got the scratches on her arm but her son reports she does have a cat. He was wondering about hospice but at this time she has a referral going for home health with therapies so will change her follow-up with Dr. Cooper to sooner to discuss continued care. Peter has not gotten information to complete the referral for home health. Will add referral today following this [id number] encounter. She needs home health to help with weakness that she is having. She requires physical and occupational therapy following her recent admission. Her dementia causes some confusion as to what was done/said and what needs to be done. Not available 06/01/2025 13:54:54 Plan of Treatment Reminders Order Date Submit Date Provider Last Modified By Organization Details Last Modified Time Details Appointments RECHECK 15 2024 10:00A M Farhad Cooper MD Not available Not available Not available Lab urinalysi s, complete 2024 025 [place] [facility], [address] [facility], [address], [place], [address], 06/01/2025 12:27:18 culture, urine 2024 025 [employer] [facility], [address] [place] [address], [address], [place], [address], 06/02/2025 22:50:18 urinalysi s, complete 2024 025 Counts include 234 beds at the [facility], [address], [address], [place], [address], 05/12/2025 16:21:55 culture, urine 2024 025 [employer] [facility], [address] [place] [address], [address], [place], [address], 05/14/2025 13:50:16 Referral None recorded. Procedures None recorded. Surgeries None recorded. Imaging XR, chest, 2 view 2024 025 [facility] ([facility]), [address] [place], [address], 06/01/2025 14:01:47 Medication Orders mupirocin 2 % topical ointment [address] [id number], [address], [place], [place], [id number], 06/01/2025 10:56:59 lorazepam 0.5 mg tablet 2024 025 [place] [id number], [address], [place], [place], [id number], 02/01/2025 17:00:26 Patient TargetsNo targets recorded. Patient Instructions Encounter Date Encounter Id Patient Instructions Last Modified By Organization Details Last Modified Time 06/01/2025 [id number] hospital discharge follow up* Not available 06/01/2025 10:57:33 Call or return for questions or concerns. Not available 06/01/2025 10:47:52 Reason for Referral None Reported. Results Created Date Observation Date Name Description Value Unit Range Abnormal Flag Note LastModifiedBy Organization Detail LastModifiedTime 05/12/2005/12/2025 URINA LYSIS WITH MICRO color YELLOW Not Available [facility] [address], [place], [address], 05/12/2025 16:21:55 05/12/20 25 05/12/2025 URINA LYSIS WITH MICRO clarity CLOUDY Not Available [facility] [address], [place], [address], 05/12/2025 16:21:55 05/12/20 25 05/12/2025 URINA LYSIS WITH MICRO glu NEGATI VE Not Available [facility] [address], [place], [address], 05/12/2025 16:21:55 05/12/20 25 05/12/2025 URINA LYSIS WITH MICRO bili NEGATI VE Not Available [facility] [address], [place], [address], 05/12/2025 16:21:55 05/12/2005/12/2025 URINA LYSIS WITH MICRO ket TRACE abnormal Not Available [facility] [address], [place], [address], 05/12/2025 16:21:55 05/12/2005/12/2025 URINA LYSIS WITH MICRO S.g 1.020 Not Available [facility] [address], [place], [address], 05/12/2025 16:21:55 05/12/20 25 05/12/2025 URINA LYSIS WITH MICRO pH 7.0 Not Available [facility] [address] [facility] [address], [place], [address], 05/12/2025 16:21:55 05/12/20 25 05/12/2025 URINA LYSIS WITH MICRO pro 2+ abnormal Not Available [facility] [address] [facility] [address], [place], [address], 05/12/2025 16:21:55 05/12/20 25 05/12/2025 URINA LYSIS WITH MICRO uro 1.0 E.U./D L Not Available [facility] [address] [facility] [address], [place], [address], 05/12/2025 16:21:55 05/12/20 25 05/12/2025 URINA LYSIS WITH MICRO nit POSITI VE Not Available [facility] [address] [facility] [address], [place], [address], 05/12/2025 16:21:55 05/12/20 25 05/12/2025 URINA LYSIS WITH MICRO blo 1+ abnormal Not Available [facility] [address] [facility] [address], [place], [address], 05/12/2025 16:21:55 05/12/20 25 05/12/2025 URINA LYSIS WITH MICRO ozzie 3+ abnormal Not Available [facility] [address] [facility] [address], [place], [address], 05/12/2025 16:21:55 05/12/20 25 05/12/2025 URINA LYSIS WITH MICRO WBC 60-80 abnormal Not Available [facility] [address] [facility] [address], [place], [address], 05/12/2025 16:21:55 05/12/20 25 05/12/2025 URINA LYSIS WITH MICRO RBC 6-8 Not Available [facility] [address] [facility] [address], [place], [address], 05/12/2025 16:21:55 05/12/20 25 05/12/2025 URINA LYSIS WITH MICRO epi cells NEGATI VE Not Available [facility] [address] [facility] [address], [place], [address], 05/12/2025 16:21:55 05/12/20 25 05/12/2025 URINA LYSIS WITH MICRO bacteria 3+++ BACTER IA abnormal Not Available [facility] [address] [facility] [address], [place], [address], 05/12/2025 16:21:55 05/12/20 25 05/12/2025 URINA LYSIS WITH MICRO other 1+ AMORPH OUS abnormal Not Available [facility] [address] [facility] [address], [place], [address], 05/12/2025 16:21:55 05/12/20 25 05/14/2025 CULTU RE, URINE , ROUTI NE culture, urine, routine SEE NOTE abnormal CULTU RE, URINE , ROUTI NE Micro Numbe r: [id number] Test Statu s: Final Speci men Sourc e: Urine Speci men Quali ty: Adequ ate Resul t: Great er than 100,0 00 CFU/m L of Esche christopher a coli E.col i ----- ----- ----- - INT YUMIKO AMOX/ CLAVU LANAT E R >=32 AMP/S ULBAC LOPEZ R >=32 CEFAZ SADIE R >=32 CEFEP SANTOS R 16 CEFTA ZIDIM E R >=32 CEFTR IAXON E R >=64 CIPRO FLOXA LAVELL R >=4 GENTA MICIN R >=16 IMIPE NEM S <=0.2 5 LEVOF LOXAC IN R >=8 MEROP ENEM S <=0.2 5 NITRO FURAN TOIN R 128 PIP/T AZOBA CTAM S <=4 TRIME THOPR IM/FRANK LFA S <=20 S = Susce ptibl e I = Inter media te R = Resis tant NS = Not susce ptibl e SDD = Susce ptibl e Dose Depen dent * = Not Teste d NR = Not Repor adrianne NN = See Thera py Comme nts Not Available [facility] [address] , [place], [address], 05/14/2025 13:50:16 06/01/2006/01/2025 URINA LYSIS WITH MICRO color YELLOW Not Available [facility] [address], [place], [address], 06/01/2025 12:27:18 06/01/20 25 06/01/2025 URINA LYSIS WITH MICRO clarity CLEAR Not Available [facility] [address] [facility] 1, [place], [address], 06/01/2025 12:27:18 06/01/2006/01/2025 URINA LYSIS WITH MICRO glu NEGATI VE Not Available [facility] [address] [facility], [place], [address], 06/01/2025 12:27:18 06/01/20 25 06/01/2025 URINA LYSIS WITH MICRO bili NEGATI VE Not Available [facility] [address] [facility] 1, [place], [address], 06/01/2025 12:27:18 06/01/20 25 06/01/2025 URINA LYSIS WITH MICRO ket NEGATI VE Not Available [facility] [address] [facility] 1, [place], [address], 06/01/2025 12:27:18 06/01/20 25 06/01/2025 URINA LYSIS WITH MICRO S.g 1.025 1.005- 1.025 Not Available [facility] [address] [facility] 1, [place], [address], 06/01/2025 12:27:18 06/01/20 25 06/01/2025 URINA LYSIS WITH MICRO pH 7.0 5.0-7. 0 Not Available [facility] [address], [place], [address], 06/01/2025 12:27:18 06/01/20 25 06/01/2025 URINA LYSIS WITH MICRO pro 1+ Not Available [facility] [address], [place], [address], 06/01/2025 12:27:18 06/01/20 25 06/01/2025 URINA LYSIS WITH MICRO uro 0.2 E.U./D L Not Available [facility] [address], [place], [address], 06/01/2025 12:27:18 06/01/20 25 06/01/2025 URINA LYSIS WITH MICRO nit NEGATI VE Not Available [facility] [address], [place], [address], 06/01/2025 12:27:18 06/01/20 25 06/01/2025 URINA LYSIS WITH MICRO blo NEGATI VE Not Available [facility] [address], [place], [address], 06/01/2025 12:27:18 06/01/20 25 06/01/2025 URINA LYSIS WITH MICRO ozzie NEGATI VE Not Available [facility] [address], [place], [address], 06/01/2025 12:27:18 06/01/20 25 06/01/2025 URINA LYSIS WITH MICRO WBC 4-6 abnormal Not Available [facility] [address], [place], [address], 06/01/2025 12:27:18 06/01/20 25 06/01/2025 URINA LYSIS WITH MICRO RBC 6-8 abnormal Not Available [facility] [address] [facility] [address], [place], [address], 06/01/2025 12:27:18 06/01/20 25 06/01/2025 URINA LYSIS WITH MICRO epi cells 3-4 abnormal Not Available [facility] [address] [facility], [place], [address], 06/01/2025 12:27:18 06/01/20 25 06/01/2025 URINA LYSIS WITH MICRO bacteria TRACE OF MIXED ALVARO abnormal Not Available [facility] [address] [facility] 1, [place], [address], 06/01/2025 12:27:18 06/01/20 25 06/01/2025 URINA LYSIS WITH MICRO other NEG Not Available [facility] [address] [facility] 1, [place], [address], 06/01/2025 12:27:18 06/01/20 25 06/02/2025 CULTU RE, URINE , ROUTI NE culture, urine, routine SEE NOTE CULTU RE, URINE , ROUTI NE Micro Numbe r: [id number] Test Statu s: Final Speci men Sourc e: Urine , clean catch Speci men Quali ty: Adequ ate Resul t: No Growt h Not Available [facility] [address], [place], [address], 06/02/2025 22:50:18 06/01/2006/01/2025 hospi martha disch melissae mattie w up* Records Reviewed Yes Not Available [facility] ( [facility]) [address] [place], [address], 06/01/2025 10:57:23 06/01/20 25 06/01/2025 hospi martha disch maren quezadao w up* Medications Reconciles Yes Not Available [facility] ([facility]) [address] [place], [address], 06/01/2025 10:57:23 06/01/20 XR, chest , 2 view No observ ation record ed. [email or web address] [facility] ([facility]) [address] [place], [address], 06/01/2025 11:08:42 06/01/20 25 06/01/2025 XR, chest , 2 view No observ ation record ed. STACY [facility] ([facility]) [address] [place], [address], 06/01/2025 14:01:47 Result Notes None recorded. Problems Name Problem SNOMED Code Status Onset Date Resolution Date Notes Provider Name and Address Organization Details Recorded Time Generalized anxiety disorder 08599184 Active 2023 Farhad Cooper MD [address] [place] [address], [phone], [facility] Manuel 5 16:56:02 Palliative care Active 2023 Farhad Cooper MD [address] [place] [address], [address], [facility], [facility] Manuel 4 16:27:07 Acute urinary tract infection 917713552 Active 2023 Farhad Cooper MD [address] [place] [address], [address], [facility], [facility] Manuel 4 16:32:41 Multiple lacunar infarcts 695126533 Active 2024 Farhad Cooper MD [address] [place] [address], [address], [facility], [facility]ictor Manuel 5 16:55:39 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 Procedures Surgical History Date Name Laterality Status Provider Name and Address Organization Details Recorded Time 05/22/2025 plain [facility] 06/01/[facility]25 10:17:31 Imaging Results None recorded. Procedure Notes None recorded. Medical Equipment None Reported. Allergies Allergen ID Allergen Name Allergen Category Reaction Reaction Severity Criticality Documentation Date Start Date Code Code System Note Provider Name and Address Organization Details Recorded Time 47998 cephalexi n monohydra te medicatio n Not available Not available Not available 04/13/2023 74260 8 RxNorm LEWIS NADIR [facility], ArlynLJean Paul 10:30:43 Medications Name Sig Start Date Stop Date Status Note LastModified by Organization Details LastModified Time atorvastati n 40 mg tablet Take 1 tablet every day by oral route. active Not Available Not Available No t Available prednisone 20 mg tablet TAKE 1 TABLET BY MOUTH ONCE DAILY 02/01 completed Not Available Not Available Not Available spironolact one 25 mg tablet TAKE 1 TABLET BY MOUTH TWICE DAILY active Not Available Not Available No t Available lorazepam 0.5 mg tablet 1 tablet bid prn 2024 active Not Available Not Available Not Avai lable nitrofurant oin macrocrysta l 100 mg capsule Take 1 capsule twice a day by oral route for 10 days. 05/14 completed new abd sent in. BN Not Available Not Available Not Available buspirone 10 mg tablet Take 1 tablet twice a day by oral route for 30 days. 02/01 completed Not Available Not Available Not Available docusate sodium 100 mg capsule TAKE 1 CAPSULE BY MOUTH TWICE DAILY FOR CONSTIPAT ION active Not Available Not Available No t Available mupirocin 2 % topical ointment APPLY A SMALL AMOUNT TO THE AFFECTED AREA BY TOPICAL ROUTE 3 TIMES PER DAY 2024 active Not Available Not Available Not Avai lable mirtazapine 15 mg tablet TAKE 1 TABLET BY MOUTH ONCE DAILY IN THE EVENING FOR 15 DAYS 02/01 completed Not Available Not Available Not Available Bactrim DS 800 mg-160 mg tablet Take 1 tablet twice a day by oral route for 7 days. 05/28 completed Not Available Not Available Not Available rosuvastati n 10 mg tablet TAKE 1 TABLET BY MOUTH ONCE DAILY AT BEDTIME 02/01 completed Not Available Not Available Not Available nitrofurant oin monohydrate /macrocryst als 100 mg capsule Take 1 capsule every 12 hours by oral route for 7 days. 02/01 completed Not Available Not Available Not Available aspirin daily active Not Available Not Avail able Not Available cholecalcif feng (vitamin D3) 1,250 mcg (50,000 unit) capsule TAKE 1 CAPSULE BY MOUTH ONCE A WEEK 02/01 completed Not Available Not Available Not Available Vitals Date Recorded Body weight Oxygen saturation Oxygen saturation in Arterial blood by Pulse oximetry Heart rate Systolic And Diastolic Provider Name and Address Organization Details Last Updated DateTime 11119.0 5 g 92 % 92 % 114 /min 94/60 mm[Hg] ROMAN MINOR [facility] 15:45:44 Date Recorded Body weight Heart rate Systolic And Diastolic Provider Name and Address Organization Details Last Updated DateTime 04/12/2025 52427.45 g 80 /min 100/70 mm[Hg] SALOME SAUCEDO [facility] 04/12/2025 14:17:27 Date Recorded Body weight Heart rate Systolic And Diastolic Provider Name and Address Organization Details Last Updated DateTime 05/11/2025 43253.01 g 84 /min 120/80 mm[Hg] SALOME SAUCEDO [facility] 05/11/2025 14:21:57 Date Recorded Body weight Oxygen saturation Oxygen saturation in Arterial blood by Pulse oximetry Heart rate Respiratory rate Systolic And Diastolic Provider Name and Address Organization Details Last Updated DateTime 5 12395.8 6 g 96 % 96 % 104 /min 18 /min 96/62 mm[Hg] LEWIS SCHMITZ [facility] 5 10:25:50 Social History Question Answer Notes LastModified by Organizat ion Details LastModified Time Tobacco Smoking Status Never Smoker SALOME SAUCEDO scott [facility] 04/12/2025 14:20:29 What Was The Date Of Your Most Recent Tobacco Screening? 05/11/2025 Information not available 05/11/2025 Sex: Unknown Functional Status Question Answer Note LastModified by Organization D etails LastModified Time What is your level of alcohol consumption? None Information not available 04/12/2025 Mental Status None recorded. Family History Relationship Description Onset Age of this Age Resolved Age Notes LastModified by Organization Details LastModified Time Mother Malignant neoplastic disease [email or web address] Not available 04/12 14:19:10 Father Heart disease [email or web address] Not available 04/12 14:19:38 Medical History No medical history recorded. Gynecological HistoryNo gynecological history recorded. Obstetrics History GPAL:G 0 P 0 0 0 0 Immunizations Vaccine Type Date Status Note Provider Nam e and Address Organization Details Recorded Time COVID-19, mRNA, LNP-S, PF, 100 mcg/0.5mL dose or 50 mcg/0.25mL dose 1 completed Not Available [facility] 06/01/2025 09:55:14 COVID-19, mRNA, LNP-S, PF, 100 mcg/0.5mL dose or 50 mcg/0.25mL dose 1 completed Not Available [facility] 06/01/2025 09:55:14 pneumococcal polysaccharide PPV23 1 completed Not Available [facility] 06/01/2025 09:55:14 Influenza, high-dose, quadrivalent, PF 1 completed Not Available [facility] 06/01/2025 09:55:14 Tdap 2 completed Not Available [facility] 06/01/2025 09:55:14 Influenza, split virus, quadrivalent, PF 2 completed Not Available [facility] 06/01/2025 09:55:14 Influenza, split virus, trivalent, PF 4 completed Not Available [facility] 06/01/2025 09:55:14 Pneumococcal conjugate PCV20, polysaccharide EOX362 conjugate, adjuvant, PF 4 completed Not Available [facility] 06/01/2025 09:55:14 Past Encounters Encounter ID Performer Location Encounter Start Date Encounter Closed Date Diagnosis/Indication Diagnosis SNOMED-CT Code Diagnosis ICD10 Code Diagnosis IMO Codes Diagnosis Note [id number] Farhad Cooper MD [facility] [address] [place], [place] [address] 02/01/2025 15:32:11 02/03/2025 08:23:26 Multiple lacunar infarcts 192851069 I63.81 26256104 Senile dementia 59498509 F03.90 85611 Generalize d anxiety disorder 58812933 F41.1 666459 [id number] Farhad Cooper MD [facility] ([facility]) [address] [place] [phone] 04/12/2025 14:09:13 04/12/2025 14:48:14 Senile dementia 92210445 F03.90 74944 slow decline. Continue on hospice palliative care. Generalize d anxiety disorder 68523514 F41.1 083442 Multiple l acunar infarcts 316347778 I63.81 74240954 [id number] Farhad Cooper MD [facility] ([facility]) [address] [place] [phone] 05/11/2025 14:01:36 05/11/2025 15:08:26 Senile dementia 61067263 F03.90 42261 slow decline. Continue on hospice palliative care. Aggressive behavior 6137 2000 R46.89 736477 worry about a UTI with her dementia. [id number] MIKE BERMAN [facility] ([facility]) [address] [place] [phone] 06/01/2025 09:54:58 06/01/2025 11:28:15 Urinary tract infectious disease 11441887 N39.0 79870794 History of pneumonia 161 405142 Z87.01 492523 Recently hospitaliz ed with pneumonia. History of seizure 23779 65824 Z87.898 41914593 Lorazepam PRN. Abrasion a nd/or friction burn of skin 457173978 T14.8XXA 140669 Right arm with scratches. History of head injury 643741390 Z87.800 2922018 Health Concerns Section Related Observation LastModified by Organization Detai ls LastModified Time None Recorded Concern Status LastModified by Organization Details LastModified Time None Recorded Advance Directives Directive None Recorded Payers Insurance Date Sequence Insurance Name Policy Number Policy Barros Covered Member ID Barros Member ID Guarantor Name 05/31/2025 [place] [facility] ([facility] L) Laurie HeartThis Fine [id number] Laurie HeartThis Ken 05/31/2025 2 [place] Laurie K Fine [id number] Laurie HeartThis Ken 05/31/2025 1 [place]A DV[place] - PPO) [id number] Laurie K Ken [id number] Laurie K Ken Notes Date Note Type Note Provider Name and Address Organization Details Recorded Time 5 text/html HyperlipidemiaReported by PatientHPIFor duration, patient reportschronic. For control, patient reportsusually well controlled. For adherence to treatment plan, patient reportstakes medications as prescribed. Son said that she had some tests and lab work done at the hospital recently. Dr. Flores ordered these tests. Farhad Cooper MD [address] [place] [address], [phone], [facility] 02/01/2025 17:01:36 5 text/html Lower Urinary Tract Symptoms (LUTS)Reported by PatientHPIFor associated symptoms, patient reportsurine odorbut reportsno abdominal pain,no groin pain,no pelvic pain,no flank pain,no low back pain,no chills, andno fever. Farhad Cooper MD [address] [place] [address], [address], [facility] 05/11/2025 14:50:55 OBGyn Episode No OBEpisode recorded.
--- OUTSIDE RECORDS SUMMARY | 2025-06-11 11:06 | XMS_ITS | Encounter Summary ---
Author Organization [facility] Address [address] Attn: [place] [address] Care Team Providers Care Director Adult Name Role Phone Unavailable Primary Care Provider Unavailabl e Encounter Details Date Type Department Care Team (Late st Contact Info) Description 09/02/2000 Outpatient Historical Thuan Lovett, Rickey Torres MD [address] [place] [address] Social History Tobacco Use Types Packs/Day Years Used Date Smoking Tobacco: Never Assessed Comments Unknown Sex and Gender Information Value Date Recorded Sex Assigned at Not on file Legal Sex Female 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
--- OUTSIDE RECORDS SUMMARY | 2025-06-11 11:06 | XMS_ITS | Encounter Summary ---
Author Organization [facility] Address [address] [place] [address] Care Team Providers Care Administrative Secretary Name Role Phone Unavailable Primary Care Provider Unavailabl e Encounter Details Date Type Department Care Team (Latest Contact Info) Description 08/21/2002 Outpatient Historical [facility] Thuan Lovett, Rickey Torres MD [address] [place] [phone] GENERALIZED ANXIETY DIS (Primary Dx) Social History Tobacco Use Types Packs/Day Years Used Date Smoking Tobacco: Never Assessed Comments Unknown Sex and Gender Information Value Date Recorded Sex Assigned at Not on file Legal Sex Female 3: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
--- OUTSIDE RECORDS SUMMARY | 2025-06-11 11:06 | XMS_ITS | Encounter Summary ---
Author Organization [facility] Address [address] [place] [address] Care Team Providers Care Service Car Driver Name Role Phone Unavailable Primary Care Provider Unavailabl e Encounter Details Date Type Department Care Team (Latest Contact Info) Description 07/22/2002 Outpatient Historical [facility] Thuan Lovett, Rickey Torres MD [address] [place] [address] VAGINITIS NOS (Primary Dx); VACCINE FOR STREP PNEUMONIAE Social History Tobacco Use Types Packs/Day Years Used Date Smoking Tobacco: Never Assessed Comments Unknown Sex and Gender Information Value Date Recorded Sex Assigned at Not on file 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
--- OUTSIDE RECORDS SUMMARY | 2025-06-11 11:06 | XMS_ITS | Encounter Summary ---
Author Organization [facility] Address [address] [place] [address] Care Team Providers Care Growth Hacker Name Role Phone Unavailable Primary Care Provider Unavailabl e Encounter Details Date Type Department Care Team (Late st Contact Info) Description 07/22/2002 Outpatient Historical [facility] Thuan Lovett, Rickey Torres MD [address] [place] [id number] Social History Tobacco Use Types Packs/Day Years Used Date Smoking Tobacco: Never Assessed Comments Unknown Sex and Gender Information Value Date Recorded Sex Assigned at Not on file 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
--- NOTE | 2025-06-11 11:07 | W.ED.CHESTPA ---
HPI - Chest Pain General: Chief Complaint: Chest Pain Stated Complaint: cp - SOB Time Seen by Provider: 06/11/25 11:01 History of Present Illness: 70-year-old female with history of dementia, diverticulosis, stroke, who presents the emergency room by ambulance after having a complaint of chest pain. Apparently she had a left central chest pain that has since resolved. She is currently asymptomatic. Related Data Home Medications ?Medication ?Instructions ?Recorded ?Confirmed lorazepam 0.5 mg tablet 0.5 mg PO TID 05/22/25 06/11/25 mupirocin 2 % topical ointment 1 applic topical TID PRN skin 06/11/25 06/11/25 infection Previous Rx's ?Medication ?Instructions ?Recorded aspirin 81 mg tablet,delayed 81 mg PO DAILY #30 tabs 05/13/24 release hospital bed #1 ea 06/16/24 spironolactone 25 mg tablet 25 mg PO BID #60 tabs 08/03/24 atorvastatin 40 mg tablet 40 mg PO QPM #90 tabs 08/21/24 lorazepam 0.5 mg tablet 0.5 mg PO TID #10 tabs 05/26/25 Allergies Allergy/AdvReac Type Severity Reaction Status Date / Time cephalexin (From Keflex) Allergy ALGY-Difficulty Verified 01/20/25 16:09 Swallowing Review of Systems Narrative: Constitutional symptoms: Negative except as documented in HPI. Skin symptoms: Negative except as documented in HPI. Eye symptoms: Negative except as documented in HPI. ENMT symptoms: Negative except as documented in HPI. Respiratory symptoms: Negative except as documented in HPI. Cardiovascular symptoms: Negative except as documented in HPI. Gastrointestinal symptoms: Negative except as documented in HPI. Genitourinary symptoms: Negative except as documented in HPI. Musculoskeletal symptoms: Negative except as documented in HPI. Neurologic symptoms: Negative except as documented in HPI. Psychiatric symptoms: Negative except as documented in HPI. Endocrine symptoms: Negative except as documented in HPI. 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 Polyuria Urgency incontinence POP-Q stage 2 cystocele Surgical History History of hysterectomy Hx of cataract surgery BILATERAL Family History Other CAD (coronary artery disease) Cancer Hypertension Social History Smoking and tobacco/nicotine status: never used tobacco/nicotine Alcohol intake: never Substance/Drug Use: never Adopted: No Caregiver/support person: No Lives independently: Yes Marital status: Number of children: 3 Number of grandchildren: 11 Current occupational status: retired Current occupation: disabled 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 Skin: Warm, dry. Head: Normocephalic, atraumatic. Neck: Supple, trachea midline. Eye: Extraocular movements are intact. Ears, nose, mouth and throat: mucosa moist. Cardiovascular: Regular, Normal peripheral perfusion. Respiratory: Lungs are clear to auscultation, respirations are non-labored, breath sounds are equal, Symmetrical chest wall expansion. Gastrointestinal: Soft, Nontender, Non distended Musculoskeletal: Normal ROM, no deformity. Neurological: Alert and oriented, No focal neurological deficit observed. Psychiatric: Cooperative, appropriate mood & affect. Course Vital Signs: Vital signs: Vital Signs Temperature 97.7 F 06/11/25 11:01 Pulse Rate 71 06/11/25 13:30 Respiratory Rate 18 06/11/25 11:28 Blood Pressure 101/63 06/11/25 12:14 Pulse Oximetry 98 06/11/25 13:30 Oxygen Delivery Me thod Room Air 06/11/25 13:30 MDM - Chest Pain Medical Decision Making Differential diagnosis for patient with chest pain includes but is not limited to and based on the above HPI, review of systems and physical exam: Pneumonia. unstable angina. angina. Acute coronary syndrome / AK. Pulmonary embolism. Costochondritis / musculoskeletal. Pleurisy. Pericarditis. Esophageal spasm. Pancreatis. Cholecystitis. Orders placed to evaluate differential diagnosis based on the above differential, HPI and physical exam EKG: Time 11:02 AM. Rate 87. Normal sinus rhythm, No ST-T changes, no ectopy, normal ID & QRS intervals, This was reviewed and interpreted by myself the ER physician at 11:06 AM Chest x-ray: No acute process. No infiltrate. No pneumothorax. This was reviewed and interpreted by myself the emergency room physician. I also reviewed the radiology report. Lab Review: Laboratory results were reviewed and interpreted by myself the emergency room physician. No leukocytosis. No anemia. No renal failure. Serial cardiac markers are negative. Urinalysis is negative for infection. I reviewed the patient's medical record. Reexamination: Patient remained stable. No increased work of breathing. No altered mental status. No focal motor deficits. No further chest pain Assessment and plan: Noncardiac chest pain - Discharged home - Discussed plan with patient. Answered any questions. - Evaluation and treatment of this problem were appropriate in the emergency setting. Lab Data 06/11/25 11:09 06/11/25 11:09 Radiology Impressions Chest X-Ray 06/11/25 11:04 IMPRESSION: 1. Negative chest. Laboratory Results WBC 7.12 10^3/uL (3.29-11.43) 06/11/25 11:09 RBC 3.66 10^6/uL (3.85-5.65) L 06/11/25 11:09 Hgb 12.20 g/dL (11.27-16.99) 06/11/25 11:09 Hct 36.2 % (36-47) 06/11/25 11:09 MCV 98.9 fl (85-98) H 06/11/25 11:09 MCH 33.3 pg (27-33) H 06/11/25 11:09 MCHC 33.7 g/dL (30-55) 06/11/25 11:09 RDW 13.9 % (12.1-15.1) 06/11/25 11:09 Plt Count 364 10^3/cmm (157-399) 06/11/25 11:09 MPV 10.3 fL (7.4-10.4) 06/11/25 11:09 Neut % (Auto) 56.5 % 06/11/25 11:09 Lymph % (Auto) 35.4 % 06/11/25 11:09 [place] % (Auto) 5.6 % 06/11/25 11:09 Eos % (Auto) 1.8 % 06/11/25 11:09 Baso % (Auto) 0.6 % 06/11/25 11:09 Neut # (Auto) 4.02 10^3/uL (1.8-7.7) 06/11/25 11:09 Lymph # (Auto) 2.5 10^3/uL (0.8-4.8) 06/11/25 11:09 [place] # (Auto) 0.4 10^3/uL (0.2-0.9) 06/11/25 11:09 Eos # (Auto) 0.1 10^3/uL (0.0-0.8) 06/11/25 11:09 Baso # (Auto) 0.0 10^3/uL (0.0-0.1) 06/11/25 11:09 Nucleated RBC % (auto) 0 % 06/11/25 11:09 Nucleated RBCs # 0.0 /100WBC 06/11/25 11:09 Sodium 139 mmol/L (136-145) 06/11/25 11:09 Potassium 3.9 mmol/L (3.5-5.1) 06/11/25 11:09 Chloride 102 mmol/L (98-107) 06/11/25 11:09 Carbon Dioxide 28 mmol/L (22-29) 06/11/25 11:09 Anion Gap 12.9 (5-19) 06/11/25 11:09 BUN 11 mg/dL (8-23) 06/11/25 11:09 Creatinine 0.8 mg/dL (0.5-0.9) 06/11/25 11:09 GFR Calculation 70.9 mL/min (90-130) L 06/11/25 11:09 Glucose 104 mg/dL (65-115) 06/11/25 11:09 Calculated Osmolality 288 mOsm/kg (285-295) 06/11/25 11:09 Calcium 10.1 mg/dL (8.5-10.5) 06/11/25 11:09 Total Bilirubin 0.5 mg/dL (0.15-1.2) 06/11/25 11:09 AST 12 U/L (0-32) 06/11/25 11:09 ALT 9 U/L (0-33) 06/11/25 11:09 Alkaline Phosphatase 93 U/L (35-105) 06/11/25 11:09 Troponin T Baseline 15 ng/L (0-10) H 06/11/25 11:09 Troponin T 120 Minute 11.76 ng/L (0-10) H 06/11/25 13:00 Delta Troponin T -3.24 ABS# (0-10) L 06/11/25 13:00 NT-Pro-B Natriuret Pep 165 pg/mL (0-125) H 06/11/25 11:09 Total Protein 7.6 g/dL (6.6-8.7) 06/11/25 11:09 Albumin 4.0 g/dL (3.5-5.2) 06/11/25 11:09 Globulin 3.6 g/dL (1.3-4.6) 06/11/25 11:09 Urine Color Yellow (Yellow) 06/11/25 11:45 Urine Appearance Clear (CLEAR) 06/11/25 11:45 Urine pH 7.5 (5-7) 06/11/25 11:45 Ur Specific [place] 1.019 (1.005-1.030) 06/11/25 11:45 Urine Protein Trace (Negative) A 06/11/25 11:45 Urine Glucose (UA) Negative (Normal) 06/11/25 11:45 Urine Ketones Trace (Negative) 06/11/25 11:45 Urine Blood Negative (Negative) 06/11/25 11:45 Urine Nitrate Negative (Negative) 06/11/25 11:45 Urine Bilirubin Negative (Negative) 06/11/25 11:45 Urine Urobilinogen 1.0 mg/dL (Negative) 06/11/25 11:45 Ur Leukocyte Esterase Negative (Negative) 06/11/25 11:45 Urine RBC 0-2 /hpf (0-2) 06/11/25 11:45 Urine WBC 0-5 /hpf (0-5) 06/11/25 11:45 Ur Squamous Epith Cells 0-5 /hpf (0-5) 06/11/25 11:45 Amorphous Sediment Not Reportable 06/11/25 11:45 Urine Bacteria None seen /hpf (NONE) 06/11/25 11:45 Hyaline Casts 3.30 /lpf 06/11/25 11:45 All radiology interpretation(s) finalized by discharge Discharge Plan Discharge Patient Disposition: Home Clinical Impression: Non-cardiac chest pain Condition: Stable Prescriptions: No Action aspirin 81 mg tablet,delayed release (DR/EC) 81 mg PO DAILY Qty: 30 5RF (DME) hospital bed See Rx Instructions .Route .MEDSUPPLY Qty: 1 0RF Rx Instructions: As directed spironolactone 25 mg tablet 25 mg PO BID Qty: 60 2RF lorazepam 0.5 mg tablet 0.5 mg PO TID lorazepam 0.5 mg Tablet 0.5 mg PO TID Qty: 10 0RF atorvastatin 40 mg tablet 40 mg PO QPM Qty: 90 0RF mupirocin 2 % ointment 1 applic TOPICAL TID PRN (Reason: skin infection) Discharge Orders: Discharge ED (Routine); Ordered 06/11/25 Ordered By: Katya Link Referrals: Farhad Cooper MD [Primary Care Provider, Family Practice] Discharge Diet: Usual diet Discharge Activity: Increase activity as tolerated Patient Instructions: Noncardiac Chest Pain (ED), Opioid Safety, Pain Management, Patient Portal & Teodoro Instructions Activity Restrictions/Additional Instructions: Thank you for choosing [facility] for your healthcare needs today. You have been screened and evaluated and felt safe for discharge. Health conditions do change or evolve sometimes and as such it is important that you follow up with your Primary Doctor to be re checked, 3-5 days is a general good time frame for follow up. You are always welcome to return to the ED for re assessment if your symptoms are worsening or you have new concerns Print Language: Cymro Coding Level of Care Code ED Duplex Trimmer for Kwan Meehan
[2025-06-11 11:17] LABS: Hematocrit 36.2 % (36-47); Hemoglobin 12.20 g/dL (11.27-16.99); Mean Corpuscular HGB Conc 33.7 g/dL (30-55); Mean Corpuscular Hemoglobin 33.3 pg (27-33); Mean Corpuscular Volume 98.9 fl (85-98); Nucleated Red Blood Cells % 0 %; Platelet Count 364 10^3/cmm (157-399); Red Blood Count 3.66 10^6/uL (3.85-5.65); White Blood Count 7.12 10^3/uL (3.29-11.43)
[2025-06-11 11:28] VITALS: BP 100/66; PULSE 93; RESP 18; O2SAT 95
[2025-06-11 11:34] LABS: Troponin(5th) Baseline 15 ng/L (0-10)
--- NOTE | 2025-06-11 11:35 | PC.NURSE ---
Pt son christophermaxi phamery called wants ua wanted.
[2025-06-11 11:55] LABS: Alanine Aminotransferase 9 U/L (0-33); Albumin Level 4.0 g/dL (3.5-5.2); Alkaline Phosphatase 93 U/L (35-105); Anion Gap 12.9 (5-19); Aspartate Amino Transferase 12 U/L (0-32); Blood Urea Nitrogen 11 mg/dL (8-23); Calcium 10.1 mg/dL (8.5-10.5); Carbon Dioxide 28 mmol/L (22-29); Chloride 102 mmol/L (98-107); Creatinine Clr Calc Pharmacy 59.8066; Globulin 3.6 g/dL (1.3-4.6); Glucose 104 mg/dL (65-115); NT Pro B Type Natriuretic Pept 165 pg/mL (0-125); Osmolality Calculated 288 mOsm/kg (285-295); Potassium 3.9 mmol/L (3.5-5.1); Sodium 139 mmol/L (136-145); Total Protein 7.6 g/dL (6.6-8.7)
[2025-06-11 11:58] LABS: Glucose Urine UA Negative (Normal); Nitrate Urine Negative (Negative); Specific Gravity, Urine 1.019 (1.005-1.030)
[2025-06-11 12:14] VITALS: BP 101/63; PULSE 87; O2SAT 96
--- NOTE | 2025-06-11 13:04 | ECG_ITS ---
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
--- NOTE | 2025-06-11 13:14 | PC.PHAR ---
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
[2025-06-11 13:30] VITALS: PULSE 71; O2SAT 98
[2025-06-11 13:30] LABS: Troponin 5 2HR 11.76 ng/L (0-10)
[2025-06-11 13:35] LABS: Troponin 5 2HR Delta -3.24 ABS# (0-10)
[2025-06-11 15:00] VITALS: BP 108/76; PULSE 71; O2SAT 97
== END 2025-06-11 15:01 | disposition home or self-care (01) ==
PROVIDERS: Emergency Provider Emergency Medicine; PCP Family Medicine
DX: R07.89 Other chest pain (principal); Z79.82 Long term (current) use of aspirin
CPT/HCPCS: 71045; 80053; 81001; 83880; 84484; 85025; 93005; 96360; 99285; J7030